=== PATIENT | male | born 1955 | race Caucasian/White ===

== ENCOUNTER 2022-05-20 14:29 | Outpatient (RCR) | payer OTHER, SELFPAY ==
[2022-05-20] MEDS: ACETAMINOPHEN 325 MG TABLET 650 MG PO (15:17)
[2022-05-20] MEDS: FAMOTIDINE 20 MG TABLET PO (15:18)
[2022-05-20] MEDS: diphenhydrAMINE HCl CAP 25 MG CAPSULE PO (15:18)
[2022-05-20 15:22] VITALS: BP 136/62; PULSE 106; TEMP 37.2; O2SAT 97
[2022-05-20] MEDS: BEBTELOVIMAB 175 MG/2 ML VIAL IV PUSH (15:37)
[2022-05-20 16:25] VITALS: BP 126/60; PULSE 97; O2SAT 97
== END 2022-05-20 16:00 ==
LOC: AMCINF 14:29
PROVIDERS: PCP Family Medicine; Referring Provider Family Medicine; Visit Provider Internal Medicine Hematology & Oncology
DX: U07.1 COVID-19 (principal); I10 Essential (primary) hypertension; F89 Unspecified disorder of psychological development
CPT/HCPCS: A9270; M0222; Q0222

== ENCOUNTER 2022-07-14 15:15 | Outpatient (CLI) | payer OTHER, MEDICARE, SELFPAY ==
[2022-07-14 16:09] LABS: Alanine Aminotransferase 11 U/L (6-50); Albumin Level 4.4 g/dL (3.5-5.1); Alkaline Phosphatase 66 U/L (38-126); Anion Gap 12 mmol/L (8-16); Aspartate Amino Transferase 24 U/L (17-59); Bilirubin,Total 0.4 mg/dL (0.2-1.3); Blood Urea Nitrogen 21 mg/dL (9-20); Calcium 9.1 mg/dL (8.4-10.2); Carbon Dioxide 27 mmol/L (22-30); Chloride 100 mmol/L (98-107); Estimated Glomerular Filt Rate > 60; Glucose 141 mg/dL (65-110); Magnesium 2.2 mg/dL (1.6-2.3); Potassium 4.1 mmol/L (3.4-5.0); Sodium 139 mmol/L (137-145)
[2022-07-14 16:22] LABS: D Dimer < 0.27 ug/mL (<0.48)
[2022-07-14 16:51] LABS: Iron 51 ug/dL (49-181)
[2022-07-14 17:10] LABS: Percent Iron Saturation 19 % (20-50)
[2022-07-14 17:43] LABS: Troponin I < 0.012 ng/mL (0.000-0.034)
[2022-07-14 22:28] LABS: Folic Acid > 20.0 ng/mL (2.76->20)
[2022-07-14 23:23] LABS: Creatine Kinase MB 3.6 ng/mL (0.0-2.37)
== END 2022-07-14 15:16 | disposition home or self-care (01) ==
LOC: ANHLAB 15:19
PROVIDERS: PCP Family Medicine; Visit Provider Family Medicine
DX: M62.838 Other muscle spasm (principal); R60.9 Edema, unspecified; R53.1 Weakness
CPT/HCPCS: 36415; 80048; 80076; 82553; 82607; 82728; 82746; 83540; 83550; 83735; 84443; 84484; 85380

== ENCOUNTER 2024-03-19 15:50 | Emergency (ER) | payer OTHER, MEDICARE, SELFPAY ==
--- NOTE | ~2024-03-19 | CT_ITS ---
EXAMINATION: CT cervical spine wo con DATE: 03/19/2024 16:27 INDICATION: Neck injury. Fall. TECHNIQUE: Computed tomography (CT) of the cervical spine was performed without intravenous contrast. Automated exposure control and iterative reconstruction technique were employed. The dose-length pro duct was 495.97 mGy-cm. COMPARISON: None FINDINGS: There is a 1.7 cm subcutaneous mass in the posterior neck, likely a sebaceous cyst. C1 ring is ununited posteriorly, a normal variant. Alignment is normal. There is mildly decreased disc heigh t at C4-C5, severely decreased disc height at C5-C6, and mildly decreased disc height at C6-C7. The f ollowing disc levels are specifically discussed: C2-C3: There is mild bilateral uncovertebral joint osteoarthritis. There is mild bilateral facet join t osteoarthritis. There is no neural foraminal stenosis. There is no central canal stenosis. C3-C4: There is mild bilateral uncovertebral joint osteoarthritis. There is severe bilateral facet donna int osteoarthritis. There is no neural foraminal stenosis. There is no central canal stenosis. C4-C5: There is mild bilateral uncovertebral joint osteoarthritis. There is moderate right and mild l eft facet joint osteoarthritis. There is no neural foraminal stenosis. There is no central canal sten osis. C5-C6: There is severe bilateral uncovertebral joint osteoarthritis. There is mild bilateral facet donna int osteoarthritis. There is mild bilateral neural foraminal stenosis. There is mild central canal st enosis. C6-C7: There is moderate bilateral uncovertebral joint osteoarthritis. There is moderate right and se analia left facet joint osteoarthritis. There is mild left neural foraminal stenosis. There is no centr al canal stenosis. C7-T1: There is no uncovertebral joint osteoarthritis. There is severe bilateral facet joint osteoart hritis. There is no neural foraminal stenosis. There is no central canal stenosis. IMPRESSION: 1. No fracture. 2. Severe cervical spondylosis. Reviewed, dictated and finalized at location A.
--- NOTE | ~2024-03-19 | CT_ITS ---
EXAMINATION: CT brain wo con DATE: 03/19/2024 16:27 INDICATION: Parkinson's disease post fall with unknown head injury. TECHNIQUE: Computed tomography (CT) of the head was performed without intravenous contrast. Sagittal and coronal reconstructions were performed. Automated exposure control and iterative reconstruction t echnique were employed. The dose-length product was 681.00 mGy-cm. COMPARISON: None FINDINGS: No fracture. No acute intracranial hemorrhage, acute infarction or abnormal extra axial fluid collect ion. Ventricles are normal and symmetric. No mass/mass effect. The orbits, paranasal sinuses and mast oid air cells are normal. 1.7 x 1.3 cm subcutaneous nodule posterior to the spinous processes of C2. Incidentally noted likely developmental unfused posterior ring of C1. IMPRESSION: 1. No fracture or acute intracranial process. 2. Indeterminate 1.7 x 1.3 cm subcutaneous nodule posterior to the upper cervical spine. Reviewed, dictated and finalized at location B. IMPRESSION: 1. No fracture or acute intracranial process. 2. Indeterminate 1.7 x 1.3 cm subcutaneous nodule posterior to the upper cervic al spine.
--- NOTE | ~2024-03-19 | XR_ITS ---
EXAMINATION: XR elbow RT min 3V DATE: 03/19/2024 16:38 INDICATION: Right elbow pain. Fall. TECHNIQUE: 4 views of right elbow were obtained. COMPARISON: None. FINDINGS: Bone alignment is normal. No fracture. Joint spaces are normal. There are enthesophytes at medial and lateral humeral epicondyles. No elbow joint effusion. There is soft tissue swelling overly ing the olecranon, consistent with bursitis. IMPRESSION: 1. Olecranon bursitis. Reviewed, dictated and finalized at location A. IMPRESSION: 1. Olecranon bursitis.
--- NOTE | ~2024-03-19 | XR_ITS ---
EXAMINATION: XR elbow LT min 3V DATE: 03/19/2024 16:38 INDICATION: Left elbow pain. Fall. TECHNIQUE: 4 views of left elbow were obtained. COMPARISON: None. FINDINGS: Bone alignment is normal. No fracture. Joint spaces are normal. There are enthesophytes at medial and lateral humeral epicondyles. No elbow joint effusion. IMPRESSION: 1. No fracture. Reviewed, dictated and finalized at location A. IMPRESSION: 1. No fracture.
--- NOTE | ~2024-03-19 | CT_ITS ---
EXAMINATION: CT thoracic spine wo con DATE: 03/19/2024 16:30 INDICATION: Back pain. Fall. TECHNIQUE: Computed tomography (CT) of the thoracic spine was performed without intravenous contrast. Automated exposure control and iterative reconstruction technique were employed. The dose-length pro duct was 976.92 mGy-cm. COMPARISON: None FINDINGS: There is a small sliding hiatal hernia. Calcified right hilar and mediastinal lymph nodes a re consistent with old granulomatous disease. There is 3 degrees dextrocurvature of the thoracic spin e. Vertebral body heights are normal. There are bridging endplate osteophytes from T3-T4 through T9-T 10, consistent with diffuse idiopathic skeletal hyperostosis (DISH). There is multilevel mild facet j oint osteoarthritis. No neural foraminal stenosis or central canal stenosis. IMPRESSION: 1. No fracture. 2. DISH. Reviewed, dictated and finalized at location A. IMPRESSION: 1. No fracture. 2. DISH.
[2024-03-19 16:02] VITALS: BP 142/82; PULSE 90; RESP 18; TEMP 36.2; O2SAT 100
--- NOTE | 2024-03-19 16:07 | ED.FALL ---
HPI - Fall General Chief Complaint: Fall Stated Complaint: fall/ elbow injury Time Seen by Provider: 03/19/24 16:03 Source: patient Mode of arrival: ambulatory Limitations: no limitations History of Present Illness HPI Narrative: Patient is a 68 y/o male, with PMH of Parkinson's Disease, who presents the ED with his with report of a fall. Patient reports he is using his walker when he froze and lost his balance, falling backward. Unsure if he hit his head. denied LOC. Denies any prodromal symptoms prior to the fall. Caught himself with both of his elbows. Complains of pain to bilateral elbows, swelling in the right elbow. Denies dizziness, lightheadedness, headache, vision changes currently. Tetanus unknown. Related Data Allergies Allergy/AdvReac Type Severity Reaction Status Date / Time Sulfa (Sulfonamide Allergy Unknown facial Verified 06/14/22 16:11 Antibiotics) contortions with turning of chin to shoulder Review of Systems Review of Systems: CONSTITUTIONAL: Denies fever, chills, or sweats. MUSCULOSKELETAL: See HPI NEUROLOGIC: See HPI All systems reviewed & are unremarkable except as noted in HPI and below PMFSH Past Medical History Medical History At high risk for falls At moderate risk for fall BMI 28.0-28.9,adult BMI 30.0-30.9,adult Colon cancer screening COVID-19 (~05/16/22) positive home COVID test 05/19/2022. Edema, peripheral Lower extremity with diuresis at night Encounter for prostate cancer screening PSA 0.38 on 01/03/2023. Encounter for wellness examination in adult Fatigue Fungal infection of toenail Insect bite (~06/12/22) left upper inner thigh Muscle spasm Overweight (BMI 25.0-29.9) UTI (urinary tract infection) Weakness generalized Family History Family History Father Diabetes mellitus Family history of cardiovascular disease Sibling Hypertension Grandparent Family history of anemia Family history of renal failure Mother Family history of Alzheimer's disease, Onset Age: 79 Social History Social History Smoking status: Never smoker Alcohol intake: never Substance use: never Substance use type: does not use Lack of Transportation: No Lack of Food: Never True Current Housing: I Have Housing Concerned About Future Housing: No Difficulty Paying Gas/Electric Bills: No Difficulty Paying for Meds: No Currently Unemployed: No Difficulty w/ Childcare or Family Care: No Exam Narrative: GENERAL: Elderly, non-toxic, in no acute distress. HEAD: Normocephalic, atraumatic. RESPIRATORY: Airway patent, respirations nonlabored. CARDIOVASCULAR: Regular rate and rhythm without murmurs, rubs, or gallops. Radial pulses equal bilaterally, easily palpable. MUSCULOSKELETAL: Moves all extremities. No gross deformities. No significant limited range of motion of either elbow joint, small abrasion noted to left olecranon, mildly tender. Right elbow with moderate swelling noted, consistent with bursitis. Ecchymosis present over R olecranon, no wounds. Mild tenderness surrounding swelling. Sensation intact. No significant cervical midline spinal tenderness. Tenderness throughout the midthoracic region, no palpable deformities or bony step-offs. Sensation intact. SKIN: Warm, dry, normal color. NEURO: A&O X3. Speech clear. Cranial nerves II-XII grossly intact. Parkinsonian gait - short shuffling steps. No ataxic movements. PSYCHIATRIC: Appropriate mood and affect. Normal interaction. Course Vital Signs Vital signs: Vital Signs Temperature 97.2 F L 03/19/24 16:02 Pulse Rate 90 03/19/24 16:02 Respiratory Rate 18 03/19/24 16:02 Blood Pressure 142/82 H 03/19/24 16:02 Pulse Oximetry 100 03/19/24 16:02
[2024-03-19] MEDS: TETANUS,DIPHTHERIA,AC PERTUSSIS ADULT (0.5 ML) BOOSTRIX IM (16:52)
[2024-03-19 17:38] VITALS: BP 136/88; PULSE 90; RESP 20; O2SAT 96
== END 2024-03-19 17:41 | disposition home or self-care (01) ==
PROVIDERS: Emergency Provider Physician Assistant; PCP Family Medicine
DX: M70.21 Olecranon bursitis, right elbow (principal); W18.30XA Fall on same level, unspecified, initial encounter; G20.A1 Parkinson's disease without dyskinesia, without mention of fluctuations; Z23 Encounter for immunization
CPT/HCPCS: 70450; 72125; 72128; 73080; 90471; 90715; 99284

== ENCOUNTER 2024-03-30 19:39 | Emergency (ER) | payer OTHER, MEDICARE, SELFPAY ==
[2024-03-30] VITALS (10 sets, daily range): BP systolic 154–178; BP diastolic 89–99; PULSE 82–101; RESP 9–30; TEMP 36.6; O2SAT 95–98
--- NOTE | ~2024-03-30 | XR_ITS ---
EXAMINATION: XR chest 2V DATE: 03/30/2024 20:07 INDICATION: Intermittent shortness of breath with congestion TECHNIQUE: frontal and lateral views of the chest were obtained. COMPARISON: None FINDINGS: Mild left infrahilar opacities with some bronchial wall thickening consistent with bronchitis and pos sibly early pneumonia. No pleural effusion or pneumothorax. Heart size is normal. Calcified mediastin al and right hilar lymph nodes consistent with old granulomatous disease. IMPRESSION: 1. Mild left infrahilar opacities with bronchial wall thickening consistent with bronchitis and possi román early pneumonia. Reviewed, dictated and finalized at location A. IMPRESSION: 1. Mild left infrahilar opacities with bronchial wall thickening consistent wit h bronchitis and possibly early pneumonia.
--- NOTE | 2024-03-30 19:39 | ECG_ITS ---
SEE SCANNED COPY FOR CONFIRMED REPORT MTDD
[2024-03-30 19:57] LABS: Basophils Percent Auto 0.4 % (0.2-1.2); Eosinophils Absolute Auto 0.1 K/mm3 (0-0.3); Eosinophils Percent Auto 1.7 % (0-4.4); Hematocrit 45.7 % (42.0-52.0); Hemoglobin 14.8 g/dL (14.0-18.0); Immature Granulocyte Absolute 0.03 K/mm3 (0.00-0.031); Immature Granulocyte Percent A 0.4 % (0-0.5); Lymphocytes Absolute Auto 1.58 K/mm3 (0.9-3.2); Lymphocytes Percent Auto 21.2 % (18.3-44.2); Mean Corpuscular HGB Conc 32.4 g/dl (32-36); Mean Corpuscular Hemoglobin 29.6 pg (26-34); Mean Corpuscular Volume 91.4 fl (80-100); Mean Platelet Volume 12.4 fl (7.4-10.4); Monocytes Absolute Auto 0.5 K/mm3 (0.1-0.6); Monocytes Percent Auto 6.4 % (2.6-8.5); Neutrophils Absolute Auto 5.2 K/mm3 (1.3-6.7); Neutrophils Percent Auto 69.9 % (45.5-73.1); Platelet Count Result 204 k/mm3 (150-375); Red Cell Distribution Width 12.5 % (11.5-14.5); White Blood Count 7.5 K/mm3 (4.5-10.0)
[2024-03-30 20:07] LABS: Alanine Aminotransferase 9 U/L (6-50); Albumin Level 4.5 g/dL (3.5-5.1); Alkaline Phosphatase 66 U/L (38-126); Anion Gap 9 mmol/L (4-12); Aspartate Amino Transferase 26 U/L (17-59); Bilirubin,Total 0.6 mg/dL (0.2-1.3); Blood Urea Nitrogen 28 mg/dL (9-20); Calcium 9.3 mg/dL (8.4-10.2); Carbon Dioxide 25 mmol/L (22-30); Chloride 105 mmol/L (98-107); Estimated CRCL calculation 65 ml/min; Estimated Glomerular Filt Rate > 60; Glucose 120 mg/dL (65-110); Potassium 4.3 mmol/L (3.4-5.0); Sodium 139 mmol/L (137-145)
--- NOTE | 2024-03-30 21:37 | ED.SOB ---
HPI - SOB/Dyspnea General Chief Complaint: Shortness of Breath/Dyspnea Stated Complaint: difficulty breathing Time Seen by Provider: 03/30/24 20:53 Source: patient Mode of arrival: ambulatory Limitations: no limitations History of Present Illness HPI Narrative: This is a 68-year-old male that presents to the emergency department for shortness of breath. Reports ongoing intermittently for about a month. Reports worsening last couple of days. Does report some congestion and cough. Denies fevers or chest pain. Related Data Allergies Allergy/AdvReac Type Severity Reaction Status Date / Time Sulfa (Sulfonamide Allergy Unknown facial Verified 03/30/24 20:54 Antibiotics) contortions with turning of chin to shoulder Review of Systems Review of Systems: CONSTITUTIONAL: Denies fever CARDIOVASCULAR: Denies chest pain RESPIRATORY: Reports cough and dyspnea. All systems reviewed & are unremarkable except as noted in HPI and below PMFSH Past Medical History Medical History At high risk for falls At moderate risk for fall BMI 28.0-28.9,adult BMI 30.0-30.9,adult Colon cancer screening COVID-19 (~05/16/22) positive home COVID test 05/19/2022. Edema, peripheral Lower extremity with diuresis at night Encounter for prostate cancer screening PSA 0.38 on 01/03/2023. Encounter for wellness examination in adult Fatigue Fungal infection of toenail Insect bite (~06/12/22) left upper inner thigh Muscle spasm Overweight (BMI 25.0-29.9) UTI (urinary tract infection) Weakness generalized Family History Family History Father Diabetes mellitus Family history of cardiovascular disease Sibling Hypertension Grandparent Family history of anemia Family history of renal failure Mother Family history of Alzheimer's disease, Onset Age: 79 Social History Social History Smoking status: Never smoker Alcohol intake: never Substance use: never Substance use type: does not use Lack of Transportation: No Lack of Food: Never True Current Housing: I Have Housing Concerned About Future Housing: No Difficulty Paying Gas/Electric Bills: No Difficulty Paying for Meds: No Currently Unemployed: No Difficulty w/ Childcare or Family Care: No Exam Narrative: GENERAL: Well-appearing, well-nourished, and in no acute distress. HEAD: Normocephalic, atraumatic. EYES: EOMI. ENT: Nares clear, no rhinorrhea or epistaxis. Mucous membranes moist. Oropharynx without tonsillar hypertrophy exudate or other lesions. NECK: Supple. No adenopathy or masses. No JVD CHEST: Clear to auscultation. No respiratory distress. No wheezes rales or rhonchi HEART: Regular rate and rhythm. No murmur heard. Normal peripheral pulses. EXTREMITIES: Normal range of motion. No edema. SKIN: Warm, dry, no rash. NEURO: No focal deficits. Alert and oriented x3. PSYCH: Normal mood and affect Course Course Emergency Course: Patient updated on workup and agrees with plan of care Vital Signs Vital signs: Vital Signs Temperature 97.8 F 03/30/24 19:42 Pulse Rate 101 H 03/30/24 19:42 Respiratory Rate 20 03/30/24 19:42 Blood Pressure 164/89 H 03/30/24 19:42 Pulse Oximetry 97 03/30/24 19:42 Oxygen Delivery Room Air 03/30/24 19:42 Temperature 97.8 F 03/30/24 19:42 Pulse Rate 84 03/30/24 22:46 Respiratory Rate 19 03/30/24 22:46 Blood Pressure 160/97 H 03/30/24 22:46 Pulse Oximetry 97 03/30/24 22:46 Oxygen Delivery Room Air 03/30/24 20:55 MDM - SOB/Dyspnea Lab Data Attestation: I reviewed the patient's lab results. 03/30/24 19:52 03/30/24 19:52 Labs: Lab Results 03/30/24 03/30/24 Range/Units 19:51 19:52 WBC 7.5 (4.5-10.0) K/mm3
[2024-03-30 22:01] LABS: NT Pro B Type Natriuretic Pept 130 pg/mL (19.9-100)
[2024-03-30 23:21] LABS: D Dimer < 0.27 ug/mL (<0.48)
== END 2024-03-31 00:08 | disposition home or self-care (01) ==
PROVIDERS: Emergency Medicine; Emergency Provider Physician Assistant; PCP Family Medicine
DX: J18.9 Pneumonia, unspecified organism (principal)
CPT/HCPCS: 36415; 71046; 80053; 83880; 85025; 85380; 93005; 99284

== ENCOUNTER 2025-02-10 17:32 | Emergency (ER) | payer OTHER, MEDICARE, SELFPAY ==
--- NOTE | ~2025-02-10 | CT_ITS ---
History: Altered mental status PROCEDURE: CT head without contrast. COMPARISON: 03/19/2024 TECHNIQUE: Axial imaging of the head performed from the skull base to the vertex without IV contrast. Sagittal a nd coronal reformations obtained. DLP: 681 mGy-cm FINDINGS: The ventricles are normal in size, shape and position. There is no mass, mass effect or midline shift. There is no abnormal extra-axial fluid collection or intracranial hemorrhage. Visualized paranasal sinuses are clear. The mastoid air cells are well aerated. No acute displaced fractures within the overlying cranium. Impression: No acute intracranial hemorrhage or suspicious mass effect. Reviewed, dictated and finalized at location A. Impression: No acute intracranial hemorrhage or suspicious mass effect.
[2025-02-10 17:41] VITALS: BP 162/100; PULSE 97; RESP 22; TEMP 36.5; O2SAT 100
[2025-02-10 17:44] VITALS: BP 162/100; PULSE 97; RESP 13; O2SAT 99
--- NOTE | 2025-02-10 17:44 | ECG_ITS ---
Test Date: 2025-02-10 17:49:17 Measurements Intervals [place] Rate: 93 P: 43 MO: 183 QRS: -16 QRSD: 89 T: 46 QT: 325 QTc: 406 Interpretive Statements SINUS RHYTHM MINIMAL Q WAVES- HIGH LATERAL LEADS BASELINE ARTIFACT- II, III, AVR, AVF, V4 BORDERLINE ECG No previous ECG available for comparison Electronically Signed On 02-10-2025 20:32:34 CDT by Kayode Jovel D.O.
[2025-02-10 17:46] VITALS: BP 156/92; PULSE 97; RESP 22; O2SAT 98
[2025-02-10 18:03] VITALS: PULSE 96; O2SAT 98
[2025-02-10 18:13] LABS: Basophils Percent Auto 0.3 % (0.2-1.2); Eosinophils Absolute Auto 0.1 K/mm3 (0-0.3); Eosinophils Percent Auto 0.9 % (0-4.4); Hematocrit 48.3 % (42.0-52.0); Hemoglobin 15.4 g/dL (14.0-18.0); Immature Granulocyte Absolute 0.04 K/mm3 (0.00-0.031); Immature Granulocyte Percent A 0.5 % (0-0.5); Lymphocytes Percent Auto 13.8 % (18.3-44.2); Mean Corpuscular HGB Conc 31.9 g/dl (32-36); Mean Corpuscular Hemoglobin 29.2 pg (26-34); Mean Corpuscular Volume 91.5 fl (80-100); Mean Platelet Volume 12.5 fl (7.4-10.4); Monocytes Absolute Auto 0.5 K/mm3 (0.1-0.6); Monocytes Percent Auto 6.8 % (2.6-8.5); Neutrophils Absolute Auto 6.2 K/mm3 (1.3-6.7); Neutrophils Percent Auto 77.7 % (45.5-73.1); Platelet Count Result 210 k/mm3 (150-375); Red Blood Count 5.28 M/mm3 (4.6-6.20); Red Cell Distribution Width 12.7 % (11.5-14.5)
[2025-02-10 18:21] LABS: Add Urine Microscopic? YES; Appearance Urine Clear (Clear); Bacteria Urine None Seen /hpf; Bilirubin Urine Negative (Negative); Blood Urine Negative (Negative); Calcium Oxalate Crystals Urine Present /hpf; Color Urine Yellow (Yellow); Glucose Urine UA Negative (Negative); Ketones Urine 1+ mg/dL (Negative); Leukocyte Esterase Ur Negative LEU/UL (Negative); Mucus Urine Present /lpf; Need Manual Microscopic Reviewed; Nitrate Urine Negative (Negative); Protein Urine 1+ mg/dL (Negative); RBC Urine 0-2 /hpf (0-2); Specific Grav Ur 1.034 (1.001-1.035); Squamous Epithelial Cell Urine Occasional /hpf (Few); WBC Urine 0-5 /hpf (0-3)
[2025-02-10 18:24] LABS: Prothrombin Time 13.3 Seconds (11.1-14.7)
[2025-02-10 18:26] LABS: Lactic Acid Reflex 1.3 mmol/L (0.7-2.0)
[2025-02-10 18:27] LABS: Alanine Aminotransferase 11 U/L (6-50); Albumin Level 4.7 g/dL (3.5-5.1); Alkaline Phosphatase 76 U/L (38-126); Anion Gap 10 mmol/L (4-12); Aspartate Amino Transferase 24 U/L (17-59); Bilirubin,Total 0.6 mg/dL (0.2-1.3); Blood Urea Nitrogen 26 mg/dL (9-20); Calcium 9.6 mg/dL (8.4-10.2); Carbon Dioxide 27 mmol/L (22-30); Chloride 103 mmol/L (98-107); Estimated CRCL calculation 52 ml/min; Estimated Glomerular Filt Rate > 60; Glucose 99 mg/dL (65-110); Sodium 140 mmol/L (137-145)
[2025-02-10 18:46] VITALS: BP 137/91; PULSE 90; RESP 16; O2SAT 96
[2025-02-10 19:16] VITALS: BP 131/87; PULSE 88; RESP 19; O2SAT 95
--- NOTE | 2025-02-10 19:22 | ED.AMS ---
HPI - Altered Mental Status General Chief Complaint: Altered Mental Status Stated Complaint: increased agitation, hx parkinson's Time Seen by Provider: 02/10/25 17:35 Source: patient and family Mode of arrival: wheelchair History of Present Illness HPI narrative: 69-year-old with a history of Parkinson's was brought in by his with a complains of having visual hallucinations for past 1 week. Patient states that he has been seeing things at home. She is concerned whether he may be having urinary tract infection. His she denies any fever or chills no history of headache or chest pain no shortness of breath. No recent change in medication. She states that she follows with a neurologist at [facility] for his Parkinson's. Onset (ago): week(s) (1) Timing confirmed by: spouse Severity: moderate Context: other ([place]) Associated symptoms: denies other symptoms Related Data Allergies Allergy/AdvReac Type Severity Reaction Status Date / Time Sulfa (Sulfonamide Allergy Unknown facial Verified 02/10/25 17:45 Antibiotics) contortions with turning of chin to shoulder Review of Systems Review of Systems: All systems reviewed & are unremarkable except as noted in HPI and below Constitutional: Constitutional: Reports no additional constitutional complaints Eyes: Eyes: Reports no additional eye complaints ENT: Reports system reviewed and no additional complaints, except as documented Cardiovascular: Cardiovascular: Reports no additional cardiovascular complaints Respiratory: Respiratory: Reports no additional respiratory complaints Gastrointestinal: Gastrointestinal: Reports no additional gastrointestinal complaints Genitourinary: Genitourinary: Reports no additional male genitourinary complaints Musculoskeletal: Musculoskeletal: Reports no additional musculoskeletal complaints Neurologic: Reports as per HPI Psychiatric: Psychiatric: Reports no additional psychiatric complaints [facility] Past Medical History Medical History (Updated 02/10/25 @ 19:31 by Malik Zuñiga MD) BMI 27.0-27.9,adult Encounter for wellness examination in adult At high risk for falls Encounter for prostate cancer screening PSA 0.38 on 01/03/2023. PSA 0.49 on 07/20/2024. Muscle spasm Weakness generalized BMI 28.0-28.9,adult Overweight (BMI 25.0-29.9) Insect bite (~06/12/22) left upper inner thigh COVID-19 (~05/16/22) positive home COVID test 05/19/2022. Colon cancer screening At moderate risk for fall BMI 30.0-30.9,adult UTI (urinary tract infection) Fungal infection of toenail Edema, peripheral Lower extremity with diuresis at night Fatigue Family History Family History Father Diabetes mellitus Family history of cardiovascular disease Sibling Hypertension Grandparent Family history of anemia Family history of renal failure Mother Family history of Alzheimer's disease, Onset Age: 79 Social History Social History Smoking status: Never smoker Alcohol intake: never Substance use: never Substance use type: does not use Lack of Transportation: No Lack of Food: Never True Current Housing: I Have Housing Concerned About Future Housing: No Difficulty Paying Gas/Electric Bills: No Difficulty Paying for Meds: No Currently Unemployed: No Difficulty w/ Childcare or Family Care: No Exam Narrative: GENERAL: Well-appearing, well-nourished, and in no acute distress. HEAD: Normocephalic, atraumatic. EYES: PERRLA and EOMI. ENT: Nares clear, no rhinorrhea or epistaxis. Mucous membranes moist. NECK: Supple. CHEST: Clear to auscultation. No respiratory distress. HEART: Regular rate and rhythm. No murmur heard. Normal peripheral pulses. ABDOMEN: Soft, nontender, nondistended, normal active bowel sounds. EXTREMITIES: Normal range of motion. No edema. SKIN: Warm, dry, no rash. NEURO: No focal deficits. Alert and oriented x3. PSYCH: Normal mood and flat affect. Course Course Emergency Course: Patient comfortably resting on the stretcher with no discomfort. Informed him and his about the lab work, CT findings cause of his visual hallucination is definitely not metabolic at this point or infectious recommended them to follow up with the Neurology at [facility]. Meanwhile continue home medications. Vital Signs Vital signs: Vital Signs Temperature 36.5 C 02/10/25 17:41 Pulse Rate 97 02/10/25 17:41 Respiratory Rate 22 H 02/10/25 17:41 Blood Pressure 162/100 H 02/10/25 17:41 Pulse Oximetry 100 02/10/25 17:41 Oxygen Delivery Room Air 02/10/25 17:41 Temperature 36.5 C 02/10/25 17:41 Pulse Rate 96 02/10/25 18:03 Respiratory Rate 22 H 02/10/25 17:41 Blood Pressure 162/100 H 02/10/25 17:41 Pulse Oximetry 98 02/10/25 18:03 Oxygen Delivery Room Air 02/10/25 18:03 MDM - Altered Mental Status Differential Diagnosis Differential diagnosis: Likely altered mental status, dementia, hyponatremia and sepsis Medical Records Attestation: I reviewed the patient's medical records. Lab Data Attestation: I reviewed the patient's lab results. 02/10/25 18:04 02/10/25 18:04 Labs: Lab Results 02/10/25 Range/Units 18:04 WBC 8.0 (4.5-10.0) K/mm3 RBC 5.28 (4.6-6.20) M/mm3 Hgb 15.4 (14.0-18.0) g/dL Hct 48.3 (42.0-52.0) % MCV 91.5 (80-100) fl MCH 29.2 (26-34) pg MCHC 31.9 L (32-36) g/dl RDW 12.7 (11.5-14.5) % Plt Count 210 (150-375) k/mm3 MPV 12.5 H (7.4-10.4) fl Immature Gran % (Auto) 0.5 (0-0.5) % Neut % (Auto) 77.7 H (45.5-73.1) % Lymph % (Auto) 13.8 L (18.3-44.2) % [place] % (Auto) 6.8 (2.6-8.5) % Eos % (Auto) 0.9 (0-4.4) % Baso % (Auto) 0.3 (0.2-1.2) % Lymph # (Auto) 1.10 (0.9-3.2) K/mm3 [place] # (Auto) 0.5 (0.1-0.6) K/mm3 Eos # (Auto) 0.1 (0-0.3) K/mm3 Baso # (Auto) 0.0 (0.0-0.1) K/mm3 Abs Immat Gran (auto) 0.04 H (0.00-0.031) K/mm3 Absolute Neuts (auto) 6.2 (1.3-6.7) K/mm3 Absolute Nucleated RBC 0.000 (0.0-0.012) K/mm3 Nucleated RBC % 0.0 (0.0-0.2) % PT 13.3 (11.1-14.7) Seconds INR 1.0 Sodium 140 (137-145) mmol/L Potassium 4.0 (3.4-5.0) mmol/L Chloride 103 (98-107) mmol/L Carbon Dioxide 27 (22-30) mmol/L Anion Gap 10 (4-12) mmol/L BUN 26 H (9-20) mg/dL Creatinine 1.12 (0.7-1.3) mg/dL Estim Creat Clear Calc 52 ml/min Estimated GFR > 60 (59 - ) Glucose 99 (65-110) mg/dL Lactic Acid 1.3 (0.7-2.0) mmol/L Calcium 9.6 (8.4-10.2) mg/dL Total Bilirubin 0.6 (0.2-1.3) mg/dL AST 24 (17-59) U/L ALT 11 (6-50) U/L Alkaline Phosphatase 76 (38-126) U/L Total Protein 8.0 (6.3-8.2) g/dL Albumin 4.7 (3.5-5.1) g/dL Urine Color Yellow (Yellow) Urine Appearance Clear (Clear) Urine pH 5.0 (5.0-9.0) Ur Specific [place] 1.034 (1.001-1.035) Urine Protein 1+ H (Negative) mg/dL Urine Glucose (UA) Negative (Negative) mg/dL Urine Ketones 1+ H (Negative) mg/dL Ur Blood (Man) Negative (Negative) Urine Nitrate Negative (Negative) Urine Bilirubin Negative (Negative) Urine Urobilinogen 1.0 (<2.0) mg/dL Add Ur Microanalysis Reviewed Leukocyte Esterase Rfl Negative (Negative) MARIA D/UL Urine RBC 0-2 (0-2) /hpf Urine WBC 0-5 (0-3) /hpf Ur Squamous Epith Cells Occasional (Few) /hpf Calcium Oxalate Crystal Present (None) /hpf Urine Bacteria None seen /hpf Urine Casts 6-10 Urine Mucus Present /lpf Imaging Data Radiologist's impression: ITS Impressions Head CT 02/10/25 18:51 Impression: No acute intracranial hemorrhage or suspicious mass effect. ECG Data EKG #1: ECG completion date: 02/10/25 ECG completion time: 17:49 EKG Interpretation: normal rate (93), sinus rhythm, no ectopy, no ST changes, normal QRS, normal QT and no acute changes Discharge Plan Discharge Clinical Impression: Hallucination, visual Patient Disposition: Home, Self-Care Condition: Stable Instructions: Antibiotic Form, Hallucinations (ED) Additional Instructions: Continue home medications, recommend you to follow-up with his neurologist tomorrow for further evaluation and management . Meanwhile continue his home medications feel Patient Language: Armenian Prescriptions: No Action carbidopa-levodopa 10-100 mg tablet 1 tablet PO .COMPLEX Qty: 360 11RF Rx Instructions: 1-2 tablets orally up to 5 times daily; maximum 12 tab daily Follow-up/Referrals: Kamran Rowland MD [Primary Care Provider] - Time of Disposition: 19:31
== END 2025-02-10 20:41 | disposition home or self-care (01) ==
PROVIDERS: Emergency Provider Family Medicine; PCP Family Medicine
DX: R44.1 Visual hallucinations (principal); G20.A1 Parkinson's disease without dyskinesia, without mention of fluctuations; E66.3 Overweight; Z68.27 Body mass index [BMI] 27.0-27.9, adult; Z86.16 Personal history of COVID-19; Z87.440 Personal history of urinary (tract) infections; R94.31 Abnormal electrocardiogram [ECG] [EKG]
CPT/HCPCS: 36415; 70450; 80053; 81001; 83605; 85025; 85610; 87040; 93005; 99284

== ENCOUNTER → 2025-04-24 12:09 | Outpatient (CLI) | payer OTHER, SELFPAY ==
--- NOTE | ~2025-04-24 | XR_ITS ---
XR knee RT min 4V Ordering provider: Mary Ellen Karimi NP History: . M25.561 - Pain in right knee . Comparison: None. FINDINGS: BONES: No acute fracture or dislocation. JOINT SPACES: Moderate narrowing of the medial compartment with marginal slice. Marginal osteophytes in the patella. SOFT TISSUES: Normal. IMPRESSION: No acute osseous abnormality right knee. Severe osteoarthritic changes. Reviewed, dictated and finalized at location A.
--- OUTSIDE RECORDS SUMMARY | 2025-04-24 13:44 | XMS_ITS | Clinical Summary ---
Author Organization [facility] Address [address] [place] [address] Care Team Providers Care Research Greenhouse Supervisor Name Role Phone Kamran Rowland MD Primary Care Provider [phone] Allergies Active Allergy Reactions Criticality Noted Date Comments Sulfa (Sulfonamide Antibiotics) Other (See comments) Low 09/15/2018 Facial contorsion Medications walker miscIndications :Parkinson disease (HCC) Rollator walker 1 each 9 Active carbidopa-levod opa (SINEMET) 10-100 mg per tabletIndicatio ns:Parkinsonism Take 1.5 tablets by mouth 6 (six) times a day 5 03/29/[address] (PROTONIX) 40 mg EC tabletIndicatio ns:GI Bleed Take 1 tablet (40 mg total) by mouth 2 (two) times a day 5 03/29/20 26 Active ramelteon (ROZEREM) 8 mg tabletIndicatio ns:Sleep-Onset Insomnia Take 1 tablet (8 mg total) by mouth nightly as needed for sleep 5 03/29/20 26 Active carbidopa-levod opa (SINEMET) 10-100 mg per tablet 1 tab @ 6am, 1.5 @ 8am, 1 / every 2 hours until 8pm, 1 tab @ 8pm. 5 03/29/20 25 Discontinu ed(Stop Taking at Discharge) ARIPiprazole (ABILIFY) 2 mg tablet Take 1 tablet (2 mg total) by mouth every morning 5 03/29/20 25 Discontinu ed(Stop Taking at Discharge) ALPRAZolam (XANAX) 0.25 mg tablet TAKE 1/2 TABLET BY MOUTH TWICE DAILY NEEDED FOR ANXIETY 5 03/29/20 25 Discontinu ed(Stop Taking at Discharge) Active Problems Problem Noted Date Diagnosed Date Fever 03/22/2025 Assessment & Plan (03/24/2025 12:36 PM CDT): The patient is a 69 y.o. male with PMH of Parkinson's, bipolar disorder, who presented with AMS. Patient was admitted on 03/01 from movement clinic due to worsening encephalopathy, hallucinations in the setting of an increase in sinemet. About 1 week after admission he developed catatonic features evaluated by psych and was eventually transferred to ICU on 03/14 due to hypoxic respiratory failure due to aspiration from emesis in the setting of ileus vs partial SBO. He was intubated until 03/17 and required pressors. He completed antibiotic course with ceftriaxone from 03/14-03/20 due to episode of fever and leukocytosis for aspiration pneumonia. Infectious work up was otherwise negative. He had SBFT placed by IR on 03/18. He had CVC removed on 03/19. Since 03/21 he started having episodes of fever up to 39.2 today. Noted to have frequent watery BM. Labs with mild leukocytosis 11 neutrophilia, CMP without acute abnormalities. Blood culture 03/22 NGTD, UA without pyuria, Cdiff negative. CXR 03/21 showed no change in upper lobe predominant interstitial opacities with slight improved airspace opacification in LL apex. Remains on room air. He was started on empiric vanc and cefepime. RVP negative. Etiology of fevers remains unclear, infectious work up so far negative. Difficult to obtain history from patient but no apparent localizing symptoms except SOB in the setting of recent aspiration. Recent CVC was removed no local signs of infection. It is possible continuous aspiration or atelectasis could also be a cause. Considering drug induced fever but no obvious culprits, no rash or eosinophilia. CT CAP showed persistent aspiration changes in both lungs with confluent consolidation in COLLIN, improvement in RUL and increased in RLL, improvement of bowel obstruction, new peripancreatic fat stranding. Sputum culture contaminated. Recommendations: - would stop vanc and cefepime - transition to unasyn IV 3g q6h - aspiration management and precautions per primary team - will continue to follow Severe malnutrition 03/11/2025 Catatonia 03/01/2025 Assessment & Plan (03/13/2025 9:15 AM CDT): Do not believe that patient is experiencing psychosis at this time, thought process is linear and goal directed. Additionally, eating better, continues to improve. Patient seems to understand potential ECT treatment, risks and benefits, believe that he is consentable. Will opt for voluntary ECT treatment at this time. Consulted IPAP. Continue medications as is - will discontinue ativan prior to ECT. Will continue quetiapine, as patient's adverse effects (nightmares, worsening psychosis) are not associated with quetiapine, more likely to be related to sinemet psychosis vs progressive dementia leading to psychosis. More likely that patient is experiencing psychosis related to sinemet administration as he is not actively psychotic at this time. - Ativan 2 mg TID, with plan to discontinue if initiating ECT. - Quetiapine 25 mg - I/Os - IPAP consult. Melena 03/01/2025 Psychosis 02/19/2025 Parkinson disease 09/23/2018 Assessment & Plan (03/13/2025 9:14 AM CDT): Neurology evaluated, recommended increasing sinemet dose. Will observe patient response - if substantial improvement, will opt not to initiate ECT. - Continue sinemet 25/100 1.5 tabs Q3h while awake Assessment & Plan (03/01/2025 4:38 PM CDT): He has stage 2.5 parkinsonism, probable idiopathic PD. He has a combination of asymmetric bradykinesia and rigidity, plus impaired postural reflexes, consistent with idiopathic PD. There have not been additional features to indicate other causes of parkinsonism. His symptoms partially improved with sinemet, but he had difficult with side effects when he started taking sinemet 10/100 1 tab TID. He also was not able to tolerate a slow titration with sinemet 25/100 because of atypical side effects. His symptoms improved significantly after he titrated dose to 6 tabs per day and completed PT in the past. He previously had significant worsening of PD symptoms in the setting of a UTI but returned to his baseline after the UTI was treated. Most recently he has been experiencing reportedly acute-onset insomnia and psychosis beginning now 6 weeks ago manifest as suspicious thinking, delusions, hallucinations and episodes of reduced awareness/inattentiveness and confusion along with insomnia. Previously his related that the psychosis was predominately nocturnally whereas fluctuations in mental status are noticed any time of day. There was no reported prodrome of infectious symptoms or health changes generally, nor changes to his medications leading up to the symptoms beginning 6 weeks ago. Thus far reversible encephalopathy work-up was unrevealing (UA, UDS, ethanol, RPR, HIV, B1 in process, B12, MMA in process, CK, CMP, CBC, TSH, folate was hemolyzed). Recent CT at OSH with what appears to be some frontal predominance of atrophy but otherwise unremarkable. His motor exam at last clinic visit was non-focal though has bradykinesia worse compared to October 2024, some symmetric hyperreflexia without clonus, and saccadic intrusions.I do currently suspect he has had more gradual cognitive impairment leading up to this that was not appreciated since he's retired, has limited social interactions, and his has been handling finances for over a decade due to long-standing history of mismanagement and she has always handled appointments. He stopped driving 2 years ago. We should perform neuropsychological testing but only once psychosis has improved and sleep is better. Complicating this presentation, he does have reported history of bipolar diagnosed his teens during which he presented with insomnia, hypervigilance, delusions, and hallucinations necessitating hospitalization. Per his family's report there has not been recurrence of these symptoms for at least 12 years. His current presentation of encephalopathy and psychosis may have been preceded by sleep disturbance though no clear distinct timeline. In many ways, what he is experiencing currently reminds his of his experiences in his 20s and 30s. At last visit, we had referred him to Dr. Min Terrazas, our psychiatry colleague, to help discern whether there is some overlap with his bipolar diagnosis and current presentation. Given his resistance to trialing medications generally, we first tried to omit his bedtime dose of overnight psychosis and this may have been helpful however his then abruptly stopped his levodopa which has resulted in marked decline in mobility though did help with psychosis per his . We discussed that changes to levodopa need to be slow and gradual rather than abrupt cessation and would at least ensure he's taking at least C/L 25/100 mg IR 1/2 tab TID then can titrate as tolerated. Currently I suspect this encephalopathy and psychosis is multifactorial in setting of advanced stage PD with suspected cognitive impairment and sleep disturbance now with component of delirium. His toxic-metabolic work-up was unrevealing thus far. I do think there may now be some delirium due to insufficient sleep contributing to his fluctuating mental status. There have been multiple medical changes made in the last week and ultimately we believe that clozapine would be the best antipsychotic at this juncture to utilize. Though they have been reluctant to trial this, his is open to the idea at this time. His PCP prescribed aripiprazole and alprazolam this week (with three doses of aripiprazole given and one dose of alprazolam) which we would not recommend in his case with the goal to avoid dopamine-blocking agent and benzodiazepines. During the telemedicine visit today he was non-verbal and minimally interactive with eyes open then closed at times. It would be reasonable to obtain EEG to rule out subclinical seizures though this is not high on the differential. Given his 's report of poor PO intake and changes in urine output/discoloration along with his mental status on the call, I am concerned he may be dehydrated. Further, his is very tearful and overwhelmed. She is struggling to mobilize him within and outside of the home. Ultimately I advised having him evaluated in the ED to rule out electrolyte derangements and admission to neurology to initiate clozapine. Given history of medication sensitivity, could start with low dose 6.25 mg nightly. If after evaluation in ED and neurology evaluation his wishes to take him home instead of admission and is comfortable doing so, we could continue and titrate clozapine as outpatient. I do not suspect his mental status as of today would be conducive to psychiatric evaluation though if he were admitted and encephalopathy improved, could consider this if possible in the inpatient setting. Recommendations: Continue carbidopa-levodopa 25/100 mg at least 1/2 tab TID for now (he had abruptly stopped this and was previously taking as: 1 tab @ 6am, 1.5 @ 8am, 1 1/4 tabs every 2 hours until 8 pm, then 1 tab @ 8pm. Taking doses at [id number] (8 doses/day) Would recommend stopping aripiprazole and instead utilizing clozapine to treat psychosis - would normally start clozapine at 12.5 mg nightly but given his history of medication sensitivity could start with 6.25 mg nightly Will benefit from home OT, ST, PT, and social work in outpatient setting upon discharge. Will need home health initially for lab draws for clozapine. Given Mr. Arita's mental status and poor PO intake with urinary changes on telemedicine visit today, I recommended ED evaluation for encephalopathy, evaluation of potential dehydration and consideration of direct admission to general neurology for initiation and titration of clozapine for psychosis. I advised his to call EMS and have Mr. Arita transported to [facility] ED as she cannot safely transport him herself. I discussed the plan for ED presentation and anticipatory admission with Dr. Lugo who agrees. I contacted ED triage, neuro consult resident, and General Neurology Chief resident to make them aware of patients impending arrival and history of present illness. Assessment & Plan (02/19/2025 9:54 PM CDT): He has stage 2.5 parkinsonism, probable idiopathic PD. He has a combination of asymmetric bradykinesia and rigidity, plus impaired postural reflexes, consistent with idiopathic PD. There have not been additional features to indicate other causes of parkinsonism. His symptoms partially improved with sinemet, but he had difficult with side effects when he started taking sinemet 10/100 1 tab TID. He also was not able to tolerate a slow titration with sinemet 25/100 because of atypical side effects. His symptoms improved significantly after he titrated dose to 6 tabs per day and completed PT in the past. He previously had significant worsening of PD symptoms in the setting of a UTI but returned to his baseline after the UTI was treated. Most recently he has been experiencing reportedly acute-onset insomnia and psychosis beginning now 4-5 weeks ago (was 3-4 weeks ago reportedly at last week's visit) manifest as suspicious thinking, delusions, hallucinations and episodes of reduced awareness/inattentiveness and confusion along with insomnia. His now relates that most of the psychosis itself seems to occur in the evenings and overnight whereas the fluctuations in mental status are noticed any time of day. There was no reported prodrome of infectious symptoms or health changes generally, nor changes to his medications. Thus far reversible encephalopathy work-up was unrevealing (UA, UDS, ethanol, RPR, HIV, B1 in process, B12, MMA in process, CK, CMP, CBC, TSH, folate was hemolyzed). Recent CT at OSH with what appears to be some frontal predominance of atrophy but otherwise unremarkable. His motor exam was non-focal though has bradykinesia worse compared to October 2024, some symmetric hyperreflexia without clonus, and saccadic intrusions.I do currently suspect he has had more gradual cognitive impairment leading up to this that was not appreciated since he's retired, has limited social interactions, and his has been handling finances for over a decade due to long-standing history of mismanagement and she has always handled appointments. He stopped driving 2 years ago. We should perform neuropsychological testing but only once psychosis has improved and sleep is better. Complicating this presentation, he does have reported history of bipolar diagnosed his teens during which he presented with insomnia, hypervigilance, delusions, and hallucinations necessitating hospitalization. Per his family's report there has not been recurrence of these symptoms for at least 12 years. His current presentation of encephalopathy and psychosis may have been preceded by sleep disturbance though no clear distinct timeline. In many ways, what he is experiencing currently reminds his of his experiences in his 20s and 30s. Ultimately I suspect this encephalopathy and psychosis is multifactorial in setting of advanced stage PD with suspected cognitive impairment and sleep disturbance now with component of delirium. His toxic-metabolic work-up was unrevealing thus far. I do think there may now be some delirium due to insufficient sleep contributing to his fluctuating mental status. Should these episodes persist despite improving his sleep, then will pursue ambulatory 24-hr EEG to rule out subclinical seizures. We discussed that I do think it may be helpful for him to also see Dr. Min Terrazas, our psychiatry colleague, to help discern whether there is some overlap with his bipolar diagnosis and current presentation. Given his resistance to trialing medications generally, we will try to omit his bedtime dose of levodopa to see if this is helpful for the overnight psychosis and then can attempt to space his levodopa daytime doses further apart as there is no clear wearing off phenomenon. We can monitor for sacrifice of motor benefit. He is willing to take melatonin as they consider it a natural medication and I recommended taking it consistently, scheduling it and trialing 3 mg. If the above strategies are unsuccessful or psychosis should worsen, I would revisit the quetiapine trial as only two doses were given and he slept well for several hours. It is not clear that the perceived worsening psychosis the nights after the doses was causation versus correlation as the reason the medication was started was because of already escalating psychosis. We could alternatively consider pimavanserin though this would not work quickly and I do not anticipate they will be agreeable to clozapine (being another antipsychotic and requiring labs). Could also consider rivastigmine. Should there be more clear overlap of bipolar disorder, could trial valproate. I would not pursue the subcutaneous levodopa pump at this time as he does not currently endorse motor fluctuations and not in the setting of new, active psychosis. His also continues to work full-time and I believe his cognition precludes him at this time from manipulating the device reliably. We have already discussed that he should not left unsupervised home alone and encouraged his to look into [facility], in-home care for supervision or adult day care if possible. There are no weapons reportedly in the home. Recommendations: Stop 8 pm dose of carbidopa-levodopa For now, no further change to the other C/L doses though may consider reducing dose frequency or amount per dose to help with behaviors Continue melatonin but trial 3 mg nightly Referral to Dr. Terrazas for consideration of overlapping bipolar disorder Follow-up in clinic in 1 month, sooner prn (will ask scheduling to look for earlier appointment with Dr. Lugo than July and will schedule with me if nothing available) His will update us in 1 week, sooner prn Will recommend occupational therapy, speech therapy, and physical therapy at next visit and can decide on location accordingly Assessment & Plan (02/15/2025 6:17 AM CDT): He has stage 2.5 parkinsonism, probable idiopathic PD. He has a combination of asymmetric bradykinesia and rigidity, plus impaired postural reflexes, consistent with idiopathic PD. There have not been additional features to indicate other causes of parkinsonism. His symptoms partially improved with sinemet, but he had difficult with side effects when he started taking sinemet 10/100 1 tab TID. He also was not able to tolerate a slow titration with sinemet 25/100 because of atypical side effects. His symptoms improved significantly after he titrated dose to 6 tabs per day and completed PT in the past. He previously had significant worsening of PD symptoms in the setting of a UTI but returned to his baseline after the UTI was treated. Today he presented with chief complaint of new psychosis manifest as approximately 3-4 weeks of new suspicious thinking, delusions, hallucinations and episodes of reduced awareness/inattentiveness and confusion. I cannot see the [facility] records (labs, CT reportedly unrevealing). We should rule out toxic-metabolic/reversible causes of encephalopathy/acute psychosis and I advised laboratory investigation today (CMP, CBC with diff, UA, B1, B12, MMA, folate, TSH reflex, HIV, RPR) though he declined as he had labs done on Tuesday. We will request records to see what has been performed though I advised should he worsen, it would be best for him to be seen at [facility] ED so that neurology can be consulted accordingly. His motor exam is non-focal though has bradykinesia that is worse, some symmetric hyperreflexia without clonus, and saccadic intrusions. No new meds/illnesses. He does have history of bipolar in his teens presenting with delusions though has been stable off meds reportedly for 14 years. I do currently suspect he has had more gradual cognitive impairment leading up to this that was not appreciated since he's retired, has limited social interactions, and his has been handling finances for over a decade due to long-standing history of mismanagement and she has always handled appointments. He stopped driving 2 years ago. He agreed to trial of low-dose quetiapine (12.5 mg nightly) and I asked he come back next week for close follow-up and hopefully by then we can get the [facility] records. If needed, quetiapine can be titrated further though he and his family are reluctant to trial medication and note historically has been sensitive to various medications. Can re-evaluate based on ongoing history/response whether to pursue further rapidly progressive dementia work-up though at this juncture we suspect there has been some gradual cognitive impairment that was not previously appreciated. He has had UTIs in the past with worsening of motor symptoms though family indicates this was negative on recent check. At last visit (not discussed today) Dr. Lugo previously discussed option of myrbetriq for overactive bladder and his PCP has offered a referral to urology, but Mr. Arita felt it was previously manageable; subcutaneous levodopa pump reviewed as an option that would improve his difficulty with fluctuations and he would be interested when it is available for coverage by Medicare (though would not offer this currently in setting of psychosis), and medication option for anxiety, such as mirtazapine which would also help for sleep, but Mr. Airta preferred to hold off. Recommendations: Start quetiapine 12.5 mg nightly and can increase as needed/tolerated to 25 mg nightly for psychosis Continue current carbidopa-levodopa dosing though may need to decrease this if psychosis escalates or does not respond to quetiapine Will request OSH records for review Discussed that he should not e left unsupervised home alone and encouraged his to look into [facility], in-home care for supervision or adult day care if possible Will recommend occupational therapy, speech therapy, and physical therapy at next visit and can decide on location accordingly Follow-up in 1 week Assessment & Plan (10/16/2024 4:09 PM INDUSTRIAL/ORGANIZATIONAL PSYCHOLOGIST): He has stage 2.5 parkinsonism, probable idiopathic PD. He has a combination of asymmetric bradykinesia and rigidity, plus impaired postural reflexes, consistent with idiopathic PD. There are no additional features to indicate other causes of parkinsonism. His symptoms partially imrproved with sinemet, but he had difficult with side effects when he started taking sinemet 10/100 1 tab tid. He also was not able to tolerate a slow titration with sinemet 25/100 because of atypical side effects. His symptoms improved significantly after he titrated dose to 6 tabs per day and completed PT. He previously had significant worsening of PD symptoms in the setting of a UTI but returned to his baseline after the UTI was treated. He continues to have good response to sinemet but has motor fluctuations despite dosing every 2 hours. Start 1:00 pm End 1:49 pm. Total time 52 min. Recommendations 1. Continue sinemet. I discussed that he can try gradually increasing his dose beyond 11 tabs/day if needed. 2. I encouraged regular exercise and walking. 3. I Previously discussed the option of a medication such as myrbetriq for overactive bladder and his PCP has offered a referral to urology, but he feels it is manageable at this time. 4. I discussed the subcutaneous levodopa pump as anoption that would improve his difficulty with fluctuations and he would be interested when it is available for coverage by Medicare. 5. I discussed medication option for anxiety, such as mirtazapine which would also help for sleep, but he prefers to hold off on adding medication for now. I have established and will maintain a relationship with him to longitudinally manage his chronic neurologic movement disorder. Assessment & Plan (03/17/2024 5:16 PM CDT): He has stage 2.5 parkinsonism, probable idiopathic PD. He has a combination of asymmetric bradykinesia and rigidity, plus impaired postural reflexes, consistent with idiopathic PD. There are no additional features to indicate other causes of parkinsonism. His symptoms partially imrproved with sinemet, but he had difficult with side effects when he started taking sinemet 10/100 1 tab tid. He also was not able to tolerate a slow titration with sinemet 25/100 because of atypical side effects. His symptoms improved significantly after he titrated dose to 6 tabs per day and completed PT. He previously had significant worsening of PD symptoms in the setting of a UTI but returned to his baseline after the UTI was treated. Start 11:16 am End 12:15 pm. Total time 62 min. Recommendations 1. Continue sinemet. I discussed that he can try gradually increasing his dose beyond 10.5 tabs/day, with the goal of better movement and walking throughout the day. He is comfortable trying small increases of 0.25 tabs at some doses to minimize side effects. 2. I encouraged regular exercise and walking. 3. I again discussed the option of a medication such as myrbetriq for overactive bladder. LE edema is also contributing to urinary frequency at night which he has previously discussed with his PCP. He has an appt in 1-2 weeks with his PCP and will discuss options. It may also be helpful to see a urologist. 4. I discussed the subcutaneous levodopa pump as a potential future option that would improve his difficulty with fluctuations. I have established and will maintain a relationship with him to longitudinally manage his chronic neurologic movement disorder. 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 He has a combination of asymmetric bradykinesia and rigidity, plus impaired postural reflexes, consistent with idiopathic PD. There are no additional features to indicate other causes of parkinsonism. His symptoms partially imrproved with sinemet, but he had difficult with side effects when he started taking sinemet 10/100 1 tab tid. He also was not able to tolerate a slow titration with sinemet 25/100 because of atypical side effects. His symptoms improved significantly after he titrated dose to 6 tabs per day and completed PT. He previously had significant worsening of PD symptoms in the setting of a UTI but returned to his baseline after the UTI was treated. Start 9:15 am End 10:04 am. Total time 52 min. Recommendations 1. Continue sinemet. I discussed that he should try gradually increasing his dose beyond 8 tabs/day, with the goal of better movement and walking throughout the day. He is comfortable trying increases of 0.25 -0.5 tabs with alternating doses to minimize side effects. 2. I encouraged regular exercise and walking. 3. I discussed the option of a medication such as myrbetriq for overactive bladder. LE edema is also contributing to urinary frequency at night which he has previously discussed with his PCP. He has an appt in 1-2 weeks with his PCP and will discuss options. 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 He has a combination of asymmetric bradykinesia and rigidity, plus impaired postural reflexes, consistent with idiopathic PD. There are no additional features to indicate other causes of parkinsonism. His symptoms partially imrproved with sinemet, but he had difficult with side effects when he started taking sinemet 10/100 1 tab tid. He also was not able to tolerate a slow titration with sinemet 25/100 because of atypical side effects. His symptoms improved significantly after he titrated dose to 6 tabs per day and completed PT. He previously had significant worsening of PD symptoms in the setting of a UTI but returned to his baseline after the UTI was treated. Start 4:25 pm End 5:15 pm. Total time 57 min. Recommendations 1. Continue sinemet. I discussed that he can increase dose beyond 8 tabs/day if needed in the future. He is happy with the way he is walking and moving currently. 2. I encouraged regular exercise and walking. 3. I discussed the option of a medication such as myrbetriq for overactive bladder but he does not feel it is needed at this point. 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 He has a combination of asymmetric bradykinesia and rigidity, plus impaired postural reflexes, consistent with idiopathic PD. There are no additional features to indicate other causes of parkinsonism. His symptoms partially imrproved with sinemet, but he had difficult with side effects when he started taking sinemet 10/100 1 tab tid. He also was not able to tolerate a slow titration with sinemet 25/100 because of atypical side effects. His symptoms improved significantly after he titrated dose to 6 tabs per day and completed PT. He had worsening of PD symptoms 1year ago in the setting of a UTI but returned to his baseline after the UTI was treated. Start 3:45pm End 4:25pm. Total time 46 min. Recommendations 1. Continue sinemet. I discussed that he can increase dose beyond 8 tabs/day if needed in the future. He is happy with the way he is walking and moving currently. 2. I encouraged regular exercise and walking, including exercises provided by PT that include standing up from a chair without using his arms. 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 He has a combination of asymmetric bradykinesia and rigidity, plus impaired postural reflexes, consistent with idiopathic PD. There are no additional features to indicate other causes of parkinsonism. His symptoms partially imrproved with sinemet, but he had difficult with side effects when he started taking sinemet 10/100 1 tab tid. He also was not able to tolerate a slow titration with sinemet 25/100 because of atypical side effects. His symptoms improved significantly after he titrated dose to 6 tabs per day and completed PT. He had worsening of PD symptoms 6 months ago in the setting of a UTI but is now back to his previous baseline after the UTI was treated. Start 3:40pm. End 4:18pm. Total time 32 min. Recommendations 1. Continue sinemet. I discussed that he can increase dose beyond 6 tabs/day if needed in the future but he is happy with the way he is walking and moving currently. 2. I encouraged regular exercise and walking. 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 He has a combination of asymmetric bradykinesia and rigidity, plus impaired postural reflexes, consistent with idiopathic PD. There are no additional features to indicate other causes of parkinsonism. His symptoms partially imrproved with sinemet, but he had difficult with side effects when he started taking sinemet 10/100 1 tab tid. He also was not able to tolerate a slow titration with sinemet 25/100 because of atypical side effects. His symptoms improved significantly after he titrated dose to 6 tabs per day and completed PT, but he had a somewhat acute decline starting 3 weeks ago for unclear reasons. I discussed that infection or metabolic issue could be a factor in this recent decline and he has an appointment with his PCP. He also has not been sleeping well at night due to frequent urination every hour and has noticed increased edema in his legs. He will see his PCP in 5 days to discuss these issues. Recommendations 1. Continue sinemet. He can increase dose beyond 6 tabs/day as tolerated up to 7.5 tabs/day 2. Refer to APDA 3. Home OT eval 4. Send a referral for PT to [facility], same location as 06/12/20 referral. 5. Regular exercise and walking. 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 He has a combination of asymmetric bradykinesia and rigidity, plus impaired postural reflexes, consistent with idiopathic PD. There are no additional features to indicate other causes of parkinsonism. His symptoms partially imrproved with sinemet, but he had difficult with side effects when he started taking sinemet 10/100 1 tab tid. He also was not able to tolerate a slow titration with sinemet 25/100 because of atypical side effects. He is currently only taking sinemet approximately 0.66 tab tid (sinemet 10/100) and remains substantially limited by motor symptoms and would benefit from further titration of his dose. Recommendations 1. Titrate sinemet as tolerated up to 2 tabs tid. I recommended changing to a 6am, 12pm, 6pm schedule (with meals). I stressed the potential benefit from increasing his sinemet dose. 2. I recommended a rollator walker to prevent falls and provided a script. 3. Send new referral to PT 4. Regular exercise and walking. 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 He has a combination of asymmetric bradykinesia and rigidity, plus impaired postural reflexes, consistent with idiopathic PD. There are no additional features to indicate other causes of parkinsonism. His symptoms partially imrproved with sinemet, but he had difficult with side effects when he started taking sinemet 10/100 1 tab tid. He also was not able to tolerate a slow titration with sinemet 25/100 because of atypical side effects. He is currently only taking sinemet approximately 0.66 tab tid (sinemet 10/100) and remains substantially limited by motor symptoms and would benefit from further titration of his dose. Recommendations 1. Titrate sinemet as tolerated up to 2 tabs tid. I recommended changing to a 6am, 12pm, 6pm schedule (with meals). I stressed the potential benefit from increasing his sinemet dose. 2. I recommended a rollator walker to prevent falls and provided a script. 3. PT 4. Regular exercise and walking. Resolved Problems Problem Noted Date Diagnosed Date Resolved Date Severe malnutrition 03/03/2025 03/11/20 25 Encounters Date Type Department Care Team Description 5 12:58 PM CDT - 5 11:59 PM CDT Hospital Encounter [facility] Radiology [address] [place] [address] Discharge Disposition: Discharge to home or self care 5 10:16 AM CDT Anesthesia Event [facility] Digestive Disease Center [address] [place] [phone] Keagan Tripp MD 5 9:50 AM CDT - 5 10:40 AM CDT Surgery [facility] [address] [place] [address] Odalis Zheng MD ESOPHAGOGASTRODUODENOSCOPY CONTROL BLEED 5 10:08 AM CDT Anesthesia Event [facility] [address] [place] [address] Stefanieyehudaantoinette Catrina Liir, MANUELA 5 1:45 PM CDT - 5 11:59 PM CDT Hospital Encounter [facility] Radiology [address] [place] [address] Discharge Disposition: Discharge to home or self care 5 3:31 PM CDT Anesthesia Event [address] [phone] Andria Lopez NP 5 Documentation [facility] Movement Disorders [address] [facility] Advanced Medicine 6th [place] [address] [place] [id number] Chante Park CMA 5 Orders Only [facility] Movement Disorders [address] [facility] 6th [place] [address] [place] [address] Hannah Cope, MANUELA Parkinson's disease with dyskinesia and fluctuating manifestations (HCC) (Primary Dx) 5 Results Follow-Up [facility] Emergency Department [address] [place] [address] Ricardo Negrete RN CBC with auto differential, Comprehensive metabolic panel, Urinalysis reflex to microscopic and culture Urine, Additional followed-up results: 3 5 4:46 PM CDT - 5 4:49 PM CDT Hospital Encounter [facility] [address] [place] [phone] Jessee Cagle MD Perez, Chauncey Simeon MD PhD John Kellogg MD Varadhachary, Mark Wright MD PhD Todd, MD Trae Ferreira, MD Lety Suarez, Joslyn PatriziaMD Horacio Joshua David, MD Catatonia (Primary Dx); Parkinson's disease with dyskinesia and fluctuating manifestations (HCC); Psychosis, 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 Home Care Services [address] [place] [address] [address] [place] [address] Renée Rhoades 5 1:30 PM CDT Office Visit [facility] Movement Disorders [address] [place] [address] Advanced Medicine [address] [place] [phone] Hannah Cope NP Psychosis, unspecified psychosis type (HCC) (Primary Dx); Parkinson's disease, unspecified whether dyskinesia present, unspecified whether manifestations fluctuate (HCC) 5 8:40 AM CDT - 5 12:12 PM CDT Emergency [facility] Emergency Department [address] [place] [address] Dora Alcaraz MD Transient alteration of awareness (Primary Dx); Parkinson's disease without fluctuating manifestations, unspecified whether dyskinesia present (HCC) Discharge Disposition: Discharge to home or self care 5 8:18 AM CDT - 5 11:59 PM CDT Hospital Encounter [facility] [address] [place] [phone] Discharge Disposition: Discharge to home or self care 5 Telephone [facility] Movement Disorders [address] [place] [address] Advanced Medicine [address] [place] [phone] Zander Lugo MD PhD 5 Documentation [facility] Movement Disorders [address] [place] [phone] Teja Guerra ESTEBANAntoinette 5 9:30 AM CDT Office Visit [facility] Movement Disorders [address] [place] [phone] Hannah Cope NP Psychosis, unspecified psychosis type (HCC) (Primary Dx); Parkinson's disease with dyskinesia and fluctuating manifestations (HCC) 5 Telephone [facility] Movement Disorders [address] [place] [phone] Zander Lugo MD PhD 5 Telephone [facility] Movement Disorders [address] [place] [phone] Eunice Lima RN from Last 3 Months Surgical History Surgery Date Site/Laterality Comments GANGLION CYST EXCISION 11/07/1971 - 11/06/1972 Right Medical History Medical History Date Comments Bipolar disease, chronic (HCC) 1971 Severe malnutrition (CMS/HCC) 03/03/2025 Family History Medical History Relation Name Comments Diabetes Father John Heart disease Father John Alzheimer's disease Mother Vera Relation Name Status Comments Brother 1 Jessee Alive Brother 2 Tee Alive Father John Mother Vera Social History Tobacco Use Types Packs/Day Years Used Date Smoking Tobacco: Former Smokeless Tobacco: Never Tobacco Cessation:Counseling Given: Not Answered [facility] Utilities Answer Date Recorded In the past 12 months has [facility] [employer] gas, oil, or water Torrential threatened to shut off services in your home? No 03/28/2025 Humiliation, Afraid, Rape, a nd Kick questionnaire Answer Date Recorded Within the last year, have y ou been afraid of your partner or ex-partner? Patient unable to answer 03/10/2025 Within the last year, have y ou been humiliated or emotionally abused in other ways by your partner or ex-partner? Patient unable to answer 03/10/2025 Within the last year, have y ou been kicked, hit, slapped, or otherwise physically hurt by your partner or ex-partner? Patient unable to answer 03/10/2025 Within the last year, have y ou been raped or forced to have any kind of sexual activity by your partner or ex-partner? Patient unable to answer 03/10/2025 Social Connection and Isolation Panel [NHANES] A nswer Date Recorded In a typical week, how many times do you talk on the phone with family, friends, or neighbors? Twice a week 03/28/2025 How often do you get together with friends or re latives? Twice a week 03/28/2025 How often do you attend episcopalian or congregation serv ices? Never 03/28/2025 Do you belong to any clubs o r organizations such as episcopalian groups, unions, fraternal or athletic groups, or school groups? No 03/28/2025 How often do you attend meet ings of the clubs or organizations you belong to? Never 03/28/2025 Are you , , di vorced, , never , or living with a partner? 03/28/2025 AUDIT-C Answer Date Recorded Q1: How often do you have a drink containing alcohol? Never 03/25/2025 Q2: How many drinks containi ng alcohol do you have on a typical day when you are drinking? Patient does not drink Q3: How often do you have si x or more drinks on one occasion? Never 03/25/2025 Overall Financial Resource Strain (CARDIA) Answe r Date Recorded How hard is it for you to pa y for the very basics like food, housing, medical care, and heating? Not very hard 03/28/2025 PHQ-2 Answer Date Recorded PHQ-2 Total Score 0 03/28/2025 [facility] [place] [facility] Occupat ional Health - Occupational Stress Questionnaire Answer Date Recorded Do you feel stress - tense, restless, nervous, or anxious, or unable to sleep at night because your mind is troubled all the time - these days? Patient unable to answer 03/10/2025 Exercise Vital Sign Answer Date Recorde d On average, how many days pe r week do you engage in moderate to strenuous exercise (like a brisk walk)? 0 days 03/10/2025 On average, how many minutes do you engage in exercise at this level? 0 min 03/10/2025 Hunger Vital Sign Answer Date Recorded Within the past 12 months, y ou worried that your food would run out before you got the money to buy more. Never true 03/28/20 25 Within the past 12 months, t he food you bought just didn't last and you didn't have money to get more. Never true 03/28/2025 PRAPARE - Transportation Answer Date Re corded In the past 12 months, has l ack of transportation kept you from medical appointments or from getting medications? No 03/08 In the past 12 months, has l ack of transportation kept you from meetings, work, or from getting things needed for daily living? No 03/28/2025 Housing Stability Vital Sign Answer Dhruv e Recorded In the last 12 months, was t here a time when you were not able to pay the mortgage or rent on time? No 03/28/2025 In the past 12 months, how m any times have you moved where you were living? 0 03/28/2025 At any time in the past [address] [facility], were you homeless or living in a [facility] (including now)? No 03/28/2025 Personal Safety Answer Date Recorded Have you ever been in or are you currently in a harmful physical or emotional relationship or is someone making you feel afraid or unsafe? Denies 03/25/2025 Education Answer Date Recorded What is the highest level of school you have completed or the highest degree you have received? Bachelor's degree (e.g., BA, AB, BS) 03/10/2025 Sex and Gender Information Value Date Recorded Sex Assigned at Not on file Legal Sex Male 8:00 PM INDUSTRIAL/ORGANIZATIONAL PSYCHOLOGIST Gender Identity Male 09/21/2022 5:48 PM INDUSTRIAL/ORGANIZATIONAL PSYCHOLOGIST Sexual Orientation Straight 09/21/2022 5: 48 PM INDUSTRIAL/ORGANIZATIONAL PSYCHOLOGIST Obstetrics History Last Filed Vital Signs Vital Sign Reading Time Taken Comments Blood Pressure 111/60 03/29/2025 11:13 AM CDT Pulse 81 03/29/2025 11:13 AM CDT Temperature 36.5 C (97.7 F) 03/29/2025 11:13 AM CDT Respiratory Rate 18 03/29/2025 11:1 3 AM CDT Oxygen Saturation 98% 03/29/2025 11: 13 AM CDT Inhaled Oxygen Concentration - - Weight 72.9 kg (160 lb 11.5 oz) 025 12:00 AM CDT Height 167.6 cm (5' 6) 03/26/2025 10:4 5 AM CDT Body Mass Index 25.94 03/18/2025 12:00 AM CDT Plan of Treatment Health Maintenance Due Date Last Done Comments Colon Cancer Screening-Colonoscopy 1956 Prostate Cancer Screening-PSA 1956 Hepatitis B Screening 1974 Pneumococcal vaccine 65+ (1 of 2 - PCV) 1975 Zoster Vaccine (1 of 2) 1975 Well Visit 65+ 2021 Influenza Vaccine (Season Ended) 2025 Depression Screening 03/01/2026 03/01/2025 Fall Risk Assessment 03/29/2026 03/29/2025 DTaP/Tdap/Td Vaccine (2 - Td or Tdap) 03/19/2034 Hepatitis C Screening Completed 03/20/2025 Abdominal Aortic Aneurysm (AAA) Screen Completed , 03/14/2025 Procedures Procedure Name Priority Date/Time Associated Diagnosis Comments EGFR Routine Gen Lab 04/09/2025 5:22 AM CDT CS GLUCOSE Routine Gen Lab 04/09/2025 5:22 AM CDT CS BASIC METABOLIC PANEL Routine Gen Lab 04/09/2025 5:22 AM CDT CBC WITHOUT DIFFERENTIAL Routine Gen Lab 04/09/2025 5:22 AM CDT URINALYSIS, MICROSCOPIC ONLY Routine Gen Lab 04/06/2025 5:46 PM CDT URINALYSIS AND REFLEX TO MICROSCOPIC Routine Gen Lab 04/06/2025 5:46 PM CDT CS GLUCOSE Routine Gen Lab 04/05/2025 7:54 AM CDT EGFR Routine Gen Lab 04/05/2025 7:54 AM CDT CS BASIC METABOLIC PANEL Routine Gen Lab 04/05/2025 7:54 AM CDT CBC WITHOUT DIFFERENTIAL Routine Gen Lab 04/05/2025 7:54 AM CDT EGFR Routine Gen Lab 04/03/2025 7:00 AM CDT CS BASIC METABOLIC PANEL Routine Gen Lab 04/03/2025 7:00 AM CDT VITAMIN D 25 HYDROXY Routine Gen Lab 04/03/2025 7:00 AM CDT CS GLUCOSE Routine Gen Lab 04/03/2025 7:00 AM CDT CBC WITHOUT DIFFERENTIAL Routine Gen Lab 04/03/2025 7:00 AM CDT POCT GLUCOSE DEVICE Routine 03/29/2025 11:15 AM CDT POCT GLUCOSE DEVICE Routine 03/29/2025 8:11 AM CDT POCT GLUCOSE DEVICE Routine 03/29/2025 4:53 AM CDT POCT GLUCOSE DEVICE Routine 03/29/2025 12:18 AM CDT EGFR Routine 03/28/2025 9:21 PM CDT DIFFERENTIAL AUTO Routine 03/28/2025 9:21 PM CDT CBC WITH AUTO DIFFERENTIAL Routine 03/28 9:21 PM CDT PHOSPHORUS Routine 03/28/2025 9:21 PM CDT COMPREHENSIVE METABOLIC PANEL Routine 9:21 PM CDT POCT GLUCOSE DEVICE Routine 03/28/2025 8:06 PM CDT POCT GLUCOSE DEVICE Routine 03/28/2025 3:57 PM CDT POCT GLUCOSE DEVICE Routine 03/28/2025 12:10 PM CDT POCT GLUCOSE DEVICE Routine 03/28/2025 8:34 AM CDT POCT GLUCOSE DEVICE Routine 03/28/2025 4:04 AM CDT POCT GLUCOSE DEVICE Routine 03/28/2025 12:10 AM CDT EGFR Routine 03/27/2025 8:40 PM CDT DIFFERENTIAL AUTO Routine 03/27/2025 8:40 PM CDT CBC WITH AUTO DIFFERENTIAL Routine 03/27 8:40 PM CDT PHOSPHORUS Routine 03/27/2025 8:40 PM CDT COMPREHENSIVE METABOLIC PANEL Routine 8:40 PM CDT POCT GLUCOSE DEVICE Routine 03/27/2025 8:31 PM CDT POCT GLUCOSE DEVICE Routine 03/27/2025 5:07 PM CDT POCT GLUCOSE DEVICE Routine 03/27/2025 11:55 AM CDT DIFFERENTIAL AUTO Routine 03/27/2025 8:00 AM CDT CBC WITH AUTO DIFFERENTIAL Routine 03/27 8:00 AM CDT POCT GLUCOSE DEVICE Routine 03/27/2025 7:33 AM CDT POCT GLUCOSE DEVICE Routine 03/27/2025 4:32 AM CDT POCT GLUCOSE DEVICE Routine 03/27/2025 12:04 AM CDT EGFR Routine 03/26/2025 8:31 PM CDT DIFFERENTIAL AUTO Timed 03/26/2025 8:31 PM CDT PHOSPHORUS Routine 03/26/2025 8:31 PM CDT COMPREHENSIVE METABOLIC PANEL Routine 8:31 PM CDT CBC WITH AUTO DIFFERENTIAL Timed 03/26 8:31 PM CDT POCT GLUCOSE DEVICE Routine 03/26/2025 8:22 PM CDT POCT GLUCOSE DEVICE Routine 03/26/2025 4:43 PM CDT POCT GLUCOSE DEVICE Routine 03/26/2025 2:45 PM CDT FL MODIFIED BARIUM SWALLOW W VIDEO IP Routine 03/26/2025 1:15 PM CDT COLLAR CUTTER EVALUATE AND TREAT VIDEOFLUOROSCOPIC SWALLOW STUDY Routine 03/26/2025 1:00 PM CDT DIFFERENTIAL AUTO Timed 03/26/2025 8:59 AM CDT CBC WITH AUTO DIFFERENTIAL Timed 03/26 8:59 AM CDT POCT GLUCOSE DEVICE Routine 03/26/2025 7:55 AM CDT POCT GLUCOSE DEVICE Routine 03/26/2025 3:49 AM CDT EGFR STAT 03/26/2025 3:00 AM CDT DIFFERENTIAL AUTO STAT 03/26/2025 3:00 AM CDT BASIC METABOLIC PANEL STAT 03/26/2025 3:00 AM CDT CBC WITH AUTO DIFFERENTIAL STAT 03/26 3:00 AM CDT POCT GLUCOSE DEVICE Routine 03/25/2025 11:18 PM CDT POCT GLUCOSE DEVICE Routine 03/25/2025 8:08 PM CDT POCT GLUCOSE DEVICE Routine 03/25/2025 4:56 PM CDT POCT GLUCOSE DEVICE Routine 03/25/2025 12:59 PM CDT NH AN PROCEDURE PLACEHOLDER Routine 03/07 10:30 AM CDT NH AN ELECTIVE ENDOTRACHEAL AIRWAY Routine 03/25/2025 10:30 AM CDT EGD 03/25/2025 10:18 AM CDT ESOPHAGOGASTRODUODENOSCOPY CONTROL BLEED 03/25/2025 10:17 AM CDT Melena DIFFERENTIAL AUTO Timed 03/25/2025 8:30 AM CDT CBC WITH AUTO DIFFERENTIAL Timed 03/25 8:30 AM CDT H. PYLORI ANTIGEN, STOOL Routine 025 8:30 AM CDT POCT GLUCOSE DEVICE Routine 03/25/2025 7:44 AM CDT CBC WITHOUT DIFFERENTIAL STAT 025 3:35 AM CDT POCT GLUCOSE DEVICE Routine 03/25/2025 3:26 AM CDT POCT GLUCOSE DEVICE Routine 03/24/2025 11:35 PM CDT TRANSFUSE RED BLOOD CELLS Timed 2024 10:30 PM CDT PREPARE RBC Timed 03/24/2025 9:09 PM CDT EGFR Routine 03/24/2025 8:26 PM CDT DIFFERENTIAL AUTO Timed 03/24/2025 8:26 PM CDT FOLATE Routine 03/24/2025 8:26 PM CDT VITAMIN B12 Routine 03/24/2025 8:26 PM CDT IRON PROFILE W/ IBC Routine 03/24/2025 8:26 PM CDT CBC WITH AUTO DIFFERENTIAL Timed 03/24 8:26 PM CDT PHOSPHORUS Routine 03/24/2025 8:26 PM CDT COMPREHENSIVE METABOLIC PANEL Routine 8:26 PM CDT POCT GLUCOSE DEVICE Routine 03/24/2025 8:16 PM CDT POCT GLUCOSE DEVICE Routine 03/24/2025 3:57 PM CDT POCT GLUCOSE DEVICE Routine 03/24/2025 11:53 AM CDT XR ABDOMEN AP 1 VIEW IP Routine 03/24/2025 11:15 AM CDT PROTIME-INR Routine 03/24/2025 10:33 AM CDT APTT Routine 03/24/2025 10:33 AM CDT TYPE AND SCREEN Timed 03/24/2025 9:31 AM CDT DIFFERENTIAL AUTO STAT 03/24/2025 9:16 AM CDT CBC WITH AUTO DIFFERENTIAL STAT 03/24 9:16 AM CDT LIPASE Routine 03/24/2025 9:16 AM CDT POCT GLUCOSE DEVICE Routine 03/24/2025 8:05 AM CDT POCT GLUCOSE DEVICE Routine 03/24/2025 4:12 AM CDT POCT GLUCOSE DEVICE Routine 03/24/2025 12:20 AM CDT VANCOMYCIN LEVEL TROUGH Timed 03/23/20 10:[address] CHEST ABDOMEN PELVIS W CONTRAST IP Routine 03/23/2025 9:58 PM CDT EGFR Routine 03/23/2025 8:55 PM CDT DIFFERENTIAL AUTO Routine 03/23/2025 8:55 PM CDT PHOSPHORUS Routine 03/23/2025 8:55 PM CDT COMPREHENSIVE METABOLIC PANEL Routine 8:55 PM CDT CBC WITH AUTO DIFFERENTIAL Routine 03/23 8:55 PM CDT POCT GLUCOSE DEVICE Routine 03/23/2025 8:16 PM CDT POCT GLUCOSE DEVICE Routine 03/23/2025 3:58 PM CDT AEROBIC CULTURE AND GRAM STAIN STAT 0 03/23/2025 1:23 PM CDT POCT GLUCOSE DEVICE Routine 03/23/2025 12:01 PM CDT POCT GLUCOSE DEVICE Routine 03/23/2025 8:01 AM CDT XR ABDOMEN AP 1 VIEW ED Urgent/IP Urgent 03/23/2025 7:44 AM CDT POCT GLUCOSE DEVICE Routine 03/23/2025 3:55 AM CDT POCT GLUCOSE DEVICE Routine 03/22/2025 11:41 PM CDT EGFR Routine 03/22/2025 9:01 PM CDT DIFFERENTIAL AUTO Routine 03/22/2025 9:01 PM CDT PHOSPHORUS Routine 03/22/2025 9:01 PM CDT COMPREHENSIVE METABOLIC PANEL Routine 9:01 PM CDT CBC WITH AUTO DIFFERENTIAL Routine 03/22 9:01 PM CDT POCT GLUCOSE DEVICE Routine 03/22/2025 7:29 PM CDT RESPIRATORY PATHOGEN PANEL Routine 03/22 5:30 PM CDT POCT GLUCOSE DEVICE Routine 03/22/2025 4:22 PM CDT POCT GLUCOSE DEVICE Routine 03/22/2025 12:17 PM CDT BLOOD CULTURE STAT 03/22/2025 9:53 AM CDT BLOOD CULTURE STAT 03/22/2025 9:53 AM CDT POCT GLUCOSE DEVICE Routine 03/22/2025 7:36 AM CDT POCT GLUCOSE DEVICE Routine 03/22/2025 4:28 AM CDT POCT GLUCOSE DEVICE Routine 03/21/2025 11:25 PM CDT EGFR Routine 03/21/2025 9:44 PM CDT DIFFERENTIAL AUTO Routine 03/21/2025 9:44 PM CDT PHOSPHORUS Routine 03/21/2025 9:44 PM CDT COMPREHENSIVE METABOLIC PANEL Routine 9:44 PM CDT CBC WITH AUTO DIFFERENTIAL Routine 03/21 9:44 PM CDT POCT GLUCOSE DEVICE Routine 03/21/2025 8:23 PM CDT C. DIFFICILE TESTING Routine 03/21/2025 7:49 PM CDT INFECTION PREVENTION VRE CULTURE Routine 03/21/2025 7:47 PM CDT XR CHEST 1 VIEW IP Routine 03/21/2025 5:10 PM CDT POCT GLUCOSE DEVICE Routine 03/21/2025 4:03 PM CDT URINALYSIS, MICROSCOPIC ONLY Routine 2:06 PM CDT URINALYSIS AND REFLEX TO MICROSCOPIC AND CULTURE Routine 03/21/2025 2:06 PM CDT COLLAR CUTTER EVALUATE AND TREAT FIBEROPTIC ENDOSCOPIC SWALLOW Routine 03/21/2025 12:30 PM CDT POCT GLUCOSE DEVICE Routine 03/21/2025 12:06 PM CDT POCT GLUCOSE DEVICE Routine 03/21/2025 7:36 AM CDT POCT GLUCOSE DEVICE Routine 03/21/2025 3:53 AM CDT POCT GLUCOSE DEVICE Routine 03/21/2025 12:06 AM CDT EGFR Routine 03/20/2025 9:21 PM CDT DIFFERENTIAL AUTO Routine 03/20/2025 9:21 PM CDT PHOSPHORUS Routine 03/20/2025 9:21 PM CDT COMPREHENSIVE METABOLIC PANEL Routine 9:21 PM CDT CBC WITH AUTO DIFFERENTIAL Routine 03/20 9:21 PM CDT HEPATITIS PANEL, ACUTE Routine 9:21 PM CDT POCT GLUCOSE DEVICE Routine 03/20/2025 8:10 PM CDT POCT GLUCOSE DEVICE Routine 03/20/2025 4:03 PM CDT POCT GLUCOSE DEVICE Routine 03/20/2025 11:05 AM CDT POCT GLUCOSE DEVICE Routine 03/20/2025 7:16 AM CDT EGFR Routine 03/20/2025 4:31 AM CDT DIFFERENTIAL AUTO Routine 03/20/2025 4:31 AM CDT PHOSPHORUS Routine 03/20/2025 4:31 AM CDT COMPREHENSIVE METABOLIC PANEL Routine 4:31 AM CDT CBC WITH AUTO DIFFERENTIAL Routine 03/20 4:31 AM CDT POCT GLUCOSE DEVICE Routine 03/20/2025 4:06 AM CDT POCT GLUCOSE DEVICE Routine 03/19/2025 11:54 PM CDT POCT GLUCOSE DEVICE Routine 03/19/2025 7:45 PM CDT POCT GLUCOSE DEVICE Routine 03/19/2025 3:41 PM CDT POCT GLUCOSE DEVICE Routine 03/19/2025 11:35 AM CDT XR CHEST 1 VIEW ED Urgent/IP Urgent 03/19/2025 9:56 AM CDT PHOSPHORUS Timed 03/19/2025 8:39 AM CDT POCT GLUCOSE DEVICE Routine 03/19/2025 8:25 AM CDT POCT GLUCOSE DEVICE Routine 03/19/2025 7:34 AM CDT EGFR Routine 03/19/2025 4:27 AM CDT DIFFERENTIAL AUTO Routine 03/19/2025 4:27 AM CDT TRIGLYCERIDES Routine 03/19/2025 4:27 AM CDT COMPREHENSIVE METABOLIC PANEL Routine 4:27 AM CDT CBC WITH AUTO DIFFERENTIAL Routine 03/19 4:27 AM CDT MAGNESIUM Routine 03/19/2025 4:27 AM CDT POCT GLUCOSE DEVICE Routine 03/19/2025 3:42 AM CDT POCT GLUCOSE DEVICE Routine 03/19/2025 12:06 AM CDT PHOSPHORUS Timed 03/18/2025 8:51 PM CDT POCT GLUCOSE DEVICE Routine 03/18/2025 7:50 PM CDT INFECTION PREVENTION EMILI AURIS PCR, SURVEILLANCE Routine 03/18/2025 4:25 PM CDT POCT GLUCOSE DEVICE Routine 03/18/2025 4:02 PM CDT GI-TUBE PLACEMENT (LONG TUBE) IP Routine 2:51 PM CDT POCT GLUCOSE DEVICE Routine 03/18/2025 11:35 AM CDT POCT GLUCOSE DEVICE Routine 03/18/2025 7:39 AM CDT XR ABDOMEN AP 1 VIEW IP Routine 03/18/2025 6:58 AM CDT XR ABDOMEN AP 1 VIEW Timed 03/18/2025 5:02 AM CDT XR CHEST 1 VIEW IP Routine 03/18/2025 5:02 AM CDT POCT GLUCOSE DEVICE Routine 03/18/2025 4:11 AM CDT EGFR Routine 03/18/2025 12:37 AM CDT DIFFERENTIAL AUTO Routine 03/18/2025 12:37 AM CDT COMPREHENSIVE METABOLIC PANEL Routine 12:37 AM CDT CBC WITH AUTO DIFFERENTIAL Routine 03/18 12:37 AM CDT PHOSPHORUS Routine 03/18/2025 12:37 AM CDT MAGNESIUM Routine 03/18/2025 12:37 AM CDT POCT GLUCOSE DEVICE Routine 03/17/2025 11:26 PM CDT POCT GLUCOSE DEVICE Routine 03/17/2025 8:59 PM CDT POCT GLUCOSE DEVICE Routine 03/17/2025 4:01 PM CDT POCT GLUCOSE DEVICE Routine 03/17/2025 11:46 AM CDT POCT GLUCOSE DEVICE Routine 03/17/2025 7:37 AM CDT EGFR Routine 03/17/2025 5:35 AM CDT DIFFERENTIAL AUTO Routine 03/17/2025 5:35 AM CDT BLOOD GAS, ARTERIAL Routine 03/17/2025 5:35 AM CDT COMPREHENSIVE METABOLIC PANEL Routine 5:35 AM CDT CBC WITH AUTO DIFFERENTIAL Routine 03/17 5:35 AM CDT PHOSPHORUS Routine 03/17/2025 5:35 AM CDT MAGNESIUM Routine 03/17/2025 5:35 AM CDT XR CHEST 1 VIEW IP Routine 03/17/2025 4:41 AM CDT XR ABDOMEN AP 1 VIEW Timed 03/17/2025 4:40 AM CDT POCT GLUCOSE DEVICE Routine 03/17/2025 3:17 AM CDT POCT GLUCOSE DEVICE Routine 03/16/2025 11:16 PM CDT POCT GLUCOSE DEVICE Routine 03/16/2025 7:24 PM CDT XR ABDOMEN AP 1 VIEW ED Urgent/IP Urgent 03/16/2025 4:00 PM CDT POCT GLUCOSE DEVICE Routine 03/16/2025 3:49 PM CDT POCT GLUCOSE DEVICE Routine 03/16/2025 11:33 AM CDT XR ABDOMEN AP 1 VIEW IP Routine 03/16/2025 11:20 AM CDT LACTATE Timed 03/16/2025 7:57 AM CDT BLOOD GAS, ARTERIAL Timed 03/16/2025 7:57 AM CDT POCT GLUCOSE DEVICE Routine 03/16/2025 7:50 AM CDT EGFR Routine 03/16/2025 5:14 AM CDT DIFFERENTIAL AUTO Routine 03/16/2025 5:14 AM CDT TRIGLYCERIDES Routine 03/16/2025 5:14 AM CDT COMPREHENSIVE METABOLIC PANEL Routine 5:14 AM CDT CBC WITH AUTO DIFFERENTIAL Routine 03/16 5:14 AM CDT PHOSPHORUS Routine 03/16/2025 5:14 AM CDT MAGNESIUM Routine 03/16/2025 5:14 AM CDT LACTATE Timed 03/16/2025 5:14 AM CDT XR CHEST 1 VIEW IP Routine 03/16/2025 4:39 AM CDT POCT GLUCOSE DEVICE Routine 03/16/2025 3:29 AM CDT LACTATE Timed 03/16/2025 12:30 AM CDT BLOOD GAS, ARTERIAL Timed 03/16/2025 12:30 AM CDT POCT GLUCOSE DEVICE Routine 03/15/2025 11:56 PM CDT LACTATE Timed 03/15/2025 8:52 PM CDT POCT GLUCOSE DEVICE Routine 03/15/2025 7:36 PM CDT INFECTION PREVENTION EMILI AURIS PCR, SURVEILLANCE Routine 03/15/2025 4:52 PM CDT LACTATE Timed 03/15/2025 4:07 PM CDT BLOOD GAS, ARTERIAL Timed 03/15/2025 4:07 PM CDT POCT GLUCOSE DEVICE Routine 03/15/2025 3:50 PM CDT TROPONIN I HIGH-SENSITIVITY 6-HOUR Timed 03/15/2025 2:03 PM CDT TROPONIN I HIGH-SENSITIVITY 4-HOUR Timed 03/15/2025 12:01 PM CDT LACTATE Timed 03/15/2025 12:01 PM CDT POCT GLUCOSE DEVICE Routine 03/15/2025 11:33 AM CDT CRITICAL RESULT CALLBACK CAR ENRICO CHEM Timed 03/15/2025 10:05 AM CDT TROPONIN I HIGH-SENSITIVITY 2-HOUR Timed 03/15/2025 10:05 AM CDT CREATININE, URINE, RANDOM Routine 2024 8:01 AM CDT UREA NITROGEN, URINE, RANDOM Routine 07/2025 8:01 AM CDT SODIUM, URINE, RANDOM Routine 03/15/2025 8:01 AM CDT LACTATE Timed 03/15/2025 8:01 AM CDT BLOOD GAS, ARTERIAL Timed 03/15/2025 8:01 AM CDT TROPONIN I HIGH-SENSITIVITY SERIES (BASELINE, 2HR, 4HR, 6HR) Routine 03/15/2025 8:01 AM CDT POCT GLUCOSE DEVICE Routine 03/15/2025 7:41 AM CDT POCT GLUCOSE DEVICE Routine 03/15/2025 5:39 AM CDT CREATINE KINASE (CK), TOTAL Routine 07/2025 5:30 AM CDT EGFR Routine 03/15/2025 5:30 AM CDT DIFFERENTIAL AUTO Routine 03/15/2025 5:30 AM CDT COMPREHENSIVE METABOLIC PANEL Routine 5:30 AM CDT CBC WITH AUTO DIFFERENTIAL Routine 03/15 5:30 AM CDT PHOSPHORUS Routine 03/15/2025 5:30 AM CDT MAGNESIUM Routine 03/15/2025 5:30 AM CDT LACTATE Timed 03/15/2025 5:30 AM CDT XR CHEST 1 VIEW IP Routine 03/15/2025 4:24 AM CDT LACTATE Timed 03/15/2025 1:58 AM CDT BLOOD GAS, ARTERIAL Timed 03/15/2025 1:58 AM CDT XR CHEST 1 VIEW ED Urgent/IP Urgent 03/15/2025 1:36 AM CDT VANCOMYCIN LEVEL RANDOM Timed 03/14/20 25 10:51 PM CDT POCT GLUCOSE DEVICE Routine 03/14/2025 9:15 PM CDT URINALYSIS, MICROSCOPIC ONLY Routine 06/2025 9:10 PM CDT LACTATE Timed 03/14/2025 9:10 PM CDT URINALYSIS AND REFLEX TO MICROSCOPIC AND CULTURE Routine 03/14/2025 9:10 PM CDT XR ABDOMEN AP 1 VIEW IP Routine 03/14/2025 6:05 PM CDT NH ARTL CATHJ/CANNULJ MNTR/TRANSFUSION SPX PRQ Routine 03/14/2025 4:29 PM CDT Aspiration into airway, initial encounter Acute hypoxic respiratory failure (HCC) Shock (HCC) POCT GLUCOSE DEVICE Routine 03/14/2025 4:02 PM CDT BLOOD GAS, ARTERIAL Timed 03/14/2025 3:02 PM CDT POC BLOOD GAS AND CHEMISTRIE S, ARTERIAL Routine 03/14/2025 2:[address] CHEST ABDOMEN PELVIS W CONTRAST ED 03/14/2025 1:59 PM CDT XR CHEST 1 VIEW ED Urgent/IP Urgent 03/14/2025 1:06 PM CDT TRANSTHORACIC ECHO (TTE) COMPLETE W DOPPLER/CF W CONTRAST ED Urgent/IP Urgent 03/14/2025 12:23 PM CDT POC BLOOD GAS AND CHEMISTRIE S, ARTERIAL Routine 03/14/2025 12:20 PM CDT POCT GLUCOSE DEVICE Routine 03/14/2025 11:51 AM CDT NH INSJ NON-TUNNELED CENTRAL VENOUS CATH AGE 6 YR/> Routine 03/14/2025 10:15 AM CDT Acute hypoxic respiratory failure (HCC) CRITICAL RESULT CALLBACK CHEMISTRY STAT 03/14/2025 9:48 AM CDT BLOOD GAS, VENOUS STAT 03/14/2025 9:48 AM CDT INTUBATION Routine 03/14/2025 9:34 AM CDT Aspiration into airway, initial encounter Acute hypoxic respiratory failure (HCC) POCT GLUCOSE DEVICE Routine 03/14/2025 9:31 AM CDT XR ABDOMEN AP 1 VIEW ED Urgent/IP Urgent 03/14/2025 9:15 AM CDT XR CHEST 1 VIEW IP Routine 03/14/2025 9:14 AM CDT ECG 12-LEAD STAT 03/14/2025 8:41 AM CDT HEMOGLOBIN A1C STAT 03/14/2025 8:37 AM CDT CRITICAL RESULT CALLBACK CHEMISTRY STAT 03/14/2025 8:37 AM CDT OSMOLALITY, BLOOD STAT 03/14/2025 8:37 AM CDT LACTATE STAT 03/14/2025 8:37 AM CDT BETA-HYDROXYBUTYRATE STAT 03/14/2025 8:37 AM CDT VOLATILES SCREEN Routine 03/14/2025 8:37 AM CDT B CHECK SAMPLE STAT 03/14/2025 8:37 AM CDT CBC WITHOUT DIFFERENTIAL STAT 025 8:37 AM CDT PNEUMONIA PCR STAT 03/14/2025 8:37 AM CDT PNEUMONIA PCR WITH AEROBIC CULTURE AND GRAM STAIN STAT 03/14/2025 8:37 AM CDT RT COMMUNICATION Routine 03/14/2025 7:06 AM CDT XR CHEST 1 VIEW ED Urgent/IP Urgent 03/14/2025 7:00 AM CDT ECG 12-LEAD STAT 03/14/2025 6:48 AM CDT PHOSPHORUS Routine 03/14/2025 5:30 AM CDT MAGNESIUM Routine 03/14/2025 5:30 AM CDT TYPE AND SCREEN STAT 03/14/2025 5:30 AM CDT BLOOD GAS, VENOUS STAT 03/14/2025 5:30 AM CDT TROPONIN I HIGH-SENSITIVITY STAT 0 06/2025 5:30 AM CDT BLOOD CULTURE Routine 03/14/2025 5:30 AM CDT BLOOD CULTURE Routine 03/14/2025 5:30 AM CDT INFECTION PREVENTION MRSA ON LY (STAPHYLOCOCCUS AUREUS) CULTURE Routine 03/14/2025 5:30 AM CDT XR ABDOMEN AP 1 VIEW ED Urgent/IP Urgent 03/14/2025 5:14 AM CDT ECG 12-LEAD STAT 03/14/2025 4:47 AM CDT XR CHEST 1 VIEW ED Urgent/IP Urgent 03/14/2025 4:25 AM CDT ECG 12-LEAD Routine 03/14/2025 4:14 AM CDT ARTERIAL BLOOD GAS W/LACTATE Routine 06/2025 4:07 AM CDT EGFR STAT 03/14/2025 4:03 AM CDT BASIC METABOLIC PANEL STAT 03/14/2025 4:03 AM CDT PHOSPHORUS Routine 03/10/2025 8:45 PM CDT EGFR Routine 03/09/2025 10:08 PM CDT DIFFERENTIAL AUTO Routine 03/09/2025 10:08 PM CDT CBC WITH AUTO DIFFERENTIAL Routine 03/09 10:08 PM CDT PHOSPHORUS Routine 03/09/2025 10:08 PM CDT BASIC METABOLIC PANEL Routine 03/09/2025 10:08 PM CDT EGFR Routine 03/08/2025 10:27 PM CDT DIFFERENTIAL AUTO Routine 03/08/2025 10:27 PM CDT CBC WITH AUTO DIFFERENTIAL Routine 03/08 10:27 PM CDT PHOSPHORUS Routine 03/08/2025 10:27 PM CDT BASIC METABOLIC PANEL Routine 03/08/2025 10:27 PM CDT EGFR Routine 03/07/2025 9:01 PM CDT DIFFERENTIAL AUTO Routine 03/07/2025 9:01 PM CDT CBC WITH AUTO DIFFERENTIAL Routine 03/07 9:01 PM CDT PHOSPHORUS Routine 03/07/2025 9:01 PM CDT BASIC METABOLIC PANEL Routine 03/07/2025 9:01 PM CDT EGFR Routine 03/06/2025 10:12 PM CDT DIFFERENTIAL AUTO Routine 03/06/2025 10:12 PM CDT CBC WITH AUTO DIFFERENTIAL Routine 03/06 10:12 PM CDT PHOSPHORUS Routine 03/06/2025 10:12 PM CDT BASIC METABOLIC PANEL Routine 03/06/2025 10:12 PM CDT CONTINUOUS VIDEO EEG Routine 03/06/2025 1:45 PM CDT EGFR Routine 03/05/2025 9:12 PM CDT DIFFERENTIAL AUTO Routine 03/05/2025 9:12 PM CDT CBC WITH AUTO DIFFERENTIAL Routine 03/05 9:12 PM CDT PHOSPHORUS Routine 03/05/2025 9:12 PM CDT MAGNESIUM Routine 03/05/2025 9:12 PM CDT BASIC METABOLIC PANEL Routine 03/05/2025 9:12 PM CDT MRI BRAIN W WO CONTRAST IP Routine 03/05/20 7:02 PM CDT EGFR Routine 03/04/2025 9:24 PM CDT DIFFERENTIAL AUTO Routine 03/04/2025 9:24 PM CDT CBC WITH AUTO DIFFERENTIAL Routine 03/04 9:24 PM CDT PHOSPHORUS Routine 03/04/2025 9:24 PM CDT MAGNESIUM Routine 03/04/2025 9:24 PM CDT BASIC METABOLIC PANEL Routine 03/04/2025 9:24 PM CDT EGFR Routine 03/03/2025 9:06 PM CDT DIFFERENTIAL AUTO Routine 03/03/2025 9:06 PM CDT CBC WITH AUTO DIFFERENTIAL Routine 03/03 9:06 PM CDT PHOSPHORUS Routine 03/03/2025 9:06 PM CDT MAGNESIUM Routine 03/03/2025 9:06 PM CDT BASIC METABOLIC PANEL Routine 03/03/2025 9:06 PM CDT CREATINE KINASE (CK), TOTAL Timed 02/06 12:20 PM CDT EGFR Routine 03/02/2025 9:04 PM CDT PHOSPHORUS Routine 03/02/2025 9:04 PM CDT MAGNESIUM Routine 03/02/2025 9:04 PM CDT BASIC METABOLIC PANEL Routine 03/02/2025 9:04 PM CDT EEG Routine 03/02/2025 10:10 AM CDT XR CHEST 1 VIEW ED 03/02/2025 12:[address] HEAD WO CONTRAST ED 03/01/2025 8:30 PM CDT ECG 12-LEAD STAT 03/01/2025 7:06 PM CDT URINALYSIS, MICROSCOPIC ONLY STAT 6:57 PM CDT DRUGS OF ABUSE SCREEN, URINE WITHOUT CONFIRMATION STAT 03/01/2025 6:57 PM CDT URINALYSIS AND REFLEX TO MICROSCOPIC AND CULTURE STAT 03/01/2025 6:57 PM CDT EGFR STAT 03/01/2025 5:58 PM CDT DIFFERENTIAL AUTO STAT 03/01/2025 5:58 PM CDT TROPONIN I HIGH-SENSITIVITY Routine 02/06 5:58 PM CDT COMPREHENSIVE METABOLIC PANEL STAT 5:58 PM CDT CBC WITH AUTO DIFFERENTIAL STAT 03/01 5:58 PM CDT TROPONIN I HIGH-SENSITIVITY 2-HOUR Timed 02/17/2025 11:13 AM CDT DRUGS OF ABUSE SCREEN, URINE WITH REFLEX CONFIRMATION STAT 02/17/2025 10:48 AM CDT URINALYSIS AND REFLEX TO MICROSCOPIC AND CULTURE STAT 02/17/2025 10:48 AM CDT CREATINE KINASE (CK), TOTAL Routine 02/05 9:39 AM CDT FOLATE Routine 02/17/2025 9:39 AM CDT METHYLMALONIC ACID, SERUM STAT 2024 9:39 AM CDT VITAMIN B12 Routine 02/17/2025 9:39 AM CDT VITAMIN B1 Routine 02/17/2025 9:39 AM CDT RPR STAT 02/17/2025 9:39 AM CDT HIV 1/2 ANTIBODY PLUS P24 ANTIGEN Routine 02/17/2025 9:39 AM CDT RESPIRATORY PATHOGEN PANEL STAT 02/17 9:39 AM CDT XR CHEST 1 VIEW ED 02/17/2025 9:24 AM CDT ECG 12-LEAD Routine 02/17/2025 9:22 AM CDT TROPONIN I HIGH-SENSITIVITY SERIES (BASELINE, 2HR, 4HR, 6HR) STAT 02/17/2025 9:12 AM CDT POCT GLUCOSE DEVICE Routine 02/17/2025 8:57 AM CDT EGFR STAT 02/17/2025 8:54 AM CDT ETHANOL STAT 02/17/2025 8:54 AM CDT DIFFERENTIAL AUTO STAT 02/17/2025 8:54 AM CDT THYROID FUNCTION CASCADE Routine 025 8:54 AM CDT COMPREHENSIVE METABOLIC PANEL STAT 8:54 AM CDT CBC WITH AUTO DIFFERENTIAL STAT 02/17 8:[address] OUTSIDE REFERENCE Routine 02/14 8:18 AM CDT from Last 3 Months Results * CS GLUCOSE (04/09/2025 5:22 AM CDT) Glucose 106 70 - 199 mg/dL [facility] Comment: Interpretive Data Fasting glucose >/= 126 mg/dl is diagnostic for diabetes. Fasting is defined as no caloric intake for at least 8 hours. Fasting glucose between 100 mg/dl to 125 mg/dl is diagnostic of prediabetes. In a patient with classic symptoms of hyperglycemia or hyperglycemic crisis, a random glucose >/= 200 mg/dl is diagnostic for diabetes. In the absence of unequivocal hyperglycemia, results should be confirmed by repeat testing. The classification and Diagnosis of Diabetes Diabetes Care 2021; 46: S19-S40. Current interpretive data was last revised 2022. Testing performed by: [facility], [address] [place] [address]., [id number] Blood 04/09/2025 5:22 AM CDT 04/09/2025 7:25 AM CDT us Notinfile Unknown LAB BLOOD ORDERABLES Final Res ult [facility] Department [place] [address] * CS BASIC METABOLIC PANEL (04/09/2025 5:22 AM CDT) Sodium 137 135 - 145 mmol/L [facility] Comment:Testing performed by : [facility], [address] [place] [address]., [id number] Potassium, pl 3.5 3.3 - 4.9 mmol/L [facility] Comment:Testing performed by : [facility], [address] [facility], [id number] Chloride 99 97 - 110 mmol/L [facility] Comment:Testing performed by : [facility], [address] [facility], [address] CO2 26 22 - 32 mmol/L [facility] Comment:Testing performed by : [facility], [address] [facility], [id number] Anion gap 12 2 - 15 mmol/L [facility] Comment:Testing performed by : [facility], [address] [facility], [address] BUN 12 6 - 25 mg/dL [facility] Comment:Testing performed by : [facility], [address] [facility], [id number] Creatinine 0.81 0.80 - 1.30 mg/dL [facility] Comment:Testing performed by : [facility], [address] [facility], [address] Calcium 8.7 8.5 - 10.3 mg/dL [facility] Comment:Testing performed by : [facility], [address] [facility], [id number] Blood 04/09/2025 5:22 AM CDT 04/09/2025 7:25 AM CDT us Notinfile Unknown LAB BLOOD ORDERABLES Final Res ult [facility] Department [place] [address] * eGFR (04/09/2025 5:22 AM CDT) eGFR >90 >=60 mL/min/1. 73 m2 [facility] Comment: Interpretive Data Reference Interval Normal >/= 90 mL/min/1.73m2 Mildly decreased* 60 - 89 mL/min/1.73m2 Mildly to moderately decreased 45 - 59 mL/min/1.73m2 Moderately to severely decreased 30 - 44 mL/min/1.73m2 Severely decreased 15 - 29 mL/min/1.73m2 Kidney Failure < 15 mL/min/1.73m2 *Relative to young adult level Estimated glomerular filtration rate is determined by the 2020 CKD-EPI equation recommended by the National [employer] (A Unifying Approach to GFR Estimation: Recommendations of the NKF-ASK Task Force on Reassessing the Inclusion of Race in Diagnosing Kidney Disease, JASN 2020). The CKD-EPI equation should not be used for patients with unstable renal function and has not been validated in children and those over 70. Current interpretive data was last reviewed 2021. Testing performed by: [facility], [address] [place] [address]., [id number] Blood 04/09/2025 5:22 AM CDT 04/09/2025 7:49 AM CDT us Notinfile Unknown LAB BLOOD ORDERABLES Final Res [facility] Department [place] [address] * (ABNORMAL) CBC without differential (04/09/2025 5:22 AM CDT) WBC 7.05 3.80 - 9.90 K/cumm [facility] Comment:Testing performed by : [facility], [address] [place] [address]., [id number] Hgb 8.8(L) 13.0 - 17.5 g/dL [facility] Comment:Testing performed by : [facility], [address] [place]., [address] Hct 27.6(L) 38.9 - 50.3 % [facility] Comment:Testing performed by : [facility], [address] [place]., [address] Plt 323 150 - 400 K/cumm [facility] Comment:Testing performed by : [facility], [address] [facility], [address] MPV 12.1 9.1 - 12.3 fL [facility] Comment:Testing performed by : [facility], [address] [facility], [address] RBC 3.00(L) 4.30 - 5.80 M/cumm [facility] Comment:Testing performed by : [facility], [address] [facility], [address] MCV 92.0 81.3 - 96.4 fL [facility] Comment:Testing performed by : [facility], [address] [facility], [address] MCH 29.3 27.1 - 33.3 pg [facility] Comment:Testing performed by : [facility], [address] [facility], [address] MCHC 31.9(L) 32.3 - 35.7 g/dL [facility] Comment:Testing performed by : [facility], [address] [facility], [address] RDW CV 14.6 11.1 - 14.9 % [facility] Comment:Testing performed by : [facility], [address] [facility], [address] RDW SD 48.6(H) 35.7 - 48.1 fL [facility] Comment:Testing performed by : [facility], [address] [facility], [address] NRBC abs 0.00 0.00 - 0.01 K/cumm [facility] Comment:Testing performed by : [facility], [address] [facility], [address] Blood 04/09/2025 5:22 AM CDT 04/09/2025 7:25 AM CDT us Notinfile Unknown LAB BLOOD ORDERABLES Final Res ult [facility] Department [place] [address] * (ABNORMAL) Urinalysis reflex to microscopic (04/06/2025 5:46 PM CDT) Color, ur Yellow Yellow CERNER [facility]J Comment:Testing performed by : [facility], [address] [place] [address]., [id number] Clarity, ur Clear Clear CERNER BJ Comment:Testing performed by : [facility], [address] [place] [address]., [id number] Specific gravity, ur 1.031(H) 1.003 - 1.030 [facility] Comment:Testing performed by : [facility], [address] [place] [address], [address] pH, urine 6.0 CERNER [facility]J Comment: Interpretive Data Urine pH is affected by diet, medications, systemic acid-base disturbances, and renal tubular function. pH may affect urinary stone formation. For example, urine pH below 6.0 may help reduce the tendency for calcium phosphate stones and pH greater than 6.0 may reduce the tendency for uric acid stone formation. Source: [facility] [employer] Current Interpretive Data was last revised on 2017 Testing performed by: [facility], [address] [place] [address]., [id number] Protein, ur ql 1+(A) Negative CERNER [facility]J Comment:Testing performed by : [facility], [address] [place] [address]., [id number] Glucose, ur ql Negative Negative [facility] Comment:Testing performed by : [address] [address] Ketones, ur Trace Negative [facility] Comment:Testing performed by : [facility], [address] [place] [address], [address] Bilirubin, ur Negative Negative [facility] Comment:Testing performed by : [facility], [address] [place]., [address] Blood, ur Negative Negative [facility] Comment:Testing performed by : [facility], [address] [place]., [address] Urobilinogen, ur 2.0(A) <2.0 mg/dL [facility] Comment:Testing performed by : [facility], [address] [facility], [address] Nitrite, ur Negative Negative [facility] Comment:Testing performed by : [facility], [address] [facility], [address] Leukocyte esterase, ur Trace(A) Negative [facility] [facility] Comment:Testing performed by : [facility], [address] [facility], [address] UA reflex comment Reflex to microscopic UA will be performed. [facility] Comment:Testing performed by : [facility], [address] [facility], [address] Urine 04/06/2025 5:46 PM CDT 04/06/2025 7:40 PM CDT Medicine LAB URINE ORDERABLES Final Resul t [facility] Department [place] [address] * (ABNORMAL) Urinalysis, microscopic only (04/06/2025 5:46 PM CDT) WBC, ur 6-10(A) 0 - 5 /HPF [facility] Comment:Testing performed by : [facility], [address] [place]., [address] RBC, ur 0-2 0 - 2 /HPF [facility] Comment:Testing performed by : [facility], [address] [place] [address], [address] Epithelial cells, squamous, ur 1-5 0 - 5 /HPF [facility] Comment:Testing performed by : [facility], [address] [place]., [address] Bacteria, ur 1+(A) [facility] Comment:Testing performed by : [facility], [address] [place]., [address] Mucous, ur Present(A) [facility] Comment:Testing performed by : [facility], [address] [place]., [address] Hyaline casts, ur 6-10 0 - 10 /LPF [facility] Comment:Testing performed by : [facility], [address] [place]., [address] Granular casts, ur 1-5(A) 0 - 0 /LPF [facility] Comment:Testing performed by : [facility], [address] [place] [address]., [address] Urine 04/06/2025 5:46 PM CDT 04/06/2025 7:40 PM CDT Medicine LAB URINE ORDERABLES Final Resul t [facility] Department [place] [address] * CS GLUCOSE (04/05/2025 7:54 AM CDT) [facility] Signature Glucose 114 70 - 199 mg/dL [facility] Comment: Interpretive Data Fasting glucose >/= 126 mg/dl is diagnostic for diabetes. Fasting is defined as no caloric intake for at least 8 hours. Fasting glucose between 100 mg/dl to 125 mg/dl is diagnostic of prediabetes. In a patient with classic symptoms of hyperglycemia or hyperglycemic crisis, a random glucose >/= 200 mg/dl is diagnostic for diabetes. In the absence of unequivocal hyperglycemia, results should be confirmed by repeat testing. The classification and Diagnosis of Diabetes Diabetes Care 2021; 46: S19-S40. Current interpretive data was last revised 2022. Testing performed by: [facility], [address] [place] [address] Blood 04/05/2025 7:54 AM CDT 04/05/2025 10:06 AM CDT us Notinfile Unknown LAB BLOOD ORDERABLES Final Res ult [facility] Department [place] [address] * (ABNORMAL) CS BASIC METABOLIC PANEL (04/05/2025 7:54 AM CDT) Sodium 140 135 - 145 mmol/L [facility] Comment:Testing performed by : [facility], [address] [place] [address], [address] Potassium, pl 3.7 3.3 - 4.9 mmol/L [facility] Comment:Testing performed by : [facility], [address] [place] [address], [address] Chloride 101 97 - 110 mmol/L [facility] Comment:Testing performed by : [facility], [address] [place] [address], [address] CO2 28 22 - 32 mmol/L [facility] Comment:Testing performed by : [facility], [address] [place] [address], [address] Anion gap 11 2 - 15 mmol/L [facility] Comment:Testing performed by : [facility], [address] [place] [address], [address] BUN 13 6 - 25 mg/dL [facility] Comment:Testing performed by : [facility], [address] [place] [address], [address] Creatinine 0.72(L) 0.80 - 1.30 mg/dL [facility] Comment:Testing performed by : [facility], [address] [place] [address], [address] Calcium 8.9 8.5 - 10.3 mg/dL [facility] Comment:Testing performed by : [facility], [address] [place]., [address] Blood 04/05/2025 7:54 AM CDT 04/05/2025 10:06 AM CDT us Notinfile Unknown LAB BLOOD ORDERABLES Final Res ult Performing Organization Address [facility] Co de Phone Number [facility] Department [place] [address] * eGFR (04/05/2025 7:54 AM CDT) eGFR >90 >=60 mL/min/1. 73 m2 [facility] Comment: Interpretive Data Reference Interval Normal >/= 90 mL/min/1.73m2 Mildly decreased* 60 - 89 mL/min/1.73m2 Mildly to moderately decreased 45 - 59 mL/min/1.73m2 Moderately to severely decreased 30 - 44 mL/min/1.73m2 Severely decreased 15 - 29 mL/min/1.73m2 Kidney Failure < 15 mL/min/1.73m2 *Relative to young adult level Estimated glomerular filtration rate is determined by the 2020 CKD-EPI equation recommended by the National Kidney Foundation (A Unifying Approach to GFR Estimation: Recommendations of the NKF-ASK Task Force on Reassessing the Inclusion of Race in Diagnosing Kidney Disease, JASN 2020). The CKD-EPI equation should not be used for patients with unstable renal function and has not been validated in children and those over 70. Current interpretive data was last reviewed 2021. Testing performed by: [facility], [address] [facility], [place]., [address] Blood 04/05/2025 7:54 AM CDT 04/05/2025 10:31 AM CDT us Notinfile Unknown LAB BLOOD ORDERABLES Final Res ult Performing Organization Address City/[facility]/ZIP Co de Phone Number [facility] Department [place] [address] * (ABNORMAL) CBC without differential (04/05/2025 7:54 AM CDT) WBC 8.33 3.80 - 9.90 K/cumm [facility] Comment:Testing performed by : [facility], [address] [facility], [address] Hgb 9.3(L) 13.0 - 17.5 g/dL [facility] Comment:Testing performed by : [facility], [address] [facility], [address] Hct 29.1(L) 38.9 - 50.3 % [facility] Comment:Testing performed by : [facility], [address] [facility], [address] Plt 404(H) 150 - 400 K/cumm [facility] Comment:Testing performed by : [facility], [address] [facility], [address] MPV 12.3 9.1 - 12.3 fL [facility] Comment:Testing performed by : [facility], [address] [facility], [address] RBC 3.18(L) 4.30 - 5.80 M/cumm [facility] Comment:Testing performed by : [facility], [address] [place] [address], [address] MCV 91.5 81.3 - 96.4 fL [facility] Comment:Testing performed by : [facility], [address] [place] [address], [address] MCH 29.2 27.1 - 33.3 pg [facility] Comment:Testing performed by : [facility], [address] [facility], [address] MCHC 32.0(L) 32.3 - 35.7 g/dL [facility] Comment:Testing performed by : [facility], [address] [place] [address], [address] RDW CV 14.6 11.1 - 14.9 % [facility] Comment:Testing performed by : [facility], [address] [place]., [address] RDW SD 48.4(H) 35.7 - 48.1 fL [facility] Comment:Testing performed by : [facility], [address] [place]., [address] NRBC abs 0.00 0.00 - 0.01 K/cumm [facility] Comment:Testing performed by : [facility], [address] [place]., [address] Blood 04/05/2025 7:54 AM CDT 04/05/2025 10:06 AM CDT us Notinfile Unknown LAB BLOOD ORDERABLES Final Res ult [facility] Department [place] [address] * CS GLUCOSE (04/03/2025 7:00 AM CDT) [facility] Signature Glucose 103 70 - 199 mg/dL [facility] Comment: Interpretive Data Fasting glucose >/= 126 mg/dl is diagnostic for diabetes. Fasting is defined as no caloric intake for at least 8 hours. Fasting glucose between 100 mg/dl to 125 mg/dl is diagnostic of prediabetes. In a patient with classic symptoms of hyperglycemia or hyperglycemic crisis, a random glucose >/= 200 mg/dl is diagnostic for diabetes. In the absence of unequivocal hyperglycemia, results should be confirmed by repeat testing. The classification and Diagnosis of Diabetes Diabetes Care 2021; 46: S19-S40. Current interpretive data was last revised 2022. Testing performed by: [facility], [address] [place]., [address] Blood 04/03/2025 7:00 AM CDT 04/03/2025 11:28 AM CDT us Notinfile Unknown LAB BLOOD ORDERABLES Final Res ult [facility] Department [place] [address] * (ABNORMAL) CS BASIC METABOLIC PANEL (04/03/2025 7:00 AM CDT) Sodium 138 135 - 145 mmol/L [facility] Comment:Testing performed by : [facility], [address] [facility], [address] Potassium, pl 3.1(L) 3.3 - 4.9 mmol/L [facility] Comment:Testing performed by : [facility], [address] [facility], [address] Chloride 102 97 - 110 mmol/L [facility] Comment:Testing performed by : [facility], [address] [place] [address], [address] CO2 26 22 - 32 mmol/L [facility] Comment:Testing performed by : [facility], [address] [facility], [address] Anion gap 10 2 - 15 mmol/L [facility] Comment:Testing performed by : [facility], [address] [facility], [address] BUN 10 6 - 25 mg/dL [facility] Comment:Testing performed by : [facility], [address] [place] [address], [address] Creatinine 0.70(L) 0.80 - 1.30 mg/dL [facility] Comment:Testing performed by : [facility], [address] [place] [address], [address] Calcium 8.5 8.5 - 10.3 mg/dL [facility] Comment:Testing performed by : [facility], [address] [place] [address], [address] Blood 04/03/2025 7:00 AM CDT 04/03/2025 11:28 AM CDT us Notinfile Unknown LAB BLOOD ORDERABLES Final Res ult [facility] Department [place] [address] * eGFR (04/03/2025 7:00 AM CDT) eGFR >90 >=60 mL/min/1. 73 m2 [facility] Comment: Interpretive Data Reference Interval Normal >/= 90 mL/min/1.73m2 Mildly decreased* 60 - 89 mL/min/1.73m2 Mildly to moderately decreased 45 - 59 mL/min/1.73m2 Moderately to severely decreased 30 - 44 mL/min/1.73m2 Severely decreased 15 - 29 mL/min/1.73m2 Kidney Failure < 15 mL/min/1.73m2 *Relative to young adult level Estimated glomerular filtration rate is determined by the 2020 CKD-EPI equation recommended by the National Kidney Foundation (A Unifying Approach to GFR Estimation: Recommendations of the NKF-ASK Task Force on Reassessing the Inclusion of Race in Diagnosing Kidney Disease, JASN 2020). The CKD-EPI equation should not be used for patients with unstable renal function and has not been validated in children and those over 70. Current interpretive data was last reviewed 2021. Testing performed by: [facility], [address] [facility], [place]., [address] Blood 04/03/2025 7:00 AM CDT 04/03/2025 11:36 AM CDT us Notinfile Unknown LAB BLOOD ORDERABLES Final Res ult [facility] Department [place] [address] * (ABNORMAL) Vitamin D 25 hydroxy (04/03/2025 7:00 AM CDT) Vitamin D 25-OH 18(L) 30 - 80 ng/mL [facility] Comment:Testing performed by : [facility], [address] [facility], [address] Blood 04/03/2025 7:00 AM CDT 04/03/2025 11:28 AM CDT us Notinfile Unknown LAB BLOOD ORDERABLES Final Res ult [facility] Department [place] [address] * (ABNORMAL) CBC without differential (04/03/2025 7:00 AM CDT) WBC 8.76 3.80 - 9.90 K/cumm [facility] Comment:Testing performed by : [facility], [address] [place] [address], [address] Hgb 8.3(L) 13.0 - 17.5 g/dL [facility] Comment:Testing performed by : [facility], [address] [place] [address], [address] Hct 26.0(L) 38.9 - 50.3 % [facility] Comment:Testing performed by : [facility], [address] [facility], [address] Plt 428(H) 150 - 400 K/cumm [facility] Comment:Testing performed by : [facility], [address] [place] [address], [address] MPV 12.5(H) 9.1 - 12.3 fL [facility] Comment:Testing performed by : [address], [address] RBC 2.82(L) 4.30 - 5.80 M/cumm [facility] Comment:Testing performed by : [facility], [address] [place] [address], [address] MCV 92.2 81.3 - 96.4 fL [facility] Comment:Testing performed by : [facility], [address] [facility], [address] MCH 29.4 27.1 - 33.3 pg [facility] Comment:Testing performed by : [facility], [address] [facility], [address] MCHC 31.9(L) 32.3 - 35.7 g/dL [facility] Comment:Testing performed by : [facility], [address] [facility], [address] RDW CV 14.6 11.1 - 14.9 % [facility] Comment:Testing performed by : [facility], [address] [facility], [address] RDW SD 49.1(H) 35.7 - 48.1 fL [facility] Comment:Testing performed by : [facility], [address] [facility], [address] NRBC abs 0.00 0.00 - 0.01 K/cumm [facility] Comment:Testing performed by : [facility], [address] [facility], [address] Blood 04/03/2025 7:00 AM CDT 04/03/2025 11:28 AM CDT us Notinfile Unknown LAB BLOOD ORDERABLES Final Res ult Performing Organization Address City/[facility] Co de Phone Number [facility] Department [place] [address] * POCT glucose (03/29/2025 11:15 AM CDT) [facility] Signature Glucose, POC 106 70 - 199 mg/dL Blood 03/29/2025 11:1 5 AM CDT 03/29/2025 11:15 AM CDT us Anival Leonard MD LAB POCT ORDERABLES - DEV ICE Final Result Performing Organization Address [facility] Co de Phone Number [facility] [place] [address] * POCT glucose (03/29/2025 8:11 AM CDT) Glucose, POC 107 70 - 199 mg/dL Blood 03/29/2025 8:11 AM CDT 03/29/2025 8:11 AM CDT us Anival Leonard MD LAB POCT ORDERABLES - DEV ICE Final Result Performing Organization Address City/[facility]/[place] [address] * POCT glucose (03/29/2025 4:53 AM CDT) Glucose, POC 100 70 - 199 mg/dL Blood 03/29/2025 4:53 AM CDT 03/29/2025 4:53 AM CDT us Anival Leonard MD LAB POCT ORDERABLES - DEV ICE Final Result Performing Organization Address City/[facility]/[place] [address] * POCT glucose (03/29/2025 12:18 AM CDT) Glucose, POC 103 70 - 199 mg/dL Blood 03/29/2025 12:1 8 AM CDT 03/29/2025 12:18 AM CDT Anival Leonard MD LAB POCT ORDERABLES - DEV ICE Final Result Performing Organization Address City/[facility]/ZIP Co de Phone Number [facility] [place] [address] * eGFR (03/28/2025 9:21 PM CDT) [facility] eGFR >90 >=60 mL/min/1. 73 m2 Comment: Interpretive Data Reference Interval Normal >/= 90 mL/min/1.73m2 Mildly decreased* 60 - 89 mL/min/1.73m2 Mildly to moderately decreased 45 - 59 mL/min/1.73m2 Moderately to severely decreased 30 - 44 mL/min/1.73m2 Severely decreased 15 - 29 mL/min/1.73m2 Kidney Failure < 15 mL/min/1.73m2 *Relative to young adult level Estimated glomerular filtration rate is determined by the 2020 CKD-EPI equation recommended by the National Kidney Foundation (A Unifying Approach to GFR Estimation: Recommendations of the NKF-ASK Task Force on Reassessing the Inclusion of Race in Diagnosing Kidney Disease, JASN 2020). The CKD-EPI equation should not be used for patients with unstable renal function and has not been validated in children and those over 70. Current interpretive data was last reviewed 2021. Blood 03/28/2025 9:21 PM CDT 03/28/2025 10:45 PM CDT Joslyn Davidson MD LAB BLOOD ORDERABLES Razia westfall Result [facility] Department [place] [address] * (ABNORMAL) Differential, auto (03/28/2025 9:21 PM CDT) [facility] Neutrophil abs 6.97(H) 1.50 - 6.50 K/cumm Imm gran abs 0.27(H) 0.00 - 0.10 K/cumm [facility] Lymphocyte abs 1.89 0.80 - 3.30 K/cumm [facility] Monocyte abs 0.64 0.20 - 0.80 K/cumm [facility] Eosinophil abs 0.16 0.00 - 0.50 K/cumm [facility] Basophil abs 0.05 0.00 - 0.10 K/cumm [facility] Neutrophil pct 69.9 % [facility] Comment: Interpretive Data Percent cell count reference ranges are not reported, since discordance with absolute values may lead to misinterpretation of CBC data. Current Interpretive Data was last revised on 2018. Imm gran pct 2.7 % [facility] Comment: Interpretive Data Percent cell count reference ranges are not reported, since discordance with absolute values may lead to misinterpretation of CBC data. Current Interpretive Data was last revised on 2018. Lymphocyte pct 18.9 % [facility] Comment: Interpretive Data Percent cell count reference ranges are not reported, since discordance with absolute values may lead to misinterpretation of CBC data. Current Interpretive Data was last revised on 2018. Monocyte pct 6.4 % [facility] Comment: Interpretive Data Percent cell count reference ranges are not reported, since discordance with absolute values may lead to misinterpretation of CBC data. Current Interpretive Data was last revised on 2018. Eosinophil pct 1.6 % [facility] Comment: Interpretive Data Percent cell count reference ranges are not reported, since discordance with absolute values may lead to misinterpretation of CBC data. Current Interpretive Data was last revised on 2018. Basophil pct 0.5 % [facility] Comment: Interpretive Data Percent cell count reference ranges are not reported, since discordance with absolute values may lead to misinterpretation of CBC data. Current Interpretive Data was last revised on 2018. Blood 03/28/2025 9:21 PM CDT 03/28/2025 10:45 PM CDT Joslyn Davidson MD LAB BLOOD ORDERABLES Razia westfall Result [facility] Department [place] [address] * (ABNORMAL) CBC with auto differential (03/28/2025 9:21 PM CDT) WBC 9.98(H) 3.80 - 9.90 K/cumm Hgb 7.9(L) 13.0 - 17.5 g/dL [facility] Hct 24.6(L) 38.9 - 50.3 % [facility] Plt 279 150 - 400 K/cumm [facility] MPV 12.8(H) 9.1 - 12.3 fL [facility] RBC 2.70(L) 4.30 - 5.80 M/cumm [facility] MCV 91.1 81.3 - 96.4 fL [facility] MCH 29.3 27.1 - 33.3 pg [facility] MCHC 32.1(L) 32.3 - 35.7 g/dL [facility] RDW CV 14.9 11.1 - 14.9 % [facility] RDW SD 48.0 35.7 - 48.1 fL [facility] NRBC abs 0.00 0.00 - 0.01 K/cumm [facility] Blood 03/28/2025 9:21 PM CDT 03/28/2025 10:45 PM CDT Joslyn Davidson MD LAB BLOOD ORDERABLES Razia l Result Performing Organization Address City/[facility]/ZIP Co de Phone Number [facility] Department [place] [address] * Phosphorus (03/28/2025 9:21 PM CDT) [facility] Phosphorus, pl 2.4 2.3 - 4.5 mg/dL Blood 03/28/2025 9:21 PM CDT 03/28/2025 10:45 PM CDT Joslyn Davidson MD LAB BLOOD ORDERABLES Razia l Result [facility] Department [place] [address] * (ABNORMAL) Comprehensive metabolic panel (03/28/2025 9:21 PM CDT) [facility] Sodium 135 135 - 145 mmol/L Potassium, pl 3.7 3.3 - 4.9 mmol/L [facility] Chloride 103 97 - 110 mmol/L [facility] CO2 24 22 - 32 mmol/L [facility] Anion gap 8 2 - 15 mmol/L [facility] BUN 12 6 - 25 mg/dL [facility] Creatinine 0.68(L) 0.80 - 1.30 mg/dL [facility] Glucose 97 70 - 199 mg/dL [facility] Comment: Interpretive Data Fasting glucose >/= 126 mg/dl is diagnostic for diabetes. Fasting is defined as no caloric intake for at least 8 hours. Fasting glucose between 100 mg/dl to 125 mg/dl is diagnostic of prediabetes. In a patient with classic symptoms of hyperglycemia or hyperglycemic crisis, a random glucose >/= 200 mg/dl is diagnostic for diabetes. In the absence of unequivocal hyperglycemia, results should be confirmed by repeat testing. The classification and Diagnosis of Diabetes Diabetes Care 2021; 46: S19-S40. Current interpretive data was last revised 2022. Calcium 7.9(L) 8.5 - 10.3 mg/dL [facility] Bilirubin, total 0.3 0.1 - 1.2 mg/dL [facility] Protein, pl 5.7(L) 6.5 - 8.5 g/dL [facility] Albumin 2.4(L) 3.5 - 5.0 g/dL [facility] Alk phos 65 40 - 130 Units/L [facility] ALT 8 7 - 55 Units/L [facility] AST 16 10 - 50 Units/L [facility] Blood 03/28/2025 9:21 PM CDT 03/28/2025 10:45 PM CDT Joslyn Davidson MD LAB BLOOD ORDERABLES Razia l Result [facility] Department [place] [address] * POCT glucose (03/28/2025 8:06 PM CDT) [facility] Glucose, POC 119 70 - 199 mg/dL Blood 03/28/2025 8:06 PM CDT 03/28/2025 8:06 PM CDT Anival Leonard MD LAB POCT ORDERABLES - DEV ICE Final Result Performing Organization Address City/[facility]/ZIP Co de Phone Number [facility] [place] [address] * POCT glucose (03/28/2025 3:57 PM CDT) Glucose, POC 113 70 - 199 mg/dL Blood 03/28/2025 3:57 PM CDT 03/28/2025 3:57 PM CDT Anival Leonard MD LAB POCT ORDERABLES - DEV ICE Final Result Performing Organization Address [facility] Co de Phone Number [facility] [place] [address] * POCT glucose (03/28/2025 12:10 PM CDT) Glucose, POC 106 70 - 199 mg/dL Blood 03/28/2025 12:1 0 PM CDT 03/28/2025 12:10 PM CDT Anival Leonard MD LAB POCT ORDERABLES - DEV ICE Final Result Performing Organization Address [facility] Co de Phone Number [facility] [place] [address] * POCT glucose (03/28/2025 8:34 AM CDT) Glucose, POC 117 70 - 199 mg/dL Blood 03/28/2025 8:34 AM CDT 03/28/2025 8:34 AM CDT Anival Leonard MD LAB POCT ORDERABLES - DEV ICE Final Result Performing Organization Address City/[facility]/ZIP Co de Phone Number [facility] [place] [address] * POCT glucose (03/28/2025 4:04 AM CDT) Glucose, POC 101 70 - 199 mg/dL Blood 03/28/2025 4:04 AM CDT 03/28/2025 4:04 AM CDT Anival Leonard MD LAB POCT ORDERABLES - DEV ICE Final Result Performing Organization Address City/[facility] Co de Phone Number [facility] Department [place] [address] * POCT glucose (03/28/2025 12:10 AM CDT) Glucose, POC 97 70 - 199 mg/dL Blood 03/28/2025 12:1 0 AM CDT 03/28/2025 12:10 AM CDT Anival Leonard MD LAB POCT ORDERABLES - DEV ICE Final Result Performing Organization Address [facility] de Phone Number [facility] [place] [address] * eGFR (03/27/2025 8:40 PM CDT) eGFR >90 >=60 mL/min/1. 73 m2 Comment: Interpretive Data Reference Interval Normal >/= 90 mL/min/1.73m2 Mildly decreased* 60 - 89 mL/min/1.73m2 Mildly to moderately decreased 45 - 59 mL/min/1.73m2 Moderately to severely decreased 30 - 44 mL/min/1.73m2 Severely decreased 15 - 29 mL/min/1.73m2 Kidney Failure < 15 mL/min/1.73m2 *Relative to young adult level Estimated glomerular filtration rate is determined by the 2020 CKD-EPI equation recommended by the National Kidney Foundation (A Unifying Approach to GFR Estimation: Recommendations of the NKF-ASK Task Force on Reassessing the Inclusion of Race in Diagnosing Kidney Disease, JASN 2020). The CKD-EPI equation should not be used for patients with unstable renal function and has not been validated in children and those over 70. Current interpretive data was last reviewed 2021. Blood 03/27/2025 8:40 PM CDT 03/27/2025 9:25 PM CDT Joslyn Davidson MD LAB BLOOD ORDERABLES Razia malou Result [facility] [place] [address] * (ABNORMAL) Differential, auto (03/27/2025 8:40 PM CDT) Neutrophil abs 9.30(H) 1.50 - 6.50 K/cumm Imm gran abs 0.37(H) 0.00 - 0.10 K/cumm [facility] Lymphocyte abs 1.66 0.80 - 3.30 K/cumm [facility] Monocyte abs 0.75 0.20 - 0.80 K/cumm [facility] Eosinophil abs 0.16 0.00 - 0.50 K/cumm [facility] Basophil abs 0.05 0.00 - 0.10 K/cumm [facility] Neutrophil pct 75.7 % [facility] Comment: Interpretive Data Percent cell count reference ranges are not reported, since discordance with absolute values may lead to misinterpretation of CBC data. Current Interpretive Data was last revised on 2018. Imm gran pct 3.0 % [facility] Comment: Interpretive Data Percent cell count reference ranges are not reported, since discordance with absolute values may lead to misinterpretation of CBC data. Current Interpretive Data was last revised on 2018. Lymphocyte pct 13.5 % [facility] Comment: Interpretive Data Percent cell count reference ranges are not reported, since discordance with absolute values may lead to misinterpretation of CBC data. Current Interpretive Data was last revised on 2018. Monocyte pct 6.1 % [facility] Comment: Interpretive Data Percent cell count reference ranges are not reported, since discordance with absolute values may lead to misinterpretation of CBC data. Current Interpretive Data was last revised on 2018. Eosinophil pct 1.3 % [facility] Comment: Interpretive Data Percent cell count reference ranges are not reported, since discordance with absolute values may lead to misinterpretation of CBC data. Current Interpretive Data was last revised on 2018. Basophil pct 0.4 % [facility] Comment: Interpretive Data Percent cell count reference ranges are not reported, since discordance with absolute values may lead to misinterpretation of CBC data. Current Interpretive Data was last revised on 2018. Blood 03/27/2025 8:40 PM CDT 03/27/2025 9:26 PM CDT Joslyn Davidson MD LAB BLOOD ORDERABLES Razia westfall Result [facility] Department [place] [address] * (ABNORMAL) CBC with auto differential (03/27/2025 8:40 PM CDT) WBC 12.29(H) 3.80 - 9.90 K/cumm Hgb 8.5(L) 13.0 - 17.5 g/dL [facility] Hct 25.7(L) 38.9 - 50.3 % [facility] Plt 250 150 - 400 K/cumm [facility] MPV 13.0(H) 9.1 - 12.3 fL [facility] RBC 2.81(L) 4.30 - 5.80 M/cumm [facility] MCV 91.5 81.3 - 96.4 fL [facility] MCH 30.2 27.1 - 33.3 pg [facility] MCHC 33.1 32.3 - 35.7 g/dL [facility] RDW CV 15.0(H) 11.1 - 14.9 % [facility] RDW SD 47.8 35.7 - 48.1 fL [facility] NRBC abs 0.00 0.00 - 0.01 K/cumm [facility] Blood 03/27/2025 8:40 PM CDT 03/27/2025 9:26 PM CDT Joslyn Davidson MD LAB BLOOD ORDERABLES Razia l Result Performing Organization Address City/[facility]/ZIP Co de Phone Number [facility] [place] [address] * Phosphorus (03/27/2025 8:40 PM CDT) Pathologist [facility] Phosphorus, pl 2.8 2.3 - 4.5 mg/dL Blood 03/27/2025 8:40 PM CDT 03/27/2025 9:25 PM CDT Joslyn Davidson MD LAB BLOOD ORDERABLES Razia l Result Performing Organization Address [facility] de Phone Number [facility] Department [place] [address] * (ABNORMAL) Comprehensive metabolic panel (03/27/2025 8:40 PM CDT) [facility] Sodium 138 135 - 145 mmol/L Potassium, pl 3.4 3.3 - 4.9 mmol/L [facility] Chloride 107 97 - 110 mmol/L [facility] CO2 23 22 - 32 mmol/L [facility] Anion gap 8 2 - 15 mmol/L [facility] BUN 13 6 - 25 mg/dL [facility] Creatinine 0.74(L) 0.80 - 1.30 mg/dL [facility] Glucose 95 70 - 199 mg/dL [facility] Comment: Interpretive Data Fasting glucose >/= 126 mg/dl is diagnostic for diabetes. Fasting is defined as no caloric intake for at least 8 hours. Fasting glucose between 100 mg/dl to 125 mg/dl is diagnostic of prediabetes. In a patient with classic symptoms of hyperglycemia or hyperglycemic crisis, a random glucose >/= 200 mg/dl is diagnostic for diabetes. In the absence of unequivocal hyperglycemia, results should be confirmed by repeat testing. The classification and Diagnosis of Diabetes Diabetes Care 202; 46: S19-S40. Current interpretive data was last revised 2022. Calcium 8.3(L) 8.5 - 10.3 mg/dL [facility] Bilirubin, total 0.3 0.1 - 1.2 mg/dL [facility] Protein, pl 5.8(L) 6.5 - 8.5 g/dL [facility] Albumin 2.6(L) 3.5 - 5.0 g/dL [facility] Alk phos 71 40 - 130 Units/L [facility] ALT 14 7 - 55 Units/L [facility] AST 21 10 - 50 Units/L [facility] Blood 03/27/2025 8:40 PM CDT 03/27/2025 9:25 PM CDT Joslyn Davidson MD LAB BLOOD ORDERABLES Razia l Result Performing Organization Address [facility] de Phone Number [facility] Department [place] [address] * POCT glucose (03/27/2025 8:31 PM CDT) Glucose, POC 104 70 - 199 mg/dL Blood 03/27/2025 8:31 PM CDT 03/27/2025 8:31 PM CDT Anival Leonard MD LAB POCT ORDERABLES - DEV ICE Final Result Performing Organization Address [facility] de Phone Number [facility] Department [place] [address] * POCT glucose (03/27/2025 5:07 PM CDT) Glucose, POC 88 70 - 199 mg/dL Blood 03/27/2025 5:07 PM CDT 03/27/2025 5:07 PM CDT Anival Leonard MD LAB POCT ORDERABLES - DEV ICE Final Result [facility] Department [place] [address] * POCT glucose (03/27/2025 11:55 AM CDT) Pathologist [facility] Glucose, POC 110 70 - 199 mg/dL Blood 03/27/2025 11:5 5 AM CDT 03/27/2025 11:55 AM CDT Anival Leonard MD LAB POCT ORDERABLES - DEV ICE Final Result [facility] Department [place] [address] * (ABNORMAL) Differential, auto (03/27/2025 8:00 AM CDT) [facility] Neutrophil abs 7.01(H) 1.50 - 6.50 K/cumm Imm gran abs 0.37(H) 0.00 - 0.10 K/cumm [facility] Lymphocyte abs 1.34 0.80 - 3.30 K/cumm [facility] Monocyte abs 0.61 0.20 - 0.80 K/cumm [facility] Eosinophil abs 0.19 0.00 - 0.50 K/cumm [facility] Basophil abs 0.04 0.00 - 0.10 K/cumm [facility] Neutrophil pct 73.3 % [facility] Comment: Interpretive Data Percent cell count reference ranges are not reported, since discordance with absolute values may lead to misinterpretation of CBC data. Current Interpretive Data was last revised on 2018. Imm gran pct 3.9 % [facility] Comment: Interpretive Data Percent cell count reference ranges are not reported, since discordance with absolute values may lead to misinterpretation of CBC data. Current Interpretive Data was last revised on 2018. Lymphocyte pct 14.0 % [facility] Comment: Interpretive Data Percent cell count reference ranges are not reported, since discordance with absolute values may lead to misinterpretation of CBC data. Current Interpretive Data was last revised on 2018. Monocyte pct 6.4 % [facility] Comment: Interpretive Data Percent cell count reference ranges are not reported, since discordance with absolute values may lead to misinterpretation of CBC data. Current Interpretive Data was last revised on 2018. Eosinophil pct 2.0 % [facility] Comment: Interpretive Data Percent cell count reference ranges are not reported, since discordance with absolute values may lead to misinterpretation of CBC data. Current Interpretive Data was last revised on 2018. Basophil pct 0.4 % [facility] Comment: Interpretive Data Percent cell count reference ranges are not reported, since discordance with absolute values may lead to misinterpretation of CBC data. Current Interpretive Data was last revised on 2018. Blood 03/27/2025 8:00 AM CDT 03/27/2025 8:39 AM CDT Anival Leonard MD LAB BLOOD ORDERABLES Razia westfall Result [facility] Department [place] [address] * (ABNORMAL) CBC with auto differential (03/27/2025 8:00 AM CDT) WBC 9.56 3.80 - 9.90 K/cumm Hgb 7.6(L) 13.0 - 17.5 g/dL [facility] Hct 23.5(L) 38.9 - 50.3 % [facility] Plt 243 150 - 400 K/cumm [facility] MPV 13.3(H) 9.1 - 12.3 fL [facility] RBC 2.56(L) 4.30 - 5.80 M/cumm [facility] MCV 91.8 81.3 - 96.4 fL [facility] MCH 29.7 27.1 - 33.3 pg [facility] MCHC 32.3 32.3 - 35.7 g/dL [facility] RDW CV 14.7 11.1 - 14.9 % [facility] RDW SD 46.6 35.7 - 48.1 fL [facility] NRBC abs 0.00 0.00 - 0.01 K/cumm [facility] Blood 03/27/2025 8:00 AM CDT 03/27/2025 8:39 AM CDT us Anival Leonard MD LAB BLOOD ORDERABLES Razia l Result Performing Organization Address [facility] Co de Phone Number [facility] [place] [address] * POCT glucose (03/27/2025 7:33 AM CDT) Glucose, POC 106 70 - 199 mg/dL Blood 03/27/2025 7:33 AM CDT 03/27/2025 7:33 AM CDT us Anival Leonard MD LAB POCT ORDERABLES - DEV ICE Final Result Performing Organization Address [facility] de Phone Number [facility] [place] [address] * POCT glucose (03/27/2025 4:32 AM CDT) Glucose, POC 105 70 - 199 mg/dL Blood 03/27/2025 4:32 AM CDT 03/27/2025 4:32 AM CDT us Anival Leonard MD LAB POCT ORDERABLES - DEV ICE Final Result Performing Organization Address [facility] Co de Phone Number [facility] [place] [address] * POCT glucose (03/27/2025 12:04 AM CDT) Glucose, POC 119 70 - 199 mg/dL Blood 03/27/2025 12:0 4 AM CDT 03/27/2025 12:04 AM CDT us Anival Leonard MD LAB POCT ORDERABLES - DEV ICE Final Result Performing Organization Address [facility] Co de Phone Number [facility] Department [place] [address] * eGFR (03/26/2025 8:31 PM CDT) Pathologist [facility] eGFR >90 >=60 mL/min/1. 73 m2 Comment: Interpretive Data Reference Interval Normal >/= 90 mL/min/1.73m2 Mildly decreased* 60 - 89 mL/min/1.73m2 Mildly to moderately decreased 45 - 59 mL/min/1.73m2 Moderately to severely decreased 30 - 44 mL/min/1.73m2 Severely decreased 15 - 29 mL/min/1.73m2 Kidney Failure < 15 mL/min/1.73m2 *Relative to young adult level Estimated glomerular filtration rate is determined by the 2020 CKD-EPI equation recommended by the National Kidney Foundation (A Unifying Approach to GFR Estimation: Recommendations of the NKF-ASK Task Force on Reassessing the Inclusion of Race in Diagnosing Kidney Disease, JASN 2020). The CKD-EPI equation should not be used for patients with unstable renal function and has not been validated in children and those over 70. Current interpretive data was last reviewed 2021. Blood 03/26/2025 8:31 PM CDT 03/26/2025 10:08 PM CDT Joslyn Davidson MD LAB BLOOD ORDERABLES Razia l Result Performing Organization Address [facility]/ZIP Co de Phone Number [facility] Department [place] [address] * (ABNORMAL) Differential, auto (03/26/2025 8:31 PM CDT) Pathologist [facility] Neutrophil abs 8.95(H) 1.50 - 6.50 K/cumm Imm gran abs 0.53(H) 0.00 - 0.10 K/cumm [facility] Lymphocyte abs 1.74 0.80 - 3.30 K/cumm [facility] Monocyte abs 0.79 0.20 - 0.80 K/cumm [facility] Eosinophil abs 0.24 0.00 - 0.50 K/cumm [facility] Basophil abs 0.07 0.00 - 0.10 K/cumm [facility] Neutrophil pct 72.7 % [facility] Comment: Interpretive Data Percent cell count reference ranges are not reported, since discordance with absolute values may lead to misinterpretation of CBC data. Current Interpretive Data was last revised on 2018. Imm gran pct 4.3 % [facility] Comment: Interpretive Data Percent cell count reference ranges are not reported, since discordance with absolute values may lead to misinterpretation of CBC data. Current Interpretive Data was last revised on 2018. Lymphocyte pct 14.1 % [facility] Comment: Interpretive Data Percent cell count reference ranges are not reported, since discordance with absolute values may lead to misinterpretation of CBC data. Current Interpretive Data was last revised on 2018. Monocyte pct 6.4 % [facility] Comment: Interpretive Data Percent cell count reference ranges are not reported, since discordance with absolute values may lead to misinterpretation of CBC data. Current Interpretive Data was last revised on 2018. Eosinophil pct 1.9 % [facility] Comment: Interpretive Data Percent cell count reference ranges are not reported, since discordance with absolute values may lead to misinterpretation of CBC data. Current Interpretive Data was last revised on 2018. Basophil pct 0.6 % [facility] Comment: Interpretive Data Percent cell count reference ranges are not reported, since discordance with absolute values may lead to misinterpretation of CBC data. Current Interpretive Data was last revised on 2018. Blood 03/26/2025 8:31 PM CDT 03/26/2025 10:07 PM CDT us Joslyn Davidson MD LAB BLOOD ORDERABLES Razia westfall Result [facility] Department [place] [address] * (ABNORMAL) CBC with auto differential (03/26/2025 8:31 PM CDT) Pathologist [facility] WBC 12.32(H) 3.80 - 9.90 K/cumm Hgb 8.5(L) 13.0 - 17.5 g/dL [facility] Hct 26.1(L) 38.9 - 50.3 % [facility] Plt 286 150 - 400 K/cumm [facility] MPV 13.5(H) 9.1 - 12.3 fL [facility] RBC 2.84(L) 4.30 - 5.80 M/cumm [facility] MCV 91.9 81.3 - 96.4 fL [facility] MCH 29.9 27.1 - 33.3 pg [facility] MCHC 32.6 32.3 - 35.7 g/dL [facility] RDW CV 14.6 11.1 - 14.9 % [facility] RDW SD 45.4 35.7 - 48.1 fL [facility] NRBC abs 0.00 0.00 - 0.01 K/cumm [facility] Blood 03/26/2025 8:31 PM CDT 03/26/2025 10:07 PM CDT Joslyn Davidson MD LAB BLOOD ORDERABLES Razia l Result Performing Organization Address [facility] Co de Phone Number [facility] [place] [address] * Phosphorus (03/26/2025 8:31 PM CDT) [facility] Phosphorus, pl 2.5 2.3 - 4.5 mg/dL Blood 03/26/2025 8:31 PM CDT 03/26/2025 10:08 PM CDT Joslyn Davidson MD LAB BLOOD ORDERABLES Razia l Result Performing Organization Address [facility]/ZIP Co de Phone Number [facility] [place] [address] * (ABNORMAL) Comprehensive metabolic panel (03/26/2025 8:31 PM CDT) Sodium 140 135 - 145 mmol/L Potassium, pl 3.4 3.3 - 4.9 mmol/L [facility] Chloride 108 97 - 110 mmol/L [facility] CO2 24 22 - 32 mmol/L [facility] Anion gap 8 2 - 15 mmol/L [facility] BUN 14 6 - 25 mg/dL [facility] Creatinine 0.72(L) 0.80 - 1.30 mg/dL [facility] Glucose 96 70 - 199 mg/dL [facility] Comment: Interpretive Data Fasting glucose >/= 126 mg/dl is diagnostic for diabetes. Fasting is defined as no caloric intake for at least 8 hours. Fasting glucose between 100 mg/dl to 125 mg/dl is diagnostic of prediabetes. In a patient with classic symptoms of hyperglycemia or hyperglycemic crisis, a random glucose >/= 200 mg/dl is diagnostic for diabetes. In the absence of unequivocal hyperglycemia, results should be confirmed by repeat testing. The classification and Diagnosis of Diabetes Diabetes Care 2021; 46: S19-S40. Current interpretive data was last revised 2022. Calcium 8.3(L) 8.5 - 10.3 mg/dL [facility] Bilirubin, total 0.5 0.1 - 1.2 mg/dL [facility] Protein, pl 6.1(L) 6.5 - 8.5 g/dL [facility] Albumin 2.9(L) 3.5 - 5.0 g/dL [facility] Alk phos 76 40 - 130 Units/L [facility] ALT 9 7 - 55 Units/L [facility] AST 21 10 - 50 Units/L [facility] Blood 03/26/2025 8:31 PM CDT 03/26/2025 10:08 PM CDT us Joslyn Davidson MD LAB BLOOD ORDERABLES Razia westfall Result [facility] Department [place] [address] * POCT glucose (03/26/2025 8:22 PM CDT) Glucose, POC 102 70 - 199 mg/dL Blood 03/26/2025 8:22 PM CDT 03/26/2025 8:22 PM CDT Anival Leonard MD LAB POCT ORDERABLES - DEV ICE Final Result Performing Organization Address [facility] Co de Phone Number [facility] [place] [address] * POCT glucose (03/26/2025 4:43 PM CDT) Glucose, POC 115 70 - 199 mg/dL Blood 03/26/2025 4:43 PM CDT 03/26/2025 4:43 PM CDT Anival Leonard MD LAB POCT ORDERABLES - DEV ICE Final Result Performing Organization Address [facility] de Phone Number [facility] [place] [address] * POCT glucose (03/26/2025 2:45 PM CDT) Glucose, POC 120 70 - 199 mg/dL Blood 03/26/2025 2:45 PM CDT 03/26/2025 2:45 PM CDT Anival Leonard MD LAB POCT ORDERABLES - DEV ICE Final Result Performing Organization Address [facility] Co de Phone Number [facility] [place] [address] * FL Modified Barium Swallow W Video (03/26/2025 1:15 PM CDT) Anatomical Region Laterality Modality Head and Neck N/A Computed Radiogr aphy 03/26/2025 2:47 PM CDT Impressions 03/26/2025 2:48 PM CDT The swallowing mechanism is within functional limits; see above comments. Please refer to the Speech Pathology procedure note for safe swallow recommendations as well as additional information regarding the oral-pharyngeal swallow function, plan of care, and recommended follow up. Dictated by: David Sullvian MD The radiology attending physician has personally reviewed this study, and had reviewed and/or edited this written report and agrees with it. Electronically signed by: Vicky Hernandez M.D. Narrative 03/26/2025 2:48 PM CDT EXAMINATION: MODIFIED BARIUM SWALLOW HISTORY: Dysphagia. TECHNIQUE: This procedure was completed in conjunction with a Speech Language Pathologist. The patient was given barium of multiple different consistencies to swallow. Video fluoroscopy was employed during the exam. FINDINGS: Oral-pharyngeal swallow function is mostly within functional limits. Penetration: No There is penetration of thin liquid. Penetration is sensed. The penetrated material is cleared. Aspiration: Yes There is aspiration of thin liquid. Aspiration is not sensed. The aspirated material is cleared. Residue:Yes There is oral-pharyngeal residue of puree and solid. Residue is sensed. The residual material is cleared. Other comments: None Procedure Note Vicky Hernandez MD - 03/26/2025 EXAMINATION: MODIFIED BARIUM SWALLOW HISTORY: Dysphagia. TECHNIQUE: This procedure was completed in conjunction with a Speech Language Pathologist. The patient was given barium of multiple different consistencies to swallow. Video fluoroscopy was employed during the exam. FINDINGS: Oral-pharyngeal swallow function is mostly within functional limits. Penetration: No There is penetration of thin liquid. Penetration is sensed. The penetrated material is cleared. Aspiration: Yes There is aspiration of thin liquid. Aspiration is not sensed. The aspirated material is cleared. Residue:Yes There is oral-pharyngeal residue of puree and solid. Residue is sensed. The residual material is cleared. Other comments: None IMPRESSION: The swallowing mechanism is within functional limits; see above comments. Please refer to the Speech Pathology procedure note for safe swallow recommendations as well as additional information regarding the oral-pharyngeal swallow function, plan of care, and recommended follow up. Dictated by: David Sullivan MD The radiology attending physician has personally reviewed this study, and had reviewed and/or edited this written report and agrees with it. Electronically signed by: Vicky Hernandez M.D. us Joslyn Davidson MD IMG FLUOROSCOPY PROCEDURE S Final Result * COLLAR CUTTER Evaluate and Treat (VFSS) (03/26/2025 1:00 PM CDT) Narrative Kiki Birmingham, FENG - 03/26/2025 1:00 PM CDT Kiki Birmingham SLP 03/26/2025 2:34 PM Speech-Language Pathology: Videofluoroscopic Study of Swallow (VFSS/MBS) HPI/PMH 69 yo male with a history of Parkinson's disease, bipolar disorder, who is transferred from the psychiatry service to the ICU after an aspiration episode complicated by acute hypoxemic respiratory failure. He was admitted to the psychiatry service due to worsening mental status and psychosis that had been going on for several weeks. While on the psychiatry service, his Sinemet dose was titrated, neurology was following, and he was started on Ativan as well as clozapine. There was an ongoing evaluation for possible ECT. He had poor p.o. intake over the past day, this morning he was found to have increased respiratory effort, was desaturating. He required use of a non-rebreather and was transferred to the MICU. Respiratory/Intubation Status: Intubated 03/14-03/17; now room air CXR 03/17 - No change in mild ill-defined and patchy airspace opacities in the mid and upper lungs which may be due to aspiration or residual pulmonary edema. No new consolidation, pleural effusion, or pneumothorax. Chest CT 03/23- Evolving sequelae of aspiration in both lungs including areas of improvement and areas of relative worsening with possible aspiration pneumonia. Precautions: Fall PLOF: Per Neurology H&P: At baseline, the patient ambulates with a walker when in the house and on his own two feet when outside the house. He does not drive. His drives him around. He does not manage his own medications; he does so with the assistance of his . Current Diet Order: NPO Baseline Diet: regular diet General Information John Arita 03/26/25 COLLAR CUTTER Received On: 03/26/25 General Observations: Pt alert and agreeable to evaluation. Followed commands. Conversational. Reason for Referral: assess oral-pharyngeal swallow function, guide PO diet recommendation Pain Score: 0 - No pain If pain >4, was RN notified? N/A Patient Stated Goal/Comments: none Clinical Impression & Professional Recommendations Diet Solids Recommendation: Dysphagia diet-Phase 2 Diet Liquids Recommendations: Thin/regular Recommended Form of Medications: As tolerated Compensatory Strategies/Modifications: Slow rate, Small bites, Alternate solids and liquids, Cued cough every few drinks Postural Recommendations: Upright 90 degrees Assistance with feeding/swallowing: Assist with aggressive oral hygiene prior to po, Full supervision with meals Overall Clinical Impression/Additional Information: Oral-pharyngeal swallow function largely intact with mild oral and pharyngeal deficits characterized by the following: Oral Phase Deficits: Disorganized prolonged mastication with solids; full oral clearance. Oral and base of tongue residue that requires a liquid wash. Posterior escape of thin liquid to the pyriform sinuses. Pharyngeal Phase Deficits: mildly reduced laryngeal elevation, reduced base of tongue retraction Deficits result in: Trace silent aspiration after the swallow with thin liquid x1 that cleared with cued cough. No further aspiration observed even with large volume drinks. Intermittent trace high penetration with thin liquid that clears with force of swallow. No penetration/aspiration of puree or solids. Mild vallecular residue puree/solids that clears with liquid wash. Assessment Details & Results Purpose and Procedure of Videofluoroscopic Study of Swallow: Videofluoroscopic Study of Swallow completed to assess oropharyngeal swallow function and safety/efficiency of the swallow so that diet recommendations can be made. This test is completed in conjunction with Radiology. Results of this test are indicative of performance at the time of the exam. Standard procedure is in lateral view at 90 degrees. Consistencies Administered: Thin liquids, Purees, Solids Respiratory Support: No Significant Impairment- Respiratory support is adequate for speech & swallowing Administered consistencies contain barium product. Thin Liquids: Laryngeal Penetration: Present Aspiration Present: Yes Timing: After Amount: Trace Successful Modifications : Cough Penetration Aspiration Scale-Thin: 6-Material enters the airway, passes below the vocal folds and is ejected into the larynx or out of the airway Purees: Laryngeal Penetration: None Aspiration Present: No Penetration Aspiration Scale-Puree: 1-Material does not enter airway Solids: Laryngeal Penetration: None Aspiration Present: No Successful Modifications : Alternated liquids and solids Penetration Aspiration Scale-Solids: 1-Material does not enter airway MBSImp: MBSImp Results: Lip closure : 0-No labial escape Tongue Control with Bolus Hold: 2-Posterior escape of less than half of bolus Bolus Preparation/Mastication : 2-Disorganized chewing/mashing with solid pieces of bolus unchewed Bolus Transport/Lingual Motion : 1-Delayed initiation of tongue motion Oral Residue: 1-Trace residue lining oral structures (normal variant) Initiation of Pharyngeal Swallow : 3-Bolus head in pyriforms Soft Palate : 0-No bolus between soft palate and pharyngeal wall Laryngeal Elevation : 1-Partial superior movement of thyroid cartilage with partial approximation of arytenoids to epiglottic petiole Anterior Hyoid Excursion: 0-Complete anterior movement Epiglottic Movement: 0-Complete inversion Laryngeal Vestibular Closure: 1-Incomplete, narrow column of air/contrast in laryngeal vestibule Pharyngeal Stripping Wave: 0-Present and complete Pharyngeal Contraction (AP view only): Not assessed, No AP view Pharyngoesophageal Segment Opening : 0-Complete distention and complete duration, no obstruction of flow Tongue Base Retraction : 2-Narrow column of contrast or air between tongue base and posterior pharyngeal wall Pharyngeal Residue : 2-Collection of residue within or on pharyngeal structures Esophageal Clearance (upright position): Not assessed, No AP view Dysphagia Outcome and Severity Scale: Dysphagia Outcomes and Severity Scale: 6 Modified independence Levels 1 & 2 on the JAYCOB indicate need for nonoral nutrition. Treatment Treatment was not provided this date. Please reference care plan for treatment goals and details, if indicated. Plan COLLAR CUTTER Frequency of Services during current admission: 1-2x/wk COLLAR CUTTER Recommendation (Add'l Services): Other (do not anticipate COLLAR CUTTER swallow needs at discharge) Next Visit Plan: treatment/therapy Additional Referrals: none Discharge Summary Statement If this is the last swallow therapy visit, this serves as the discharge summary. Joslyn Davidson MD COLLAR CUTTER ORDERABLES Final Res ult * (ABNORMAL) Differential, auto (03/26/2025 8:59 AM CDT) Neutrophil abs 8.28(H) 1.50 - 6.50 K/cumm Imm gran abs 0.31(H) 0.00 - 0.10 K/cumm [facility] Lymphocyte abs 1.22 0.80 - 3.30 K/cumm [facility] Monocyte abs 0.59 0.20 - 0.80 K/cumm [facility] Eosinophil abs 0.18 0.00 - 0.50 K/cumm [facility] Basophil abs 0.04 0.00 - 0.10 K/cumm [facility] Neutrophil pct 77.9 % [facility] Comment: Interpretive Data Percent cell count reference ranges are not reported, since discordance with absolute values may lead to misinterpretation of CBC data. Current Interpretive Data was last revised on 2018. Imm gran pct 2.9 % [facility] Comment: Interpretive Data Percent cell count reference ranges are not reported, since discordance with absolute values may lead to misinterpretation of CBC data. Current Interpretive Data was last revised on 2018. Lymphocyte pct 11.5 % [facility] Comment: Interpretive Data Percent cell count reference ranges are not reported, since discordance with absolute values may lead to misinterpretation of CBC data. Current Interpretive Data was last revised on 2018. Monocyte pct 5.6 % [facility] Comment: Interpretive Data Percent cell count reference ranges are not reported, since discordance with absolute values may lead to misinterpretation of CBC data. Current Interpretive Data was last revised on 2018. Eosinophil pct 1.7 % [facility] Comment: Interpretive Data Percent cell count reference ranges are not reported, since discordance with absolute values may lead to misinterpretation of CBC data. Current Interpretive Data was last revised on 2018. Basophil pct 0.4 % [facility] Comment: Interpretive Data Percent cell count reference ranges are not reported, since discordance with absolute values may lead to misinterpretation of CBC data. Current Interpretive Data was last revised on 2018. Blood 03/26/2025 8:59 AM CDT 03/26/2025 10:16 AM CDT us Joslyn Davidson MD LAB BLOOD ORDERABLES Razia westfall Result [facility] Department [place] [address] * (ABNORMAL) CBC with auto differential (03/26/2025 8:59 AM CDT) WBC 10.62(H) 3.80 - 9.90 K/cumm Hgb 8.1(L) 13.0 - 17.5 g/dL [facility] Hct 25.4(L) 38.9 - 50.3 % [facility] Plt 249 150 - 400 K/cumm [facility] MPV 13.3(H) 9.1 - 12.3 fL [facility] RBC 2.79(L) 4.30 - 5.80 M/cumm [facility] MCV 91.0 81.3 - 96.4 fL [facility] MCH 29.0 27.1 - 33.3 pg [facility] MCHC 31.9(L) 32.3 - 35.7 g/dL [facility] RDW CV 14.3 11.1 - 14.9 % [facility] RDW SD 45.2 35.7 - 48.1 fL [facility] NRBC abs 0.00 0.00 - 0.01 K/cumm [facility] Blood 03/26/2025 8:59 AM CDT 03/26/2025 10:16 AM CDT us Joslyn Davidson MD LAB BLOOD ORDERABLES Razia l Result [facility] Department [place] [address] * POCT glucose (03/26/2025 7:55 AM CDT) Glucose, POC 124 70 - 199 mg/dL Blood 03/26/2025 7:55 AM CDT 03/26/2025 7:55 AM CDT us Anival Leonard MD LAB POCT ORDERABLES - DEV ICE Final Result [facility] [place] [address] * POCT glucose (03/26/2025 3:49 AM CDT) Glucose, POC 109 70 - 199 mg/dL Blood 03/26/2025 3:49 AM CDT 03/26/2025 3:49 AM CDT us Anival Leonard MD LAB POCT ORDERABLES - DEV ICE Final Result Performing Organization Address [facility] Co de Phone Number VITO [facility] Department [place] [address] * eGFR (03/26/2025 3:00 AM CDT) eGFR >90 >=60 mL/min/1. 73 m2 Comment: Interpretive Data Reference Interval Normal >/= 90 mL/min/1.73m2 Mildly decreased* 60 - 89 mL/min/1.73m2 Mildly to moderately decreased 45 - 59 mL/min/1.73m2 Moderately to severely decreased 30 - 44 mL/min/1.73m2 Severely decreased 15 - 29 mL/min/1.73m2 Kidney Failure < 15 mL/min/1.73m2 *Relative to young adult level Estimated glomerular filtration rate is determined by the 2020 CKD-EPI equation recommended by the National Kidney Foundation (A Unifying Approach to GFR Estimation: Recommendations of the NKF-ASK Task Force on Reassessing the Inclusion of Race in Diagnosing Kidney Disease, JASN 2020). The CKD-EPI equation should not be used for patients with unstable renal function and has not been validated in children and those over 70. Current interpretive data was last reviewed 2021. Blood 03/26/2025 3:00 AM CDT 03/26/2025 3:25 AM CDT us Joslyn Davidson MD LAB BLOOD ORDERABLES Razia l Result Performing Organization Address City/[facility]/ZIP Co de Phone Number [facility] Department [place] [address] * (ABNORMAL) Differential, auto (03/26/2025 3:00 AM CDT) Neutrophil abs 8.45(H) 1.50 - 6.50 K/cumm Imm gran abs 0.46(H) 0.00 - 0.10 K/cumm [facility] Lymphocyte abs 1.57 0.80 - 3.30 K/cumm [facility] Monocyte abs 0.60 0.20 - 0.80 K/cumm [facility] Eosinophil abs 0.24 0.00 - 0.50 K/cumm [facility] Basophil abs 0.05 0.00 - 0.10 K/cumm [facility] Neutrophil pct 74.4 % [facility] Comment: Interpretive Data Percent cell count reference ranges are not reported, since discordance with absolute values may lead to misinterpretation of CBC data. Current Interpretive Data was last revised on 2018. Imm gran pct 4.0 % [facility] Comment: Interpretive Data Percent cell count reference ranges are not reported, since discordance with absolute values may lead to misinterpretation of CBC data. Current Interpretive Data was last revised on 2018. Lymphocyte pct 13.8 % [facility] Comment: Interpretive Data Percent cell count reference ranges are not reported, since discordance with absolute values may lead to misinterpretation of CBC data. Current Interpretive Data was last revised on 2018. Monocyte pct 5.3 % [facility] Comment: Interpretive Data Percent cell count reference ranges are not reported, since discordance with absolute values may lead to misinterpretation of CBC data. Current Interpretive Data was last revised on 2018. Eosinophil pct 2.1 % [facility] Comment: Interpretive Data Percent cell count reference ranges are not reported, since discordance with absolute values may lead to misinterpretation of CBC data. Current Interpretive Data was last revised on 2018. Basophil pct 0.4 % [facility] Comment: Interpretive Data Percent cell count reference ranges are not reported, since discordance with absolute values may lead to misinterpretation of CBC data. Current Interpretive Data was last revised on 2018. Blood 03/26/2025 3:00 AM CDT 03/26/2025 3:24 AM CDT us Joslyn Davidson MD LAB BLOOD ORDERABLES Razia westfall Result [facility] Department [place] [address] * (ABNORMAL) CBC with auto differential (03/26/2025 3:00 AM CDT) [facility] WBC 11.37(H) 3.80 - 9.90 K/cumm Hgb 8.8(L) 13.0 - 17.5 g/dL [facility] Hct 27.1(L) 38.9 - 50.3 % [facility] Plt 269 150 - 400 K/cumm [facility] MPV 13.3(H) 9.1 - 12.3 fL [facility] RBC 2.95(L) 4.30 - 5.80 M/cumm [facility] MCV 91.9 81.3 - 96.4 fL [facility] MCH 29.8 27.1 - 33.3 pg [facility] MCHC 32.5 32.3 - 35.7 g/dL [facility] RDW CV 14.3 11.1 - 14.9 % [facility] RDW SD 46.0 35.7 - 48.1 fL [facility] NRBC abs 0.00 0.00 - 0.01 K/cumm [facility] Blood 03/26/2025 3:00 AM CDT 03/26/2025 3:24 AM CDT Joslyn Davidson MD LAB BLOOD ORDERABLES Razia l Result [facility] Department [place] [address] * (ABNORMAL) Basic metabolic panel (03/26/2025 3:00 AM CDT) [facility] Sodium 146(H) 135 - 145 mmol/L Potassium, pl 3.6 3.3 - 4.9 mmol/L [facility] Chloride 114(H) 97 - 110 mmol/L [facility] CO2 24 22 - 32 mmol/L [facility] Anion gap 8 2 - 15 mmol/L [facility] BUN 16 6 - 25 mg/dL [facility] Creatinine 0.74(L) 0.80 - 1.30 mg/dL [facility] Glucose 100 70 - 199 mg/dL [facility] Comment: Interpretive Data Fasting glucose >/= 126 mg/dl is diagnostic for diabetes. Fasting is defined as no caloric intake for at least 8 hours. Fasting glucose between 100 mg/dl to 125 mg/dl is diagnostic of prediabetes. In a patient with classic symptoms of hyperglycemia or hyperglycemic crisis, a random glucose >/= 200 mg/dl is diagnostic for diabetes. In the absence of unequivocal hyperglycemia, results should be confirmed by repeat testing. The classification and Diagnosis of Diabetes Diabetes Care 2021; 46: S19-S40. Current interpretive data was last revised 2022. Calcium 8.4(L) 8.5 - 10.3 mg/dL [facility] Blood 03/26/2025 3:00 AM CDT 03/26/2025 3:25 AM CDT us Joslyn Davidson MD LAB BLOOD ORDERABLES Razia l Result [facility] Department [place] [address] * POCT glucose (03/25/2025 11:18 PM CDT) Glucose, POC 111 70 - 199 mg/dL Blood 03/25/2025 11:1 8 PM CDT 03/25/2025 11:18 PM CDT us Anival Leonard MD LAB POCT ORDERABLES - DEV ICE Final Result [facility] [place] [address] * POCT glucose (03/25/2025 8:08 PM CDT) Glucose, POC 110 70 - 199 mg/dL Blood 03/25/2025 8:08 PM CDT 03/25/2025 8:08 PM CDT Anival Leonard MD LAB POCT ORDERABLES - DEV ICE Final Result Performing Organization Address [facility] de Phone Number [facility] [place] [address] * POCT glucose (03/25/2025 4:56 PM CDT) Glucose, POC 105 70 - 199 mg/dL Blood 03/25/2025 4:56 PM CDT 03/25/2025 4:56 PM CDT Anival Leonard MD LAB POCT ORDERABLES - DEV ICE Final Result Performing Organization Address [facility] de Phone Number [facility] [place] [address] * POCT glucose (03/25/2025 12:59 PM CDT) Glucose, POC 96 70 - 199 mg/dL Blood 03/25/2025 12:5 9 PM CDT 03/25/2025 12:59 PM CDT Anival Leonard MD LAB POCT ORDERABLES - DEV ICE Final Result Performing Organization Address [facility] de Phone Number [facility] [place] [address] * NH AN ELECTIVE ENDOTRACHEAL AIRWAY, NH AN PROCEDURE PLACEHOLDER (03/25/2025 10:30 AM CDT) Narrative Sergio Karimi CRNA - 03/25/2025 10:30 AM CDT Sergio Karimi CRNA 03/25/2025 10:31 AM Airway Patient location: OR Urgency: elective Date/time: 03/25/2025 10:24 AM Indications for airway management: anesthesia Difficult airway: no Staff: Supervising provider: Keagan Tripp MD Placed by: MACHINE PULLER OVER: Sergio Karimi CRNA Emergent airway documentation: Risks and benefits discussed: yes Consent obtained: yes Consent given by: patient Airway prep: Preoxygenated: yes Patient position: sniffing Mask difficulty assessment: 0 - not attempted Spontaneous ventilation during airway: absent Sedation level during airway: GA Final airway details: Final airway type: endotracheal airway Tube type: ETT ETT size: 8.0 mm Technique used for successful ETT placement: video laryngoscopy Devices/Methods used in placement: stylet Insertion site: oral Blade type: Kobe Video blade type: Goss Blade size: 4 Cormack-Lehane (video): grade I - full view of glottis ETT to teeth: 23 cm Placement verified by: auscultation Airway secured with: silk tape Number of attempts: 1 us Keagan Tripp MD ANESTHESIA ORDERABLES Final Resu lt * EGD (03/25/2025 10:18 AM CDT) Anatomical Region Laterality Modality Other Narrative Procedure Note Odalis Zheng MD - 03/25/2025 10:18 AM CDT [facility] Patient Name: John Arita Procedure Date: 03/25/2025 10:18 AM Date of : 1955 Admit Type: Inpatient Age: 69 Gender: Male Attending MD: Odalis Zheng M.D. Room: [facility] ENDOSCOPY Note Status: Finalized Procedure: Upper GI endoscopy Indications: Melena Referring MD: Anival Leonard M.D. Providers: Odalis Zheng M.D., Brodie Zelaya M.D. Comorbidities Hx of iPD, hx of bipolar disorder (previously on [place], Esketamine, stopped 18 years ago) who [facility] with AVH, decreased PO intake, and AMS. Admitted for encephalopathy, psychosis, and catatonia which developed while inpatient, also his course has been complicated by PNA on ABx and ileus which resolvedand currently on tube feeds, who developed melena Medicines: General Anesthesia Complications: No immediate complications. Estimated Blood Loss: Estimated blood loss: none. Procedure: Pre-Anesthesia Assessment: - [place] Protocol: - Pre-procedure Verification: Prior to theprocedure, the patient's identity was verified by full nameand date of . The patient's identity was verifiedon all pertinent medical records, including pre-anesthesia assessment. Also prior to the procedure, a History and Physical was performed,and patient medications, allergies and sensitivitieswere reviewed. The patient's tolerance of previous anesthesia was reviewed. The risks and benefits ofthe procedure and the sedation options and risks were discussed with the patient's spouse. All questions were answered and informed consent was obtained. - Marking: The endoscopic procedure was visually marked on a patient wrist band delineating thepatient name, proposed procedure and endoscopist'sinitials. - Time-Out: Prior to the start of the procedure,the patient's identification, proposed procedure,accurate signed consent, correctly labeled images andrecords, and need for prophylactic antibiotics were verifiedby the nurse in the endoscopy suite. - Prior to the procedure, a History and Physicalwas performed, and patient medications, allergies and sensitivities were reviewed. The patient'stolerance of previous anesthesia was reviewed. - The risks and benefits of the procedure and the sedation options and risks were discussed with the patient. All questions were answered and informed consent was obtained. - Immediately prior to administration ofmedications, the patient was re-assessed for adequacy to receive sedatives. The benefits, risks, and alternatives to theprocedure and sedation were discussed and informed consentwas obtained. The scope was passed under direct vision. The GIF [id number] endoscope was introduced through the mouth, and advanced to the second partof duodenum. The upper GI endoscopy was accomplished without difficulty. The patient tolerated the procedure well. Findings: A Grade D (one or more mucosal breaks involving at least 75% of esophageal circumference) esophagitis with no bleeding was found 26to 35 cm from the incisors. A medium amount of food (residue) and clot were found in the gastric fundus, this was lavaged, clot was snared and suctioned, whichresulted in partial removal. One non-bleeding cratered gastric ulcer in the fundus (affecting 2/3of the fundus) with and adherent clot (Ángel Class IIb). The clot was partially removed as above. The scope was removed and a cap wasplaced on the end of the scope for better visualization. This revealed anarea with a nonbleeding visible vessel (Ángel Class IIa) in the ulcerbed. Coagulation for hemostasis using bipolar probe was successful. The examined duodenum was normal. Impression: - LA Grade D esophagitis with no bleeding. - Non-bleeding large gastric ulcer in the funduswith an adherent clot (Ángel Class IIb) andnonbleeding visible vessel (Ángel Class IIa). Treated with bipolar cautery. - Normal examined duodenum. - No specimens collected. Recommendation: - [facility]. - Repeat upper endoscopy in 3 months to assess healing. If there is concern for repeat bleeding during this admission, EGD should be repeated since food and clot were not completely cleared. - Use a proton pump inhibitor IV BID for 72h, thencan transition to PO BID for 3 months. - Feeding tube was removed, avoid NG tube for atleast 24 hours. Have speech reassess for PO intake (if primary team thinks that is a reasonable plan). Ifhe is able, he can try a PO diet. - Follow up H pylori stool Ag and treat if positive with Quadruple therapy. Attending Participation: I was present and participated during the entire procedure, including non-el portions. Electronically signed by Odalis Zheng MD Odalis Zheng M.D. 03/25/2025 11:40:36 AM Number of Addenda: 0 Note Initiated On: 03/25/2025 10:18 AM CC Letter to: Kamran Rowland M.D. Odalis Zheng MD ENDOSCOPY PROCEDURES Final Result * (ABNORMAL) Differential, auto (03/25/2025 8:30 AM CDT) Neutrophil abs 10.65(H) 1.50 - 6.50 K/cumm Imm gran abs 0.29(H) 0.00 - 0.10 K/cumm [facility] Lymphocyte abs 1.52 0.80 - 3.30 K/cumm [facility] Monocyte abs 0.68 0.20 - 0.80 K/cumm [facility] Eosinophil abs 0.20 0.00 - 0.50 K/cumm [facility] Basophil abs 0.05 0.00 - 0.10 K/cumm [facility] Neutrophil pct 79.4 % [facility] Comment: Interpretive Data Percent cell count reference ranges are not reported, since discordance with absolute values may lead to misinterpretation of CBC data. Current Interpretive Data was last revised on 2018. Imm gran pct 2.2 % [facility] Comment: Interpretive Data Percent cell count reference ranges are not reported, since discordance with absolute values may lead to misinterpretation of CBC data. Current Interpretive Data was last revised on 2018. Lymphocyte pct 11.4 % [facility] Comment: Interpretive Data Percent cell count reference ranges are not reported, since discordance with absolute values may lead to misinterpretation of CBC data. Current Interpretive Data was last revised on 2018. Monocyte pct 5.1 % [facility] Comment: Interpretive Data Percent cell count reference ranges are not reported, since discordance with absolute values may lead to misinterpretation of CBC data. Current Interpretive Data was last revised on 2018. Eosinophil pct 1.5 % [facility] Comment: Interpretive Data Percent cell count reference ranges are not reported, since discordance with absolute values may lead to misinterpretation of CBC data. Current Interpretive Data was last revised on 2018. Basophil pct 0.4 % [facility] Comment: Interpretive Data Percent cell count reference ranges are not reported, since discordance with absolute values may lead to misinterpretation of CBC data. Current Interpretive Data was last revised on 2018. Blood 03/25/2025 8:30 AM CDT 03/25/2025 10:38 AM CDT us Joslyn Davidson MD LAB BLOOD ORDERABLES Razia westfall Result [facility] Department [place] [address] * (ABNORMAL) CBC with auto differential (03/25/2025 8:30 AM CDT) WBC 13.39(H) 3.80 - 9.90 K/cumm Hgb 7.8(L) 13.0 - 17.5 g/dL [facility] Hct 24.0(L) 38.9 - 50.3 % [facility] Plt 214 150 - 400 K/cumm [facility] MPV 14.3(H) 9.1 - 12.3 fL [facility] RBC 2.61(L) 4.30 - 5.80 M/cumm [facility] MCV 92.0 81.3 - 96.4 fL [facility] MCH 29.9 27.1 - 33.3 pg [facility] MCHC 32.5 32.3 - 35.7 g/dL [facility] RDW CV 14.5 11.1 - 14.9 % [facility] RDW SD 46.9 35.7 - 48.1 fL [facility] NRBC abs 0.02(H) 0.00 - 0.01 K/cumm [facility] Blood 03/25/2025 8:30 AM CDT 03/25/2025 10:38 AM CDT Joslyn Davidson MD LAB BLOOD ORDERABLES Razia l Result Performing Organization Address [facility] Co de Phone Number [facility] Department [place] [address] * H. pylori antigen, stool Stool (03/25/2025 8:30 AM CDT) H. pylori Ag, stool Negative Negative Comment: Interpretative Data Testing performed at the [facility] using the Curian HpSA lateral flow immunoassay that detects Helicobacter pylori antigen in feces. This test is FDA cleared and its performance characteristics have been verified by the performing laboratory. False negative H. pylori antigen results may occur in patients on antimicrobials, proton pump inhibitors, or bismuth preparations; if clinically indicated, testing should be repeated on a new specimen two weeks after discontinuing these treatments. Interpretative data last revised November 2020. Stool 03/25/2025 8:30 AM CDT 03/25/2025 10:42 AM CDT Joslyn Davidson MD LAB MICROBIOLOGY - GENERA L ORDERABLES Final Result Performing Organization Address [facility] Co de Phone Number [facility] Department [place] [address] * POCT glucose (03/25/2025 7:44 AM CDT) Glucose, POC 106 70 - 199 mg/dL Blood 03/25/2025 7:44 AM CDT 03/25/2025 7:44 AM CDT Anival Leonard MD LAB POCT ORDERABLES - DEV ICE Final Result Performing Organization Address [facility] Co de Phone Number [facility] Department [place] [address] * (ABNORMAL) CBC without differential (03/25/2025 3:35 AM CDT) WBC 12.96(H) 3.80 - 9.90 K/cumm Hgb 7.9(L) 13.0 - 17.5 g/dL [facility] Hct 24.1(L) 38.9 - 50.3 % [facility] Plt 183 150 - 400 K/cumm [facility] MPV 13.7(H) 9.1 - 12.3 fL [facility] RBC 2.64(L) 4.30 - 5.80 M/cumm [facility] MCV 91.3 81.3 - 96.4 fL [facility] MCH 29.9 27.1 - 33.3 pg [facility] MCHC 32.8 32.3 - 35.7 g/dL [facility] RDW CV 14.4 11.1 - 14.9 % [facility] RDW SD 46.5 35.7 - 48.1 fL [facility] NRBC abs 0.00 0.00 - 0.01 K/cumm [facility] Blood 03/25/2025 3:35 AM CDT 03/25/2025 4:26 AM CDT Narrative [facility] - 03/25/2025 4:36 AM CDT 1 hour after transfusion of red blood cells is complete us Joslyn Davidson MD LAB BLOOD ORDERABLES Razia l Result [facility] Department [place] [address] * POCT glucose (03/25/2025 3:26 AM CDT) Pathologist [facility] Glucose, POC 97 70 - 199 mg/dL Blood 03/25/2025 3:26 AM CDT 03/25/2025 3:26 AM CDT us Anival Leonard MD LAB POCT ORDERABLES - DEV ICE Final Result [facility] Department [place] [address] * Transfuse RBC (03/25/2025 1:49 AM CDT) Blood Joslyn Davidson MD BLOOD TRANSFUSION ORDERAB LES Final Result Performing Organization Address [facility] Co de Phone Number [facility] [place] [address] * POCT glucose (03/24/2025 11:35 PM CDT) Glucose, POC 98 70 - 199 mg/dL Blood 03/24/2025 11:3 5 PM CDT 03/24/2025 11:35 PM CDT Anival Leonard MD LAB POCT ORDERABLES - DEV ICE Final Result Performing Organization Address [facility] de Phone Number [facility] [place] [address] * Prepare RBC: 1 Units (03/24/2025 9:09 PM CDT) [facility] Product code [id number] Unit Number [id number] [facility] Product Blood Type APOS [facility] Dispense Status PRESUMED TRANSFUSED [facility] Blood 03/24/2025 9:09 PM CDT 03/24/2025 9:09 PM CDT Narrative [facility] - 03/25/2025 4:01 PM CDT Are special requirements needed? (All products are leukoreduced and CMV- safe)- >No Date required:-[id number] LRRBC # of [id number] Reasons:-Hgb <7 g/dL} Joslyn Davidson MD BLOOD BANK PRODUCT ORDERA BLES Final Result Performing Organization Address [facility] Co de Phone Number [facility] [place] [address] * eGFR (03/24/2025 8:26 PM CDT) Pathologist [facility] eGFR >90 >=60 mL/min/1. 73 m2 Comment: Interpretive Data Reference Interval Normal >/= 90 mL/min/1.73m2 Mildly decreased* 60 - 89 mL/min/1.73m2 Mildly to moderately decreased 45 - 59 mL/min/1.73m2 Moderately to severely decreased 30 - 44 mL/min/1.73m2 Severely decreased 15 - 29 mL/min/1.73m2 Kidney Failure < 15 mL/min/1.73m2 *Relative to young adult level Estimated glomerular filtration rate is determined by the 2020 CKD-EPI equation recommended by the National Kid[employer] (A Unifying Approach to GFR Estimation: Recommendations of the NKF-ASK Task Force on Reassessing the Inclusion of Race in Diagnosing Kidney Disease, JASN 2020). The CKD-EPI equation should not be used for patients with unstable renal function and has not been validated in children and those over 70. Current interpretive data was last reviewed 2021. Blood 03/24/2025 8:26 PM CDT 03/24/2025 8:53 PM CDT Joslyn Davidson MD LAB BLOOD ORDERABLES Razia westfall Result [facility] Department [place] [address] * (ABNORMAL) Differential, auto (03/24/2025 8:26 PM CDT) Pathologist [facility] Neutrophil abs 11.57(H) 1.50 - 6.50 K/cumm Imm gran abs 0.51(H) 0.00 - 0.10 K/cumm [facility] Lymphocyte abs 2.48 0.80 - 3.30 K/cumm [facility] Monocyte abs 0.89(H) 0.20 - 0.80 K/cumm [facility] Eosinophil abs 0.28 0.00 - 0.50 K/cumm [facility] Basophil abs 0.04 0.00 - 0.10 K/cumm [facility] Neutrophil pct 73.4 % [facility] Comment: Interpretive Data Percent cell count reference ranges are not reported, since discordance with absolute values may lead to misinterpretation of CBC data. Current Interpretive Data was last revised on 2018. Imm gran pct 3.2 % [facility] Comment: Interpretive Data Percent cell count reference ranges are not reported, since discordance with absolute values may lead to misinterpretation of CBC data. Current Interpretive Data was last revised on 2018. Lymphocyte pct 15.7 % [facility] Comment: Interpretive Data Percent cell count reference ranges are not reported, since discordance with absolute values may lead to misinterpretation of CBC data. Current Interpretive Data was last revised on 2018. Monocyte pct 5.6 % [facility] Comment: Interpretive Data Percent cell count reference ranges are not reported, since discordance with absolute values may lead to misinterpretation of CBC data. Current Interpretive Data was last revised on 2018. Eosinophil pct 1.8 % [facility] Comment: Interpretive Data Percent cell count reference ranges are not reported, since discordance with absolute values may lead to misinterpretation of CBC data. Current Interpretive Data was last revised on 2018. Basophil pct 0.3 % [facility] Comment: Interpretive Data Percent cell count reference ranges are not reported, since discordance with absolute values may lead to misinterpretation of CBC data. Current Interpretive Data was last revised on 2018. Blood 03/24/2025 8:26 PM CDT 03/24/2025 8:52 PM CDT us Joslyn Davidson MD LAB BLOOD ORDERABLES Razia l Result [facility] Department [place] [address] * (ABNORMAL) Iron profile w/ IBC (03/24/2025 8:26 PM CDT) Iron 54 50 - 150 mcg/dL TIBC 169(L) 250 - 400 mcg/dL [facility] Transferrin saturation 32 20 - 50 % [facility] Blood 03/24/2025 8:26 PM CDT 03/24/2025 8:53 PM CDT Joslyn Davidson MD LAB BLOOD ORDERABLES Razia westfall Result Performing Organization Address [facility] Co de Phone Number [facility] Department [place] [address] * (ABNORMAL) CBC with auto differential (03/24/2025 8:26 PM CDT) Pathologist [facility] WBC 15.77(H) 3.80 - 9.90 K/cumm Hgb 6.7(L) 13.0 - 17.5 g/dL [facility] Hct 21.1(L) 38.9 - 50.3 % [facility] Plt 223 150 - 400 K/cumm [facility] MPV 13.9(H) 9.1 - 12.3 fL [facility] RBC 2.29(L) 4.30 - 5.80 M/cumm [facility] MCV 92.1 81.3 - 96.4 fL [facility] MCH 29.3 27.1 - 33.3 pg [facility] MCHC 31.8(L) 32.3 - 35.7 g/dL [facility] RDW CV 14.2 11.1 - 14.9 % [facility] RDW SD 46.1 35.7 - 48.1 fL [facility] NRBC abs 0.02(H) 0.00 - 0.01 K/cumm [facility] Blood 03/24/2025 8:26 PM CDT 03/24/2025 8:52 PM CDT Joslyn Davidson MD LAB BLOOD ORDERABLES Razia westfall Result Performing Organization Address City/[facility]/ZIP Co de Phone Number [facility] Department [place] [address] * Phosphorus (03/24/2025 8:26 PM CDT) Phosphorus, pl 2.9 2.3 - 4.5 mg/dL Blood 03/24/2025 8:26 PM CDT 03/24/2025 8:53 PM CDT Joslyn Davidson MD LAB BLOOD ORDERABLES Razia l Result Performing Organization Address [facility] Co de Phone Number [facility] [place] [address] * Folate (03/24/2025 8:26 PM CDT) [facility] Folic acid 13.6 >=5.0 ng/mL Blood 03/24/2025 8:26 PM CDT 03/24/2025 8:53 PM CDT Result [facility] Joslyn Davidson MD LAB BLOOD ORDERABLES Razia l Result Performing Organization Address [facility] Co de Phone Number [facility] [place] [address] * Vitamin B12 (03/24/2025 8:26 PM CDT) [facility] Vitamin B12 743 230 - 1,250 pg/mL Blood 03/24/2025 8:26 PM CDT 03/24/2025 8:53 PM CDT Result [facility] Joslyn Davidson MD LAB BLOOD ORDERABLES Razia l Result Performing Organization Address City/[facility] Co de Phone Number [facility] [place] [address] * (ABNORMAL) Comprehensive metabolic panel (03/24/2025 8:26 PM CDT) [facility] Sodium 141 135 - 145 mmol/L Potassium, pl 4.1 3.3 - 4.9 mmol/L [facility] Chloride 110 97 - 110 mmol/L [facility] CO2 24 22 - 32 mmol/L [facility] Anion gap 7 2 - 15 mmol/L [facility] BUN 26(H) 6 - 25 mg/dL [facility] Creatinine 0.72(L) 0.80 - 1.30 mg/dL [facility] Glucose 94 70 - 199 mg/dL [facility] Comment: Interpretive Data Fasting glucose >/= 126 mg/dl is diagnostic for diabetes. Fasting is defined as no caloric intake for at least 8 hours. Fasting glucose between 100 mg/dl to 125 mg/dl is diagnostic of prediabetes. In a patient with classic symptoms of hyperglycemia or hyperglycemic crisis, a random glucose >/= 200 mg/dl is diagnostic for diabetes. In the absence of unequivocal hyperglycemia, results should be confirmed by repeat testing. The classification and Diagnosis of Diabetes Diabetes Care 202; 46: S19-S40. Current interpretive data was last revised 2022. Calcium 8.2(L) 8.5 - 10.3 mg/dL [facility] Bilirubin, total 0.3 0.1 - 1.2 mg/dL [facility] Protein, pl 5.8(L) 6.5 - 8.5 g/dL [facility] Albumin 2.5(L) 3.5 - 5.0 g/dL [facility] Alk phos 68 40 - 130 Units/L [facility] ALT 6(L) 7 - 55 Units/L [facility] AST 16 10 - 50 Units/L [facility] Blood 03/24/2025 8:26 PM CDT 03/24/2025 8:53 PM CDT Joslyn Davidson MD LAB BLOOD ORDERABLES Razia l Result [facility] Department [place] [address] * POCT glucose (03/24/2025 8:16 PM CDT) [facility] Glucose, POC 104 70 - 199 mg/dL Blood 03/24/2025 8:16 PM CDT 03/24/2025 8:16 PM CDT Anival Leonard MD LAB POCT ORDERABLES - DEV ICE Final Result Performing Organization Address [facility] Co de Phone Number [facility] [place] [address] * POCT glucose (03/24/2025 3:57 PM CDT) Glucose, POC 114 70 - 199 mg/dL Blood 03/24/2025 3:57 PM CDT 03/24/2025 3:57 PM CDT Anival Leonard MD LAB POCT ORDERABLES - DEV ICE Final Result Performing Organization Address [facility] de Phone Number [facility] [place] [address] * (ABNORMAL) POCT glucose (03/24/2025 11:53 AM CDT) Glucose, POC 201(H) 70 - 199 mg/dL Blood 03/24/2025 11:5 3 AM CDT 03/24/2025 11:53 AM CDT Anival Leonard MD LAB POCT ORDERABLES - DEV ICE Final Result Performing Organization Address [facility] de Phone Number [facility] [place] [address] * XR Abdomen Ap 1 Vw (03/24/2025 11:15 AM CDT) Anatomical Region Laterality Modality Body, Abdomen N/A Computed Radiogr aphy 03/25/2025 8:18 AM CDT Impressions 03/25/2025 8:18 AM CDT Weighted enteral tube tip overlies junction of 2nd and 3rd duodenum. Visualized bowel gas pattern unremarkable Electronically signed by: Alessandro Shore M.D. Narrative 03/25/2025 8:18 AM CDT EXAMINATION: Abdomen, one view. HISTORY: Check tube placement. COMPARISON: 03/23/2025 Procedure Note Alessandro Shore MD - 03/25/2025 EXAMINATION: Abdomen, one view. HISTORY: Check tube placement. COMPARISON: 03/23/2025 IMPRESSION: Weighted enteral tube tip overlies junction of 2nd and 3rd duodenum. Visualized bowel gas pattern unremarkable Electronically signed by: Alessandro Shore M.D. Joslyn Davidson MD IMG XR PROCEDURES Final R esult * aPTT (03/24/2025 10:33 AM CDT) aPTT 31 28 - 38 sec Comment: Interpretive Data Heparin therapeutic range: 66.0 - 100.0 seconds. Range based on correlation with therapeutic heparin activity range of 0.3 - 0.7 Units/mL. Current interpretive data was last revised on 2023. Blood 03/24/2025 10:3 3 AM CDT 03/24/2025 11:23 AM CDT Joslyn Davidson MD LAB BLOOD ORDERABLES Razia l Result Performing Organization Address City/State/[facility] Co de Phone Number [facility] Department [place] [address] * (ABNORMAL) Protime-INR (03/24/2025 10:33 AM CDT) PT 13.6(H) 9.7 - 13.0 sec INR 1.25(H) 0.90 - 1.20 [facility] Comment: Interpretive data Oral anticoagulant therapeutic ranges: Venous thromboembolism prophylaxis or treatment: 2.0-3.0 CARDIOLOGY Standard range: 2.0-3.0 High-intensity range: 2.5-3.5 Refer to indication-specific guidelines for appropriate target ranges for prosthetic heart valve replacement. Current interpretive data was last revised on 2019. Blood 03/24/2025 10:3 3 AM CDT 03/24/2025 11:23 AM CDT Joslyn Davidson MD LAB BLOOD ORDERABLES Razia l Result Performing Organization Address City/[facility]/ZIP Co de Phone Number [facility] Department [place] [address] * Type and screen (03/24/2025 9:31 AM CDT) [facility] Jackie, indirect Negative ABO Rh A Positive [facility] Blood 03/24/2025 9:31 AM CDT 03/24/2025 9:49 AM CDT Narrative [facility] - 03/24/2025 11:04 AM CDT Has the patient had Daratumumab or Isatuximab in the past 6 months?->Unknown Joslyn Davidson MD LAB BLOOD BANK TEST ORDER DEJAN Final Result Performing Organization Address [facility] Co de Phone Number [facility] [place] [address] * (ABNORMAL) Differential, auto (03/24/2025 9:16 AM CDT) [facility] Neutrophil abs 14.06(H) 1.50 - 6.50 K/cumm Imm gran abs 0.63(H) 0.00 - 0.10 K/cumm [facility] Lymphocyte abs 1.85 0.80 - 3.30 K/cumm [facility] Monocyte abs 0.85(H) 0.20 - 0.80 K/cumm [facility] Eosinophil abs 0.18 0.00 - 0.50 K/cumm [facility] Basophil abs 0.06 0.00 - 0.10 K/cumm [facility] Neutrophil pct 79.8 % [facility] Comment: Interpretive Data Percent cell count reference ranges are not reported, since discordance with absolute values may lead to misinterpretation of CBC data. Current Interpretive Data was last revised on 2018. Imm gran pct 3.6 % [facility] Comment: Interpretive Data Percent cell count reference ranges are not reported, since discordance with absolute values may lead to misinterpretation of CBC data. Current Interpretive Data was last revised on 2018. Lymphocyte pct 10.5 % [facility] Comment: Interpretive Data Percent cell count reference ranges are not reported, since discordance with absolute values may lead to misinterpretation of CBC data. Current Interpretive Data was last revised on 2018. Monocyte pct 4.8 % [facility] Comment: Interpretive Data Percent cell count reference ranges are not reported, since discordance with absolute values may lead to misinterpretation of CBC data. Current Interpretive Data was last revised on 2018. Eosinophil pct 1.0 % [facility] Comment: Interpretive Data Percent cell count reference ranges are not reported, since discordance with absolute values may lead to misinterpretation of CBC data. Current Interpretive Data was last revised on 2018. Basophil pct 0.3 % [facility] Comment: Interpretive Data Percent cell count reference ranges are not reported, since discordance with absolute values may lead to misinterpretation of CBC data. Current Interpretive Data was last revised on 2018. Blood 03/24/2025 9:16 AM CDT 03/24/2025 9:48 AM CDT Joslyn Davidson MD LAB BLOOD ORDERABLES Razia westfall Result [facility] Department [place] [address] * (ABNORMAL) CBC with auto differential (03/24/2025 9:16 AM CDT) WBC 17.63(H) 3.80 - 9.90 K/cumm Hgb 7.1(L) 13.0 - 17.5 g/dL [facility] Hct 22.5(L) 38.9 - 50.3 % [facility] Plt 262 150 - 400 K/cumm [facility] MPV 13.4(H) 9.1 - 12.3 fL [facility] RBC 2.45(L) 4.30 - 5.80 M/cumm [facility] MCV 91.8 81.3 - 96.4 fL [facility] MCH 29.0 27.1 - 33.3 pg [facility] MCHC 31.6(L) 32.3 - 35.7 g/dL [facility] RDW CV 14.1 11.1 - 14.9 % [facility] RDW SD 45.7 35.7 - 48.1 fL [facility] NRBC abs 0.03(H) 0.00 - 0.01 K/cumm [facility] Blood 03/24/2025 9:16 AM CDT 03/24/2025 9:48 AM CDT Joslyn Davidson MD LAB BLOOD ORDERABLES Razia l Result Performing Organization Address City/[facility]/ZIP Co de Phone Number [facility] [place] [address] * Lipase (03/24/2025 9:16 AM CDT) Lipase 47 10 - 99 Units/L Blood 03/24/2025 9:16 AM CDT 03/24/2025 9:48 AM CDT Joslyn Davidson MD LAB BLOOD ORDERABLES Razia l Result Performing Organization Address City/[facility]/ZIP Co de Phone Number [facility] Department [place] [address] * POCT glucose (03/24/2025 8:05 AM CDT) Glucose, POC 146 70 - 199 mg/dL Blood 03/24/2025 8:05 AM CDT 03/24/2025 8:05 AM CDT Anival Leonard MD LAB POCT ORDERABLES - DEV ICE Final Result Performing Organization Address City/[facility]/ZIP Co de Phone Number [facility] [place] [address] * POCT glucose (03/24/2025 4:12 AM CDT) Glucose, POC 164 70 - 199 mg/dL Blood 03/24/2025 4:12 AM CDT 03/24/2025 4:12 AM CDT Anival Leonard MD LAB POCT ORDERABLES - DEV ICE Final Result Performing Organization Address [facility] [place] [address] * POCT glucose (03/24/2025 12:20 AM CDT) Glucose, POC 160 70 - 199 mg/dL Blood 03/24/2025 12:2 0 AM CDT 03/24/2025 12:20 AM CDT Anival Leonard MD LAB POCT ORDERABLES - DEV ICE Final Result Performing Organization Address [facility] [place] [address] * Vancomycin level trough Draw trough 30 minutes prior to 4th dose. (03/23/2025 10:44 PM CDT) Vancomycin trough 15.2 10.0 - 20.0 mcg/mL Blood 03/23/2025 10:4 4 PM CDT 03/23/2025 11:35 PM CDT Narrative [facility] - 03/24/2025 12:04 AM CDT Draw trough 30 minutes prior to 4th dose. Joslyn Davidson MD LAB BLOOD ORDERABLES Razia l Result Performing Organization Address City/[facility] [place] [address] * CT Chest Abdomen Pelvis W Contrast (03/23/2025 9:58 PM CDT) Anatomical Region Laterality Modality Body N/A Computed Tomogra phy 03/24/2025 7:28 AM CDT Impressions 03/24/2025 7:28 AM CDT 1. Evolving sequelae of aspiration in both lungs including areas of improvement and areas of relative worsening with possible aspiration pneumonia. 2. Interval improvement of previously noted bowel obstruction with decompression of the small bowel. Extensive liquid stool throughout the colon, compatible with diarrheal state. 3. New peripancreatic fat stranding, most prominent in the pancreaticoduodenal groove. Recommend correlation with serum lipase to evaluate for pancreatitis. 4. 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 5. Unchanged probable left adrenal adenoma, which can be further evaluated with adrenal protocol CT or MRI in the outpatient setting after resolution of acute illness. Electronically signed by: Dago Duarte M.D. Narrative 03/24/2025 7:28 AM CDT EXAMINATION: Computed tomography of the chest, abdomen and pelvis with intravenous contrast HISTORY: 69-year-old man with fever, infectious source suspected. TECHNIQUE: Transaxial computed tomographic images of the chest, abdomen and pelvis were obtained with intravenous contrast according to the standard protocol after the uneventful administration of 75 mL Opti-Ray 350 intravenous contrast. COMPARISON: CT of the chest, abdomen, pelvis dated 03/14/2025 FINDINGS: Chest: Persistent extensive aspiration changes in both lungs including areas of somewhat confluent consolidation (for example in the superior segment of the left upper lobe. Compared to the prior examination is interval improvement of aspiration changes right upper lobe and significant increase aspiration changes in the right lower lobe. Small bilateral pleural effusions with associated atelectasis. No pulmonary edema or pneumothorax. No suspicious thyroid nodule. No supraclavicular, axillary, mediastinal, or hilar lymphadenopathy. Normal heart size. No pericardial effusion or pericardial thickening. Multivessel calcified atherosclerosis of the coronary arteries. Normal caliber thoracic aorta with mild atherosclerosis of the thoracic aorta and its major branches. Abdomen/Pelvis: No suspicious hepatic lesion. No biliary ductal dilation. Normal gallbladder and right adrenal gland. Probable left adrenal adenoma, incompletely evaluated, but unchanged. Multifocal splenic infarcts are again noted. The pancreatic parenchyma is normal, however there is increased peripancreatic fat stranding, most conspicuous in the pancreaticoduodenal groove. No suspicious renal lesion, hydronephrosis, or nephrolithiasis in either kidney. Small amount of gas in the urinary bladder may be related to recent instrumentation. Dystrophic calcifications in the prostate gland. No intraperitoneal free air or free fluid. Interval improvement of previously noted small bowel obstruction with interval decompression of the small bowel. A weighted tip feeding tube terminates at the junction of the 2nd and 3rd portions of the duodenum. Small duodenal diverticulum. There is liquid stool throughout the colon to the level of the rectum, compatible with diarrhea. There is a large fat and bowel containing left inguinal hernia containing nonobstructed loops of colon. Small fat-containing right inguinal hernia. Normal caliber abdominal aorta with mild calcified atherosclerosis of the abdominal aorta and its major branches. The portal vein, splenic vein, and superior mesenteric veins are patent without evidence of thrombosis. No suspicious lymphadenopathy in the abdomen or pelvis. No suspicious lytic or blastic osseous lesion. Procedure Note Dago Duarte MD - 03/24/2025 EXAMINATION: Computed tomography of the chest, abdomen and pelvis with intravenous contrast HISTORY: 69-year-old man with fever, infectious source suspected. TECHNIQUE: Transaxial computed tomographic images of the chest, abdomen and pelvis were obtained with intravenous contrast according to the standard protocol after the uneventful administration of 75 mL Opti-Ray 350 intravenous contrast. COMPARISON: CT of the chest, abdomen, pelvis dated 03/14/2025 FINDINGS: Chest: Persistent extensive aspiration changes in both lungs including areas of somewhat confluent consolidation (for example in the superior segment of the left upper lobe. Compared to the prior examination is interval improvement of aspiration changes right upper lobe and significant increase aspiration changes in the right lower lobe. Small bilateral pleural effusions with associated atelectasis. No pulmonary edema or pneumothorax. No suspicious thyroid nodule. No supraclavicular, axillary, mediastinal, or hilar lymphadenopathy. Normal heart size. No pericardial effusion or pericardial thickening. Multivessel calcified atherosclerosis of the coronary arteries. Normal caliber thoracic aorta with mild atherosclerosis of the thoracic aorta and its major branches. Abdomen/Pelvis: No suspicious hepatic lesion. No biliary ductal dilation. Normal gallbladder and right adrenal gland. Probable left adrenal adenoma, incompletely evaluated, but unchanged. Multifocal splenic infarcts are again noted. The pancreatic parenchyma is normal, however there is increased peripancreatic fat stranding, most conspicuous in the pancreaticoduodenal groove. No suspicious renal lesion, hydronephrosis, or nephrolithiasis in either kidney. Small amount of gas in the urinary bladder may be related to recent instrumentation. Dystrophic calcifications in the prostate gland. No intraperitoneal free air or free fluid. Interval improvement of previously noted small bowel obstruction with interval decompression of the small bowel. A weighted tip feeding tube terminates at the junction of the 2nd and 3rd portions of the duodenum. Small duodenal diverticulum. There is liquid stool throughout the colon to the level of the rectum, compatible with diarrhea. There is a large fat and bowel containing left inguinal hernia containing nonobstructed loops of colon. Small fat-containing right inguinal hernia. Normal caliber abdominal aorta with mild calcified atherosclerosis of the abdominal aorta and its major branches. The portal vein, splenic vein, and superior mesenteric veins are patent without evidence of thrombosis. No suspicious lymphadenopathy in the abdomen or pelvis. No suspicious lytic or blastic osseous lesion. IMPRESSION: 1. Evolving sequelae of aspiration in both lungs including areas of improvement and areas of relative worsening with possible aspiration pneumonia. 2. Interval improvement of previously noted bowel obstruction with decompression of the small bowel. Extensive liquid stool throughout the colon, compatible with diarrheal state. 3. New peripancreatic fat stranding, most prominent in the pancreaticoduodenal groove. Recommend correlation with serum lipase to evaluate for pancreatitis. 4. 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 5. Unchanged probable left adrenal adenoma, which can be further evaluated with adrenal protocol CT or MRI in the outpatient setting after resolution of acute illness. Electronically signed by: Dago Duarte M.D. Joslyn Davidson MD IMG CT PROCEDURES Final R esult * eGFR (03/23/2025 8:55 PM CDT) eGFR >90 >=60 mL/min/1. 73 m2 Comment: Interpretive Data Reference Interval Normal >/= 90 mL/min/1.73m2 Mildly decreased* 60 - 89 mL/min/1.73m2 Mildly to moderately decreased 45 - 59 mL/min/1.73m2 Moderately to severely decreased 30 - 44 mL/min/1.73m2 Severely decreased 15 - 29 mL/min/1.73m2 Kidney Failure < 15 mL/min/1.73m2 *Relative to young adult level Estimated glomerular filtration rate is determined by the 2020 CKD-EPI equation recommended by the National Kidney [employer] (A Unifying Approach to GFR Estimation: Recommendations of the NKF-ASK Task Force on Reassessing the Inclusion of Race in Diagnosing Kidney Disease, JASN 2020). The CKD-EPI equation should not be used for patients with unstable renal function and has not been validated in children and those over 70. Current interpretive data was last reviewed 2021. Blood 03/23/2025 8:55 PM CDT 03/23/2025 9:32 PM CDT us Joslyn Davidson MD LAB BLOOD ORDERABLES Razia westfall Result [facility] Department [place] [address] * (ABNORMAL) Differential, auto (03/23/2025 8:55 PM CDT) Pathologist [facility] Neutrophil abs 16.63(H) 1.50 - 6.50 K/cumm Imm gran abs 0.67(H) 0.00 - 0.10 K/cumm [facility] Lymphocyte abs 2.13 0.80 - 3.30 K/cumm [facility] Monocyte abs 1.03(H) 0.20 - 0.80 K/cumm [facility] Eosinophil abs 0.11 0.00 - 0.50 K/cumm [facility] Basophil abs 0.05 0.00 - 0.10 K/cumm [facility] Neutrophil pct 80.8 % [facility] Comment: Interpretive Data Percent cell count reference ranges are not reported, since discordance with absolute values may lead to misinterpretation of CBC data. Current Interpretive Data was last revised on 2018. Imm gran pct 3.2 % [facility] Comment: Interpretive Data Percent cell count reference ranges are not reported, since discordance with absolute values may lead to misinterpretation of CBC data. Current Interpretive Data was last revised on 2018. Lymphocyte pct 10.3 % [facility] Comment: Interpretive Data Percent cell count reference ranges are not reported, since discordance with absolute values may lead to misinterpretation of CBC data. Current Interpretive Data was last revised on 2018. Monocyte pct 5.0 % [facility] Comment: Interpretive Data Percent cell count reference ranges are not reported, since discordance with absolute values may lead to misinterpretation of CBC data. Current Interpretive Data was last revised on 2018. Eosinophil pct 0.5 % [facility] Comment: Interpretive Data Percent cell count reference ranges are not reported, since discordance with absolute values may lead to misinterpretation of CBC data. Current Interpretive Data was last revised on 2018. Basophil pct 0.2 % [facility] Comment: Interpretive Data Percent cell count reference ranges are not reported, since discordance with absolute values may lead to misinterpretation of CBC data. Current Interpretive Data was last revised on 2018. Blood 03/23/2025 8:55 PM CDT 03/23/2025 9:37 PM CDT Joslyn Davidson MD LAB BLOOD ORDERABLES Razia westfall Result [facility] Department [place] [address] * (ABNORMAL) CBC with auto differential (03/23/2025 8:55 PM CDT) WBC 20.62(H) 3.80 - 9.90 K/cumm Hgb 7.4(L) 13.0 - 17.5 g/dL [facility] Hct 23.4(L) 38.9 - 50.3 % [facility] Plt 230 150 - 400 K/cumm [facility] MPV 14.1(H) 9.1 - 12.3 fL [facility] RBC 2.55(L) 4.30 - 5.80 M/cumm [facility] MCV 91.8 81.3 - 96.4 fL [facility] MCH 29.0 27.1 - 33.3 pg [facility] MCHC 31.6(L) 32.3 - 35.7 g/dL [facility] RDW CV 14.1 11.1 - 14.9 % [facility] RDW SD 46.3 35.7 - 48.1 fL [facility] NRBC abs 0.00 0.00 - 0.01 K/cumm [facility] Blood 03/23/2025 8:55 PM CDT 03/23/2025 9:37 PM CDT Joslyn Davidson MD LAB BLOOD ORDERABLES Razia l Result [facility] Department [place] [address] * Phosphorus (03/23/2025 8:55 PM CDT) [facility] Phosphorus, pl 3.0 2.3 - 4.5 mg/dL Blood 03/23/2025 8:55 PM CDT 03/23/2025 9:32 PM CDT Joslyn Davidson MD LAB BLOOD ORDERABLES Razia l Result Performing Organization Address City/[facility] Co de Phone Number [facility] Department [place] [address] * (ABNORMAL) Comprehensive metabolic panel (03/23/2025 8:55 PM CDT) [facility] Sodium 144 135 - 145 mmol/L Potassium, pl 4.2 3.3 - 4.9 mmol/L [facility] Chloride 111(H) 97 - 110 mmol/L [facility] CO2 24 22 - 32 mmol/L [facility] Anion gap 9 2 - 15 mmol/L [facility] BUN 43(H) 6 - 25 mg/dL [facility] Creatinine 0.60(L) 0.80 - 1.30 mg/dL [facility] Glucose 121 70 - 199 mg/dL [facility] Comment: Interpretive Data Fasting glucose >/= 126 mg/dl is diagnostic for diabetes. Fasting is defined as no caloric intake for at least 8 hours. Fasting glucose between 100 mg/dl to 125 mg/dl is diagnostic of prediabetes. In a patient with classic symptoms of hyperglycemia or hyperglycemic crisis, a random glucose >/= 200 mg/dl is diagnostic for diabetes. In the absence of unequivocal hyperglycemia, results should be confirmed by repeat testing. The classification and Diagnosis of Diabetes Diabetes Care 2021; 46: S19-S40. Current interpretive data was last revised 2022. Calcium 7.9(L) 8.5 - 10.3 mg/dL [facility] Bilirubin, total 0.2 0.1 - 1.2 mg/dL [facility] Protein, pl 5.7(L) 6.5 - 8.5 g/dL [facility] Albumin 2.6(L) 3.5 - 5.0 g/dL [facility] Alk phos 85 40 - 130 Units/L [facility] ALT 21 7 - 55 Units/L [facility] AST 17 10 - 50 Units/L [facility] Blood 03/23/2025 8:55 PM CDT 03/23/2025 9:32 PM CDT us Joslyn Davidson MD LAB BLOOD ORDERABLES Razia l Result [facility] Department [place] [address] * POCT glucose (03/23/2025 8:16 PM CDT) Glucose, POC 140 70 - 199 mg/dL Blood 03/23/2025 8:16 PM CDT 03/23/2025 8:16 PM CDT us Anival Leonard MD LAB POCT ORDERABLES - DEV ICE Final Result [facility] Department [place] [address] * POCT glucose (03/23/2025 3:58 PM CDT) Glucose, POC 160 70 - 199 mg/dL Blood 03/23/2025 3:58 PM CDT 03/23/2025 3:58 PM CDT Anival Leonard MD LAB POCT ORDERABLES - DEV ICE Final Result Performing Organization Address [facility]/ZIP Co de Phone Number [facility] Department [place] [address] * (ABNORMAL) Aerobic culture and gram stain Sputum Sputum (03/23/2025 1:23 PM CDT) Direct Specimen Exam Stain: Moderate polymorphonuclear leukocytes seen. Few squamous epithelial cells seen. Few mixed bacterial cristino seen on Gram stain. Report Final Report: Moderate Yeast Emili pneumonia is very rare and requires a histopathological diagnosis. The recovery of these organisms in routine culture, in most cases, only represents overgrowth of the organism secondary to antimicrobial therapy. Please contact the microbiology laboratory at [phone] if identification or susceptibility testing is clinically indicated. Plus growth of clinically insignificant bacterial cristino. (.) [facility] Organism PLUS GROWTH OF CLINICALLY INSIGNIFICANT CRISTINO. [facility] Organism YEAST [facility] Sputum (Sputum) 03/23/2025 1 :23 PM CDT 03/23/2025 3:20 PM CDT Narrative [facility] - 03/25/2025 10:58 AM CDT Testing performed by [facility] ([phone]) Specimens submitted from normally sterile body sites will have all bacterial morphotypes identified. Specimens that contain grossly mixed cristino and/or are from body sites that are not normally sterile will be examined for Staphylococcus aureus, Pseudomonas aeruginosa, beta-hemolytic strep, vancomycin-resistant Enterococcus and fungus. If any of these are isolated, the organism will be reported. Current interpretive data was last revised on 2017. Anival Leonard MD LAB MICROBIOLOGY - GENERA L ORDERABLES Final Result [facility] Department [place] [address] * POCT glucose (03/23/2025 12:01 PM CDT) Glucose, POC 139 70 - 199 mg/dL Blood 03/23/2025 12:0 1 PM CDT 03/23/2025 12:01 PM CDT Anival Leonard MD LAB POCT ORDERABLES - DEV ICE Final Result Performing Organization Address [facility] de Phone Number [facility] [place] [address] * POCT glucose (03/23/2025 8:01 AM CDT) Glucose, POC 141 70 - 199 mg/dL Blood 03/23/2025 8:01 AM CDT 03/23/2025 8:01 AM CDT Anival Leonard MD LAB POCT ORDERABLES - DEV ICE Final Result Performing Organization Address [facility] Phone Number [facility] [place] [address] * XR Abdomen Ap 1 Vw (03/23/2025 7:44 AM CDT) Anatomical Region Laterality Modality Body, Abdomen N/A Computed Radiogr aphy 03/23/2025 8:12 AM CDT Impressions 03/23/2025 8:12 AM CDT Interval removal of the previously noted gastric tube and the recently placed nasoenteric tube. Interval placement of a new weighted tip enteric-type feeding tube which terminates in the gastric antrum. Recommend advancement of the feeding tube if postpyloric positioning is desired. Electronically signed by: Dago Duarte M.D. Narrative 03/23/2025 8:12 AM CDT EXAMINATION: Abdomen, one view. HISTORY: Check tube placement. COMPARISON: Abdominal radiograph dated 03/18/2025. Procedure Note Dago Duarte MD - 03/23/2025 EXAMINATION: Abdomen, one view. HISTORY: Check tube placement. COMPARISON: Abdominal radiograph dated 03/18/2025. IMPRESSION: Interval removal of the previously noted gastric tube and the recently placed nasoenteric tube. Interval placement of a new weighted tip enteric-type feeding tube which terminates in the gastric antrum. Recommend advancement of the feeding tube if postpyloric positioning is desired. Electronically signed by: Dago Duarte M.D. Joslyn Dvaidson MD IMG XR PROCEDURES Final R esult * POCT glucose (03/23/2025 3:55 AM CDT) Glucose, POC 157 70 - 199 mg/dL Blood 03/23/2025 3:55 AM CDT 03/23/2025 3:55 AM CDT Anival Leonard MD LAB POCT ORDERABLES - DEV ICE Final Result Performing Organization Address City[facility] Co de Phone Number [facility] Department [place] [address] * POCT glucose (03/22/2025 11:41 PM CDT) [facility] Signature Glucose, POC 183 70 - 199 mg/dL Blood 03/22/2025 11:4 1 PM CDT 03/22/2025 11:41 PM CDT Anival Leonard MD LAB POCT ORDERABLES - DEV ICE Final Result Performing Organization Address [facility] Co de Phone Number [facility] Department [place] [address] * eGFR (03/22/2025 9:01 PM CDT) [facility] eGFR >90 >=60 mL/min/1. 73 m2 Comment: Interpretive Data Reference Interval Normal >/= 90 mL/min/1.73m2 Mildly decreased* 60 - 89 mL/min/1.73m2 Mildly to moderately decreased 45 - 59 mL/min/1.73m2 Moderately to severely decreased 30 - 44 mL/min/1.73m2 Severely decreased 15 - 29 mL/min/1.73m2 Kidney Failure < 15 mL/min/1.73m2 *Relative to young adult level Estimated glomerular filtration rate is determined by the 2020 CKD-EPI equation recommended by the National Kidney Foundation (A Unifying Approach to GFR Estimation: Recommendations of the NKF-ASK Task Force on Reassessing the Inclusion of Race in Diagnosing Kidney Disease, JASN 202). The CKD-EPI equation should not be used for patients with unstable renal function and has not been validated in children and those over 70. Current interpretive data was last reviewed 2021. Blood 03/22/2025 9:01 PM CDT 03/22/2025 9:53 PM CDT Joslyn Davidson MD LAB BLOOD ORDERABLES Razia westfall Result [facility] Department [place] [address] * (ABNORMAL) Differential, auto (03/22/2025 9:01 PM CDT) Neutrophil abs 13.29(H) 1.50 - 6.50 K/cumm Imm gran abs 0.58(H) 0.00 - 0.10 K/cumm [facility] Lymphocyte abs 1.70 0.80 - 3.30 K/cumm [facility] Monocyte abs 0.88(H) 0.20 - 0.80 K/cumm [facility] Eosinophil abs 0.15 0.00 - 0.50 K/cumm [facility] Basophil abs 0.06 0.00 - 0.10 K/cumm [facility] Neutrophil pct 79.7 % [facility] Comment: Interpretive Data Percent cell count reference ranges are not reported, since discordance with absolute values may lead to misinterpretation of CBC data. Current Interpretive Data was last revised on 2018. Imm gran pct 3.5 % [facility] Comment: Interpretive Data Percent cell count reference ranges are not reported, since discordance with absolute values may lead to misinterpretation of CBC data. Current Interpretive Data was last revised on 2018. Lymphocyte pct 10.2 % [facility] Comment: Interpretive Data Percent cell count reference ranges are not reported, since discordance with absolute values may lead to misinterpretation of CBC data. Current Interpretive Data was last revised on 2018. Monocyte pct 5.3 % [facility] Comment: Interpretive Data Percent cell count reference ranges are not reported, since discordance with absolute values may lead to misinterpretation of CBC data. Current Interpretive Data was last revised on 2018. Eosinophil pct 0.9 % [facility] Comment: Interpretive Data Percent cell count reference ranges are not reported, since discordance with absolute values may lead to misinterpretation of CBC data. Current Interpretive Data was last revised on 2018. Basophil pct 0.4 % [facility] Comment: Interpretive Data Percent cell count reference ranges are not reported, since discordance with absolute values may lead to misinterpretation of CBC data. Current Interpretive Data was last revised on 2018. Blood 03/22/2025 9:01 PM CDT 03/22/2025 9:53 PM CDT Joslyn Davidson MD LAB BLOOD ORDERABLES Razia westfall Result [facility] Department [place] [address] * (ABNORMAL) CBC with auto differential (03/22/2025 9:01 PM CDT) WBC 16.66(H) 3.80 - 9.90 K/cumm Hgb 9.2(L) 13.0 - 17.5 g/dL [facility] Hct 28.5(L) 38.9 - 50.3 % [facility] Plt 300 150 - 400 K/cumm [facility] MPV 13.4(H) 9.1 - 12.3 fL [facility] RBC 3.15(L) 4.30 - 5.80 M/cumm [facility] MCV 90.5 81.3 - 96.4 fL [facility] MCH 29.2 27.1 - 33.3 pg [facility] MCHC 32.3 32.3 - 35.7 g/dL [facility] RDW CV 14.0 11.1 - 14.9 % [facility] RDW SD 45.2 35.7 - 48.1 fL [facility] NRBC abs 0.00 0.00 - 0.01 K/cumm [facility] Blood 03/22/2025 9:01 PM CDT 03/22/2025 9:53 PM CDT Joslyn Davidson MD LAB BLOOD ORDERABLES Razia l Result [facility] [place] [address] * Phosphorus (03/22/2025 9:01 PM CDT) [facility] Phosphorus, pl 2.8 2.3 - 4.5 mg/dL Blood 03/22/2025 9:01 PM CDT 03/22/2025 9:53 PM CDT Joslyn Davidson MD LAB BLOOD ORDERABLES Razia l Result Performing Organization Address City/[facility]/ZIP Co de Phone Number [facility] Department [place] [address] * (ABNORMAL) Comprehensive metabolic panel (03/22/2025 9:01 PM CDT) [facility] Sodium 142 135 - 145 mmol/L Potassium, pl 4.1 3.3 - 4.9 mmol/L [facility] Chloride 111(H) 97 - 110 mmol/L [facility] CO2 25 22 - 32 mmol/L [facility] Anion gap 6 2 - 15 mmol/L [facility] BUN 34(H) 6 - 25 mg/dL [facility] Creatinine 0.71(L) 0.80 - 1.30 mg/dL [facility] Glucose 129 70 - 199 mg/dL [facility] Comment: Interpretive Data Fasting glucose >/= 126 mg/dl is diagnostic for diabetes. Fasting is defined as no caloric intake for at least 8 hours. Fasting glucose between 100 mg/dl to 125 mg/dl is diagnostic of prediabetes. In a patient with classic symptoms of hyperglycemia or hyperglycemic crisis, a random glucose >/= 200 mg/dl is diagnostic for diabetes. In the absence of unequivocal hyperglycemia, results should be confirmed by repeat testing. The classification and Diagnosis of Diabetes Diabetes Care 2021; 46: S19-S40. Current interpretive data was last revised 2022. Calcium 7.7(L) 8.5 - 10.3 mg/dL [facility] Bilirubin, total 0.3 0.1 - 1.2 mg/dL [facility] Protein, pl 5.8(L) 6.5 - 8.5 g/dL [facility] Albumin 2.2(L) 3.5 - 5.0 g/dL [facility] Alk phos 92 40 - 130 Units/L [facility] [facility] ALT 23 7 - 55 Units/L [facility] AST 17 10 - 50 Units/L [facility] Blood 03/22/2025 9:01 PM CDT 03/22/2025 9:53 PM CDT us Joslyn Davidson MD LAB BLOOD ORDERABLES Razia l Result Performing Organization Address City/[facility]/ZIP Co de Phone Number [facility] Department [place] [address] * POCT glucose (03/22/2025 7:29 PM CDT) [facility] Glucose, POC 130 70 - 199 mg/dL Blood 03/22/2025 7:29 PM CDT 03/22/2025 7:29 PM CDT us Anival Leonard MD LAB POCT ORDERABLES - DEV ICE Final Result Performing Organization Address [facility]/ZIP Co de Phone Number [facility] Department [place] [address] * Respiratory pathogen panel Nasopharyngeal (03/22/2025 5:30 PM CDT) Pathologist [facility] Influenza A RNA Not Detected Not Detected Influenza B RNA Not Detected Not Detected [facility] RSV RNA Not Detected Not Detected [facility] COVID-19 RNA Not Detected Not Detected [facility] Coronavirus 229E RNA Not Detected Not Detected [facility] Coronavirus HKU1 RNA Not Detected Not Detected [facility] Coronavirus NL63 RNA Not Detected Not Detected [facility] Coronavirus OC43 RNA Not Detected Not Detected [facility] Adenovirus DNA Not Detected Not Detected [facility] Metapneumovirus RNA Not Detected Not Detected [facility] Rhinovirus/Enterov irus RNA Not Detected Not Detected [facility] Parainfluenza 1 RNA Not Detected Not Detected [facility] Parainfluenza 2 RNA Not Detected Not Detected [facility] Parainfluenza 3 RNA Not Detected Not Detected [facility] Parainfluenza 4 RNA Not Detected Not Detected [facility] B. pertussis DNA Not Detected Not Detected [facility] B. parapertussis DNA Not Detected Not Detected [facility] C. pneumoniae DNA Not Detected Not Detected [facility] M. pneumoniae DNA Not Detected Not Detected [facility] Nasopharyngeal 03/22/2025 5: 30 PM CDT 03/22/2025 6:34 PM CDT Narrative [facility] - 03/22/2025 7:45 PM CDT Is the Patient experiencing symptoms consistent with COVID?->Yes Surveillance testing for transplant patient?->No Interpretive Data The [employer] FilmArray Respiratory Panel (RP2.1) assay is a multiplexed real-time PCR based nucleic acid test capable of simultaneous qualitative detection and identification of multiple respiratory viral and bacterial nucleic acids, including SARS Coronavirus 2 (the causative agent of COVID-19). The following bacteria, viruses and virus subtypes can be identified using the [employer] RP2.1 assay: Bordetella pertussis, Bordetella parapertussis, Chlamydia pneumoniae, Mycoplasma pneumoniae, Adenovirus, SARS Coronavirus 2, seasonal coronaviruses (Coronavirus HKU1, Coronavirus NL63, Coronavirus 229E, and Coronavirus OC43), Influenza A, Influenza A subtype H1, Influenza A subtype H3, Influenza A subtype 2009 H1, Influenza B, Metapneumovirus, Parainfluenza 1, Parainfluenza 2, Parainfluenza 3, Parainfluenza 4, RSV, Rhinovirus/Enterovirus. Due to the genetic similarity between human Rhinovirus and Enterovirus, the FilmArray RP2.1 assay cannot reliably differentiate them. Coronavirus OC43 may cross-react with some isolates of Coronavirus HKU1. A dual positive result may be due to cross-reactivity or may indicate a co- infection. The detection and identification of specific viral and bacterial nucleic acids from individuals exhibiting signs and symptoms of a respiratory infection aids in the diagnosis of respiratory infection if used in conjunction with other clinical and epidemiological information. The results of this test should not be used as the sole basis for diagnosis, treatment, or other management decisions. Negative results in the setting of a respiratory illness may be due to infection with pathogens that are not detected by this test. Positive results do not rule out infection/co-infection with other organisms. The agent(s) detected by the [employer] RP2.1 may not be the definite cause of disease. Additional testing (lab, imaging, etc.) may be necessary when evaluating a patient with possible respiratory tract infection. The FilmArray RP2.1 assay has FDA clearance for testing of SPRAY GUNNER swabs. The performance of additional specimen types has been assessed by the performing laboratory. The performance characteristics of this assay have been determined by [facility] Molecular Infectious Disease Laboratory. Current interpretive data was last revised on 22. Joslyn Davidson MD LAB MICROBIOLOGY - GENERA L ORDERABLES Final Result [facility] Department [place] [address] * POCT glucose (03/22/2025 4:22 PM CDT) Glucose, POC 122 70 - 199 mg/dL Blood 03/22/2025 4:22 PM CDT 03/22/2025 4:22 PM CDT us Anival Leonard MD LAB POCT ORDERABLES - DEV ICE Final Result [facility] [place] [address] * POCT glucose (03/22/2025 12:17 PM CDT) Glucose, POC 135 70 - 199 mg/dL Blood 03/22/2025 12:1 7 PM CDT 03/22/2025 12:17 PM CDT Anival Leonard MD LAB POCT ORDERABLES - DEV ICE Final Result Performing Organization Address [facility] Co de Phone Number [facility] Department [place] [address] * Blood culture Blood (03/22/2025 9:53 AM CDT) Report Final Report: No growth Blood 03/22/2025 9:53 AM CDT 03/22/2025 10:22 AM CDT Narrative [facility] - 03/26/2025 12:01 PM CDT Collection->Peripheral 1. Blood cultures are incubated for 4 days on a continuously monitored blood culture system. The first report of a negative culture is issued within 24 hours of receipt of the specimen in the laboratory. 2. Positive culture results are reported as soon as they are detected. 3. The most important factor for detection of microbes in the setting of bloodstream infection is the volume of blood submitted for culture. Failure to collect an optimal blood volume can result in false negative blood cultures. 4. For pediatric patients, the recommended blood volume to collect follows a weight based strategy. See the electronic test catalog for collection instructions. 5. For positive blood cultures, a rapid molecular test may be performed for organism identification using the [employer] e[employer] blood culture identification panel for gram positive (BCID-GP) and gram negative (BCID-GN) organisms. This nucleic acid amplification test detects microbial DNA in positive blood culture broth. This assay has been cleared by the [place] Food and Drug Administration and its performance characteristics have been verified by the [facility] Microbiology Laboratory. For questions about this culture, contact the Microbiology Laboratory at [phone]. Interpretive data was last revised on 24. Joslyn Davidson MD LAB MICROBIOLOGY - GENERA L ORDERABLES Final Result Performing Organization Address [facility] Co de Phone Number [facility] Department [place] [address] * Blood culture Blood (03/22/2025 9:53 AM CDT) Report Final Report: No growth Blood 03/22/2025 9:53 AM CDT 03/22/2025 10:22 AM CDT Narrative [facility] - 03/26/2025 12:01 PM CDT Collection->Peripheral 1. Blood cultures are incubated for 4 days on a continuously monitored blood culture system. The first report of a negative culture is issued within 24 hours of receipt of the specimen in the laboratory. 2. Positive culture results are reported as soon as they are detected. 3. The most important factor for detection of microbes in the setting of bloodstream infection is the volume of blood submitted for culture. Failure to collect an optimal blood volume can result in false negative blood cultures. 4. For pediatric patients, the recommended blood volume to collect follows a weight based strategy. See the electronic test catalog for collection instructions. 5. For positive blood cultures, a rapid molecular test may be performed for organism identification using the [employer] blood culture identification panel for gram positive (BCID-GP) and gram negative (BCID-GN) organisms. This nucleic acid amplification test detects microbial DNA in positive blood culture broth. This assay has been cleared by the [place] Food and Drug Administration and its performance characteristics have been verified by the [facility] Microbiology Laboratory. For questions about this culture, contact the Microbiology Laboratory at [phone]. Interpretive data was last revised on 24. Joslyn Davidson MD LAB MICROBIOLOGY - GENERA L ORDERABLES Final Result Performing Organization Address [facility] Co de Phone Number [facility] [place] [address] * POCT glucose (03/22/2025 7:36 AM CDT) Glucose, POC 137 70 - 199 mg/dL Blood 03/22/2025 7:36 AM CDT 03/22/2025 7:36 AM CDT Anival Leonard MD LAB POCT ORDERABLES - DEV ICE Final [place] [address] * POCT glucose (03/22/2025 4:28 AM CDT) Glucose, POC 134 70 - 199 mg/dL Blood 03/22/2025 4:28 AM CDT 03/22/2025 4:28 AM CDT Anival Leonard MD LAB POCT ORDERABLES - DEV ICE Final Result Performing Organization Address City/[facility]/ZIP Co de Phone Number [facility] [place] [address] * POCT glucose (03/21/2025 11:25 PM CDT) Glucose, POC 119 70 - 199 mg/dL Blood 03/21/2025 11:2 5 PM CDT 03/21/2025 11:25 PM CDT Anival Leonard MD LAB POCT ORDERABLES - DEV ICE Final Result Performing Organization Address City/[facility]/ZIP Co [place] [address] * eGFR (03/21/2025 9:44 PM CDT) eGFR >90 >=60 mL/min/1. 73 m2 Comment: Interpretive Data Reference Interval Normal >/= 90 mL/min/1.73m2 Mildly decreased* 60 - 89 mL/min/1.73m2 Mildly to moderately decreased 45 - 59 mL/min/1.73m2 Moderately to severely decreased 30 - 44 mL/min/1.73m2 Severely decreased 15 - 29 mL/min/1.73m2 Kidney Failure < 15 mL/min/1.73m2 *Relative to young adult level Estimated glomerular filtration rate is determined by the 2020 CKD-EPI equation recommended by the National Kidney Foundation (A Unifying Approach to GFR Estimation: Recommendations of the NKF-ASK Task Force on Reassessing the Inclusion of Race in Diagnosing Kidney Disease, JASN 2020). The CKD-EPI equation should not be used for patients with unstable renal function and has not been validated in children and those over 70. Current interpretive data was last reviewed 2021. Blood 03/21/2025 9:44 PM CDT 03/21/2025 10:45 PM CDT Joslyn Davidson MD LAB BLOOD ORDERABLES Razia westfall Result [facility] Department [place] [address] * (ABNORMAL) Differential, auto (03/21/2025 9:44 PM CDT) Neutrophil abs 8.08(H) 1.50 - 6.50 K/cumm Imm gran abs 0.62(H) 0.00 - 0.10 K/cumm [facility] Lymphocyte abs 1.82 0.80 - 3.30 K/cumm [facility] Monocyte abs 0.64 0.20 - 0.80 K/cumm [facility] Eosinophil abs 0.20 0.00 - 0.50 K/cumm [facility] Basophil abs 0.05 0.00 - 0.10 K/cumm [facility] Neutrophil pct 70.8 % [facility] Comment: Interpretive Data Percent cell count reference ranges are not reported, since discordance with absolute values may lead to misinterpretation of CBC data. Current Interpretive Data was last revised on 2018. Imm gran pct 5.4 % [facility] Comment: Interpretive Data Percent cell count reference ranges are not reported, since discordance with absolute values may lead to misinterpretation of CBC data. Current Interpretive Data was last revised on 2018. Lymphocyte pct 16.0 % [facility] Comment: Interpretive Data Percent cell count reference ranges are not reported, since discordance with absolute values may lead to misinterpretation of CBC data. Current Interpretive Data was last revised on 2018. Monocyte pct 5.6 % [facility] Comment: Interpretive Data Percent cell count reference ranges are not reported, since discordance with absolute values may lead to misinterpretation of CBC data. Current Interpretive Data was last revised on 2018. Eosinophil pct 1.8 % [facility] Comment: Interpretive Data Percent cell count reference ranges are not reported, since discordance with absolute values may lead to misinterpretation of CBC data. Current Interpretive Data was last revised on 2018. Basophil pct 0.4 % [facility] Comment: Interpretive Data Percent cell count reference ranges are not reported, since discordance with absolute values may lead to misinterpretation of CBC data. Current Interpretive Data was last revised on 2018. Blood 03/21/2025 9:44 PM CDT 03/21/2025 10:46 PM CDT Joslyn Davidson MD LAB BLOOD ORDERABLES Razia l Result Performing Organization Address City/State/[facility] Co de Phone Number [facility] Department [place] [address] * (ABNORMAL) CBC with auto differential (03/21/2025 9:44 PM CDT) WBC 11.41(H) 3.80 - 9.90 K/cumm Hgb 10.4(L) 13.0 - 17.5 g/dL [facility] Hct 31.9(L) 38.9 - 50.3 % [facility] Plt 268 150 - 400 K/cumm [facility] MPV 13.5(H) 9.1 - 12.3 fL [facility] RBC 3.55(L) 4.30 - 5.80 M/cumm [facility] MCV 89.9 81.3 - 96.4 fL [facility] MCH 29.3 27.1 - 33.3 pg [facility] MCHC 32.6 32.3 - 35.7 g/dL [facility] RDW CV 14.0 11.1 - 14.9 % [facility] RDW SD 45.8 35.7 - 48.1 fL [facility] NRBC abs 0.00 0.00 - 0.01 K/cumm [facility] Blood 03/21/2025 9:44 PM CDT 03/21/2025 10:46 PM CDT Joslyn Davidson MD LAB BLOOD ORDERABLES Razia l Result Performing Organization Address City/[facility]/ZIP Co de Phone Number [facility] Department [place] [address] * Phosphorus (03/21/2025 9:44 PM CDT) Pathologist [facility] Phosphorus, pl 3.2 2.3 - 4.5 mg/dL Blood 03/21/2025 9:44 PM CDT 03/21/2025 10:45 PM CDT Joslyn Davidson MD LAB BLOOD ORDERABLES Razia l Result Performing Organization Address City/[facility]/ZIP Co de Phone Number [facility] Department [place] [address] * (ABNORMAL) Comprehensive metabolic panel (03/21/2025 9:44 PM CDT) Pathologist [facility] Sodium 143 135 - 145 mmol/L Potassium, pl 4.1 3.3 - 4.9 mmol/L [facility] Chloride 111(H) 97 - 110 mmol/L [facility] CO2 25 22 - 32 mmol/L [facility] Anion gap 7 2 - 15 mmol/L [facility] BUN 29(H) 6 - 25 mg/dL [facility] Creatinine 0.82 0.80 - 1.30 mg/dL [facility] Glucose 123 70 - 199 mg/dL [facility] Comment: Interpretive Data Fasting glucose >/= 126 mg/dl is diagnostic for diabetes. Fasting is defined as no caloric intake for at least 8 hours. Fasting glucose between 100 mg/dl to 125 mg/dl is diagnostic of prediabetes. In a patient with classic symptoms of hyperglycemia or hyperglycemic crisis, a random glucose >/= 200 mg/dl is diagnostic for diabetes. In the absence of unequivocal hyperglycemia, results should be confirmed by repeat testing. The classification and Diagnosis of Diabetes Diabetes Care 2021; 46: S19-S40. Current interpretive data was last revised 2022. Calcium 8.3(L) 8.5 - 10.3 mg/dL [facility] Bilirubin, total 0.3 0.1 - 1.2 mg/dL [facility] Protein, pl 6.4(L) 6.5 - 8.5 g/dL [facility] Albumin 2.8(L) 3.5 - 5.0 g/dL [facility] Alk phos 108 40 - 130 Units/L [facility] ALT 29 7 - 55 Units/L [facility] AST 28 10 - 50 Units/L [facility] Blood 03/21/2025 9:44 PM CDT 03/21/2025 10:45 PM CDT us Joslyn Davidson MD LAB BLOOD ORDERABLES Razia l Result [facility] Department [place] [address] * POCT glucose (03/21/2025 8:23 PM CDT) [facility] Glucose, POC 118 70 - 199 mg/dL Blood 03/21/2025 8:23 PM CDT 03/21/2025 8:23 PM CDT Anival Leonard MD LAB POCT ORDERABLES - DEV ICE Final Result Performing Organization Address City/[facility] Co de Phone Number [facility] Department [place] [address] * C. difficile testing Stool (03/21/2025 7:49 PM CDT) [facility] Result Negative Negative Toxin Result Negative Negative [facility] C. diff result Negative, free toxin Negative, free toxin [facility] C. diff interp Negative for toxigenic Clostridioides (Clostridium) difficile. Analysis was performed using a glutamate dehydrogenase antigen detection assay combined with a C. difficile toxin detection assay. [facility] Stool 03/21/2025 7:49 PM CDT 03/21/2025 9:12 PM CDT us Joslyn Davidson MD LAB MICROBIOLOGY - GENERA L ORDERABLES Final Result Performing Organization Address [facility] de Phone Number [facility] [place] [address] * Infection Prevention VRE Culture Stool (03/21/2025 7:47 PM CDT) Report Final Report: Negative Stool 03/21/2025 7:47 PM CDT 03/21/2025 10:03 PM CDT Narrative [facility] - 03/24/2025 6:20 AM CDT Surveillance culture for Infection Prevention purposes only; results indicate colonization, not infection requiring treatment. Testing performed by [facility] Microbiology Laboratory ([phone]). us Anival Leonard MD LAB MICROBIOLOGY - GENERA L ORDERABLES Final Result Performing Organization Address [facility] [place] [address] * XR Chest 1 View (03/21/2025 5:10 PM CDT) Anatomical Region Laterality Modality Body, Chest N/A Digital Radiogra phy 03/21/2025 10:1 6 PM CDT Impressions 03/22/2025 9:15 AM CDT The current study is compared with the prior radiograph dated 03/19/2025. Interval removal of right internal jugular central venous catheter. Feeding tube courses outside the field of view. No significant change in upper lobe predominant interstitial opacities which could represent trace edema with slight improved airspace opacification in the left lung apex. No definite pleural effusion. No pneumothorax. Unchanged cardiomediastinal silhouette. Dictated by: Lemuel Koroma MD The radiology attending physician has personally reviewed this study, and had reviewed and/or edited this written report and agrees with it. Electronically signed by: Homer Andrade M.D. Narrative 03/22/2025 9:15 AM CDT EXAMINATION: 1 view chest radiograph Procedure Note Homer Andrade MD - 03/22/2025 EXAMINATION: 1 view chest radiograph IMPRESSION: The current study is compared with the prior radiograph dated 03/19/2025. Interval removal of right internal jugular central venous catheter. Feeding tube courses outside the field of view. No significant change in upper lobe predominant interstitial opacities which could represent trace edema with slight improved airspace opacification in the left lung apex. No definite pleural effusion. No pneumothorax. Unchanged cardiomediastinal silhouette. Dictated by: Lemuel Koroma MD The radiology attending physician has personally reviewed this study, and had reviewed and/or edited this written report and agrees with it. Electronically signed by: Homer Andrade M.D. us Joslyn Davidson MD IMG XR PROCEDURES Final R esult * POCT glucose (03/21/2025 4:03 PM CDT) [facility] Signature Glucose, POC 114 70 - 199 mg/dL Blood 03/21/2025 4:03 PM CDT 03/21/2025 4:03 PM CDT us Anival Leonard MD LAB POCT ORDERABLES - DEV ICE Final Result [facility] Department [place] [address] * (ABNORMAL) Urinalysis reflex to microscopic and culture Urine, clean voided (03/21/2025 2:06 PM CDT) Color, ur Straw Yellow Clarity, ur Clear Clear [facility] Specific gravity, ur 1.022 1.003 - 1.030 [facility] pH, urine 7.0 [facility] Comment: Interpretive Data U rine pH is affected by diet, medications, systemic acid-base disturbances, and renal tubular function. pH may affect urinary stone formation. For example, urine pH below 6.0 may help reduce the tendency for calcium phosphate stones and pH greater than 6.0 may reduce the tendency for uric acid stone formation. Source: [facility] Current Interpretive Data was last revised on 2017 Protein, ur ql Trace Negative [facility] Glucose, ur ql Negative Negative [facility] Ketones, ur Negative Negative [facility] Bilirubin, ur Negative Negative [facility] Blood, ur 1+(A) Negative [facility] Urobilinogen, ur <2.0 <2.0 mg/dL [facility] Nitrite, ur Negative Negative [facility] Leukocyte esterase, ur 1+(A) Negative [facility] UA reflex comment Reflex to microscopic UA will be performed. [facility] Urine, clean voided 03/21/2025 2:06 PM CDT 03/21/2025 2:22 PM CDT us Joslyn Davidson MD LAB MICROBIOLOGY - GENERA L ORDERABLES Final Result [facility] Department [place] [address] * (ABNORMAL) Urinalysis, microscopic only (03/21/2025 2:06 PM CDT) WBC, ur 6-10(A) 0 - 5 /HPF RBC, ur 11-20(A) 0 - 2 /HPF [facility] Epithelial cells, squamous, ur 1-5 0 - 5 /HPF [facility] Bacteria, ur Trace(A) [facility] Mucous, ur Present(A) [facility] Culture Reflex Comment Reflex conditions for urine culture (WBC >10) not met. [facility] Urine, clean voided 03/21/2025 2:06 PM CDT 03/21/2025 2:22 PM CDT Joslyn Davidson MD LAB URINE ORDERABLES Razia westfall Result [facility] Department [place] [address] * COLLAR CUTTER Evaluate and Treat (FEES) (03/21/2025 12:30 PM CDT) Narrative [facility] - 03/21/2025 12:30 PM CDT Jason Beck SLP 03/21/2025 1:03 PM Speech-Language Pathology: Flexible Endoscopic Evaluation of Swallowing (FEES) [facility] 69 yo male with a history of Parkinson's disease, bipolar disorder, who is transferred from the psychiatry service to the ICU after an aspiration episode complicated by acute hypoxemic respiratory failure. He was admitted to the psychiatry service due to worsening mental status and psychosis that had been going on for several weeks. While on the psychiatry service, his Sinemet dose was titrated, neurology was following, and he was started on Ativan as well as clozapine. There was an ongoing evaluation for possible ECT. He had poor p.o. intake over the past day, this morning he was found to have increased respiratory effort, was desaturating. He required use of a non-rebreather and was transferred to the MICU. Respiratory/Intubation Status: Intubated 03/14-03/17; 4L NC CXR 03/17 - No change in mild ill-defined and patchy airspace opacities in the mid and upper lungs which may be due to aspiration or residual pulmonary edema. No new consolidation, pleural effusion, or pneumothorax. Precautions: Fall PLOF: Per Neurology H&P: At baseline, the patient ambulates with a walker when in the house and on his own two feet when outside the house. He does not drive. His drives him around. He does not manage his own medications; he does so with the assistance of his . Current Diet Order: NPO Baseline Diet: Regular diet prior to admission General Information John Arita 03/21/25 COLLAR CUTTER Received On: 03/21/25 General Observations: Pt awake laying in bed, present throughout exam. NPAT: 0 If pain >4, was RN notified? No Patient Stated Goal/Comments: Pt did not state any ST related goals. 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 Noted diffuse thin secretions throughout the pharynx and flowing into the trachea, likely continuous aspiration of secretions. Accepted x1 tsp of water, x1 tsp of nectar thick liquids and x1 tsp of puree. Trace/mild pyriform residue of all PO material observed to mix with secretions and overflow into the trachea in various volumes over the posterior commissure, noted anterior laryngeal penetration as well. Trace aspiration of thin and nectar liquids, moderate volume aspiration of puree. No response to aspiration despite coughing during bedside assessment. Cued coughing intermittently successful in ejecting material from visible portions of the trachea and the laryngeal vestibule. Exam terminated d/t severity of dysphagia and frequency of aspiration. Assessment Details & Results Purpose and Procedure of Flexible Endoscopic Evaluation of Swallowing: Completed to assess oropharyngeal swallow function and evaluate the safety/efficiency of the swallow so that diet recommendations can be made. Results are indicative of performance at time of exam. A flexible endoscope was passed transnasally to the level of the hypopharynx without administration of topical anesthetic. The soft palate, pharynx, larynx, and surrounding structures were viewed. Position During Assessment: Position: Seated upright, in a bed Anatomy and Physiology Consistencies Administered: Thin liquids, [place] thick liquids, Purees Thin Liquids: Laryngeal Penetration: Present Aspiration Present: Yes Amount: Moderate Successful Modifications : Cough Unsuccessful Modifications: Cough Penetration Aspiration Scale-Thin: 8-Material enters the airway, passes below the vocal folds and no effort is made to eject [place] Scale-Vallecular Residue-Thin Liquids: None Elyse Scale-Pyriform Sinus Residue-Thin Liquids: Trace [place] Thickened Liquids: Laryngeal Penetration: Present Aspiration Present: Yes Successful Modifications: Cough Unsuccessful Modifications: Cough Penetration Aspiration Scale-[place]: 8-Material enters the airway, passes below the vocal folds and no effort is made to eject [place] Scale-Vallecular Residue-[place] Thickened Liquids: None [place] Scale-Pyriform Sinus Residue-[place] Thickened Liquids: Trace Purees: Laryngeal Penetration: Present Aspiration Present: Yes Amount: Moderate Successful Modifications: Cough Unsuccessful Modifications: Cough Penetration Aspiration Scale-Puree: 8-Material enters the airway, passes below the vocal folds and no effort is made to eject [place]se Scale-Vallecular Residue-Puree: None [place] Scale-Pyriform Sinus Residue-Puree: Mild Dysphagia Outcome and Severity Scale: Dysphagia Outcomes and Severity Scale: 1 Severe dysphagia Levels 1 & 2 on the JAYCOB indicate need for nonoral nutrition. Treatment Treatment was not provided this date. Please reference care plan for treatment goals and details, if indicated. Plan COLLAR CUTTER Frequency of Services during current admission: 2-4x/wk [facility]LLAR CUTTER Recommendation (Add'l Services): Snf Facility Next Visit Plan:treatment/therapy Additional Referrals: n/a Discharge Summary Statement If this is the last swallow therapy visit, this serves as the discharge summary. us Joslyn Davidson MD COLLAR CUTTER ORDERABLES Final Res ult Performing Organization Address [facility] Co de Phone Number [facility] * POCT glucose (03/21/2025 12:06 PM CDT) Glucose, POC 110 70 - 199 mg/dL Blood 03/21/2025 12:0 6 PM CDT 03/21/2025 12:06 PM CDT us Anival Leonard MD LAB POCT ORDERABLES - DEV ICE Final Result Performing Organization Address City/State/[facility] Co de Phone Number [facility] Department [place] [address] * POCT glucose (03/21/2025 7:36 AM CDT) Glucose, POC 133 70 - 199 mg/dL Blood 03/21/2025 7:36 AM CDT 03/21/2025 7:36 AM CDT Anival Leonard MD LAB POCT ORDERABLES - DEV ICE Final Result Performing Organization Address [facility] de Phone Number [facility] [place] [address] * POCT glucose (03/21/2025 3:53 AM CDT) Glucose, POC 106 70 - 199 mg/dL Blood 03/21/2025 3:53 AM CDT 03/21/2025 3:53 AM CDT Anival Leonard MD LAB POCT ORDERABLES - DEV ICE Final Result Performing Organization Address [facility] de Phone Number [facility] [place] [address] * POCT glucose (03/21/2025 12:06 AM CDT) Pathologist [facility] Glucose, POC 116 70 - 199 mg/dL Blood 03/21/2025 12:0 6 AM CDT 03/21/2025 12:06 AM CDT Anival Leonard MD LAB POCT ORDERABLES - DEV ICE Final Result Performing Organization Address [facility] de Phone Number [facility] [place] [address] * eGFR (03/20/2025 9:21 PM CDT) eGFR >90 >=60 mL/min/1. 73 m2 Comment: Interpretive Data Reference Interval Normal >/= 90 mL/min/1.73m2 Mildly decreased* 60 - 89 mL/min/1.73m2 Mildly to moderately decreased 45 - 59 mL/min/1.73m2 Moderately to severely decreased 30 - 44 mL/min/1.73m2 Severely decreased 15 - 29 mL/min/1.73m2 Kidney Failure < 15 mL/min/1.73m2 *Relative to young adult level Estimated glomerular filtration rate is determined by the 2020 CKD-EPI equation recommended by the National Kidney Foundation (A Unifying Approach to GFR Estimation: Recommendations of the NKF-ASK Task Force on Reassessing the Inclusion of Race in Diagnosing Kidney Disease, JASN 2020). The CKD-EPI equation should not be used for patients with unstable renal function and has not been validated in children and those over 70. Current interpretive data was last reviewed 2021. Blood 03/20/2025 9:21 PM CDT 03/20/2025 9:54 PM CDT us Joslyn Davidson MD LAB BLOOD ORDERABLES Razia westfall Result [facility] Department [place] [address] * (ABNORMAL) Differential, auto (03/20/2025 9:21 PM CDT) Pathologist [facility] Neutrophil abs 5.34 1.50 - 6.50 K/cumm Imm gran abs 0.60(H) 0.00 - 0.10 K/cumm [facility] Lymphocyte abs 1.23 0.80 - 3.30 K/cumm [facility] Monocyte abs 0.50 0.20 - 0.80 K/cumm [facility] Eosinophil abs 0.20 0.00 - 0.50 K/cumm [facility] Basophil abs 0.02 0.00 - 0.10 K/cumm [facility] Neutrophil pct 67.7 % [facility] Comment: Interpretive Data Percent cell count reference ranges are not reported, since discordance with absolute values may lead to misinterpretation of CBC data. Current Interpretive Data was last revised on 2018. Imm gran pct 7.6 % [facility] Comment: Interpretive Data Percent cell count reference ranges are not reported, since discordance with absolute values may lead to misinterpretation of CBC data. Current Interpretive Data was last revised on 2018. Lymphocyte pct 15.6 % [facility] Comment: Interpretive Data Percent cell count reference ranges are not reported, since discordance with absolute values may lead to misinterpretation of CBC data. Current Interpretive Data was last revised on 2018. Monocyte pct 6.3 % [facility] Comment: Interpretive Data Percent cell count reference ranges are not reported, since discordance with absolute values may lead to misinterpretation of CBC data. Current Interpretive Data was last revised on 2018. Eosinophil pct 2.5 % [facility] Comment: Interpretive Data Percent cell count reference ranges are not reported, since discordance with absolute values may lead to misinterpretation of CBC data. Current Interpretive Data was last revised on 2018. Basophil pct 0.3 % [facility] Comment: Interpretive Data Percent cell count reference ranges are not reported, since discordance with absolute values may lead to misinterpretation of CBC data. Current Interpretive Data was last revised on 2018. Blood 03/20/2025 9:21 PM CDT 03/20/2025 9:54 PM CDT us Joslyn Davidson MD LAB BLOOD ORDERABLES Razia westfall Result [facility] Department [place] [address] * (ABNORMAL) CBC with auto differential (03/20/2025 9:21 PM CDT) WBC 7.89 3.80 - 9.90 K/cumm Hgb 10.1(L) 13.0 - 17.5 g/dL [facility] Hct 31.1(L) 38.9 - 50.3 % [facility] Plt 229 150 - 400 K/cumm [facility] MPV 13.6(H) 9.1 - 12.3 fL [facility] RBC 3.47(L) 4.30 - 5.80 M/cumm [facility] MCV 89.6 81.3 - 96.4 fL [facility] MCH 29.1 27.1 - 33.3 pg [facility] MCHC 32.5 32.3 - 35.7 g/dL [facility] RDW CV 14.1 11.1 - 14.9 % [facility] RDW SD 45.3 35.7 - 48.1 fL [facility] NRBC abs 0.00 0.00 - 0.01 K/cumm [facility] Blood 03/20/2025 9:21 PM CDT 03/20/2025 9:54 PM CDT Joslyn Davidson MD LAB BLOOD ORDERABLES Razia l Result Performing Organization Address City/[facility]/ZIP Co de Phone Number [facility] Department [place] [address] * Hepatitis panel, acute Blood (03/20/2025 9:21 PM CDT) Pathologist [facility] Hep A IgM Nonreactive Nonreactive Hep B core IgM Nonreactive Nonreactive [facility] Hep C Ab Nonreactive Nonreactive [facility] Comment:Antibodies to HCV no t detected. Does NOT exclude the possibility of recent exposure to HCV. Current interpretive data was last revised on 22 HepBsAg Nonreactive Nonreactive [facility] Blood 03/20/2025 9:21 PM CDT 03/20/2025 9:54 PM CDT Joslyn Davidson MD LAB MICROBIOLOGY - GENERA L ORDERABLES Final Result Performing Organization Address City/[facility]/ZIP Co de Phone Number [facility] Department [place] [address] * Phosphorus (03/20/2025 9:21 PM CDT) Pathologist [facility] Phosphorus, pl 3.6 2.3 - 4.5 mg/dL Blood 03/20/2025 9:21 PM CDT 03/20/2025 9:54 PM CDT Joslyn Davidson MD LAB BLOOD ORDERABLES Razia westfall Result [facility] Department [place] [address] * (ABNORMAL) Comprehensive metabolic panel (03/20/2025 9:21 PM CDT) Sodium 148(H) 135 - 145 mmol/L Potassium, pl 4.4 3.3 - 4.9 mmol/L [facility] Chloride 114(H) 97 - 110 mmol/L [facility] CO2 26 22 - 32 mmol/L [facility] Anion gap 8 2 - 15 mmol/L [facility] BUN 33(H) 6 - 25 mg/dL [facility] Creatinine 0.76(L) 0.80 - 1.30 mg/dL [facility] Glucose 119 70 - 199 mg/dL [facility] Comment: Interpretive Data Fasting glucose >/= 126 mg/dl is diagnostic for diabetes. Fasting is defined as no caloric intake for at least 8 hours. Fasting glucose between 100 mg/dl to 125 mg/dl is diagnostic of prediabetes. In a patient with classic symptoms of hyperglycemia or hyperglycemic crisis, a random glucose >/= 200 mg/dl is diagnostic for diabetes. In the absence of unequivocal hyperglycemia, results should be confirmed by repeat testing. The classification and Diagnosis of Diabetes Diabetes Care 2021; 46: S19-S40. Current interpretive data was last revised 2022. Calcium 8.4(L) 8.5 - 10.3 mg/dL [facility] Bilirubin, total 0.3 0.1 - 1.2 mg/dL [facility] Protein, pl 6.3(L) 6.5 - 8.5 g/dL [facility] Albumin 2.6(L) 3.5 - 5.0 g/dL [facility] Alk phos 122 40 - 130 Units/L [facility] ALT 41 7 - 55 Units/L [facility] AST 31 10 - 50 Units/L [facility] Blood 03/20/2025 9:21 PM CDT 03/20/2025 9:54 PM CDT Joslyn Davidson MD LAB BLOOD ORDERABLES Razia l Result [facility] [place] [address] * POCT glucose (03/20/2025 8:10 PM CDT) Glucose, POC 113 70 - 199 mg/dL Blood 03/20/2025 8:10 PM CDT 03/20/2025 8:10 PM CDT Anival Leonard MD LAB POCT ORDERABLES - DEV ICE Final Result Performing Organization Address [facility] Co de Phone Number [facility] [place] [address] * POCT glucose (03/20/2025 4:03 PM CDT) Glucose, POC 122 70 - 199 mg/dL Blood 03/20/2025 4:03 PM CDT 03/20/2025 4:03 PM CDT Anival Leonard MD LAB POCT ORDERABLES - DEV ICE Final Result Performing Organization Address City/[facility]/ZIP Co de Phone Number [facility] [place] [address] * POCT glucose (03/20/2025 11:05 AM CDT) Glucose, POC 166 70 - 199 mg/dL Blood 03/20/2025 11:0 5 AM CDT 03/20/2025 11:05 AM CDT Joslyn Davidson MD LAB POCT ORDERABLES - DEV ICE Final Result [facility] [place] [address] * POCT glucose (03/20/2025 7:16 AM CDT) Glucose, POC 127 70 - 199 mg/dL Blood 03/20/2025 7:16 AM CDT 03/20/2025 7:16 AM CDT Joslyn Davidson MD LAB POCT ORDERABLES - DEV ICE Final Result Performing Organization Address [facility]/ZIP Co de Phone Number [facility] Department [place] [address] * eGFR (03/20/2025 4:31 AM CDT) eGFR >90 >=60 mL/min/1. 73 m2 Comment: Interpretive Data Reference Interval Normal >/= 90 mL/min/1.73m2 Mildly decreased* 60 - 89 mL/min/1.73m2 Mildly to moderately decreased 45 - 59 mL/min/1.73m2 Moderately to severely decreased 30 - 44 mL/min/1.73m2 Severely decreased 15 - 29 mL/min/1.73m2 Kidney Failure < 15 mL/min/1.73m2 *Relative to young adult level Estimated glomerular filtration rate is determined by the 2020 CKD-EPI equation recommended by the National Kidney Foundation (A Unifying Approach to GFR Estimation: Recommendations of the NKF-ASK Task Force on Reassessing the Inclusion of Race in Diagnosing Kidney Disease, JASN 2020). The CKD-EPI equation should not be used for patients with unstable renal function and has not been validated in children and those over 70. Current interpretive data was last reviewed 2021. Blood 03/20/2025 4:31 AM CDT 03/20/2025 4:58 AM CDT us Dago Hsu MD LAB BLOOD ORDERABLES F inal Result Performing Organization Address City/[facility]/ZIP Co de Phone Number [facility] Department [place] [address] * (ABNORMAL) Differential, auto (03/20/2025 4:31 AM CDT) Neutrophil abs 6.89(H) 1.50 - 6.50 K/cumm Imm gran abs 0.81(H) 0.00 - 0.10 K/cumm [facility] Lymphocyte abs 1.31 0.80 - 3.30 K/cumm [facility] Monocyte abs 0.59 0.20 - 0.80 K/cumm [facility] Eosinophil abs 0.24 0.00 - 0.50 K/cumm [facility] Basophil abs 0.04 0.00 - 0.10 K/cumm [facility] Neutrophil pct 69.7 % [facility] Comment: Interpretive Data Percent cell count reference ranges are not reported, since discordance with absolute values may lead to misinterpretation of CBC data. Current Interpretive Data was last revised on 2018. Imm gran pct 8.2 % [facility] Comment: Interpretive Data Percent cell count reference ranges are not reported, since discordance with absolute values may lead to misinterpretation of CBC data. Current Interpretive Data was last revised on 2018. Lymphocyte pct 13.3 % [facility] Comment: Interpretive Data Percent cell count reference ranges are not reported, since discordance with absolute values may lead to misinterpretation of CBC data. Current Interpretive Data was last revised on 2018. Monocyte pct 6.0 % [facility] Comment: Interpretive Data Percent cell count reference ranges are not reported, since discordance with absolute values may lead to misinterpretation of CBC data. Current Interpretive Data was last revised on 2018. Eosinophil pct 2.4 % [facility] Comment: Interpretive Data Percent cell count reference ranges are not reported, since discordance with absolute values may lead to misinterpretation of CBC data. Current Interpretive Data was last revised on 2018. Basophil pct 0.4 % [facility] Comment: Interpretive Data Percent cell count reference ranges are not reported, since discordance with absolute values may lead to misinterpretation of CBC data. Current Interpretive Data was last revised on 2018. Blood 03/20/2025 4:31 AM CDT 03/20/2025 4:58 AM CDT Dago Hsu MD LAB BLOOD ORDERABLES F inal Result Performing Organization Address [facility] Co de Phone Number [facility] Department [place] [address] * (ABNORMAL) CBC with auto differential (03/20/2025 4:31 AM CDT) Pathologist [facility] WBC 9.88 3.80 - 9.90 K/cumm Hgb 10.4(L) 13.0 - 17.5 g/dL [facility] Hct 31.5(L) 38.9 - 50.3 % [facility] Plt 212 150 - 400 K/cumm [facility] MPV 13.2(H) 9.1 - 12.3 fL [facility] RBC 3.54(L) 4.30 - 5.80 M/cumm [facility] MCV 89.0 81.3 - 96.4 fL [facility] MCH 29.4 27.1 - 33.3 pg [facility] MCHC 33.0 32.3 - 35.7 g/dL [facility] RDW CV 14.0 11.1 - 14.9 % [facility] RDW SD 45.1 35.7 - 48.1 fL [facility] NRBC abs 0.00 0.00 - 0.01 K/cumm [facility] Blood 03/20/2025 4:31 AM CDT 03/20/2025 4:58 AM CDT Dago Hsu MD LAB BLOOD ORDERABLES F inal Result Performing Organization Address City/[facility]/ZIP Co de Phone Number [facility] Department [place] [address] * Phosphorus (03/20/2025 4:31 AM CDT) Phosphorus, pl 3.5 2.3 - 4.5 mg/dL Blood 03/20/2025 4:31 AM CDT 03/20/2025 4:58 AM CDT Joslyn Davidson MD LAB BLOOD ORDERABLES Razia westfall Result [facility] Department [place] [address] * (ABNORMAL) Comprehensive metabolic panel (03/20/2025 4:31 AM CDT) Sodium 148(H) 135 - 145 mmol/L Potassium, pl 4.5 3.3 - 4.9 mmol/L [facility] Chloride 112(H) 97 - 110 mmol/L [facility] CO2 26 22 - 32 mmol/L [facility] Anion gap 10 2 - 15 mmol/L [facility] BUN 32(H) 6 - 25 mg/dL [facility] Creatinine 0.81 0.80 - 1.30 mg/dL [facility] Glucose 126 70 - 199 mg/dL [facility] Comment: Interpretive Data Fasting glucose >/= 126 mg/dl is diagnostic for diabetes. Fasting is defined as no caloric intake for at least 8 hours. Fasting glucose between 100 mg/dl to 125 mg/dl is diagnostic of prediabetes. In a patient with classic symptoms of hyperglycemia or hyperglycemic crisis, a random glucose >/= 200 mg/dl is diagnostic for diabetes. In the absence of unequivocal hyperglycemia, results should be confirmed by repeat testing. The classification and Diagnosis of Diabetes Diabetes Care 2021; 46: S19-S40. Current interpretive data was last revised 2022. Calcium 8.9 8.5 - 10.3 mg/dL [facility] Bilirubin, total 0.3 0.1 - 1.2 mg/dL [facility] Protein, pl 6.4(L) 6.5 - 8.5 g/dL [facility] Albumin 2.7(L) 3.5 - 5.0 g/dL [facility] Alk phos 132(H) 40 - 130 Units/L [facility] ALT 101(H) 7 - 55 Units/L [facility] AST 44 10 - 50 Units/L [facility] Blood 03/20/2025 4:31 AM CDT 03/20/2025 4:58 AM CDT us Dago Hsu MD LAB BLOOD ORDERABLES F inal Result Performing Organization Address [facility] Co de Phone Number [facility] [place] [address] * POCT glucose (03/20/2025 4:06 AM CDT) Glucose, POC 138 70 - 199 mg/dL Blood 03/20/2025 4:06 AM CDT 03/20/2025 4:06 AM CDT us Joslyn Davidson MD LAB POCT ORDERABLES - DEV ICE Final Result Performing Organization Address [facility] Phone Number [facility] [place] [address] * POCT glucose (03/19/2025 11:54 PM CDT) Glucose, POC 106 70 - 199 mg/dL Blood 03/19/2025 11:5 4 PM CDT 03/19/2025 11:54 PM CDT us Joslyn Davidson MD LAB POCT ORDERABLES - DEV ICE Final Result Performing Organization Address [facility] de Phone Number [facility] Department [place] [address] * POCT glucose (03/19/2025 7:45 PM CDT) Glucose, POC 121 70 - 199 mg/dL Blood 03/19/2025 7:45 PM CDT 03/19/2025 7:45 PM CDT Joslyn Davidson MD LAB POCT ORDERABLES - DEV ICE Final Result Performing Organization Address [facility] Co de Phone Number [facility] [place] [address] * POCT glucose (03/19/2025 3:41 PM CDT) Glucose, POC 160 70 - 199 mg/dL Blood 03/19/2025 3:41 PM CDT 03/19/2025 3:41 PM CDT Joslyn Davidson MD LAB POCT ORDERABLES - DEV ICE Final Result Performing Organization Address [facility] [place] [address] * POCT glucose (03/19/2025 11:35 AM CDT) Glucose, POC 135 70 - 199 mg/dL Blood 03/19/2025 11:3 5 AM CDT 03/19/2025 11:35 AM CDT Joslyn Davidson MD LAB POCT ORDERABLES - DEV ICE Final Result Performing Organization Address [facility] [place] [address] * XR Chest 1 View (03/19/2025 9:56 AM CDT) Anatomical Region Laterality Modality Body, Chest N/A Computed Radiogr aphy 03/19/2025 11:1 0 AM CDT Impressions 03/19/2025 11:16 AM CDT Comparison is made to chest radiograph 03/18/2025. A feeding tube courses below the left hemidiaphragm and terminates outside of the field of view. A right internal jugular central venous catheter terminates within the right atrium. There is improved aeration of the lungs compared to the prior exam with persistent patchy airspace opacity is within the left lung apex. No pleural effusion or pneumothorax. The cardiomediastinal silhouette is unchanged. Dictated by: Tin Hawk MD The radiology attending physician has personally reviewed this study, and had reviewed and/or edited this written report and agrees with it. Electronically signed by: Homer Andrade M.D. Narrative 03/19/2025 11:16 AM CDT EXAMINATION: 1 view chest radiograph Procedure Note Homer Andrade MD - 03/19/2025 EXAMINATION: 1 view chest radiograph IMPRESSION: Comparison is made to chest radiograph 03/18/2025. A feeding tube courses below the left hemidiaphragm and terminates outside of the field of view. A right internal jugular central venous catheter terminates within the right atrium. There is improved aeration of the lungs compared to the prior exam with persistent patchy airspace opacity is within the left lung apex. No pleural effusion or pneumothorax. The cardiomediastinal silhouette is unchanged. Dictated by: Tin Hawk MD The radiology attending physician has personally reviewed this study, and had reviewed and/or edited this written report and agrees with it. Electronically signed by: Homer Andrade M.D. Joslyn Davidson MD IMG XR PROCEDURES Final R esult * Phosphorus (03/19/2025 8:39 AM CDT) Pathologist [facility] Phosphorus, pl 2.9 2.3 - 4.5 mg/dL Blood 03/19/2025 8:39 AM CDT 03/19/2025 10:22 AM CDT us Verona Suarez MD LAB BLOOD ORDERABLES Fin al Result [facility] Department [place] [address] * POCT glucose (03/19/2025 8:25 AM CDT) Glucose, POC 135 70 - 199 mg/dL Blood 03/19/2025 8:25 AM CDT 03/19/2025 8:25 AM CDT Joslyn Davidson MD LAB POCT ORDERABLES - DEV ICE Final Result [facility] [place] [address] * POCT glucose (03/19/2025 7:34 AM CDT) Glucose, POC 153 70 - 199 mg/dL Blood 03/19/2025 7:34 AM CDT 03/19/2025 7:34 AM CDT Joslyn Davidson MD LAB POCT ORDERABLES - DEV ICE Final Result Performing Organization Address [facility] de Phone Number [facility] [place] [address] * eGFR (03/19/2025 4:27 AM CDT) eGFR >90 >=60 mL/min/1. 73 m2 Comment: Interpretive Data Reference Interval Normal >/= 90 mL/min/1.73m2 Mildly decreased* 60 - 89 mL/min/1.73m2 Mildly to moderately decreased 45 - 59 mL/min/1.73m2 Moderately to severely decreased 30 - 44 mL/min/1.73m2 Severely decreased 15 - 29 mL/min/1.73m2 Kidney Failure < 15 mL/min/1.73m2 *Relative to young adult level Estimated glomerular filtration rate is determined by the 2020 CKD-EPI equation recommended by the National Kidney Foundation (A Unifying Approach to GFR Estimation: Recommendations of the NKF-ASK Task Force on Reassessing the Inclusion of Race in Diagnosing Kidney Disease, JASN 2020). The CKD-EPI equation should not be used for patients with unstable renal function and has not been validated in children and those over 70. Current interpretive data was last reviewed 2021. Blood 03/19/2025 4:27 AM CDT 03/19/2025 5:09 AM CDT us Dago Hsu MD LAB BLOOD ORDERABLES F inal Result [facility] Department [place] [address] * (ABNORMAL) Differential, auto (03/19/2025 4:27 AM CDT) Neutrophil abs 8.10(H) 1.50 - 6.50 K/cumm Imm gran abs 0.36(H) 0.00 - 0.10 K/cumm [facility] Lymphocyte abs 0.96 0.80 - 3.30 K/cumm [facility] Monocyte abs 0.67 0.20 - 0.80 K/cumm [facility] Eosinophil abs 0.12 0.00 - 0.50 K/cumm [facility] Basophil abs 0.02 0.00 - 0.10 K/cumm [facility] Neutrophil pct 79.2 % [facility] Comment: Interpretive Data Percent cell count reference ranges are not reported, since discordance with absolute values may lead to misinterpretation of CBC data. Current Interpretive Data was last revised on 2018. Imm gran pct 3.5 % [facility] Comment: Interpretive Data Percent cell count reference ranges are not reported, since discordance with absolute values may lead to misinterpretation of CBC data. Current Interpretive Data was last revised on 2018. Lymphocyte pct 9.4 % [facility] Comment: Interpretive Data Percent cell count reference ranges are not reported, since discordance with absolute values may lead to misinterpretation of CBC data. Current Interpretive Data was last revised on 2018. Monocyte pct 6.5 % [facility] Comment: Interpretive Data Percent cell count reference ranges are not reported, since discordance with absolute values may lead to misinterpretation of CBC data. Current Interpretive Data was last revised on 2018. Eosinophil pct 1.2 % [facility] Comment: Interpretive Data Percent cell count reference ranges are not reported, since discordance with absolute values may lead to misinterpretation of CBC data. Current Interpretive Data was last revised on 2018. Basophil pct 0.2 % [facility] Comment: Interpretive Data Percent cell count reference ranges are not reported, since discordance with absolute values may lead to misinterpretation of CBC data. Current Interpretive Data was last revised on 2018. Blood 03/19/2025 4:27 AM CDT 03/19/2025 4:46 AM CDT Dago Hsu MD LAB BLOOD ORDERABLES F inal Result Performing Organization Address City/[facility]/ZIP Co de Phone Number [facility] Department [place] [address] * (ABNORMAL) CBC with auto differential (03/19/2025 4:27 AM CDT) WBC 10.23(H) 3.80 - 9.90 K/cumm Hgb 9.9(L) 13.0 - 17.5 g/dL [facility] Hct 30.2(L) 38.9 - 50.3 % [facility] Plt 168 150 - 400 K/cumm [facility] MPV 13.4(H) 9.1 - 12.3 fL [facility] RBC 3.44(L) 4.30 - 5.80 M/cumm [facility] MCV 87.8 81.3 - 96.4 fL [facility] MCH 28.8 27.1 - 33.3 pg [facility] MCHC 32.8 32.3 - 35.7 g/dL [facility] RDW CV 13.6 11.1 - 14.9 % [facility] RDW SD 43.8 35.7 - 48.1 fL [facility] NRBC abs 0.00 0.00 - 0.01 K/cumm [facility] Blood 03/19/2025 4:27 AM CDT 03/19/2025 4:46 AM CDT Dago Hsu MD LAB BLOOD ORDERABLES F inal Result Performing Organization Address City/[facility]/ZIP Co de Phone Number [facility] Department [place] [address] * (ABNORMAL) Triglycerides (03/19/2025 4:27 AM CDT) Triglycerides 174(H) <=149 mg/dL Comment: Interpretive Data Ages < or = 9 years Acceptable: <75 mg/dL Borderline high: 75-99 mg/dL High: >or= 100 mg/dL Ages 10 to 20 years Acceptable: <90 mg/dL Borderline high: 90-129 mg/dL High: >or= 130 mg/dL Ages > or = 20 years Desirable: <150 mg/dL Borderline high: 150-199 mg/dL High: 200-499 mg/dL Very high: >or= 499 mg/dL Literature References: 1. Expert Panel on Integrated Guidelines for Cardiovascular Health and Risk Reduction in Children and Adolescents. Pediatrics 2011;128:S213 2. NCEP Expert Panel. Circulation 2004;110:227 Current Interpretive Data was last revised on 2018. Blood 03/19/2025 4:27 AM CDT 03/19/2025 4:46 AM CDT us Verona Suarez MD LAB BLOOD ORDERABLES Fin al Result [facility] Department [place] [address] * Magnesium (03/19/2025 4:27 AM CDT) Magnesium 2.0 1.4 - 2.5 mg/dL Blood 03/19/2025 4:27 AM CDT 03/19/2025 4:46 AM CDT us Dago Hsu MD LAB BLOOD ORDERABLES F inal Result [facility] Department [place] [address] * (ABNORMAL) Comprehensive metabolic panel (03/19/2025 4:27 AM CDT) Sodium 144 135 - 145 mmol/L Potassium, pl 3.6 3.3 - 4.9 mmol/L [facility] Chloride 111(H) 97 - 110 mmol/L [facility] CO2 26 22 - 32 mmol/L [facility] Anion gap 7 2 - 15 mmol/L [facility] BUN 29(H) 6 - 25 mg/dL [facility] Creatinine 0.73(L) 0.80 - 1.30 mg/dL [facility] Glucose 141 70 - 199 mg/dL [facility] Comment: Interpretive Data Fasting glucose >/= 126 mg/dl is diagnostic for diabetes. Fasting is defined as no caloric intake for at least 8 hours. Fasting glucose between 100 mg/dl to 125 mg/dl is diagnostic of prediabetes. In a patient with classic symptoms of hyperglycemia or hyperglycemic crisis, a random glucose >/= 200 mg/dl is diagnostic for diabetes. In the absence of unequivocal hyperglycemia, results should be confirmed by repeat testing. The classification and Diagnosis of Diabetes Diabetes Care 2021; 46: S19-S40. Current interpretive data was last revised 2022. Calcium 9.0 8.5 - 10.3 mg/dL [facility] Bilirubin, total 0.3 0.1 - 1.2 mg/dL [facility] Protein, pl 5.9(L) 6.5 - 8.5 g/dL [facility] Albumin 2.5(L) 3.5 - 5.0 g/dL [facility] Alk phos 116 40 - 130 Units/L [facility] ALT 55 7 - 55 Units/L [facility] Comment:Reviewed AST 41 10 - 50 Units/L [facility] Blood 03/19/2025 4:27 AM CDT 03/19/2025 4:46 AM CDT us Dago Hsu MD LAB BLOOD ORDERABLES F inal Result [facility] Department [place] [address] * POCT glucose (03/19/2025 3:42 AM CDT) [facility] Glucose, POC 138 70 - 199 mg/dL Blood 03/19/2025 3:42 AM CDT 03/19/2025 3:42 AM CDT Joslyn Davidson MD LAB POCT ORDERABLES - DEV ICE Final Result Performing Organization Address [facility] de Phone Number [facility] [place] [address] * POCT glucose (03/19/2025 12:06 AM CDT) Glucose, POC 134 70 - 199 mg/dL Blood 03/19/2025 12:0 6 AM CDT 03/19/2025 12:06 AM CDT Joslyn Davidson MD LAB POCT ORDERABLES - DEV ICE Final Result Performing Organization Address [facility] de Phone Number [facility] Department [place] [address] * Phosphorus (03/18/2025 8:51 PM CDT) Phosphorus, pl 3.2 2.3 - 4.5 mg/dL Blood 03/18/2025 8:51 PM CDT 03/18/2025 9:14 PM CDT Verona Suarez MD LAB BLOOD ORDERABLES Fin al Result Performing Organization Address [facility] Co de Phone Number [facility] [place] [address] * POCT glucose (03/18/2025 7:50 PM CDT) Glucose, POC 125 70 - 199 mg/dL Blood 03/18/2025 7:50 PM CDT 03/18/2025 7:50 PM CDT Joslyn Davidson MD LAB POCT ORDERABLES - DEV ICE Final Result [facility] [place] [address] * Infection Prevention Emili auris PCR, surveillance Axilla/Groin (03/18/2025 4:25 PM CDT) Emili auris DNA Not Detected Not Detected [facility] Comment: Interpretive Data Testing performed by [facility] using the Ileana cheyenne 6800 Emili auris assay. This assay detects DNA from Emili auris using Real-Time PCR. This assay is laboratory developed and is not cleared by the [facility] [[email or web address]] Food and Drug Administration. The performance characteristics have been verified by the [facility]. Axilla/Groin 03/18/2025 4:25 PM CDT 03/18/2025 4:39 PM CDT Min Peguero MD LAB MICROBIOLOGY - GENERAL ORDER DEJAN Final Result Performing Organization Address [facility]/ZIP Co de Phone Number [facility] [place] [address] [facility] * POCT glucose (03/18/2025 4:02 PM CDT) Glucose, POC 130 70 - 199 mg/dL Blood 03/18/2025 4:02 PM CDT 03/18/2025 4:02 PM CDT Joslyn Davidson MD LAB POCT ORDERABLES - DEV ICE Final Result Performing Organization Address City/[facility]/ZIP Co [place] [address] * FL Long GI Tube Placement (03/18/2025 2:51 PM CDT) Anatomical Region Laterality Modality Body N/A Radio Fluoroscop y 03/18/2025 3:07 PM CDT Impressions 03/18/2025 3:19 PM CDT Successful nasoenteric feeding tube placement. Dictated by: Lazaro Zepeda MD The radiology attending physician has personally reviewed this study, and had reviewed and/or edited this written report and agrees with it. Electronically signed by: Blaine Yeung M.D. Narrative 03/18/2025 3:19 PM CDT EXAMINATION: NASOENTERIC FEEDING TUBE PLACEMENT HISTORY: Need for postpyloric enteral feeds TECHNIQUE: The right nostril was anesthetized with viscous lidocaine and an 8 Trinidadian nasoenteric feeding tube was advanced under fluoroscopic guidance into the duodenum. Tube positioning was confirmed with injection of water soluble contrast. The patient tolerated the procedure well without difficulty. FINDINGS: An image obtained at the end of the procedure shows the tip of the catheter at the ligament of Treitz. At the conclusion of the procedure, the guidewire was removed. The attending radiologist, Dr. Blaine Yeung M.D., was present during the entire procedure. Procedure Note Blaine Yeung MD - 03/18/2025 EXAMINATION: NASOENTERIC FEEDING TUBE PLACEMENT HISTORY: Need for postpyloric enteral feeds TECHNIQUE: The right nostril was anesthetized with viscous lidocaine and an 8 Trinidadian nasoenteric feeding tube was advanced under fluoroscopic guidance into the duodenum. Tube positioning was confirmed with injection of water soluble contrast. The patient tolerated the procedure well without difficulty. FINDINGS: An image obtained at the end of the procedure shows the tip of the catheter at the ligament of Treitz. At the conclusion of the procedure, the guidewire was removed. The attending radiologist, Dr. Blaine Yeung M.D., was present during the entire procedure. IMPRESSION: Successful nasoenteric feeding tube placement. Dictated by: Lazaro Zepeda MD The radiology attending physician has personally reviewed this study, and had reviewed and/or edited this written report and agrees with it. Electronically signed by: Blaine Yeung M.D. Dago Hsu MD IMG FLUOROSCOPY PROCED URES Final Result * POCT glucose (03/18/2025 11:35 AM CDT) Glucose, POC 131 70 - 199 mg/dL Blood 03/18/2025 11:3 5 AM CDT 03/18/2025 11:35 AM CDT Joslyn Davidson MD LAB POCT ORDERABLES - DEV ICE Final Result Performing Organization Address [facility] Co de Phone Number [facility] [place] [address] * POCT glucose (03/18/2025 7:39 AM CDT) Glucose, POC 125 70 - 199 mg/dL Blood 03/18/2025 7:39 AM CDT 03/18/2025 7:39 AM CDT Joslyn Davidson MD LAB POCT ORDERABLES - DEV ICE Final Result Performing Organization Address [facility] de Phone Number [facility] Department [place] [address] * XR Abdomen Ap 1 Vw (03/18/2025 6:58 AM CDT) Anatomical Region Laterality Modality Body, Abdomen N/A Computed Radiogr aphy 03/18/2025 8:57 AM CDT Impressions 03/18/2025 9:54 AM CDT Exam dated 03/18/2025 4:39 AM: Gastric tube tip overlies the peripyloric region and side-port overlies the gastric antrum. Feeding tube has been removed. Boswell temperature probe in place. Nonobstructive bowel gas pattern. Persistent nephrograms which may represent renal dysfunction. Exam dated 03/18/2025 at 6:43 AM: The gastric tube has been retracted with tip and side-port overlying the gastric body. Otherwise no significant interval change. Dictated by: Lazaro Zepeda MD The radiology attending physician has personally reviewed this study, and had reviewed and/or edited this written report and agrees with it. Electronically signed by: David Ferrell M.D. Narrative 03/18/2025 9:54 AM CDT EXAMINATION: Abdomen, one view. Abdomen, one view. HISTORY: Ileus COMPARISON: Radiograph dated 03/17/2025 Procedure Note David Ferrell MD PhD - 03/18/2025 EXAMINATION: Abdomen, one view. Abdomen, one view. HISTORY: Ileus COMPARISON: Radiograph dated 03/17/2025 IMPRESSION: Exam dated 03/18/2025 4:39 AM: Gastric tube tip overlies the peripyloric region and side-port overlies the gastric antrum. Feeding tube has been removed. Boswell temperature probe in place. Nonobstructive bowel gas pattern. Persistent nephrograms which may represent renal dysfunction. Exam dated 03/18/2025 at 6:43 AM: The gastric tube has been retracted with tip and side-port overlying the gastric body. Otherwise no significant interval change. Dictated by: Lazaro Zepeda MD The radiology attending physician has personally reviewed this study, and had reviewed and/or edited this written report and agrees with it. Electronically signed by: David Ferrell M.D. Joslyn Davidson MD IMG XR PROCEDURES Final R esult * XR Abdomen Ap 1 Vw (03/18/2025 5:02 AM CDT) Anatomical Region Laterality Modality Body, Abdomen N/A Digital Radiogra phy 03/18/2025 8:57 AM CDT Impressions 03/18/2025 9:54 AM CDT Exam dated 03/18/2025 4:39 AM: Gastric tube tip overlies the peripyloric region and side-port overlies the gastric antrum. Feeding tube has been removed. Boswell temperature probe in place. Nonobstructive bowel gas pattern. Persistent nephrograms which may represent renal dysfunction. Exam dated 03/18/2025 at 6:43 AM: The gastric tube has been retracted with tip and side-port overlying the gastric body. Otherwise no significant interval change. Dictated by: Lazaro Zepeda MD The radiology attending physician has personally reviewed this study, and had reviewed and/or edited this written report and agrees with it. Electronically signed by: David Ferrell M.D. Narrative 03/18/2025 9:54 AM CDT EXAMINATION: Abdomen, one view. Abdomen, one view. HISTORY: Ileus COMPARISON: Radiograph dated 03/17/2025 Procedure Note David Ferrell MD PhD - 03/18/2025 EXAMINATION: Abdomen, one view. Abdomen, one view. HISTORY: Ileus COMPARISON: Radiograph dated 03/17/2025 IMPRESSION: Exam dated 03/18/2025 4:39 AM: Gastric tube tip overlies the peripyloric region and side-port overlies the gastric antrum. Feeding tube has been removed. Boswell temperature probe in place. Nonobstructive bowel gas pattern. Persistent nephrograms which may represent renal dysfunction. Exam dated 03/18/2025 at 6:43 AM: The gastric tube has been retracted with tip and side-port overlying the gastric body. Otherwise no significant interval change. Dictated by: Lazaro Zepeda MD The radiology attending physician has personally reviewed this study, and had reviewed and/or edited this written report and agrees with it. Electronically signed by: David Ferrell M.D. us Dago Hsu MD IMG XR PROCEDURES Razia l Result * XR Chest 1 View (03/18/2025 5:02 AM CDT) Anatomical Region Laterality Modality Body, Chest N/A Digital Radiogra phy 03/18/2025 9:02 AM CDT Impressions 03/18/2025 9:44 AM CDT Comparison is made to chest radiograph dated 03/17/2025. There is a right internal jugular approach central venous catheter with tip terminating at the superior cavoatrial junction. Gastric tube is in place with tip terminating off the [id number] below the diaphragm. Slight interval worsening of patchy airspace opacities most notable in the apices and left midlung, which may be related to aspiration. No pleural effusion or pneumothorax. Cardiomediastinal silhouette is stable. Dictated by: Joey Conway M.D. The radiology attending physician has personally reviewed this study, and had reviewed and/or edited this written report and agrees with it. Electronically signed by: Tammie Hannah M.D. Narrative 03/18/2025 9:44 AM CDT EXAMINATION: 1 view chest radiograph Procedure Note Tammie Hannah MD - 03/18/2025 EXAMINATION: 1 view chest radiograph IMPRESSION: Comparison is made to chest radiograph dated 03/17/2025. There is a right internal jugular approach central venous catheter with tip terminating at the superior cavoatrial junction. Gastric tube is in place with tip terminating off the [id number] below the diaphragm. Slight interval worsening of patchy airspace opacities most notable in the apices and left midlung, which may be related to aspiration. No pleural effusion or pneumothorax. Cardiomediastinal silhouette is stable. Dictated by: Joey Conway M.D. The radiology attending physician has personally reviewed this study, and had reviewed and/or edited this written report and agrees with it. Electronically signed by: Tammie Hannah M.D. us Dago Hsu MD IMG XR PROCEDURES Razia l Result * POCT glucose (03/18/2025 4:11 AM CDT) Pathologist [facility] Glucose, POC 138 70 - 199 mg/dL Blood 03/18/2025 4:11 AM CDT 03/18/2025 4:11 AM CDT us Joslyn Davidson MD LAB POCT ORDERABLES - DEV ICE Final Result [facility] Department [place] [address] * eGFR (03/18/2025 12:37 AM CDT) [facility] eGFR >90 >=60 mL/min/1. 73 m2 Comment: Interpretive Data Reference Interval Normal >/= 90 mL/min/1.73m2 Mildly decreased* 60 - 89 mL/min/1.73m2 Mildly to moderately decreased 45 - 59 mL/min/1.73m2 Moderately to severely decreased 30 - 44 mL/min/1.73m2 Severely decreased 15 - 29 mL/min/1.73m2 Kidney Failure < 15 mL/min/1.73m2 *Relative to young adult level Estimated glomerular filtration rate is determined by the 2020 CKD-EPI equation recommended by the National Kidney Foundation (A Unifying Approach to GFR Estimation: Recommendations of the NKF-ASK Task Force on Reassessing the Inclusion of Race in Diagnosing Kidney Disease, JASN 202). The CKD-EPI equation should not be used for patients with unstable renal function and has not been validated in children and those over 70. Current interpretive data was last reviewed 2021. Blood 03/18/2025 12:3 7 AM CDT 03/18/2025 1:06 AM CDT us Dago Hsu MD LAB BLOOD ORDERABLES F inal Result [facility] Department [place] [address] * (ABNORMAL) Differential, auto (03/18/2025 12:37 AM CDT) Neutrophil abs 9.74(H) 1.50 - 6.50 K/cumm Imm gran abs 0.05 0.00 - 0.10 K/cumm [facility] Lymphocyte abs 0.63(L) 0.80 - 3.30 K/cumm [facility] Monocyte abs 0.29 0.20 - 0.80 K/cumm [facility] Eosinophil abs 0.02 0.00 - 0.50 K/cumm [facility] Basophil abs 0.01 0.00 - 0.10 K/cumm [facility] Neutrophil pct 90.6 % [facility] Comment: Interpretive Data Percent cell count reference ranges are not reported, since discordance with absolute values may lead to misinterpretation of CBC data. Current Interpretive Data was last revised on 2018. Imm gran pct 0.5 % [facility] Comment: Interpretive Data Percent cell count reference ranges are not reported, since discordance with absolute values may lead to misinterpretation of CBC data. Current Interpretive Data was last revised on 2018. Lymphocyte pct 5.9 % [facility] Comment: Interpretive Data Percent cell count reference ranges are not reported, since discordance with absolute values may lead to misinterpretation of CBC data. Current Interpretive Data was last revised on 2018. Monocyte pct 2.7 % [facility] Comment: Interpretive Data Percent cell count reference ranges are not reported, since discordance with absolute values may lead to misinterpretation of CBC data. Current Interpretive Data was last revised on 2018. Eosinophil pct 0.2 % [facility] Comment: Interpretive Data Percent cell count reference ranges are not reported, since discordance with absolute values may lead to misinterpretation of CBC data. Current Interpretive Data was last revised on 2018. Basophil pct 0.1 % [facility] Comment: Interpretive Data Percent cell count reference ranges are not reported, since discordance with absolute values may lead to misinterpretation of CBC data. Current Interpretive Data was last revised on 2018. Blood 03/18/2025 12:3 7 AM CDT 03/18/2025 1:06 AM CDT us Dago Hsu MD LAB BLOOD ORDERABLES F inal Result [facility] Department [place] [address] * (ABNORMAL) CBC with auto differential (03/18/2025 12:37 AM CDT) WBC 10.74(H) 3.80 - 9.90 K/cumm Hgb 10.3(L) 13.0 - 17.5 g/dL [facility] Hct 30.4(L) 38.9 - 50.3 % [facility] Plt 147(L) 150 - 400 K/cumm [facility] MPV 13.6(H) 9.1 - 12.3 fL [facility] RBC 3.51(L) 4.30 - 5.80 M/cumm [facility] MCV 86.6 81.3 - 96.4 fL [facility] MCH 29.3 27.1 - 33.3 pg [facility] MCHC 33.9 32.3 - 35.7 g/dL [facility] RDW CV 13.6 11.1 - 14.9 % [facility] RDW SD 42.7 35.7 - 48.1 fL [facility] NRBC abs 0.00 0.00 - 0.01 K/cumm [facility] Blood 03/18/2025 12:3 7 AM CDT 03/18/2025 1:06 AM CDT Dago Hsu MD LAB BLOOD ORDERABLES F inal Result Performing Organization Address City/[facility]/ZIP Co de Phone Number [facility] [place] [address] * Phosphorus (03/18/2025 12:37 AM CDT) Phosphorus, pl 2.6 2.3 - 4.5 mg/dL Blood 03/18/2025 12:3 7 AM CDT 03/18/2025 1:06 AM CDT Dago Hsu MD LAB BLOOD ORDERABLES F inal Result Performing Organization Address [facility] Co de Phone Number [facility] [place] [address] * Magnesium (03/18/2025 12:37 AM CDT) Magnesium 2.4 1.4 - 2.5 mg/dL Blood 03/18/2025 12:3 7 AM CDT 03/18/2025 1:06 AM CDT Dago Hsu MD LAB BLOOD ORDERABLES F inal Result Performing Organization Address City/[facility]/ZIP Co de Phone Number [facility] [place] [address] * (ABNORMAL) Comprehensive metabolic panel (03/18/2025 12:37 AM CDT) Sodium 146(H) 135 - 145 mmol/L Potassium, pl 3.6 3.3 - 4.9 mmol/L [facility] Chloride 111(H) 97 - 110 mmol/L [facility] CO2 26 22 - 32 mmol/L [facility] Anion gap 9 2 - 15 mmol/L [facility] BUN 34(H) 6 - 25 mg/dL [facility] Creatinine 0.80 0.80 - 1.30 mg/dL [facility] Glucose 134 70 - 199 mg/dL [facility] Comment: Interpretive Data Fasting glucose >/= 126 mg/dl is diagnostic for diabetes. Fasting is defined as no caloric intake for at least 8 hours. Fasting glucose between 100 mg/dl to 125 mg/dl is diagnostic of prediabetes. In a patient with classic symptoms of hyperglycemia or hyperglycemic crisis, a random glucose >/= 200 mg/dl is diagnostic for diabetes. In the absence of unequivocal hyperglycemia, results should be confirmed by repeat testing. The classification and Diagnosis of Diabetes Diabetes Care 202; 46: S19-S40. Current interpretive data was last revised 2022. Calcium 8.8 8.5 - 10.3 mg/dL [facility] Bilirubin, total 0.4 0.1 - 1.2 mg/dL [facility] Protein, pl 6.0(L) 6.5 - 8.5 g/dL [facility] Albumin 2.7(L) 3.5 - 5.0 g/dL [facility] Alk phos 88 40 - 130 Units/L [facility] ALT 13 7 - 55 Units/L [facility] AST 30 10 - 50 Units/L [facility] Blood 03/18/2025 12:3 7 AM CDT 03/18/2025 1:06 AM CDT us Dago Hsu MD LAB BLOOD ORDERABLES F inal Result [facility] Department [place] [address] * POCT glucose (03/17/2025 11:26 PM CDT) Glucose, POC 128 70 - 199 mg/dL Blood 03/17/2025 11:2 6 PM CDT 03/17/2025 11:26 PM CDT Dago Hsu MD LAB POCT ORDERABLES - DEVICE Final Result Performing Organization Address City/[facility] Co de Phone Number [facility] [place] [address] * POCT glucose (03/17/2025 8:59 PM CDT) Glucose, POC 139 70 - 199 mg/dL Blood 03/17/2025 8:59 PM CDT 03/17/2025 8:59 PM CDT Dago Hsu MD LAB POCT ORDERABLES - DEVICE Final Result Performing Organization Address [facility] de Phone Number [facility] [place] [address] * POCT glucose (03/17/2025 4:01 PM CDT) Glucose, POC 147 70 - 199 mg/dL Blood 03/17/2025 4:01 PM CDT 03/17/2025 4:01 PM CDT Dago sHu MD LAB POCT ORDERABLES - DEVICE Final Result Performing Organization Address [facility] Co de Phone Number [facility] [place] [address] * POCT glucose (03/17/2025 11:46 AM CDT) Glucose, POC 152 70 - 199 mg/dL Blood 03/17/2025 11:4 6 AM CDT 03/17/2025 11:46 AM CDT us Dago Hsu MD LAB POCT ORDERABLES - DEVICE Final Result Performing Organization Address City/State/[facility] Co de Phone Number [facility] [place] [address] * POCT glucose (03/17/2025 7:37 AM CDT) Glucose, POC 162 70 - 199 mg/dL Blood 03/17/2025 7:37 AM CDT 03/17/2025 7:37 AM CDT Dago Hsu MD LAB POCT ORDERABLES - DEVICE Final Result Performing Organization Address [facility] de Phone Number [facility] [place] [address] * eGFR (03/17/2025 5:35 AM CDT) eGFR 68 >=60 mL/min/1. 73 m2 Comment: Interpretive Data Reference Interval Normal >/= 90 mL/min/1.73m2 Mildly decreased* 60 - 89 mL/min/1.73m2 Mildly to moderately decreased 45 - 59 mL/min/1.73m2 Moderately to severely decreased 30 - 44 mL/min/1.73m2 Severely decreased 15 - 29 mL/min/1.73m2 Kidney Failure < 15 mL/min/1.73m2 *Relative to young adult level Estimated glomerular filtration rate is determined by the 2020 CKD-EPI equation recommended by the National Kidney Foundation (A Unifying Approach to GFR Estimation: Recommendations of the NKF-ASK Task Force on Reassessing the Inclusion of Race in Diagnosing Kidney Disease, JASN 2020). The CKD-EPI equation should not be used for patients with unstable renal function and has not been validated in children and those over 70. Current interpretive data was last reviewed 2021. Blood 03/17/2025 5:35 AM CDT 03/17/2025 6:06 AM CDT us Dago Hsu MD LAB BLOOD ORDERABLES F inal Result [facility] Department [place] [address] * (ABNORMAL) Differential, auto (03/17/2025 5:35 AM CDT) Neutrophil abs 10.77(H) 1.50 - 6.50 K/cumm Imm gran abs 0.07 0.00 - 0.10 K/cumm [facility] Lymphocyte abs 0.51(L) 0.80 - 3.30 K/cumm [facility] Monocyte abs 0.24 0.20 - 0.80 K/cumm [facility] Eosinophil abs 0.01 0.00 - 0.50 K/cumm [facility] Basophil abs 0.01 0.00 - 0.10 K/cumm [facility] Neutrophil pct 92.7 % [facility] Comment: Interpretive Data Percent cell count reference ranges are not reported, since discordance with absolute values may lead to misinterpretation of CBC data. Current Interpretive Data was last revised on 2018. Imm gran pct 0.6 % [facility] Comment: Interpretive Data Percent cell count reference ranges are not reported, since discordance with absolute values may lead to misinterpretation of CBC data. Current Interpretive Data was last revised on 2018. Lymphocyte pct 4.4 % [facility] Comment: Interpretive Data Percent cell count reference ranges are not reported, since discordance with absolute values may lead to misinterpretation of CBC data. Current Interpretive Data was last revised on 2018. Monocyte pct 2.1 % [facility] Comment: Interpretive Data Percent cell count reference ranges are not reported, since discordance with absolute values may lead to misinterpretation of CBC data. Current Interpretive Data was last revised on 2018. Eosinophil pct 0.1 % [facility] Comment: Interpretive Data Percent cell count reference ranges are not reported, since discordance with absolute values may lead to misinterpretation of CBC data. Current Interpretive Data was last revised on 2018. Basophil pct 0.1 % [facility] Comment: Interpretive Data Percent cell count reference ranges are not reported, since discordance with absolute values may lead to misinterpretation of CBC data. Current Interpretive Data was last revised on 2018. Blood 03/17/2025 5:35 AM CDT 03/17/2025 6:06 AM CDT Dago Hsu MD LAB BLOOD ORDERABLES F inal Result Performing Organization Address City/[facility]/ZIP Co de Phone Number [facility] Department [place] [address] * (ABNORMAL) CBC with auto differential (03/17/2025 5:35 AM CDT) Pathologist [facility] WBC 11.61(H) 3.80 - 9.90 K/cumm Hgb 10.3(L) 13.0 - 17.5 g/dL [facility] Hct 29.7(L) 38.9 - 50.3 % [facility] Plt 148(L) 150 - 400 K/cumm [facility] MPV 14.3(H) 9.1 - 12.3 fL [facility] RBC 3.46(L) 4.30 - 5.80 M/cumm [facility] MCV 85.8 81.3 - 96.4 fL [facility] MCH 29.8 27.1 - 33.3 pg [facility] MCHC 34.7 32.3 - 35.7 g/dL [facility] RDW CV 13.4 11.1 - 14.9 % [facility] RDW SD 41.7 35.7 - 48.1 fL [facility] NRBC abs 0.00 0.00 - 0.01 K/cumm [facility] Blood 03/17/2025 5:35 AM CDT 03/17/2025 6:06 AM CDT Dago Hsu MD LAB BLOOD ORDERABLES F inal Result Performing Organization Address City/[facility]/ZIP Co de Phone Number [facility] Department [place] [address] * (ABNORMAL) Phosphorus (03/17/2025 5:35 AM CDT) Pathologist [facility] Phosphorus, pl 1.6(L) 2.3 - 4.5 mg/dL Blood 03/17/2025 5:35 AM CDT 03/17/2025 6:06 AM CDT Dago Hsu MD LAB BLOOD ORDERABLES F inal Result Performing Organization Address City/State/[facility] Co de Phone Number [facility] [place] [address] * (ABNORMAL) Magnesium (03/17/2025 5:35 AM CDT) Pathologist [facility] Magnesium 2.7(H) 1.4 - 2.5 mg/dL Blood 03/17/2025 5:35 AM CDT 03/17/2025 6:06 AM CDT Dago Hsu MD LAB BLOOD ORDERABLES F inal Result Performing Organization Address [facility] de Phone Number [facility] [place] [address] * (ABNORMAL) Blood gas, arterial (03/17/2025 5:35 AM CDT) Pathologist [facility] pH, Art 7.50(H) 7.35 - 7.45 PCO2, Arterial 27(L) 35 - 45 mmHg [facility] PO2, Arterial 151(H) 83 - 108 mmHg [facility] HCO3 Art (Calculated) 22 20 - 30 mmol/L [facility] BE, art -1 mmol/L [facility] Comment: Interpretive Data No Reference Range Established Current Interpretive Data was last revised on 2017 O2 Sat Art (Measured) 99(H) 90 - 95 % [facility] Blood 03/17/2025 5:35 AM CDT 03/17/2025 6:01 AM CDT us Dago Hsu MD LAB BLOOD ORDERABLES F inal Result [facility] Department [place] [address] * (ABNORMAL) Comprehensive metabolic panel (03/17/2025 5:35 AM CDT) Sodium 140 135 - 145 mmol/L Potassium, pl 3.7 3.3 - 4.9 mmol/L [facility] Chloride 109 97 - 110 mmol/L [facility] CO2 23 22 - 32 mmol/L [facility] Anion gap 8 2 - 15 mmol/L [facility] BUN 40(H) 6 - 25 mg/dL [facility] Creatinine 1.17 0.80 - 1.30 mg/dL [facility] Glucose 174 70 - 199 mg/dL [facility] Comment: Interpretive Data Fasting glucose >/= 126 mg/dl is diagnostic for diabetes. Fasting is defined as no caloric intake for at least 8 hours. Fasting glucose between 100 mg/dl to 125 mg/dl is diagnostic of prediabetes. In a patient with classic symptoms of hyperglycemia or hyperglycemic crisis, a random glucose >/= 200 mg/dl is diagnostic for diabetes. In the absence of unequivocal hyperglycemia, results should be confirmed by repeat testing. The classification and Diagnosis of Diabetes Diabetes Care 2021; 46: S19-S40. Current interpretive data was last revised 2022. Calcium 8.7 8.5 - 10.3 mg/dL [facility] Bilirubin, total 0.3 0.1 - 1.2 mg/dL [facility] Protein, pl 5.8(L) 6.5 - 8.5 g/dL [facility] Albumin 2.5(L) 3.5 - 5.0 g/dL [facility] Alk phos 73 40 - 130 Units/L [facility] ALT 9 7 - 55 Units/L [facility] AST 13 10 - 50 Units/L [facility] Blood 03/17/2025 5:35 AM CDT 03/17/2025 6:06 AM CDT us Dago Hsu MD LAB BLOOD ORDERABLES F inal Result [facility] Department [place] [address] * XR Chest 1 View (03/17/2025 4:41 AM CDT) Anatomical Region Laterality Modality Body, Chest N/A Computed Radiogr aphy 03/17/2025 8:01 AM CDT Impressions 03/17/2025 8:01 AM CDT Endotracheal tube tip approximately 2.5 cm above stewart. Right internal jugular catheter tip in upper right atrium. Gastric and feeding tubes in stomach with tips below field of view. Normal heart size. No change in mild ill-defined and patchy airspace opacities in the mid and upper lungs which may be due to aspiration or residual pulmonary edema. No new consolidation, pleural effusion, or pneumothorax. Electronically signed by: Tacos Nunn M.D. Narrative 03/17/2025 8:01 AM CDT EXAMINATION: 1 view chest radiograph COMPARISON: 03/16/2025 Procedure Note Tacos Nunn MD - 03/17/2025 EXAMINATION: 1 view chest radiograph COMPARISON: 03/16/2025 IMPRESSION: Endotracheal tube tip approximately 2.5 cm above stewart. Right internal jugular catheter tip in upper right atrium. Gastric and feeding tubes in stomach with tips below field of view. Normal heart size. No change in mild ill-defined and patchy airspace opacities in the mid and upper lungs which may be due to aspiration or residual pulmonary edema. No new consolidation, pleural effusion, or pneumothorax. Electronically signed by: Tacos Nunn M.D. us Dago Hsu MD IMG XR PROCEDURES Razia l Result * XR Abdomen Ap 1 Vw (03/17/2025 4:40 AM CDT) Anatomical Region Laterality Modality Body, Abdomen N/A Computed Radiogr aphy 03/17/2025 9:13 AM CDT Impressions 03/17/2025 9:13 AM CDT Exam 1 03/16/2025 at 3:55 PM: Gastric tube remains in place with the tip overlying the peripyloric stomach. Interval placement of a weighted feeding tube which terminates over the gastric body. No gas-filled dilated loops of bowel are seen within the abdomen. Paucity of bowel gas limits evaluation of bowel gas pattern abnormalities. Small amount of stool within the descending colon is noted. Exam 2 03/17/25 at 4:22 AM: The weighted feeding to slightly advanced, no terminating over the peripyloric stomach. A Boswell catheter temperature probe projects over the pelvis. Otherwise no significant change. Electronically signed by: Williams Mcguire M.D. Narrative 03/17/2025 9:13 AM CDT EXAMINATION: Abdomen, one view. X2 HISTORY: Tube placement, question ileus COMPARISON: 03/16/2025 11:20 AM Procedure Note Williams Mcguire MD - 03/17/2025 EXAMINATION: Abdomen, one view. X2 HISTORY: Tube placement, question ileus COMPARISON: 03/16/2025 11:20 AM IMPRESSION: Exam 1 03/16/2025 at 3:55 PM: Gastric tube remains in place with the tip overlying the peripyloric stomach. Interval placement of a weighted feeding tube which terminates over the gastric body. No gas-filled dilated loops of bowel are seen within the abdomen. Paucity of bowel gas limits evaluation of bowel gas pattern abnormalities. Small amount of stool within the descending colon is noted. Exam 2 03/17/25 at 4:22 AM: The weighted feeding to slightly advanced, no terminating over the peripyloric stomach. A Boswell catheter temperature probe projects over the pelvis. Otherwise no significant change. Electronically signed by: Williams Mcguire M.D. us Dago Hsu MD IMG XR PROCEDURES Razia l Result * POCT glucose (03/17/2025 3:17 AM CDT) Glucose, POC 167 70 - 199 mg/dL Comment:Glu2: RN/ Notified Glucose comment 1 Glu2: RITA/ Notified [facility] Blood 03/17/2025 3:17 AM CDT 03/17/2025 3:17 AM CDT Dago Hsu MD LAB POCT ORDERABLES - DEVICE Final Result Performing Organization Address [facility]/ZIP Co de Phone Number [facility] [place] [address] * POCT glucose (03/16/2025 11:16 PM CDT) Glucose, POC 187 70 - 199 mg/dL Comment:Glu2: RN/MD Notified Glucose comment 1 Glu2: RN/MD Notified [facility] Blood 03/16/2025 11:1 6 PM CDT 03/16/2025 11:16 PM CDT Dago Hsu MD LAB POCT ORDERABLES - DEVICE Final Result Performing Organization Address [facility] Co de Phone Number [facility] [place] [address] * POCT glucose (03/16/2025 7:24 PM CDT) Glucose, POC 182 70 - 199 mg/dL Comment:Glu2: RN/MD Notified Glucose comment 1 Glu2: RN/MD Notified [facility] Blood 03/16/2025 7:24 PM CDT 03/16/2025 7:24 PM CDT Dago Hsu MD LAB POCT ORDERABLES - DEVICE Final Result Performing Organization Address City/[facility]/[place] [address] * XR Abdomen Ap 1 Vw (03/16/2025 4:00 PM CDT) Anatomical Region Laterality Modality Body, Abdomen N/A Computed Radiogr aphy 03/17/2025 9:13 AM CDT Impressions 03/17/2025 9:13 AM CDT Exam 1 03/16/2025 at 3:55 PM: Gastric tube remains in place with the tip overlying the peripyloric stomach. Interval placement of a weighted feeding tube which terminates over the gastric body. No gas-filled dilated loops of bowel are seen within the abdomen. Paucity of bowel gas limits evaluation of bowel gas pattern abnormalities. Small amount of stool within the descending colon is noted. Exam 2 03/17/25 at 4:22 AM: The weighted feeding to slightly advanced, no terminating over the peripyloric stomach. A Boswell catheter temperature probe projects over the pelvis. Otherwise no significant change. Electronically signed by: Williams Mcguire M.D. Narrative 03/17/2025 9:13 AM CDT EXAMINATION: Abdomen, one view. X2 HISTORY: Tube placement, question ileus COMPARISON: 03/16/2025 11:20 AM Procedure Note Williams Mcguire MD - 03/17/2025 EXAMINATION: Abdomen, one view. X2 HISTORY: Tube placement, question ileus COMPARISON: 03/16/2025 11:20 AM IMPRESSION: Exam 1 03/16/2025 at 3:55 PM: Gastric tube remains in place with the tip overlying the peripyloric stomach. Interval placement of a weighted feeding tube which terminates over the gastric body. No gas-filled dilated loops of bowel are seen within the abdomen. Paucity of bowel gas limits evaluation of bowel gas pattern abnormalities. Small amount of stool within the descending colon is noted. Exam 2 03/17/25 at 4:22 AM: The weighted feeding to slightly advanced, no terminating over the peripyloric stomach. A Boswell catheter temperature probe projects over the pelvis. Otherwise no significant change. Electronically signed by: Williams Mcguire M.D. us Dago Hsu MD IMG XR PROCEDURES Razia l Result * POCT glucose (03/16/2025 3:49 PM CDT) [facility] Glucose, POC 162 70 - 199 mg/dL Blood 03/16/2025 3:49 PM CDT 03/16/2025 3:49 PM CDT us Dago Hsu MD LAB POCT ORDERABLES - DEVICE Final Result Performing Organization Address City/[facility] Co de Phone Number [facility] [place] [address] * POCT glucose (03/16/2025 11:33 AM CDT) Glucose, POC 196 70 - 199 mg/dL Blood 03/16/2025 11:3 3 AM CDT 03/16/2025 11:33 AM CDT Dago Hsu MD LAB POCT ORDERABLES - DEVICE Final Result Performing Organization Address [facility] de Phone Number [facility] [place] [address] * XR Abdomen Ap 1 Vw (03/16/2025 11:20 AM CDT) Anatomical Region Laterality Modality Body, Abdomen N/A Computed Radiogr aphy 03/16/2025 11:5 1 AM CDT Impressions 03/16/2025 12:14 PM CDT Nasogastric tube tip terminates at the gastric antrum with side port projecting over the gastric body. Dictated by: Genaro Ramos M.D. The radiology attending physician has personally reviewed this study, and had reviewed and/or edited this written report and agrees with it. Electronically signed by: Dago Duarte M.D. Narrative 03/16/2025 12:14 PM CDT EXAMINATION: Abdomen, one view. HISTORY: Check tube placement. COMPARISON: Abdominal radiograph dated 03/14/2025 Procedure Note Dago Duarte MD - 03/16/2025 EXAMINATION: Abdomen, one view. HISTORY: Check tube placement. COMPARISON: Abdominal radiograph dated 03/14/2025 IMPRESSION: Nasogastric tube tip terminates at the gastric antrum with side port projecting over the gastric body. Dictated by: Genaro Ramos M.D. The radiology attending physician has personally reviewed this study, and had reviewed and/or edited this written report and agrees with it. Electronically signed by: Dago Duarte M.D. Dago Hsu MD IMG XR PROCEDURES Razia l Result * (ABNORMAL) Lactate (03/16/2025 7:57 AM CDT) Lactate 2.1(H) 0.7 - 2.0 mmol/L Blood 03/16/2025 7:57 AM CDT 03/16/2025 8:14 AM CDT Dago Hsu MD LAB BLOOD ORDERABLES F inal Result Performing Organization Address [facility] de Phone Number [facility] [place] [address] * (ABNORMAL) Blood gas, arterial (03/16/2025 7:57 AM CDT) pH, Art 7.48(H) 7.35 - 7.45 PCO2, Arterial 28(L) 35 - 45 mmHg [facility] PO2, Arterial 148(H) 83 - 108 mmHg [facility] HCO3 Art (Calculated) 21 20 - 30 mmol/L [facility] BE, art -2 mmol/L [facility] Comment: Interpretive Data No Reference Range Established Current Interpretive Data was last revised on 2017 O2 Sat Art (Measured) 100(H) 90 - 95 % [facility] Blood 03/16/2025 7:57 AM CDT 03/16/2025 8:08 AM CDT Dago Hsu MD LAB BLOOD ORDERABLES F inal Result Performing Organization Address [facility] Co de Phone Number [facility] [place] [address] * (ABNORMAL) POCT glucose (03/16/2025 7:50 AM CDT) Pathologist [facility] Glucose, POC 220(H) 70 - 199 mg/dL Blood 03/16/2025 7:50 AM CDT 03/16/2025 7:50 AM CDT Dago Hsu MD LAB POCT ORDERABLES - DEVICE Final Result Performing Organization Address [facility] Co de Phone Number [facility] Department [place] [address] * (ABNORMAL) Lactate (03/16/2025 5:14 AM CDT) [facility] Lactate 2.1(H) 0.7 - 2.0 mmol/L Blood 03/16/2025 5:14 AM CDT 03/16/2025 5:31 AM CDT Dago Hsu MD LAB BLOOD ORDERABLES F inal Result Performing Organization Address [facility] Co de Phone Number [facility] Department [place] [address] * (ABNORMAL) eGFR (03/16/2025 5:14 AM CDT) [facility] eGFR 40(L) >=60 mL/min/1. 73 m2 Comment: Interpretive Data Reference Interval Normal >/= 90 mL/min/1.73m2 Mildly decreased* 60 - 89 mL/min/1.73m2 Mildly to moderately decreased 45 - 59 mL/min/1.73m2 Moderately to severely decreased 30 - 44 mL/min/1.73m2 Severely decreased 15 - 29 mL/min/1.73m2 Kidney Failure < 15 mL/min/1.73m2 *Relative to young adult level Estimated glomerular filtration rate is determined by the 2020 CKD-EPI equation recommended by the National Kidney [employer] (A Unifying Approach to GFR Estimation: Recommendations of the NKF-ASK Task Force on Reassessing the Inclusion of Race in Diagnosing Kidney Disease, JASN 2020). The CKD-EPI equation should not be used for patients with unstable renal function and has not been validated in children and those over 70. Current interpretive data was last reviewed 2021. Blood 03/16/2025 5:14 AM CDT 03/16/2025 5:31 AM CDT us Dago Hsu MD LAB BLOOD ORDERABLES F inal Result [facility] Department [place] [address] * (ABNORMAL) Differential, auto (03/16/2025 5:14 AM CDT) Pathologist [facility] Neutrophil abs 10.79(H) 1.50 - 6.50 K/cumm Imm gran abs 0.11(H) 0.00 - 0.10 K/cumm [facility] Lymphocyte abs 0.56(L) 0.80 - 3.30 K/cumm [facility] Monocyte abs 0.25 0.20 - 0.80 K/cumm [facility] Eosinophil abs 0.00 0.00 - 0.50 K/cumm [facility] Basophil abs 0.01 0.00 - 0.10 K/cumm [facility] Neutrophil pct 92.1 % [facility] Comment: Interpretive Data Percent cell count reference ranges are not reported, since discordance with absolute values may lead to misinterpretation of CBC data. Current Interpretive Data was last revised on 2018. Imm gran pct 0.9 % [facility] Comment: Interpretive Data Percent cell count reference ranges are not reported, since discordance with absolute values may lead to misinterpretation of CBC data. Current Interpretive Data was last revised on 2018. Lymphocyte pct 4.8 % [facility] Comment: Interpretive Data Percent cell count reference ranges are not reported, since discordance with absolute values may lead to misinterpretation of CBC data. Current Interpretive Data was last revised on 2018. Monocyte pct 2.1 % [facility] Comment: Interpretive Data Percent cell count reference ranges are not reported, since discordance with absolute values may lead to misinterpretation of CBC data. Current Interpretive Data was last revised on 2018. Eosinophil pct 0.0 % [facility] Comment: Interpretive Data Percent cell count reference ranges are not reported, since discordance with absolute values may lead to misinterpretation of CBC data. Current Interpretive Data was last revised on 2018. Basophil pct 0.1 % [facility] Comment: Interpretive Data Percent cell count reference ranges are not reported, since discordance with absolute values may lead to misinterpretation of CBC data. Current Interpretive Data was last revised on 2018. Blood 03/16/2025 5:14 AM CDT 03/16/2025 5:31 AM CDT us Dago Hsu MD LAB BLOOD ORDERABLES F inal Result [facility] Department [place] [address] * (ABNORMAL) CBC with auto differential (03/16/2025 5:14 AM CDT) Pathologist [facility] WBC 11.72(H) 3.80 - 9.90 K/cumm Hgb 11.4(L) 13.0 - 17.5 g/dL [facility] Hct 33.1(L) 38.9 - 50.3 % [facility] Plt 153 150 - 400 K/cumm [facility] MPV 13.6(H) 9.1 - 12.3 fL [facility] RBC 3.92(L) 4.30 - 5.80 M/cumm [facility] MCV 84.4 81.3 - 96.4 fL [facility] MCH 29.1 27.1 - 33.3 pg [facility] MCHC 34.4 32.3 - 35.7 g/dL [facility] RDW CV 13.3 11.1 - 14.9 % [facility] RDW SD 41.5 35.7 - 48.1 fL [facility] NRBC abs 0.00 0.00 - 0.01 K/cumm [facility] Blood 03/16/2025 5:14 AM CDT 03/16/2025 5:31 AM CDT Dago Hsu MD LAB BLOOD ORDERABLES F inal Result Performing Organization Address [facility] Co de Phone Number [facility] [place] [address] * (ABNORMAL) Triglycerides (03/16/2025 5:14 AM CDT) Triglycerides 270(H) <=149 mg/dL Comment: Interpretive Data Ages < or = 9 years Acceptable: <75 mg/dL Borderline high: 75-99 mg/dL High: >or= 100 mg/dL Ages 10 to 20 years Acceptable: <90 mg/dL Borderline high: 90-129 mg/dL High: >or= 130 mg/dL Ages > or = 20 years Desirable: <150 mg/dL Borderline high: 150-199 mg/dL High: 200-499 mg/dL Very high: >or= 499 mg/dL Literature References: 1. Expert Panel on Integrated Guidelines for Cardiovascular Health and Risk Reduction in Children and Adolescents. Pediatrics 2011;128:S213 2. NCEP Expert Panel. Circulation 2004;110:227 Current Interpretive Data was last revised on 2018. Blood 03/16/2025 5:14 AM CDT 03/16/2025 5:31 AM CDT us Verona Suarez MD LAB BLOOD ORDERABLES Fin al Result Performing Organization Address [facility] Co de Phone Number [facility] Department [place] [address] * Phosphorus (03/16/2025 5:14 AM CDT) Phosphorus, pl 3.2 2.3 - 4.5 mg/dL Blood 03/16/2025 5:14 AM CDT 03/16/2025 5:31 AM CDT Dago Hsu MD LAB BLOOD ORDERABLES F inal Result Performing Organization Address [facility] Co de Phone Number [facility] Department [place] [address] * (ABNORMAL) Magnesium (03/16/2025 5:14 AM CDT) [facility] Magnesium 2.6(H) 1.4 - 2.5 mg/dL Blood 03/16/2025 5:14 AM CDT 03/16/2025 5:31 AM CDT Dago Hsu MD LAB BLOOD ORDERABLES F inal Result [facility] [place] [address] * (ABNORMAL) Comprehensive metabolic panel (03/16/2025 5:14 AM CDT) [facility] Sodium 136 135 - 145 mmol/L Potassium, pl 3.2(L) 3.3 - 4.9 mmol/L [facility] Chloride 102 97 - 110 mmol/L [facility] CO2 22 22 - 32 mmol/L [facility] Anion gap 12 2 - 15 mmol/L [facility] BUN 47(H) 6 - 25 mg/dL [facility] Creatinine 1.80(H) 0.80 - 1.30 mg/dL [facility] Glucose 212(H) 70 - 199 mg/dL [facility] Comment: Interpretive Data Fasting glucose >/= 126 mg/dl is diagnostic for diabetes. Fasting is defined as no caloric intake for at least 8 hours. Fasting glucose between 100 mg/dl to 125 mg/dl is diagnostic of prediabetes. In a patient with classic symptoms of hyperglycemia or hyperglycemic crisis, a random glucose >/= 200 mg/dl is diagnostic for diabetes. In the absence of unequivocal hyperglycemia, results should be confirmed by repeat testing. The classification and Diagnosis of Diabetes Diabetes Care 202; 46: S19-S40. Current interpretive data was last revised 2022. Calcium 8.7 8.5 - 10.3 mg/dL [facility] Bilirubin, total 0.3 0.1 - 1.2 mg/dL [facility] Protein, pl 5.6(L) 6.5 - 8.5 g/dL [facility] Albumin 2.6(L) 3.5 - 5.0 g/dL [facility] Alk phos 57 40 - 130 Units/L [facility] ALT 14 7 - 55 Units/L [facility] AST 19 10 - 50 Units/L [facility] Blood 03/16/2025 5:14 AM CDT 03/16/2025 5:31 AM CDT us Dago Hsu MD LAB BLOOD ORDERABLES F inal Result [facility] Department [place] [address] * XR Chest 1 View (03/16/2025 4:39 AM CDT) Anatomical Region Laterality Modality Body, Chest N/A Computed Radiogr aphy 03/16/2025 6:56 AM CDT Impressions 03/16/2025 6:57 AM CDT Comparison made with radiograph dated 03/15/2025. Endotracheal tube terminates in distal thoracic trachea. Gastric tube courses below the diaphragm. [place] turning device is noted. Cardiac contours are unchanged. No pleural effusion. No pneumothorax. Scattered airspace opacities are significantly improved compared to radiograph dated 03/14/2025, and likely represent changes of resolving pulmonary edema versus aspiration. Relative hyperlucency of the right lung secondary to patient rotation. . Dictated by: Librado James MD The radiology attending physician has personally reviewed this study, and had reviewed and/or edited this written report and agrees with it. Electronically signed by: Jami Carrillo M.D. Narrative 03/16/2025 6:57 AM CDT EXAMINATION: 1 view chest radiograph Procedure Note Jami Carrillo MD - 03/16/2025 EXAMINATION: 1 view chest radiograph IMPRESSION: Comparison made with radiograph dated 03/15/2025. Endotracheal tube terminates in distal thoracic trachea. Gastric tube courses below the diaphragm. [place] turning device is noted. Cardiac contours are unchanged. No pleural effusion. No pneumothorax. Scattered airspace opacities are significantly improved compared to radiograph dated 03/14/2025, and likely represent changes of resolving pulmonary edema versus aspiration. Relative hyperlucency of the right lung secondary to patient rotation. . Dictated by: Librado James MD The radiology attending physician has personally reviewed this study, and had reviewed and/or edited this written report and agrees with it. Electronically signed by: Jami Carrillo M.D. Dago Hsu MD IMG XR PROCEDURES Razia l Result * POCT glucose (03/16/2025 3:29 AM CDT) [facility] Glucose, POC 196 70 - 199 mg/dL Blood 03/16/2025 3:29 AM CDT 03/16/2025 3:29 AM CDT Dago Hsu MD LAB POCT ORDERABLES - DEVICE Final Result Performing Organization Address City/[facility]/ZIP Co de Phone Number [facility] Department [place] [address] * (ABNORMAL) Lactate (03/16/2025 12:30 AM CDT) [facility] Lactate 2.2(H) 0.7 - 2.0 mmol/L Blood 03/16/2025 12:3 0 AM CDT 03/16/2025 12:59 AM CDT Result [facility] Dago Hsu MD LAB BLOOD ORDERABLES F inal Result Performing Organization Address [facility]/ZIP Co de Phone Number [facility] Department [place] [address] * (ABNORMAL) Blood gas, arterial (03/16/2025 12:30 AM CDT) Pathologist [facility] pH, Art 7.47(H) 7.35 - 7.45 PCO2, Arterial 27(L) 35 - 45 mmHg [facility] PO2, Arterial 140(H) 83 - 108 mmHg [facility] HCO3 Art (Calculated) 20 20 - 30 mmol/L [facility] BE, art -3 mmol/L [facility] Comment: Interpretive Data No Reference Range Established Current Interpretive Data was last revised on 2017 O2 Sat Art (Measured) 99(H) 90 - 95 % [facility] Blood 03/16/2025 12:3 0 AM CDT 03/16/2025 12:41 AM CDT Dago Hsu MD LAB BLOOD ORDERABLES F inal Result Performing Organization Address [facility] Co de Phone Number [facility] [place] [address] * POCT glucose (03/15/2025 11:56 PM CDT) Glucose, POC 128 70 - 199 mg/dL Blood 03/15/2025 11:5 6 PM CDT 03/15/2025 11:56 PM CDT Dago Hsu MD LAB POCT ORDERABLES - DEVICE Final Result Performing Organization Address [facility] Co de Phone Number [facility] [place] [address] * (ABNORMAL) Lactate (03/15/2025 8:52 PM CDT) Lactate 2.6(H) 0.7 - 2.0 mmol/L Blood 03/15/2025 8:52 PM CDT 03/15/2025 9:48 PM CDT Dago Hsu MD LAB BLOOD ORDERABLES F inal Result Performing Organization Address [facility] Co de Phone Number [facility] [place] [address] * POCT glucose (03/15/2025 7:36 PM CDT) Pathologist [facility] Glucose, POC 127 70 - 199 mg/dL Blood 03/15/2025 7:36 PM CDT 03/15/2025 7:36 PM CDT Dago Hsu MD LAB POCT ORDERABLES - DEVICE Final Result Performing Organization Address [facility] Co de Phone Number [facility] [place] [address] * Infection Prevention Eimli auris PCR, surveillance Axilla/Groin (03/15/2025 4:52 PM CDT) [facility] Emili auris DNA Not Detected Not Detected [facility] Comment: Interpretive Data Testing performed by [facility] Infectious Disease [facility] using the Ileana cheyenne 6800 Emili auris assay. This assay detects DNA from Emili auris using Real-Time PCR. This assay is laboratory developed and is not cleared by the [facility] [[email or web address]] Food and Drug Administration. The performance characteristics have been verified by the [facility]ious Disease [facility]. Axilla/Groin 03/15/2025 4:52 PM CDT 03/15/2025 5:05 PM CDT Narrative [facility] 03/16/2025 2:18 AM CDT Order placed by [facility] due to ring surveillance. Result [facility] Instant Order Generic Provider LAB MICROBIOLOGY - GENERAL ORDERABLES Final Result Performing Organization Address [facility] Co de Phone Number [facility] Department [place] [address] [facility] * (ABNORMAL) Lactate (03/15/2025 4:07 PM CDT) [facility] Lactate 3.2(H) 0.7 - 2.0 mmol/L Blood 03/15/2025 4:07 PM CDT 03/15/2025 4:13 PM CDT Dago Hsu MD LAB BLOOD ORDERABLES F inal Result Performing Organization Address [facility]/ZIP Co de Phone Number [facility] Department [place] [address] * (ABNORMAL) Blood gas, arterial (03/15/2025 4:07 PM CDT) Pathologist [facility] pH, Art 7.42 7.35 - 7.45 PCO2, Arterial 28(L) 35 - 45 mmHg [facility] PO2, Arterial 158(H) 83 - 108 mmHg [facility] HCO3 Art (Calculated) 19(L) 20 - 30 mmol/L [facility] BE, art -5 mmol/L [facility] Comment: Interpretive Data No Reference Range Established Current Interpretive Data was last revised on 2017 O2 Sat Art (Measured) 99(H) 90 - 95 % [facility] Blood 03/15/2025 4:07 PM CDT 03/15/2025 4:13 PM CDT Dago Hsu MD LAB BLOOD ORDERABLES F inal Result Performing Organization Address [facility]/ZIP Co de Phone Number [facility] Department [place] [address] * POCT glucose (03/15/2025 3:50 PM CDT) [facility] Glucose, POC 155 70 - 199 mg/dL Blood 03/15/2025 3:50 PM CDT 03/15/2025 3:50 PM CDT Dago Hsu MD LAB POCT ORDERABLES - DEVICE Final Result Performing Organization Address [facility] Co de Phone Number [facility] [place] [address] * (ABNORMAL) Troponin I high-sensitivity 6-hour (03/15/2025 2:03 PM CDT) Pathologist [facility] Trop I hs 75(H) <=35 ng/L Comment: Interpretive Data For further hscTnI resources including the diagnostic algorithm and an aid in interpretation, copy and paste this link: [email or web address] Current Interpretive Data last revised 2020. Trop I hs pct delta -57(C) % [facility] Comment:Previous critical va lue noted within 48 hours ago. Trop I hs interp Significa nt(C) [facility] Comment:Previous critical va lue noted within 48 hours ago. Blood 03/15/2025 2:03 PM CDT 03/15/2025 2:30 PM CDT Dago Hsu MD LAB BLOOD ORDERABLES F inal Result Performing Organization Address [facility] Co de Phone Number [facility] Department [place] [address] * (ABNORMAL) Troponin I high-sensitivity 4-hour (03/15/2025 12:01 PM CDT) Pathologist [facility] Trop I hs 91(H) <=35 ng/L Comment: Interpretive Data For further hscTnI resources including the diagnostic algorithm and an aid in interpretation, copy and paste this link: [email or web address]/show/[email or web address] Current Interpretive Data last revised 2020. Trop I hs pct delta -47(C) % [facility] Comment:Previous critical va lue noted within 48 hours ago. Trop I hs interp Significa nt(C) [facility] Blood 03/15/2025 12:0 1 PM CDT 03/15/2025 12:29 PM CDT Dago Hsu MD LAB BLOOD ORDERABLES F inal Result Performing Organization Address [facility] Co de Phone Number [facility] Department [place] [address] * (ABNORMAL) Lactate (03/15/2025 12:01 PM CDT) Pathologist [facility] Lactate 3.2(H) 0.7 - 2.0 mmol/L Blood 03/15/2025 12:0 1 PM CDT 03/15/2025 12:29 PM CDT Dago Hsu MD LAB BLOOD ORDERABLES F inal Result Performing Organization Address [facility] de Phone Number [facility] [place] [address] * POCT glucose (03/15/2025 11:33 AM CDT) Pathologist [facility] Glucose, POC 189 70 - 199 mg/dL Blood 03/15/2025 11:3 3 AM CDT 03/15/2025 11:33 AM CDT Dago Hsu MD LAB POCT ORDERABLES - DEVICE Final Result Performing Organization Address [facility] de Phone Number [facility] [place] [address] * (ABNORMAL) Troponin I high-sensitivity 2-hour (03/15/2025 10:05 AM CDT) [facility] Trop I hs 114(H) <=35 ng/L Comment: Interpretive Data For further [facility] resources including the diagnostic algorithm and an aid in interpretation, copy and paste this link: [email or web address]/show/[email or web address] Current Interpretive Data last revised 2020. Trop I hs pct delta -34(C) % [facility] Trop I hs interp Significa nt(C) [facility] Blood 03/15/2025 10:0 5 AM CDT 03/15/2025 10:38 AM CDT Dago Hsu MD LAB BLOOD ORDERABLES F inal Result Performing Organization Address [facility] de Phone Number [facility] [place] [address] * Critical result callback Cardio chemistry (03/15/2025 10:05 AM CDT) Date Notified [id number] Time Notified 1121 [facility] Test name Trop I hs VIT[facility] Called/Read Back Norma PADRON [facility] Credentials RN [facility] Called By SB [facility] Blood 03/15/2025 10:0 5 AM CDT 03/15/2025 10:38 AM CDT Dago Hsu MD LAB BLOOD ORDERABLES F inal Result Performing Organization Address [facility] [place] [address] * (ABNORMAL) Troponin I high-sensitivity series (baseline, 2hr, 4hr, 6hr) (03/15/2025 8:01 AM CDT) Pathologist [facility] Trop I hs 173(H) <=35 ng/L Comment: Interpretive Data For further hscTnI resources including the diagnostic algorithm and an aid in interpretation, copy and paste this link: [email or web address]/show/[email or web address] Current Interpretive Data last revised 2020. Blood 03/15/2025 8:01 AM CDT 03/15/2025 8:10 AM CDT Dago Hsu MD LAB BLOOD ORDERABLES F inal Result Performing Organization Address [facility] [place] [address] * (ABNORMAL) Lactate (03/15/2025 8:01 AM CDT) Pathologist [facility] Lactate 3.9(H) 0.7 - 2.0 mmol/L Blood 03/15/2025 8:01 AM CDT 03/15/2025 8:10 AM CDT Dago Hsu MD LAB BLOOD ORDERABLES F inal Result Performing Organization Address [facility] de Phone Number [facility] [place] [address] * Urea nitrogen, urine, random (03/15/2025 8:01 AM CDT) Urea nitrogen, ur 455 mg/dL Comment: Interpretive Data No reference range established. Current interpretive data was last revised 2019. Urine 03/15/2025 8:01 AM CDT 03/15/2025 8:10 AM CDT Dago Hsu MD LAB URINE ORDERABLES F inal Result Performing Organization Address [facility] de Phone Number [facility] [place] [address] * Sodium, urine, random (03/15/2025 8:01 AM CDT) Sodium, ur <20 mmol/L Comment: Interpretive Data No reference range established. Current interpretive data was last revised 2019. Urine 03/15/2025 8:01 AM CDT 03/15/2025 8:10 AM CDT Dago Hsu MD LAB URINE ORDERABLES F inal Result Performing Organization Address [facility] de Phone Number [facility] [place] [address] * Creatinine, urine, random (03/15/2025 8:01 AM CDT) Creatinine Ur 66.3 mg/dL Comment: Interpretive Data No reference range established. Current interpretive data was last revised 2019. Urine 03/15/2025 8:01 AM CDT 03/15/2025 8:10 AM CDT Dago Hsu MD LAB URINE ORDERABLES F inal Result Performing Organization Address [facility] Co de Phone Number [facility] [place] [address] * (ABNORMAL) Blood gas, arterial (03/15/2025 8:01 AM CDT) pH, Art 7.37 7.35 - 7.45 PCO2, Arterial 29(L) 35 - 45 mmHg [facility] PO2, Arterial 162(H) 83 - 108 mmHg [facility] HCO3 Art (Calculated) 17(L) 20 - 30 mmol/L [facility] BE, art -7 mmol/L [facility] Comment: Interpretive Data No Reference Range Established Current Interpretive Data was last revised on 2017 O2 Sat Art (Measured) 99(H) 90 - 95 % [facility] Blood 03/15/2025 8:01 AM CDT 03/15/2025 8:08 AM CDT Dago Hsu MD LAB BLOOD ORDERABLES F inal Result Performing Organization Address [facility] Co de Phone Number [facility] [place] [address] * POCT glucose (03/15/2025 7:41 AM CDT) Glucose, POC 175 70 - 199 mg/dL Blood 03/15/2025 7:41 AM CDT 03/15/2025 7:41 AM CDT Dago Hsu MD LAB POCT ORDERABLES - DEVICE Final Result Performing Organization Address [facility] Co de Phone Number [facility] [place] [address] * (ABNORMAL) POCT glucose (03/15/2025 5:39 AM CDT) Pathologist [facility] Glucose, POC 205(H) 70 - 199 mg/dL Blood 03/15/2025 5:39 AM CDT 03/15/2025 5:39 AM CDT Dago Hsu MD LAB POCT ORDERABLES - DEVICE Final Result Performing Organization Address [facility]/ZIP Co de Phone Number [facility] Department [place] [address] * (ABNORMAL) Lactate (03/15/2025 5:30 AM CDT) [facility] Lactate 3.7(H) 0.7 - 2.0 mmol/L Blood 03/15/2025 5:30 AM CDT 03/15/2025 5:51 AM CDT Dago Hsu MD LAB BLOOD ORDERABLES F inal Result Performing Organization Address [facility] Co de Phone Number [facility] [place] [address] * (ABNORMAL) eGFR (03/15/2025 5:30 AM CDT) [facility] eGFR 30(L) >=60 mL/min/1. 73 m2 Comment: Interpretive Data Reference Interval Normal >/= 90 mL/min/1.73m2 Mildly decreased* 60 - 89 mL/min/1.73m2 Mildly to moderately decreased 45 - 59 mL/min/1.73m2 Moderately to severely decreased 30 - 44 mL/min/1.73m2 Severely decreased 15 - 29 mL/min/1.73m2 Kidney Failure < 15 mL/min/1.73m2 *Relative to young adult level Estimated glomerular filtration rate is determined by the 2020 CKD-EPI equation recommended by the National [employer] (A Unifying Approach to GFR Estimation: Recommendations of the NKF-ASK Task Force on Reassessing the Inclusion of Race in Diagnosing Kidney Disease, JASN 2020). The CKD-EPI equation should not be used for patients with unstable renal function and has not been validated in children and those over 70. Current interpretive data was last reviewed 2021. Blood 03/15/2025 5:30 AM CDT 03/15/2025 5:52 AM CDT us Dago Hsu MD LAB BLOOD ORDERABLES F inal Result [facility] Department [place] [address] * (ABNORMAL) Differential, auto (03/15/2025 5:30 AM CDT) Neutrophil abs 18.78(H) 1.50 - 6.50 K/cumm Imm gran abs 0.30(H) 0.00 - 0.10 K/cumm [facility] Lymphocyte abs 0.78(L) 0.80 - 3.30 K/cumm [facility] Monocyte abs 0.67 0.20 - 0.80 K/cumm [facility] Eosinophil abs 0.20 0.00 - 0.50 K/cumm [facility] Basophil abs 0.10 0.00 - 0.10 K/cumm [facility] Neutrophil pct 90.2 % [facility] Comment: Interpretive Data Percent cell count reference ranges are not reported, since discordance with absolute values may lead to misinterpretation of CBC data. Current Interpretive Data was last revised on 2018. Imm gran pct 1.4 % [facility] Comment: Interpretive Data Percent cell count reference ranges are not reported, since discordance with absolute values may lead to misinterpretation of CBC data. Current Interpretive Data was last revised on 2018. Lymphocyte pct 3.7 % [facility] Comment: Interpretive Data Percent cell count reference ranges are not reported, since discordance with absolute values may lead to misinterpretation of CBC data. Current Interpretive Data was last revised on 2018. Monocyte pct 3.2 % [facility] Comment: Interpretive Data Percent cell count reference ranges are not reported, since discordance with absolute values may lead to misinterpretation of CBC data. Current Interpretive Data was last revised on 2018. Eosinophil pct 1.0 % [facility] Comment: Interpretive Data Percent cell count reference ranges are not reported, since discordance with absolute values may lead to misinterpretation of CBC data. Current Interpretive Data was last revised on 2018. Basophil pct 0.5 % [facility] Comment: Interpretive Data Percent cell count reference ranges are not reported, since discordance with absolute values may lead to misinterpretation of CBC data. Current Interpretive Data was last revised on 2018. Blood 03/15/2025 5:30 AM CDT 03/15/2025 5:51 AM CDT us Dago Hsu MD LAB BLOOD ORDERABLES F inal Result [facility] Department [place] [address] * (ABNORMAL) CBC with auto differential (03/15/2025 5:30 AM CDT) Pathologist [facility] WBC 20.83(H) 3.80 - 9.90 K/cumm Hgb 13.8 13.0 - 17.5 g/dL [facility] Comment:CALLED KOFI PFEIFFER RN Consistent with historical value. This result has been called to KOFI ECHEVERRIA RN by [id number] on 03/15/2025 06:07:13. Hct 40.9 38.9 - 50.3 % [facility] Plt 217 150 - 400 K/cumm [facility] MPV 13.9(H) 9.1 - 12.3 fL [facility] RBC 4.74 4.30 - 5.80 M/cumm [facility] MCV 86.3 81.3 - 96.4 fL [facility] MCH 29.1 27.1 - 33.3 pg [facility] MCHC 33.7 32.3 - 35.7 g/dL [facility] RDW CV 13.2 11.1 - 14.9 % [facility] RDW SD 41.3 35.7 - 48.1 fL [facility] NRBC abs 0.00 0.00 - 0.01 K/cumm [facility] Morphologic Screen Results confirmed by manual morphology review. [facility] Blood 03/15/2025 5:30 AM CDT 03/15/2025 5:51 AM CDT Dago Hsu MD LAB BLOOD ORDERABLES F inal Result Performing Organization Address [facility] de Phone Number [facility] [place] [address] * (ABNORMAL) Phosphorus (03/15/2025 5:30 AM CDT) Phosphorus, pl 4.7(H) 2.3 - 4.5 mg/dL Blood 03/15/2025 5:30 AM CDT 03/15/2025 5:52 AM CDT Dago Hsu MD LAB BLOOD ORDERABLES F inal Result Performing Organization Address [facility] de Phone Number [facility] [place] [address] * Magnesium (03/15/2025 5:30 AM CDT) Magnesium 2.2 1.4 - 2.5 mg/dL Blood 03/15/2025 5:30 AM CDT 03/15/2025 5:52 AM CDT Dago Hsu MD LAB BLOOD ORDERABLES F inal Result Performing Organization Address [facility] de Phone Number [facility] [place] [address] * Creatine kinase (CK), total (03/15/2025 5:30 AM CDT) CK 69 40 - 300 Units/L Blood 03/15/2025 5:30 AM CDT 03/15/2025 5:52 AM CDT us Dago Hsu MD LAB BLOOD ORDERABLES F inal Result [facility] Department [place] [address] * (ABNORMAL) Comprehensive metabolic panel (03/15/2025 5:30 AM CDT) Sodium 135 135 - 145 mmol/L Potassium, pl 5.1(H) 3.3 - 4.9 mmol/L [facility] Chloride 100 97 - 110 mmol/L [facility] CO2 19(L) 22 - 32 mmol/L [facility] Anion gap 16(H) 2 - 15 mmol/L [facility] BUN 51(H) 6 - 25 mg/dL [facility] Creatinine 2.32(H) 0.80 - 1.30 mg/dL [facility] Comment:Reviewed Glucose 222(H) 70 - 199 mg/dL [facility] Comment: Interpretive Data Fasting glucose >/= 126 mg/dl is diagnostic for diabetes. Fasting is defined as no caloric intake for at least 8 hours. Fasting glucose between 100 mg/dl to 125 mg/dl is diagnostic of prediabetes. In a patient with classic symptoms of hyperglycemia or hyperglycemic crisis, a random glucose >/= 200 mg/dl is diagnostic for diabetes. In the absence of unequivocal hyperglycemia, results should be confirmed by repeat testing. The classification and Diagnosis of Diabetes Diabetes Care 202; 46: S19-S40. Current interpretive data was last revised 2022. Calcium 8.4(L) 8.5 - 10.3 mg/dL [facility] Bilirubin, total 0.9 0.1 - 1.2 mg/dL [facility] Protein, pl 5.9(L) 6.5 - 8.5 g/dL [facility] Albumin 2.9(L) 3.5 - 5.0 g/dL [facility] Alk phos 56 40 - 130 Units/L [facility] ALT 20 7 - 55 Units/L [facility] AST 37 10 - 50 Units/L [facility] Blood 03/15/2025 5:30 AM CDT 03/15/2025 5:52 AM CDT us Dago Hsu MD LAB BLOOD ORDERABLES F inal Result [facility] Department [place] [address] * XR Chest 1 View (03/15/2025 4:24 AM CDT) Anatomical Region Laterality Modality Body, Chest N/A Computed Radiogr aphy 03/15/2025 9:22 AM CDT Impressions 03/15/2025 11:02 AM CDT First exam 03/14/2025, 11:19 PM: Comparison is made to chest radiograph 03/14/2025. An endotracheal tube terminates in the mid thoracic trachea. A gastric tube courses below the left hemidiaphragm and terminates outside of the field of view. A right internal jugular central venous catheter terminates in the superior cavoatrial junction. Scattered patchy airspace opacities throughout the lungs are in keeping with aspiration change. No pleural effusion or pneumothorax. The cardiomediastinal silhouette is normal. Second exam 03/15/2025, 4:17 AM: No significant interval change. Dictated by: Tin Hawk MD The radiology attending physician has personally reviewed this study, and had reviewed and/or edited this written report and agrees with it. Electronically signed by: Jami Carrillo M.D. Narrative 03/15/2025 11:02 AM CDT Examination: 2 portable chests Chest one view portable Chest one view portable Procedure Note Jami Carrillo MD - 03/15/2025 Examination: 2 portable chests Chest one view portable Chest one view portable IMPRESSION: First exam 03/14/2025, 11:19 PM: Comparison is made to chest radiograph 03/14/2025. An endotracheal tube terminates in the mid thoracic trachea. A gastric tube courses below the left hemidiaphragm and terminates outside of the field of view. A right internal jugular central venous catheter terminates in the superior cavoatrial junction. Scattered patchy airspace opacities throughout the lungs are in keeping with aspiration change. No pleural effusion or pneumothorax. The cardiomediastinal silhouette is normal. Second exam 03/15/2025, 4:17 AM: No significant interval change. Dictated by: Tin Hawk MD The radiology attending physician has personally reviewed this study, and had reviewed and/or edited this written report and agrees with it. Electronically signed by: Jami Carrillo M.D. Dago Hsu MD IMG XR PROCEDURES Razia l Result * (ABNORMAL) Lactate (03/15/2025 1:58 AM CDT) Pathologist [facility] Lactate 3.8(H) 0.7 - 2.0 mmol/L Blood 03/15/2025 1:58 AM CDT 03/15/2025 2:14 AM CDT Dago Hsu MD LAB BLOOD ORDERABLES F inal Result Performing Organization Address [facility] de Phone Number [facility] Department [place] [address] * (ABNORMAL) Blood gas, arterial (03/15/2025 1:58 AM CDT) Pathologist [facility] pH, Art 7.32(L) 7.35 - 7.45 PCO2, Arterial 34(L) 35 - 45 mmHg [facility] PO2, Arterial 230(H) 83 - 108 mmHg [facility] HCO3 Art (Calculated) 18(L) 20 - 30 mmol/L [facility] BE, art -8 mmol/L [facility] Comment: Interpretive Data No Reference Range Established Current Interpretive Data was last revised on 2017 O2 Sat Art (Measured) 100(H) 90 - 95 % [facility] Blood 03/15/2025 1:58 AM CDT 03/15/2025 2:09 AM CDT Dago Hsu MD LAB BLOOD ORDERABLES F inal Result Performing Organization Address [facility] de Phone Number [facility] Department [place] [address] * XR Chest 1 View (03/15/2025 1:36 AM CDT) Anatomical Region Laterality Modality Body, Chest N/A Digital Radiogra phy 03/15/2025 9:22 AM CDT Impressions 03/15/2025 11:02 AM CDT First exam 03/14/2025, 11:19 PM: Comparison is made to chest radiograph 03/14/2025. An endotracheal tube terminates in the mid thoracic trachea. A gastric tube courses below the left hemidiaphragm and terminates outside of the field of view. A right internal jugular central venous catheter terminates in the superior cavoatrial junction. Scattered patchy airspace opacities throughout the lungs are in keeping with aspiration change. No pleural effusion or pneumothorax. The cardiomediastinal silhouette is normal. Second exam 03/15/2025, 4:17 AM: No significant interval change. Dictated by: Tin Hawk MD The radiology attending physician has personally reviewed this study, and had reviewed and/or edited this written report and agrees with it. Electronically signed by: Jami Carrillo M.D. Narrative 03/15/2025 11:02 AM CDT Examination: 2 portable chests Chest one view portable Chest one view portable Procedure Note Jami Carrillo MD - 03/15/2025 Examination: 2 portable chests Chest one view portable Chest one view portable IMPRESSION: First exam 03/14/2025, 11:19 PM: Comparison is made to chest radiograph 03/14/2025. An endotracheal tube terminates in the mid thoracic trachea. A gastric tube courses below the left hemidiaphragm and terminates outside of the field of view. A right internal jugular central venous catheter terminates in the superior cavoatrial junction. Scattered patchy airspace opacities throughout the lungs are in keeping with aspiration change. No pleural effusion or pneumothorax. The cardiomediastinal silhouette is normal. Second exam 03/15/2025, 4:17 AM: No significant interval change. Dictated by: Tin Hawk MD The radiology attending physician has personally reviewed this study, and had reviewed and/or edited this written report and agrees with it. Electronically signed by: Jami Carrillo M.D. us Dago Hsu MD IMG XR PROCEDURES Razia l Result * Vancomycin level random (03/14/2025 10:51 PM CDT) Vancomycin random 15.9 mcg/mL Comment: Interpretive Data No reference ranges have been established for random drug levels. Current Interpretive Data was last revised on 2021. Blood 03/14/2025 10:5 1 PM CDT 03/14/2025 11:08 PM CDT Dago Hsu MD LAB BLOOD ORDERABLES F inal Result Performing Organization Address [facility] Phone Number [facility] Department [place] [address] * (ABNORMAL) POCT glucose (03/14/2025 9:15 PM CDT) Glucose, POC 255(H) 70 - 199 mg/dL Blood 03/14/2025 9:15 PM CDT 03/14/2025 9:15 PM CDT Result [facility] Dago Hsu MD LAB POCT ORDERABLES - DEVICE Final Result Performing Organization Address [facility] de Phone Number [facility] [place] [address] * (ABNORMAL) Lactate (03/14/2025 9:10 PM CDT) Lactate 3.7(H) 0.7 - 2.0 mmol/L Blood 03/14/2025 9:10 PM CDT 03/14/2025 9:39 PM CDT Dago Hsu MD LAB BLOOD ORDERABLES F inal Result [facility] [place] [address] * (ABNORMAL) Urinalysis reflex to microscopic and culture Urine (03/14/2025 9:10 PM CDT) Color, ur Yellow Yellow Clarity, ur Cloudy(A) Clear [facility] Specific gravity, ur >1.042(H) 1.003 - 1.030 [facility] pH, urine 6.0 [facility] Comment: Interpretive Data U rine pH is affected by diet, medications, systemic acid-base disturbances, and renal tubular function. pH may affect urinary stone formation. For example, urine pH below 6.0 may help reduce the tendency for calcium phosphate stones and pH greater than 6.0 may reduce the tendency for uric acid stone formation. Source: [facility] Current Interpretive Data was last revised on 2017 Protein, ur ql 1+(A) Negative [facility] Glucose, ur ql Trace(A) Negative [facility] Ketones, ur Negative Negative [facility] Bilirubin, ur Negative Negative [facility] Blood, ur 1+(A) Negative [facility] Urobilinogen, ur <2.0 <2.0 mg/dL [facility] Nitrite, ur Negative Negative [facility] Leukocyte esterase, ur Negative Negative [facility] UA reflex comment Reflex to microscopic UA will be performed. [facility] Urine 03/14/2025 9:10 PM CDT 03/14/2025 10:01 PM CDT us David Brooks MD LAB MICROBIOLOGY - GENERAL ORDERABLES Final Result [facility] [place] [address] * (ABNORMAL) Urinalysis, microscopic only (03/14/2025 9:10 PM CDT) WBC, ur 0-5 0 - 5 /HPF RBC, ur 3-5(A) 0 - 2 /HPF [facility] Epithelial cells, squamous, ur 1-5 0 - 5 /HPF [facility] Bacteria, ur 3+(A) [facility] Yeast, ur 4+(A) [facility] Culture Reflex Comment Reflex conditions for urine culture (WBC >10) not met. [facility] Urine 03/14/2025 9:10 PM CDT 03/14/2025 10:01 PM CDT us David Brooks MD LAB URINE ORDERABLES Final Result [facility] Department [place] [address] * XR Abdomen Ap 1 Vw (03/14/2025 6:05 PM CDT) Anatomical Region Laterality Modality Body, Abdomen N/A Computed Radiogr aphy 03/15/2025 8:21 AM CDT Impressions 03/15/2025 8:37 AM CDT Gastric tube tip projecting over the 1st part of the duodenum with side port projecting over the gastric antrum. Kidneys are hyperdense compatible with same day contrast-enhanced study. Left lower lobe opacities compatible with aspiration. Dictated by: Genaro Ramos M.D. The radiology attending physician has personally reviewed this study, and had reviewed and/or edited this written report and agrees with it. Electronically signed by: Thuy Troncoso M.D. Narrative 03/15/2025 8:37 AM CDT EXAMINATION: Abdomen, one view. HISTORY: Check tube placement. COMPARISON: CT chest abdomen pelvis dated 03/14/2025 Procedure Note Thuy Troncoso MD - 03/15/2025 EXAMINATION: Abdomen, one view. HISTORY: Check tube placement. COMPARISON: CT chest abdomen pelvis dated 03/14/2025 IMPRESSION: Gastric tube tip projecting over the 1st part of the duodenum with side port projecting over the gastric antrum. Kidneys are hyperdense compatible with same day contrast-enhanced study. Left lower lobe opacities compatible with aspiration. Dictated by: Genaro Ramos M.D. The radiology attending physician has personally reviewed this study, and had reviewed and/or edited this written report and agrees with it. Electronically signed by: Thuy Troncoso M.D. Dago Hsu MD IMG XR PROCEDURES Razia l Result * NH ARTL CATHJ/CANNULJ MNTR/TRANSFUSION SPX PRQ (03/14/2025 4:29 PM CDT) Narrative Dago Hsu MD - 03/14/2025 4:29 PM CDT Dago Hsu MD 03/14/2025 4:34 PM Arterial Line Insertion Date/Time: 03/14/2025 4:29 PM Performed by: Rashi Ragland MD Authorized by: Rashi Ragland MD [place] Protocol: RN Notified of Procedure: yes Informed consent: Risks, benefits, alternatives discussed and patient/door to door sales representative/guardian agrees and accepts Patient's stated name/ matches armband: Yes and patient unable to verbalize - armband matched to name and within medical record Allergies confirmed: yes Consent form signed, dated, timed; matches correct patient, intended procedure and site: Yes Imaging: Pertinent imaging reviewed, correctly oriented and match to patient identifiers Lab/Diag test results: Pertinent lab/diag tests reviewed and match to patient identifiers Supplies, devices and special equipment are available: yes Site/side marked: yes Indications: multiple ABGs, respiratory failure and hemodynamic monitoring Location: Left radial Patient skin preparation: chlorhexidine Ultrasound guidance: Real-time needle guidance Patient preparation: Cap, gown, gloves, handwashing, mask, towels, full body drape and sterile probe cover Post-procedure: Line sutured and dressing applied Rashi Ragland MD IV THERAPY ORDERABLES Final Resu lt * (ABNORMAL) POCT glucose (03/14/2025 4:02 PM CDT) [facility] Signature Glucose, POC 202(H) 70 - 199 mg/dL Blood 03/14/2025 4:02 PM CDT 03/14/2025 4:02 PM CDT Dago Hsu MD LAB POCT ORDERABLES - DEVICE Final Result Performing Organization Address [facility] de Phone Number [facility] [place] [address] * (ABNORMAL) Blood gas, arterial (03/14/2025 3:02 PM CDT) pH, Art 7.23(L) 7.35 - 7.45 PCO2, Arterial 50(H) 35 - 45 mmHg [facility] PO2, Arterial 189(H) 83 - 108 mmHg [facility] HCO3 Art (Calculated) 21 20 - 30 mmol/L [facility] BE, art -8 mmol/L [facility] Comment: Interpretive Data No Reference Range Established Current Interpretive Data was last revised on 2017 O2 Sat Art (Measured) 99(H) 90 - 95 % [facility] Blood 03/14/2025 3:02 PM CDT 03/14/2025 3:19 PM CDT Dago Hsu MD LAB BLOOD ORDERABLES F inal Result Performing Organization Address [facility] Co de Phone Number [facility] Department [place] [address] * (ABNORMAL) POC Blood Gas and Chemistries, Arterial - (03/14/2025 2:59 PM CDT) pH, Art POC 7.24(L) 7.35 - 7.45 pCO2, Art POC 47(H) 35 - 45 mmHg [facility] pO2, Art POC 146(H) 83 - 108 mmHg [facility] Na, POC 131(L) 135 - 145 mmol/L [facility] K POC 4.1 3.3 - 4.9 mmol/L [facility] Comment: Interpretive Data Not all point of care methods assess for hemolysis. Confirm with instrument and retest K+ if not consistent with clinical signs and symptoms. Current Interpretive Data was last revised on 2024. Cl, POC 101 97 - 110 mmol/L [facility] Ionized Ca, POC 4.83 4.50 - 5.10 mg/dL [facility] Glucose, POC 227(H) 70 - 199 mg/dL [facility] Lactate POC 3.6(H) 0.7 - 2.0 mmol/L [facility] SO2 (raman) arterial 100(H) 90 - 95 % [facility] Base excess, POC -7.4 mmol/L [facility] HCO3, Art POC 20 20 - 30 mmol/L [facility] Hct, POC 44.0 41.4 - 51.6 % [facility] Total Hb, POC 14.6 13.8 - 17.2 g/dL [facility] Blood 03/14/2025 2:59 PM CDT 03/14/2025 2:59 PM CDT us Dago Hsu MD LAB POCT ORDERABLES - DEVICE Final Result [facility] [place] [address] * CT Chest Abdomen Pelvis W Contrast (03/14/2025 1:59 PM CDT) Anatomical Region Laterality Modality Body N/A Computed Tomogra phy 03/14/2025 2:30 PM CDT Impressions 03/14/2025 2:52 PM CDT 1. Extensive changes of aspiration. Of note, the nasogastric tube terminates in the proximal duodenum and the stomach remains dilated and fluid filled. Consider withdrawal of the nasogastric tube to reposition tip within the gastric body. 2. Findings most compatible with partial small bowel obstruction given relative transition point in the left mid-abdomen. Less likely, these findings could represent ileus, possibly related to autonomic dysfunction in the setting of Parkinson's disease. 3. Age-indeterminate splenic infarcts without definite embolic source. Motion and phase of contrast limit evaluation of left atrial appendage; consider echocardiogram for further evaluation. 4. Probable left adrenal adenoma, suboptimally evaluated given motion. Recommend further characterization with adrenal protocol CT or MRI in the outpatient setting after resolution of acute illness. 5. Large rectal stool ball without evidence of stercoral colitis. The Non Critical results were discussed with Dr. Suarez by Dr. Maharaj on 03/14/2025 2:29 PM Dictated by: Lenard Maharaj M.D. The radiology attending physician has personally reviewed this study, and had reviewed and/or edited this written report and agrees with it. Electronically signed by: Dago Duarte M.D. Narrative 03/14/2025 2:52 PM CDT EXAMINATION: CT CHEST ABDOMEN PELVIS W CONTRAST HISTORY: Evaluating for obstruction, also had aspiration event earlier this morning TECHNIQUE: Transaxial computed tomographic images of the chest, abdomen, and pelvis were obtained according to the standard protocol after the uneventful administration of 69 mL of intravenous contrast. COMPARISON: Radiographs from 03/14/2025. FINDINGS: Motion limits artifact of the upper abdomen and lungs. Endotracheal tube terminating approximately 4 cm with stewart. Right internal jugular central venous catheter with tip in the superior cavoatrial junction. Nasogastric tube with tip terminating in the proximal duodenum. Multifocal changes of aspiration in the bilateral upper lobes and left greater than right lower lobes. Trace left greater than right pleural effusions. No pneumothorax. Heart size within normal limits without pericardial effusion. Coronary artery calcifications. Circumferential submucosal thickening of the esophagus with mucosal hyperenhancement, which may be reactive in the setting of vomiting/aspiration. Multiple splenic infarcts. No suspicious liver lesion. Gallbladder, pancreas, right adrenal gland within normal limits. Left adrenal adenoma, probable and incompletely evaluated due to motion. No suspicious renal lesion or hydronephrosis. Boswell catheter decompressing the urinary bladder. Partial small bowel obstruction with relative transition point in the left mid abdomen (2/224). Decompressed loops of bowel in the left hemiabdomen with diffuse foci of gas in the colon as well as the rectum. Large left inguinal hernia with fat and a portion of the sigmoid colon, which is nondilated and contains stool. Large rectal stool ball without evidence of stercoral colitis. Duodenal diverticulum is noted. Normal appendix. No pathologic abdominopelvic lymphadenopathy. Non-aneurysmal aorta with atherosclerotic change. No aggressive osseous lesion. Procedure Note Dago Duarte MD - 03/14/2025 EXAMINATION: CT CHEST ABDOMEN PELVIS W CONTRAST HISTORY: Evaluating for obstruction, also had aspiration event earlier this morning TECHNIQUE: Transaxial computed tomographic images of the chest, abdomen, and pelvis were obtained according to the standard protocol after the uneventful administration of 69 mL of intravenous contrast. COMPARISON: Radiographs from 03/14/2025. FINDINGS: Motion limits artifact of the upper abdomen and lungs. Endotracheal tube terminating approximately 4 cm with stewart. Right internal jugular central venous catheter with tip in the superior cavoatrial junction. Nasogastric tube with tip terminating in the proximal duodenum. Multifocal changes of aspiration in the bilateral upper lobes and left greater than right lower lobes. Trace left greater than right pleural effusions. No pneumothorax. Heart size within normal limits without pericardial effusion. Coronary artery calcifications. Circumferential submucosal thickening of the esophagus with mucosal hyperenhancement, which may be reactive in the setting of vomiting/aspiration. Multiple splenic infarcts. No suspicious liver lesion. Gallbladder, pancreas, right adrenal gland within normal limits. Left adrenal adenoma, probable and incompletely evaluated due to motion. No suspicious renal lesion or hydronephrosis. Boswell catheter decompressing the urinary bladder. Partial small bowel obstruction with relative transition point in the left mid abdomen (). Decompressed loops of bowel in the left hemiabdomen with diffuse foci of gas in the colon as well as the rectum. Large left inguinal hernia with fat and a portion of the sigmoid colon, which is nondilated and contains stool. Large rectal stool ball without evidence of stercoral colitis. Duodenal diverticulum is noted. Normal appendix. No pathologic abdominopelvic lymphadenopathy. Non-aneurysmal aorta with atherosclerotic change. No aggressive osseous lesion. IMPRESSION: 1. Extensive changes of aspiration. Of note, the nasogastric tube terminates in the proximal duodenum and the stomach remains dilated and fluid filled. Consider withdrawal of the nasogastric tube to reposition tip within the gastric body. 2. Findings most compatible with partial small bowel obstruction given relative transition point in the left mid-abdomen. Less likely, these findings could represent ileus, possibly related to autonomic dysfunction in the setting of Parkinson's disease. 3. Age-indeterminate splenic infarcts without definite embolic source. Motion and phase of contrast limit evaluation of left atrial appendage; consider echocardiogram for further evaluation. 4. Probable left adrenal adenoma, suboptimally evaluated given motion. Recommend further characterization with adrenal protocol CT or MRI in the outpatient setting after resolution of acute illness. 5. Large rectal stool ball without evidence of stercoral colitis. The Non Critical results were discussed with Dr. Suarez by Dr. Maharaj on 03/14/2025 2:29 PM Dictated by: Lenard Maharaj M.D. The radiology attending physician has personally reviewed this study, and had reviewed and/or edited this written report and agrees with it. Electronically signed by: Dago Duarte M.D. us Dago Hsu MD IMG CT PROCEDURES Razia l Result * XR Chest 1 View (03/14/2025 1:06 PM CDT) Anatomical Region Laterality Modality Body, Chest N/A Computed Radiogr aphy 03/14/2025 1:56 PM CDT Impressions 03/14/2025 8:46 PM CDT The current study is compared with the prior radiograph dated 03/14/2025. An endotracheal tube tip projects 4 cm above the stewart. A right internal jugular central venous catheter tip overlies the superior cavoatrial junction. Gastric tube terminates below the left hemidiaphragmatic the [id number]. There are persistent patchy multifocal airspace opacities throughout the left lung and right upper lung which again may be secondary to pulmonary edema. No pleural effusion or pneumothorax. Stable cardiomediastinal silhouette. Dictated by: Jordi Schmitz MD The radiology attending physician has personally reviewed this study, and had reviewed and/or edited this written report and agrees with it. Electronically signed by: David Javier M.D. Narrative 03/14/2025 8:46 PM CDT EXAMINATION: 1 view chest radiograph Procedure Note David Javier MD PhD - 03/14/2025 EXAMINATION: 1 view chest radiograph IMPRESSION: The current study is compared with the prior radiograph dated 03/14/2025. An endotracheal tube tip projects 4 cm above the stewart. A right internal jugular central venous catheter tip overlies the superior cavoatrial junction. Gastric tube terminates below the left hemidiaphragmatic the [id number]. There are persistent patchy multifocal airspace opacities throughout the left lung and right upper lung which again may be secondary to pulmonary edema. No pleural effusion or pneumothorax. Stable cardiomediastinal silhouette. Dictated by: Jordi Schmitz MD The radiology attending physician has personally reviewed this study, and had reviewed and/or edited this written report and agrees with it. Electronically signed by: David Javier M.D. us Dago Hsu MD IMG XR PROCEDURES Razia l Result * TRANSTHORACIC ECHO (TTE) COMPLETE W DOPPLER/CF W CONTRAST (03/14/2025 12:23 PM CDT) Anatomical Region Laterality Modality Ultrasound 03/14/2025 11:3 8 AM CDT Narrative 03/14/2025 1:09 PM CDT [facility] [place] [place] [address] Transthoracic Echocardiographic Report Patient Name: JOHN ARITA W : 1955 (69y 3m) Gender: M Study Date: 03/14/2025 11:38:11 AM Ht(Inch): 66 Wt(Lb): 162.92 BSA: 1.86 Block Captain: Hunter Lim [facility], [facility] Location: [id number] Order Provider: DAGO HSU Heart Rate: 122 BMI: 26.29 BP: 69 / 54 Ref Provider: DAGO HSU PROCEDURES: Echocardiographic Report: Transthoracic complete echo with strain imaging and contrast, 2D, spectral and tissue Doppler, color flow Doppler, M-mode. Contrast: Contrast Enhancement was Employed: After initial imaging due to sub- optimal quality related to co-morbidity defined by patient's body habitus. 2.3 ml Optison Administered, (0.7 ml wasted). Technically difficult study due to: Body habitus. Poor acoustic windows. Patient on ventilator. Patient unable to cooperate. Limited visualization of some cardiac structures precludes the ability to obtain complete measurements - INDICATIONS: Atrial fibrillation. CONCLUSIONS: 1. Reduced image resolution; Unable to quantify LVEF ; Grossly, Normal left ventricular size based on volume index. Normal LV wall thickness. Grossly Normal left ventricular systolic function. Normal diastolic function. The average global longitudinal strain is normal. ATTESTATION: I have personally reviewed and interpreted this study without fellow or resident. - DISCLAIMER: The study images and the final report will be retained in the patient chart by the Echo Laboratory for the legally required time period. This chart constitutes the legal record of any testing performed. FINDINGS: Left Ventricle: The left ventricle is not well visualized due to limited views. Right Ventricle: The right ventricle is not well visualized due to limited views. Left Atrium: The left atrium is not well visualized due to limited views. Right Atrium: The right atrium is not well visualized due to limited views. Mitral Valve: Mitral valve is not well visualized due to limited views. No mitral regurgitation. No stenosis present. Aortic Valve: Aortic valve not well visualized due to limited views. No aortic regurgitation. No aortic valve stenosis. Tricuspid Valve: Tricuspid valve is not well visualized due to limited views. No tricuspid regurgitation. No tricuspid valve stenosis. Pulmonic Valve: The pulmonic valve is not well visualized due to limited views. Pericardium: The pericardium is not well visualized due to limited views. Aorta: Aortic root not well visualized due to limited views. PASP: Unable to determine PASP due to inadequate TR jet. Unable to determine PASP due to image quality. Rhythm: The rhythm during the study was sinus tachycardia. MEASUREMENTS: 2D/MM Value Range Doppler Value Range RV Base Dimen 2D 2.1 cm [ 2.5 - 4.2 ] LVOT Diam 1.97 cm TAPSE 1.57 cm [ 1.71 - 5.00 ] MV E Peak Roberto 0.5 m/s [ 0.6 - 1.3 ] MV A Peak Roberto 0.2 m/s [ 1.0 - 1.2 ] MV E/A 2.0 ratio [ 0.8 - 1.5 ] MV Decel Time 34.57 msec [ 104.00 - 258.00 ] Med E` Roberto 5.4 cm/sec [ 8.0 - 25.0 ] Lat E` Roberto 7.4 cm/sec [ 10.0 - 25.0 ] Average E/E` 7.81 RV S` 19.26 cm/sec PV Peak Roberto 0.9 m/s [ 0.4 - 0.8 ] PV Peak PG 3.24 mmHg Electronically Signed By: Brodie Suárez MD 03/14/2025 1:08:41 PM CDT Procedure Note Brodie Suárez MD - 03/14/2025 [facility] [place] [address] Transthoracic Echocardiographic Report Patient Name: JOHN ARITA W : 1955 (69y 3m) Gender: M Study Date: 03/14/2025 11:38:11 AM Ht(Inch): 66 Wt(Lb): 162.92 BSA: 1.86 Block Captain: Hunter Lim [facility], [facility] Location: [id number] Order Provider:DAGO HSU Heart Rate: 122 BMI: 26.29 BP: 69 / 54 Ref Provider: DAGO HSU PROCEDURES: Echocardiographic Report: Transthoracic complete echo with strain imagingand contrast, 2D, spectral and tissue Doppler, color flow Doppler, M-mode. Contrast: Contrast Enhancement was Employed: After initial imaging due tosub- optimal quality related to co-morbidity defined by patient's body habitus. 2.3 mlOptison Administered, (0.7 ml wasted). Technically difficult study due to: Body habitus. Poor acoustic windows.Patient on ventilator. Patient unable to cooperate. Limited visualization of somecardiac structures precludes the ability to obtain complete measurements - INDICATIONS: Atrial fibrillation. CONCLUSIONS: 1. Reduced image resolution; Unable to quantify LVEF ; Grossly, Normalleft ventricular size based on volume index. Normal LV wall thickness. Grossly Normal leftventricular systolic function. Normal diastolic function. The average globallongitudinal strain is normal. ATTESTATION: I have personally reviewed and interpreted this study without fellow orresident. - DISCLAIMER: The study images and the final report will be retained in the patientchart by the Echo Laboratory for the legally required time period. This chart constitutesthe legal record of any testing performed. FINDINGS: Left Ventricle: The left ventricle is not well visualized due to limitedviews. Right Ventricle: The right ventricle is not well visualized due to limitedviews. Left Atrium: The left atrium is not well visualized due to limitedviews. Right Atrium: The right atrium is not well visualized due to limitedviews. Mitral Valve: Mitral valve is not well visualized due to limited views. Nomitral regurgitation. No stenosis present. Aortic Valve: Aortic valve not well visualized due to limited views. Noaortic regurgitation. No aortic valve stenosis. Tricuspid Valve: Tricuspid valve is not well visualized due to limitedviews. No tricuspid regurgitation. No tricuspid valve stenosis. Pulmonic Valve: The pulmonic valve is not well visualized due to limitedviews. Pericardium: The pericardium is not well visualized due to limitedviews. Aorta: Aortic root not well visualized due to limited views. PASP: Unable to determine PASP due to inadequate TR jet. Unable todetermine PASP due to image quality. Rhythm: The rhythm during the study was sinus tachycardia. MEASUREMENTS: 2D/MM Value Range Doppler ValueRange RV Base Dimen 2D 2.1 cm [ 2.5 - 4.2 ] LVOT Diam 1.97cm TAPSE 1.57 cm [ 1.71 - 5.00 ] MV E Peak Roberto 0.5 m/s[ 0.6 - 1.3 ] MV A Peak Roberto 0.2 m/s [ 1.0 - 1.2 ] MV E/A 2.0 ratio [ 0.8 - 1.5 ] MV Decel Time 34.57 msec [ 104.00 - 258.00 ] Med E` Roberto 5.4 cm/sec [ 8.0 - 25.0 ] Lat E` Roberto 7.4 cm/sec [ 10.0 - 25.0 ] Average E/E` 7.81 RV S` 19.26 cm/sec PV Peak Roberto 0.9 m/s [ 0.4 - 0.8 ] PV Peak PG 3.24 mmHg Electronically Signed By: Brodie Suárez MD 03/14/2025 1:08:41 PM CDT us Dago Hsu MD CV ECHO PROCEDURES Fin al Result * (ABNORMAL) POC Blood Gas and Chemistries, Arterial - (03/14/2025 12:20 PM CDT) pH, Art POC 7.15(C) 7.35 - 7.45 pCO2, Art POC 66(H) 35 - 45 mmHg [facility] pO2, Art POC 135(H) 83 - 108 mmHg [facility] Na, POC 132(L) 135 - 145 mmol/L [facility] K POC 4.5 3.3 - 4.9 mmol/L [facility] Comment: Interpretive Data Not all point of care methods assess for hemolysis. Confirm with instrument and retest K+ if not consistent with clinical signs and symptoms. Current Interpretive Data was last revised on 2024. Cl, POC 100 97 - 110 mmol/L [facility] Ionized Ca, POC 4.94 4.50 - 5.10 mg/dL [facility] Glucose, POC 190 70 - 199 mg/dL [facility] Lactate POC 4.6(C) 0.7 - 2.0 mmol/L [facility] SO2 (raman) arterial 100(H) 90 - 95 % [facility] Base excess, POC -7.4 mmol/L [facility] HCO3, Art POC 23 20 - 30 mmol/L [facility] Hct, POC 49.0 41.4 - 51.6 % [facility] Total Hb, POC 16.3 13.8 - 17.2 g/dL [facility] Blood 03/14/2025 12:2 0 PM CDT 03/14/2025 12:20 PM CDT Dago Hsu MD LAB POCT ORDERABLES - DEVICE Final Result Performing Organization Address City/[facility] Co de Phone Number [facility] [place] [address] * POCT glucose (03/14/2025 11:51 AM CDT) Glucose, POC 183 70 - 199 mg/dL Blood 03/14/2025 11:5 1 AM CDT 03/14/2025 11:51 AM CDT Dago Hsu MD LAB POCT ORDERABLES - DEVICE Final Result Performing Organization Address [facility] de Phone Number [facility] [place] [address] * [place] INSJ NON-TUNNELED CENTRAL VENOUS CATH AGE 5 YR/> (03/14/2025 10:15 AM CDT) Narrative Dago Hsu MD - 03/14/2025 10:15 AM CDT Dago Hsu MD 03/14/2025 4:34 PM Central Line Insertion Date/Time: 03/14/2025 10:15 AM Performed by: Tiago Polanco MD Authorized by: Tiago Polanco MD [place] Protocol: RN Notified of Procedure: yes Informed consent: Patient/door to door sales representative/guardian agrees and accepts Patient's stated name/ matches armband: Patient unable to verbalize - armband matched to name and within medical record Allergies confirmed: yes Consent form signed, dated, timed; matches correct patient, intended procedure and site: Yes Imaging: Pertinent imaging reviewed, correctly oriented and match to patient identifiers Lab/Diag test results: Pertinent lab/diag tests reviewed and match to patient identifiers Supplies, devices and special equipment are available: yes Site/side marked: n/a Immediately prior to the procedure a time out was called: a verbal verification by the procedure participants confirmed correct patient identity, correct site/side marked and visible (if applicable); agreement on procedure to be done; and correct patient positioning Have non- routine considerations been assessed?: Yes Indications: Administer vasoactive medications Patient position: Trendelenburg Skin preparation: Skin prepped with 2% chlorhexidine Provider preparation: Cap, full body drape, gloves, gown, handwashing, mask and towels Location: Right internal jugular Technique: Landmarks identified Ultrasound guidance: Pre-procedure diagnostic and real-time needle guidance Assessment: Blood return through all ports and placement verified by x-ray Catheter type: Triple lumen Catheter placed through introducer: Triple Catheter size: 7 Fr Needle inserted, vein idenitified then guidewire inserted easily into vein: Yes Number of attempts: 1 Successful placement: Yes Catheter secured at (cm): 16 Catheter length (cm): 20 Line securement: Line sutured and dressing applied Patient tolerance: Patient tolerated the procedure well with no immediate complications Post Procedure Debrief: All guidewires, needles, sponges or other items are accounted for: yes Any special post procedure monitoring, testing or other considerations: yes (enter/request order) All specimens identified, labeled and matched to patient identification: n/a Responsible libertarian for transporting specimen(s) to lab determined: n/a Tiago Polanco MD IN CLINIC/BEDSIDE ORDERABLES Final Result * Critical Result Callback Chemistry (03/14/2025 9:48 AM CDT) Date Notified [id number] Time Notified 1004 [facility] TestName pH Adrian, pCO2 VITO BOOKER Called/Read Back Mandy BOOKER Credentials RITA BOOKER Called By [facility] Blood 03/14/2025 9:48 AM CDT 03/14/2025 9:55 AM CDT us Dago Hsu MD LAB BLOOD ORDERABLES F inal Result [facility] Department of Laboratories [place], [place] [id number] * (ABNORMAL) Blood gas, venous (03/14/2025 9:48 AM CDT) pH, Venous 7.08(C) 7.32 - 7.43 PCO2, Venous 84(C) 40 - 50 mmHg [facility] PO2, Venous 53 mmHg [facility] Comment: Interpretive Data No Reference Range Established Current Interpretive Data was last revised on 2018. HCO3 Venous, Calculated 26 20 - 30 mmol/L [facility] BE, venous -10 mmol/L [facility] Comment: Interpretive Data No Reference Range Established Current Interpretive Data was last revised on 2018. Blood 03/14/2025 9:48 AM CDT 03/14/2025 9:55 AM CDT us Dago Hsu MD LAB BLOOD ORDERABLES F inal Result [facility] Department [place] [address] * INTUBATION (03/14/2025 9:34 AM CDT) Narrative Gorge Deelon MD - 03/14/2025 9:34 AM CDT Gorge Deleon MD 03/14/2025 6:01 PM Intubation Date/Time: 03/14/2025 9:34 AM Performed by: Jovanny Galeana DO Authorized by: Jovanny Galeana DO [place] Protocol: RN Notified of Procedure: yes Informed consent: Unable to obtain due to emergent status Patient's stated name/ matches armband: Patient unable to verbalize - armband matched to name and within medical record Allergies confirmed: yes Consent form signed, dated, timed; matches correct patient, intended procedure and site: No consent form due to emergent status Imaging: Pertinent imaging reviewed, correctly oriented and match to patient identifiers Lab/Diag test results: Pertinent lab/diag tests reviewed and match to patient identifiers Supplies, devices and special equipment are available: yes Site/side marked: yes Immediately prior to the procedure a time out was called: a verbal verification by the procedure participants confirmed correct patient identity, correct site/side marked and visible (if applicable); agreement on procedure to be done; and correct patient positioning Indications: Respiratory failure, airway protection and hypoxemia Intubation method: Video-assisted Patient status: RSI Patient position: Flat Preoxygenation: Optiflow. Mask Ease: not attempted Sedation: ketamine and versed. Paralytic: Rocuronium Visualization used: Direct Laryngoscope size: Mac 4 Tube size (mm): 8.0 Tube type: Cuffed Number of attempts: 1 Was this a difficult intubation?: No Cricoid pressure: No Cords visualized: Yes Post-procedure assessment: Chest rise and ETCO2 monitor Breath sounds: Equal Cuff inflated: Yes ETT to lip (cm): 26 Tube secured with: ETT moscoso Chest x-ray interpreted by: Chest x-ray findings: Endotracheal tube too low Tube repositioned: Tube repositioned successfully Patient tolerance: Patient tolerated the procedure well with no immediate complications Post Procedure Debrief: All guidewires, needles, sponges or other items are accounted for: yes Any special post procedure monitoring, testing or other considerations: yes (enter/request order) All specimens identified, labeled and matched to patient identification: n/a Responsible libertarian for transporting specimen(s) to lab determined: n/a Called to patient's room for worsening hypoxia despite max optiflow (60L @ 100% FiO2). A NRB was placed overtop of the optiflow and patient's oxygen saturation increased to about 90-91% saturation. Decision made to intubate the patient for airway protection and hypoxia. A timeout was called and back up airway adjuncts were available. After medications were given, initial view of the cords revealed copious amounts of dark tinged liquid requiring lots of suctioning. After suctioning out about 600 cc of this fluid, the cords were visualized and an 8.0 ETT was placed easily. There was chest rise and EtCO2 detected on the monitor. Patient's oxygen saturation took a little while to improve but did improve with some recruitment maneuvers. Afterwards, the patient went into SVT. Please see significant event note for additional details. After patient stabilized, CXR obtained. ETT appeared deep with partial right mainstem. The ETT was then pulled back 3 cm to be 23 cm at the lip. us Jovanny Galeana DO IN CLINIC/BEDSIDE JORDIN ORANTES Final Result * (ABNORMAL) POCT glucose (03/14/2025 9:31 AM CDT) Glucose, POC 232(H) 70 - 199 mg/dL Blood 03/14/2025 9:31 AM CDT 03/14/2025 9:31 AM CDT Dago Hsu MD LAB POCT ORDERABLES - DEVICE Final Result [facility] Department [place] [address] * XR Abdomen Ap 1 Vw (03/14/2025 9:15 AM CDT) Anatomical Region Laterality Modality Body, Abdomen N/A Computed Radiogr aphy 03/14/2025 9:29 AM CDT Impressions 03/14/2025 9:29 AM CDT Interval placement of a nasogastric tube which loops in the gastric fundus and terminates in the distal stomach. Redemonstration of dilated small bowel in the central abdomen concerning for obstruction. Electronically signed by: Charles Franco M.D. Narrative 03/14/2025 9:29 AM CDT EXAMINATION: Abdomen, one view. HISTORY: Tube placement COMPARISON: 0518 hours Procedure Note Charles Franco MD - 03/14/2025 EXAMINATION: Abdomen, one view. HISTORY: Tube placement COMPARISON: 0518 hours IMPRESSION: Interval placement of a nasogastric tube which loops in the gastric fundus and terminates in the distal stomach. Redemonstration of dilated small bowel in the central abdomen concerning for obstruction. Electronically signed by: Charles Franco M.D. Dago Hsu MD IMG XR PROCEDURES Razia l Result * XR Chest 1 View (03/14/2025 9:14 AM CDT) Anatomical Region Laterality Modality Body, Chest N/A Computed Radiogr aphy 03/14/2025 9:53 AM CDT Impressions 03/14/2025 10:05 AM CDT Comparison with 03/14/2025 at 6:56 AM. Interval retraction of endotracheal tube now 2 cm above the stewart. Gastric tube below the diaphragm. Diffuse airspace opacities of the upper lobes may be secondary to edema. No effusion or pneumothorax. Normal heart size. Dictated by: Noé Cristina MD PHD The radiology attending physician has personally reviewed this study, and had reviewed and/or edited this written report and agrees with it. Electronically signed by: Gregg Perez M.D. Narrative 03/14/2025 10:05 AM CDT EXAMINATION: 1 view chest radiograph Procedure Note Gregg Perez MD - 03/14/2025 EXAMINATION: 1 view chest radiograph IMPRESSION: Comparison with 03/14/2025 at 6:56 AM. Interval retraction of endotracheal tube now 2 cm above the stewart. Gastric tube below the diaphragm. Diffuse airspace opacities of the upper lobes may be secondary to edema. No effusion or pneumothorax. Normal heart size. Dictated by: Noé Cristina MD PHD The radiology attending physician has personally reviewed this study, and had reviewed and/or edited this written report and agrees with it. Electronically signed by: Gregg Perez M.D. us Dago Hsu MD IMG XR PROCEDURES Razia l Result * ECG 12 lead (03/14/2025 8:41 AM CDT) Ventricular Rate EKG/Min [address] [facility] Atrial Rate 121 BPM [facility] [place]-Interval (MSEC) 136 ms [facility] QRS-Interval (MSEC) 76 ms [facility] QT-Interval (MSEC) 302 ms [facility] QTc 428 ms [facility] P Matthews 55 degrees [facility] R Matthews -2 degrees [facility] T Matthews 72 degrees [facility] Diagnosis Sinus tachycardia Right atrial enlargement Nonspecific ST and T wave abnormality Abnormal ECG When compared with ECG of 14-MAR-2025 06:48, (unconfirmed) No significant change was found Confirmed by MIKE JAFFE M.D ([id number]) on 03/14/2025 1:51:45 PM [facility] 03/14/2025 8:41 AM CDT 03/14/2025 1:51 PM CDT us David Brooks MD ECG ORDERABLES Final Resul t [facility] * Pneumonia PCR Tracheal aspirate (03/14/2025 8:37 AM CDT) C. pneumoniae DNA Not Detected Not Detected Legionella pneumophila DNA Not Detected Not Detected [facility] M. pneumoniae DNA Not Detected Not Detected [facility] Adenovirus DNA Not Detected Not Detected [facility] Coronavirus (229E, OC43, HKU1, NL63) RNA Not Detected Not Detected [facility] Metapneumovirus RNA Not Detected Not Detected [facility] Rhinovirus/Enterov irus RNA Not Detected Not Detected [facility] Influenza A RNA Not Detected Not Detected [facility] Influenza B RNA Not Detected Not Detected [facility] Parainfluenza virus (1-4) RNA Not Detected Not Detected [facility] RSV RNA Not Detected Not Detected [facility] Tracheal aspirate 03/14/2025 8:37 AM CDT 03/14/2025 7:20 PM CDT Narrative [facility] - 03/14/2025 8:48 PM CDT The BioFire Pneumonia Panel is a multiplexed nucleic acid test capable of simultaneous detection and identification of multiple respiratory viruses and bacteria. This panel detects Adenovirus, coronaviruses (Coronavirus HKU1, Coronavirus NL63, Coronavirus 229E, and Coronavirus OC43), Influenza A, Influenza B, Human metapneumovirus, Parainfluenza (1-4), RSV, Rhinovirus/Enterovirus, Chlamydia pneumoniae, Mycoplasma pneumoniae, and Legionella pneumophila. Additional aerobic bacterial targets are reported with the accompanying culture results with the same accession number. Rhinovirus and Enterovirus are genetically similar and cannot be reliably differentiated with this method. Negative adenovirus results should be confirmed by an alternative methodology (i.e. standalone PCR) if the suspicion for adenovirus infection is high. The results of this test must be considered in the clinical context of the patient and should not be used as the sole basis for diagnosis, treatment, or other management decisions. Negative results in the setting of a respiratory illness may be due to infection with pathogens that are not detected by this test. Positive results do not rule out infection/co-infection with other organisms. The [employer] Pneumonia Panel is FDA cleared for lower respiratory tract specimens. The performance characteristics of this assay have been determined by [facility]. Current interpretive data was last revised on 2024. us Dago Hsu MD LAB MICROBIOLOGY - GEN ERAL ORDERABLES Final Result [facility] Department [place] [address] * (ABNORMAL) Pneumonia PCR with aerobic culture and Gram stain Tracheal aspirate (03/14/2025 8:37 AM CDT) Direct Specimen Exam Molecular Analysis: 10^4 copies/mL Klebsiella pneumoniae group Correlation of molecular analysis with final culture results is recommended. Direct Specimen Exam Stain: Few polymorphonuclear leukocytes seen. No squamous epithelial cells seen. Moderate mixed bacterial cristino seen on Gram stain. [facility] Report Final Report: Greater than or equal to 100,000 colonies/ml of Yeast Emili pneumonia is very rare and requires a histopathological diagnosis. The recovery of these organisms in routine culture, in most cases, only represents overgrowth of the organism secondary to antimicrobial therapy. Please contact the microbiology laboratory at [phone] if identification or susceptibility testing is clinically indicated. Plus growth of clinically insignificant bacterial cristino. (.) [facility] Organism YEAST [facility] Organism PLUS GROWTH OF CLINICALLY INSIGNIFICANT CRISTINO. [facility] Tracheal aspirate 03/14/2025 8:37 AM CDT 03/14/2025 6:03 PM CDT Narrative [facility] - 03/17/2025 1:22 PM CDT When rapid molecular testing results are reported, testing completed using the Out[employer] FilmArray Pneumonia Panel. This molecular assay detects: Acinetobacter calcoaceticus-baumannii complex, Enterobacter cloacae complex, Escherichia coli, Haemophilus influenzae, Enterobacter (Klebsiella) aerogenes, Klebsiella oxytoca, Klebsiella pneumoniae group, Moraxella catarrhalis, Proteus spp., Pseudomonas aeruginosa, Serratia marcescens, Staphylococcus aureus, Streptococcus agalactiae, Streptococcus pneumoniae, and Streptococcus pyogenes. These bacteria are detected and reported semi-quantitatively with bins representing approximately 10^4, 10^5, 10^6, or greater than or equal to 10^7 genomic copies of bacterial nucleic acid per mL (copies/mL) of specimen. These quantities are reported to aid in estimating the relative abundance of organism(s) detected within the specimen and to correlate these results with culture results. For Staphylococcus aureus, mecA/C and MREJ genes are evaluated to predict methicillin resistance or susceptibility. For Gram-negative bacteria, the beta-lactamases CTX-M, IMP, KPC, NDM, VIM and OXA-48-like are evaluated and reported if detected. For Gram-negative organisms, the absence of detection of resistance markers does not exclude resistance. Correlation with final culture results and susceptibility testing is recommended. The FilmArray Pneumonia Panel is cleared by the [place] Food and Drug Administration and its performance characteristics have been confirmed by the [facility]. The performance of the FilmArray Pneumonia Panel has not been established for monitoring treatment of infection and bacterial nucleic acids may persist independent of organism viability. Dago Hsu MD LAB MICROBIOLOGY - GEN ERAL ORDERABLES Final Result [facility] Department [place] [address] * (ABNORMAL) Lactate (03/14/2025 8:37 AM CDT) Pathologist [facility] Lactate 5.2(C) 0.7 - 2.0 mmol/L Blood 03/14/2025 8:37 AM CDT 03/14/2025 10:04 AM CDT Dago Hsu MD LAB BLOOD ORDERABLES F inal Result [facility] Department [place] [address] * Check Sample (03/14/2025 8:37 AM CDT) Pathologist [facility] ABO Rh A Positive [facility] HC[facility] OTHER 03/14/2025 8:37 AM CDT 03/14/2025 10:04 AM CDT Dago Hsu MD LAB BLOOD ORDERABLES F inal Result Performing Organization Address City/[facility] Co de Phone Number [facility] Department [place] [address] BJ * Critical Result Callback Chemistry (03/14/2025 8:37 AM CDT) Date Notified [id number] Time Notified 1034 [facility] TestName Lactate [facility] Called/Read Back Mandy BOOKER Credentials RN [facility] Called By cliff BOOKER Blood 03/14/2025 8:37 AM CDT 03/14/2025 10:04 AM CDT Dago Hsu MD LAB BLOOD ORDERABLES F inal Result Performing Organization Address [facility] de Phone Number [facility] Department [place] [address] * Volatiles screen, serum (03/14/2025 8:37 AM CDT) Pathologist [facility] Methanol None Detected None Detected Ethanol, sr None Detected None Detected [facility] Isopropanol Screen, Serum None Detected None Detected [facility] Acetone Screen, Serum None Detected None Detected [facility] Comment: Interpretive Data This test was developed using an analyte specific reagent. Its performance characteristics were determined by the [facility] in a manner consistent with CLIA requirements. This test has not been cleared or approved by the U.S. Food and Drug Administration. Current interpretive data was last revised on 2013. Blood 03/14/2025 8:37 AM CDT 03/14/2025 9:55 AM CDT Dago Hsu MD LAB BLOOD ORDERABLES F inal Result Performing Organization Address City/[facility] Co de Phone Number [facility] [place] [address] * Beta-hydroxybutyrate (03/14/2025 8:37 AM CDT) [facility] Beta-Hydroxybut yrate 0.3 0.0 - 0.5 mmol/L Blood 03/14/2025 8:37 AM CDT 03/14/2025 9:55 AM CDT us Dago Hsu MD LAB BLOOD ORDERABLES F inal Result [facility] [place] [address] * (ABNORMAL) CBC without differential (03/14/2025 8:37 AM CDT) [facility] WBC 8.62 3.80 - 9.90 K/cumm Hgb 18.9(H) 13.0 - 17.5 g/dL [facility] Hct 56.9(H) 38.9 - 50.3 % [facility] Plt 206 150 - 400 K/cumm [facility] MPV Not Measured 9.1 - 12.3 fL [facility] RBC 6.37(H) 4.30 - 5.80 M/cumm [facility] MCV 89.3 81.3 - 96.4 fL [facility] MCH 29.7 27.1 - 33.3 pg [facility] MCHC 33.2 32.3 - 35.7 g/dL [facility] RDW CV 13.3 11.1 - 14.9 % [facility] RDW SD 42.6 35.7 - 48.1 fL [facility] NRBC abs 0.00 0.00 - 0.01 K/cumm [facility] Blood 03/14/2025 8:37 AM CDT 03/14/2025 10:04 AM CDT us David Brooks MD LAB BLOOD ORDERABLES Final Result [facility] Department [place] [address] * Osmolality, blood (03/14/2025 8:37 AM CDT) [facility] Osmo 290 275 - 300 mOsm/kg Blood 03/14/2025 8:37 AM CDT 03/14/2025 10:04 AM CDT Dago Hsu MD LAB BLOOD ORDERABLES F inal Result Performing Organization Address [facility] [place] [address] * (ABNORMAL) Hemoglobin A1c (03/14/2025 8:37 AM CDT) [facility] Hgb A1C 6.0(H) 4.0 - 5.6 % Estimated Average Glucose 126 mg/dL [facility] Comment: The ADA recommends reporting an estimated Average Glucose (eAG) with all Hemoglobin A1c results using the equation derived from a study of 507 normal and diabetic adults. Minority populations were underrepresented and children were not included. (Diabetes Care 2020; 43(S1): S66-S76). The eAG is not equivalent to a fasting glucose. Blood 03/14/2025 8:37 AM CDT 03/14/2025 9:55 AM CDT Dago Hsu MD LAB BLOOD ORDERABLES F inal Result Performing Organization Address City[facility] [place] [address] * XR Chest 1 View (03/14/2025 7:00 AM CDT) Anatomical Region Laterality Modality Body, Chest N/A Computed Radiogr aphy 03/14/2025 8:32 AM CDT Impressions 03/14/2025 8:49 AM CDT Comparison with 03/02/2025. 03/14/2025 at 4:12 AM: Increased bibasilar atelectasis. No pleural effusion, or pneumothorax. Normal heart size. Moderate gaseous distention of the stomach. 03/14/2025 at 6:56 AM: Interval gastric tube placement and intubation with endotracheal tube overlying the right mainstem bronchus. Increased opacification of the lower lobes may be secondary to aspiration or atelectasis The Non Critical results were discussed with Dr. Suarez by Dr. Cristina on 03/14/2025 at 8:32 AM. Dictated by: Noé Cristina MD PHD The radiology attending physician has personally reviewed this study, and had reviewed and/or edited this written report and agrees with it. Electronically signed by: Gregg Perez M.D. Narrative 03/14/2025 8:49 AM CDT EXAMINATION: 1 view chest radiograph Procedure Note Gregg Perez MD - 03/14/2025 EXAMINATION: 1 view chest radiograph IMPRESSION: Comparison with 03/02/2025. 03/14/2025 at 4:12 AM: Increased bibasilar atelectasis. No pleural effusion, or pneumothorax. Normal heart size. Moderate gaseous distention of the stomach. 03/14/2025 at 6:56 AM: Interval gastric tube placement and intubation with endotracheal tube overlying the right mainstem bronchus. Increased opacification of the lower lobes may be secondary to aspiration or atelectasis The Non Critical results were discussed with Dr. Suarez by Dr. Cristina on 03/14/2025 at 8:32 AM. Dictated by: Noé Cristina MD PHD The radiology attending physician has personally reviewed this study, and had reviewed and/or edited this written report and agrees with it. Electronically signed by: Gregg Perez M.D. us Dago Hsu MD IMG XR PROCEDURES Razia l Result * ECG 12 lead (03/14/2025 6:48 AM CDT) Ventricular Rate EKG/Min 118 BPM [facility] Atrial Rate [address] [facility] NH-Interval (MSEC) [address] [facility] QRS-Interval (MSEC) [address] [facility] QT-Interval (MSEC) 326 ms [facility] QTc 456 ms [facility] P Matthews 42 degrees [facility] R Matthews -9 degrees [facility] T Matthews 91 degrees [facility] Diagnosis Sinus tachycardia ST & T wave abnormality, consider lateral ischemia Abnormal ECG When compared with ECG of 14-MAR-2025 04:47, (unconfirmed) No significant change was found Confirmed by MIKE JAFFE M.D ([id number]) on 03/14/2025 1:51:39 PM [facility] 03/14/2025 6:48 AM CDT 03/14/2025 1:51 PM CDT us David Brooks MD ECG ORDERABLES Final Resul t [facility] * Troponin I high-sensitivity (03/14/2025 5:30 AM CDT) Trop I hs 18 <=35 ng/L Comment: Interpretive Data For further hscTnI resources including the diagnostic algorithm and an aid in interpretation, copy and paste this link: https://bjhlab.testcatalog.org/show/[email or web address] Current Interpretive Data last revised 2020. Blood 03/14/2025 5:30 AM CDT 03/14/2025 5:53 AM CDT us David Brooks MD LAB BLOOD ORDERABLES Final Result [facility] Department [place] [address] * Blood culture Blood (03/14/2025 5:30 AM CDT) Report Final Report: No growth Blood 03/14/2025 5:30 AM CDT 03/14/2025 6:34 AM CDT Narrative [facility] - 03/18/2025 7:00 AM CDT From a different site than #1. Collection->Peripheral 1. Blood cultures are incubated for 4 days on a continuously monitored blood culture system. The first report of a negative culture is issued within 24 hours of receipt of the specimen in the laboratory. 2. Positive culture results are reported as soon as they are detected. 3. The most important factor for detection of microbes in the setting of bloodstream infection is the volume of blood submitted for culture. Failure to collect an optimal blood volume can result in false negative blood cultures. 4. For pediatric patients, the recommended blood volume to collect follows a weight based strategy. See the electronic test catalog for collection instructions. 5. For positive blood cultures, a rapid molecular test may be performed for organism identification using the [place] ePlex blood culture identification panel for gram positive (BCID-GP) and gram negative (BCID-GN) organisms. This nucleic acid amplification test detects microbial DNA in positive blood culture broth. This assay has been cleared by the [place] Food and Drug Administration and its performance characteristics have been verified by the [facility]. For questions about this culture, contact the Microbiology Laboratory at [phone]. Interpretive data was last revised on 24. David Brooks MD LAB MICROBIOLOGY - GENERAL ORDERABLES Final Result [facility] Department [place] [address] * Blood culture Blood Right (03/14/2025 5:30 AM CDT) Report Final Report: No growth Blood (Right) 03/14/2025 5:3 0 AM CDT 03/14/2025 7:29 AM CDT [facility] - 03/18/2025 12:00 PM CDT Collection->Peripheral 1. Blood cultures are incubated for 4 days on a continuously monitored blood culture system. The first report of a negative culture is issued within 24 hours of receipt of the specimen in the laboratory. 2. Positive culture results are reported as soon as they are detected. 3. The most important factor for detection of microbes in the setting of bloodstream infection is the volume of blood submitted for culture. Failure to collect an optimal blood volume can result in false negative blood cultures. 4. For pediatric patients, the recommended blood volume to collect follows a weight based strategy. See the electronic test catalog for collection instructions. 5. For positive blood cultures, a rapid molecular test may be performed for organism identification using the [place] ePlex blood culture identification panel for gram positive (BCID-GP) and gram negative (BCID-GN) organisms. This nucleic acid amplification test detects microbial DNA in positive blood culture broth. This assay has been cleared by the [place] Food and Drug Administration and its performance characteristics have been verified by the [facility]. For questions about this culture, contact the Microbiology Laboratory at [phone]. Interpretive data was last revised on 24. David Brooks MD LAB MICROBIOLOGY - GENERAL ORDERABLES Final Result Performing Organization Address City/[facility]/ZIP Co de Phone Number [facility] Department [place] [address] * Type and screen (03/14/2025 5:30 AM CDT) Jackie, indirect Negative ABO Rh A Positive [facility] Blood 03/14/2025 5:30 AM CDT 03/14/2025 6:26 AM CDT Narrative [facility] - 03/14/2025 7:19 AM CDT Has the patient had Daratumumab or Isatuximab in the past 6 months?->Unknown David Brooks MD LAB BLOOD BANK TEST ORDERAB LES Final Result Performing Organization Address [facility]/State/ZIP Co de Phone Number [facility] Department [place] [address] * Infection Prevention MRSA Only (Staphylococcus aureus) Culture Nasal (03/14/2025 5:30 AM CDT) Report Final Report: Negative Nasal 03/14/2025 5:30 AM CDT 03/14/2025 6:34 AM CDT Narrative [facility] - 03/15/2025 7:15 AM CDT Testing performed by [facility] ([phone]). David Brooks MD LAB MICROBIOLOGY - GENERAL ORDERABLES Final Result Performing Organization Address [facility] Co de Phone Number [facility] [place] [address] * Phosphorus (03/14/2025 5:30 AM CDT) Phosphorus, pl 3.3 2.3 - 4.5 mg/dL Blood 03/14/2025 5:30 AM CDT 03/14/2025 5:53 AM CDT David Brooks MD LAB BLOOD ORDERABLES Final Result Performing Organization Address [facility] de Phone Number [facility] [place] [address] * Magnesium (03/14/2025 5:30 AM CDT) Magnesium 2.0 1.4 - 2.5 mg/dL Blood 03/14/2025 5:30 AM CDT 03/14/2025 5:53 AM CDT David Brooks MD LAB BLOOD ORDERABLES Final Result Performing Organization Address [facility] de Phone Number [facility] [place] [address] * (ABNORMAL) Blood gas, venous (03/14/2025 5:30 AM CDT) pH, Venous 7.46(H) 7.32 - 7.43 PCO2, Venous 31(L) 40 - 50 mmHg [facility] PO2, Venous 48 mmHg [facility] Comment: Interpretive Data No Reference Range Established Current Interpretive Data was last revised on 2018. HCO3 Venous, Calculated 22 20 - 30 mmol/L [facility] BE, venous 0 mmol/L [facility] Comment: Interpretive Data No Reference Range Established Current Interpretive Data was last revised on 2018. Blood 03/14/2025 5:30 AM CDT 03/14/2025 5:51 AM CDT us David Brooks MD LAB BLOOD ORDERABLES Final Result [facility] Department [place] [address] * XR Abdomen Ap 1 Vw (03/14/2025 5:14 AM CDT) Anatomical Region Laterality Modality Body, Abdomen N/A Computed Radiogr aphy 03/14/2025 8:55 AM CDT Impressions 03/14/2025 9:03 AM CDT Moderate gaseous distention of the stomach. Multiple dilated loops of small bowel throughout the abdomen concerning for possible small bowel obstruction versus ileus. Dictated by: Choco Atkins M.D. The radiology attending physician has personally reviewed this study, and had reviewed and/or edited this written report and agrees with it. Electronically signed by: Charles Franco M.D. Narrative 03/14/2025 9:03 AM CDT EXAMINATION: Abdomen, one view. HISTORY: Abdominal distension. COMPARISON: None Procedure Note Charles Franco MD - 03/14/2025 EXAMINATION: Abdomen, one view. HISTORY: Abdominal distension. COMPARISON: None IMPRESSION: Moderate gaseous distention of the stomach. Multiple dilated loops of small bowel throughout the abdomen concerning for possible small bowel obstruction versus ileus. Dictated by: Choco Atkins M.D. The radiology attending physician has personally reviewed this study, and had reviewed and/or edited this written report and agrees with it. Electronically signed by: Charles Franco M.D. us David Brooks MD IMG XR PROCEDURES Final Res ult * ECG 12 lead (03/14/2025 4:47 AM CDT) Ventricular Rate EKG/Min 126 BPM [facility] Atrial Rate 126 BPM [facility] NH-Interval (MSEC) 138 ms [facility] QRS-Interval (MSEC) 82 ms [facility] QT-Interval (MSEC) 312 ms [facility] QTc 451 ms [facility] P Matthews 45 degrees [facility] R Matthews -17 degrees [facility] T Matthews 83 degrees [facility] Diagnosis Sinus tachycardia Possible Left atrial enlargement ST & T wave abnormality, consider lateral ischemia Abnormal ECG When compared with ECG of 14-MAR-2025 04:14, (unconfirmed) No significant change was found Confirmed by MIKE JAFFE M.D ([id number]) on 03/14/2025 1:51:29 PM [facility] 03/14/2025 4:47 AM CDT 03/14/2025 1:51 PM CDT us David Brooks MD ECG ORDERABLES Final Resul t [facility] * XR Chest 1 View (03/14/2025 4:25 AM CDT) Anatomical Region Laterality Modality Body, Chest N/A Computed Radiogr aphy 03/14/2025 8:32 AM CDT Impressions 03/14/2025 8:49 AM CDT Comparison with 03/02/2025. 03/14/2025 at 4:12 AM: Increased bibasilar atelectasis. No pleural effusion, or pneumothorax. Normal heart size. Moderate gaseous distention of the stomach. 03/14/2025 at 6:56 AM: Interval gastric tube placement and intubation with endotracheal tube overlying the right mainstem bronchus. Increased opacification of the lower lobes may be secondary to aspiration or atelectasis The Non Critical results were discussed with Dr. Suarez by Dr. Cristina on 03/14/2025 at 8:32 AM. Dictated by: Noé Cristina MD PHD The radiology attending physician has personally reviewed this study, and had reviewed and/or edited this written report and agrees with it. Electronically signed by: Gregg Perez M.D. Narrative 03/14/2025 8:49 AM CDT EXAMINATION: 1 view chest radiograph Procedure Note Gregg Perez MD - 03/14/2025 EXAMINATION: 1 view chest radiograph IMPRESSION: Comparison with 03/02/2025. 03/14/2025 at 4:12 AM: Increased bibasilar atelectasis. No pleural effusion, or pneumothorax. Normal heart size. Moderate gaseous distention of the stomach. 03/14/2025 at 6:56 AM: Interval gastric tube placement and intubation with endotracheal tube overlying the right mainstem bronchus. Increased opacification of the lower lobes may be secondary to aspiration or atelectasis The Non Critical results were discussed with Dr. Suarez by Dr. Cristina on 03/14/2025 at 8:32 AM. Dictated by: Noé Cristina MD PHD The radiology attending physician has personally reviewed this study, and had reviewed and/or edited this written report and agrees with it. Electronically signed by: Gregg Perez M.D. us David Brooks MD IMG XR PROCEDURES Final Res ult * ECG 12 lead (03/14/2025 4:14 AM CDT) Ventricular Rate EKG/Min [address] [facility] Atrial Rate 124 BPM [facility] NH-Interval (MSEC) 144 ms [facility] QRS-Interval (MSEC) 78 ms [facility] QT-Interval (MSEC) 316 ms [facility] QTc 453 ms [facility] P Matthews 31 degrees [facility] R Matthews -15 degrees [facility] T Matthews 134 degrees [facility] Diagnosis Sinus tachycardia ST & T wave abnormality, consider lateral ischemia Abnormal ECG No previous ECGs available Confirmed by Raghavendra PETERS, Renae ([id number]) on 03/14/2025 12:44:02 PM [facility] 03/14/2025 4:14 AM CDT 03/14/2025 12:44 PM CDT us Dago Hsu MD ECG ORDERABLES Final Result [facility] * (ABNORMAL) Arterial Blood gas w/Lactate POCT (03/14/2025 4:07 AM CDT) Lactate POC i-STAT 1.6 0.7 - 2.0 mmol/L pH POC 7.44 7.35 - 7.45 [facility] pCO2, Art POC 32(L) 35 - 45 mmHg [facility] PO2 POC 65(L) 80 - 105 mmHg [facility] CO2, total POC 22 20 - 30 mmol/L [facility] HCO3, POC 21 21 - 30 mmol/L [facility] BE POC -3(L) -2 - 3 mmol/L [facility] O2 sat POC 93(L) 95 - 98 % [facility] Blood 03/14/2025 4:07 AM CDT 03/14/2025 4:07 AM CDT us David Brooks MD LAB BLOOD ORDERABLES Final Result [facility] Department [place] [address] * eGFR (03/14/2025 4:03 AM CDT) Pathologist [facility] eGFR 80 >=60 mL/min/1. 73 m2 Comment: Interpretive Data Reference Interval Normal >/= 90 mL/min/1.73m2 Mildly decreased* 60 - 89 mL/min/1.73m2 Mildly to moderately decreased 45 - 59 mL/min/1.73m2 Moderately to severely decreased 30 - 44 mL/min/1.73m2 Severely decreased 15 - 29 mL/min/1.73m2 Kidney Failure < 15 mL/min/1.73m2 *Relative to young adult level Estimated glomerular filtration rate is determined by the 2020 CKD-EPI equation recommended by the National Kidney Foundation (A Unifying Approach to GFR Estimation: Recommendations of the NKF-ASK Task Force on Reassessing the Inclusion of Race in Diagnosing Kidney Disease, JASN 2020). The CKD-EPI equation should not be used for patients with unstable renal function and has not been validated in children and those over 70. Current interpretive data was last reviewed 2021. Blood 03/14/2025 4:03 AM CDT 03/14/2025 4:54 AM CDT David Brooks MD LAB BLOOD ORDERABLES Final Result [facility] Department [place] [address] * (ABNORMAL) Basic metabolic panel (03/14/2025 4:03 AM CDT) [facility] Sodium 137 135 - 145 mmol/L Potassium, pl 4.0 3.3 - 4.9 mmol/L [facility] Chloride 96(L) 97 - 110 mmol/L [facility] CO2 21(L) 22 - 32 mmol/L [facility] Anion gap 20(H) 2 - 15 mmol/L [facility] BUN 29(H) 6 - 25 mg/dL [facility] Creatinine 1.02 0.80 - 1.30 mg/dL [facility] Glucose 264(H) 70 - 199 mg/dL [facility] Comment: Interpretive Data Fasting glucose >/= 126 mg/dl is diagnostic for diabetes. Fasting is defined as no caloric intake for at least 8 hours. Fasting glucose between 100 mg/dl to 125 mg/dl is diagnostic of prediabetes. In a patient with classic symptoms of hyperglycemia or hyperglycemic crisis, a random glucose >/= 200 mg/dl is diagnostic for diabetes. In the absence of unequivocal hyperglycemia, results should be confirmed by repeat testing. The classification and Diagnosis of Diabetes Diabetes Care 2021; 46: S19-S40. Current interpretive data was last revised 2022. Calcium 10.1 8.5 - 10.3 mg/dL [facility] Blood 03/14/2025 4:03 AM CDT 03/14/2025 4:54 AM CDT David Brooks MD LAB BLOOD ORDERABLES Final Result Performing Organization Address City/[facility]/ZIP Co de Phone Number [facility] Department [place] [address] * Phosphorus (03/10/2025 8:45 PM CDT) Phosphorus, pl 2.9 2.3 - 4.5 mg/dL Blood 03/10/2025 8:45 PM CDT 03/10/2025 9:13 PM CDT Chauncey Suárez MD PhD LAB BLOOD ORDERABLES Final Result Performing Organization Address City/[facility]/ZIP Co de Phone Number [facility] Department [place] [address] * eGFR (03/09/2025 10:08 PM CDT) Pathologist [facility] eGFR >90 >=60 mL/min/1. 73 m2 Comment: Interpretive Data Reference Interval Normal >/= 90 mL/min/1.73m2 Mildly decreased* 60 - 89 mL/min/1.73m2 Mildly to moderately decreased 45 - 59 mL/min/1.73m2 Moderately to severely decreased 30 - 44 mL/min/1.73m2 Severely decreased 15 - 29 mL/min/1.73m2 Kidney Failure < 15 mL/min/1.73m2 *Relative to young adult level Estimated glomerular filtration rate is determined by the 2020 CKD-EPI equation recommended by the National Kidney Foundation (A Unifying Approach to GFR Estimation: Recommendations of the NKF-ASK Task Force on Reassessing the Inclusion of Race in Diagnosing Kidney Disease, JASN 2020). The CKD-EPI equation should not be used for patients with unstable renal function and has not been validated in children and those over 70. Current interpretive data was last reviewed 2021. Blood 03/09/2025 10:0 8 PM CDT 03/09/2025 10:56 PM CDT Chauncey Suárez MD PhD LAB BLOOD ORDERABLES Final Result Performing Organization Address City/[facility]/ZIP Co de Phone Number [facility] Department [place] [address] * Differential, auto (03/09/2025 10:08 PM CDT) Neutrophil abs 5.68 1.50 - 6.50 K/cumm Imm gran abs 0.05 0.00 - 0.10 K/cumm [facility] Lymphocyte abs 1.30 0.80 - 3.30 K/cumm [facility] Monocyte abs 0.61 0.20 - 0.80 K/cumm [facility] Eosinophil abs 0.13 0.00 - 0.50 K/cumm [facility] Basophil abs 0.03 0.00 - 0.10 K/cumm [facility] Neutrophil pct 72.8 % [facility] Comment: Interpretive Data Percent cell count reference ranges are not reported, since discordance with absolute values may lead to misinterpretation of CBC data. Current Interpretive Data was last revised on 2018. Imm gran pct 0.6 % [facility] Comment: Interpretive Data Percent cell count reference ranges are not reported, since discordance with absolute values may lead to misinterpretation of CBC data. Current Interpretive Data was last revised on 2018. Lymphocyte pct 16.7 % [facility] Comment: Interpretive Data Percent cell count reference ranges are not reported, since discordance with absolute values may lead to misinterpretation of CBC data. Current Interpretive Data was last revised on 2018. Monocyte pct 7.8 % [facility] Comment: Interpretive Data Percent cell count reference ranges are not reported, since discordance with absolute values may lead to misinterpretation of CBC data. Current Interpretive Data was last revised on 2018. Eosinophil pct 1.7 % [facility] Comment: Interpretive Data Percent cell count reference ranges are not reported, since discordance with absolute values may lead to misinterpretation of CBC data. Current Interpretive Data was last revised on 2018. Basophil pct 0.4 % [facility] Comment: Interpretive Data Percent cell count reference ranges are not reported, since discordance with absolute values may lead to misinterpretation of CBC data. Current Interpretive Data was last revised on 2018. Blood 03/09/2025 10:0 8 PM CDT 03/09/2025 10:56 PM CDT us Mark Almanza MD PhD LAB BLOOD ORDE ROLANDA Final Result [facility] Department [place] [address] * (ABNORMAL) CBC with auto differential (03/09/2025 10:08 PM CDT) Pathologist [facility] WBC 7.80 3.80 - 9.90 K/cumm Hgb 13.3 13.0 - 17.5 g/dL [facility] Hct 39.5 38.9 - 50.3 % [facility] Plt 175 150 - 400 K/cumm [facility] MPV 13.8(H) 9.1 - 12.3 fL [facility] RBC 4.55 4.30 - 5.80 M/cumm [facility] MCV 86.8 81.3 - 96.4 fL [facility] MCH 29.2 27.1 - 33.3 pg [facility] MCHC 33.7 32.3 - 35.7 g/dL [facility] RDW CV 12.7 11.1 - 14.9 % [facility] RDW SD 40.5 35.7 - 48.1 fL [facility] NRBC abs 0.00 0.00 - 0.01 K/cumm [facility] Blood 03/09/2025 10:0 8 PM CDT 03/09/2025 10:56 PM CDT us Mark Almanza MD PhD LAB BLOOD ORDE ROLANDA Final Result [facility] Department [place] [address] * Phosphorus (03/09/2025 10:08 PM CDT) Pathologist [facility] Phosphorus, pl 3.0 2.3 - 4.5 mg/dL Blood 03/09/2025 10:0 8 PM CDT 03/09/2025 10:56 PM CDT us Chauncey Suárez MD PhD LAB BLOOD ORDERABLES Final Result [facility] Department [place] [address] * (ABNORMAL) Basic metabolic panel (03/09/2025 10:08 PM CDT) [facility] Sodium 139 135 - 145 mmol/L Potassium, pl 4.1 3.3 - 4.9 mmol/L [facility] Chloride 101 97 - 110 mmol/L [facility] CO2 26 22 - 32 mmol/L [facility] Anion gap 12 2 - 15 mmol/L [facility] BUN 15 6 - 25 mg/dL [facility] Creatinine 0.78(L) 0.80 - 1.30 mg/dL [facility] Glucose 101 70 - 199 mg/dL [facility] Comment: Interpretive Data Fasting glucose >/= 126 mg/dl is diagnostic for diabetes. Fasting is defined as no caloric intake for at least 8 hours. Fasting glucose between 100 mg/dl to 125 mg/dl is diagnostic of prediabetes. In a patient with classic symptoms of hyperglycemia or hyperglycemic crisis, a random glucose >/= 200 mg/dl is diagnostic for diabetes. In the absence of unequivocal hyperglycemia, results should be confirmed by repeat testing. The classification and Diagnosis of Diabetes Diabetes Care 202; 46: S19-S40. Current interpretive data was last revised 2022. Calcium 9.1 8.5 - 10.3 mg/dL [facility] Blood 03/09/2025 10:0 8 PM CDT 03/09/2025 10:56 PM CDT us Chauncey Suárez MD PhD LAB BLOOD ORDERABLES Final Result [facility] Department [place] [address] * eGFR (03/08/2025 10:27 PM CDT) [facility] eGFR >90 >=60 mL/min/1. 73 m2 Comment: Interpretive Data Reference Interval Normal >/= 90 mL/min/1.73m2 Mildly decreased* 60 - 89 mL/min/1.73m2 Mildly to moderately decreased 45 - 59 mL/min/1.73m2 Moderately to severely decreased 30 - 44 mL/min/1.73m2 Severely decreased 15 - 29 mL/min/1.73m2 Kidney Failure < 15 mL/min/1.73m2 *Relative to young adult level Estimated glomerular filtration rate is determined by the 2020 CKD-EPI equation recommended by the National Kidney Foundation (A Unifying Approach to GFR Estimation: Recommendations of the NKF-ASK Task Force on Reassessing the Inclusion of Race in Diagnosing Kidney Disease, JASN 2020). The CKD-EPI equation should not be used for patients with unstable renal function and has not been validated in children and those over 70. Current interpretive data was last reviewed 2021. Blood 03/08/2025 10:2 7 PM CDT 03/08/2025 11:35 PM CDT us Chauncey Suárez MD PhD LAB BLOOD ORDERABLES Final Result [facility] Department [place] [address] * Differential, auto (03/08/2025 10:27 PM CDT) Neutrophil abs 4.49 1.50 - 6.50 K/cumm Imm gran abs 0.04 0.00 - 0.10 K/cumm [facility] Lymphocyte abs 1.12 0.80 - 3.30 K/cumm [facility] Monocyte abs 0.63 0.20 - 0.80 K/cumm [facility] Eosinophil abs 0.14 0.00 - 0.50 K/cumm [facility] Basophil abs 0.02 0.00 - 0.10 K/cumm [facility] Neutrophil pct 69.7 % [facility] Comment: Interpretive Data Percent cell count reference ranges are not reported, since discordance with absolute values may lead to misinterpretation of CBC data. Current Interpretive Data was last revised on 2018. Imm gran pct 0.6 % [facility] Comment: Interpretive Data Percent cell count reference ranges are not reported, since discordance with absolute values may lead to misinterpretation of CBC data. Current Interpretive Data was last revised on 2018. Lymphocyte pct 17.4 % [facility] Comment: Interpretive Data Percent cell count reference ranges are not reported, since discordance with absolute values may lead to misinterpretation of CBC data. Current Interpretive Data was last revised on 2018. Monocyte pct 9.8 % [facility] Comment: Interpretive Data Percent cell count reference ranges are not reported, since discordance with absolute values may lead to misinterpretation of CBC data. Current Interpretive Data was last revised on 2018. Eosinophil pct 2.2 % [facility] Comment: Interpretive Data Percent cell count reference ranges are not reported, since discordance with absolute values may lead to misinterpretation of CBC data. Current Interpretive Data was last revised on 2018. Basophil pct 0.3 % [facility] Comment: Interpretive Data Percent cell count reference ranges are not reported, since discordance with absolute values may lead to misinterpretation of CBC data. Current Interpretive Data was last revised on 2018. Blood 03/08/2025 10:2 7 PM CDT 03/08/2025 11:35 PM CDT Mark Almanza MD PhD LAB BLOOD JORDIN ORANTES Final Result [facility] Department [place] [address] * (ABNORMAL) CBC with auto differential (03/08/2025 10:27 PM CDT) WBC 6.44 3.80 - 9.90 K/cumm Hgb 13.2 13.0 - 17.5 g/dL [facility] Hct 38.9 38.9 - 50.3 % [facility] Plt 143(L) 150 - 400 K/cumm [facility] MPV 13.9(H) 9.1 - 12.3 fL [facility] RBC 4.51 4.30 - 5.80 M/cumm [facility] MCV 86.3 81.3 - 96.4 fL [facility] MCH 29.3 27.1 - 33.3 pg [facility] MCHC 33.9 32.3 - 35.7 g/dL [facility] RDW CV 12.5 11.1 - 14.9 % [facility] RDW SD 39.3 35.7 - 48.1 fL [facility] NRBC abs 0.00 0.00 - 0.01 K/cumm [facility] Blood 03/08/2025 10:2 7 PM CDT 03/08/2025 11:35 PM CDT us Mark Almanza MD PhD LAB BLOOD ORDE RABLES Final Result [facility] Department [place] [address] * Phosphorus (03/08/2025 10:27 PM CDT) Pathologist [facility] Phosphorus, pl 2.4 2.3 - 4.5 mg/dL Blood 03/08/2025 10:2 7 PM CDT 03/08/2025 11:35 PM CDT us Chauncey Suárez MD PhD LAB BLOOD ORDERABLES Final Result [facility] Department [place] [address] * (ABNORMAL) Basic metabolic panel (03/08/2025 10:27 PM CDT) Pathologist [facility] Sodium 136 135 - 145 mmol/L Potassium, pl 4.3 3.3 - 4.9 mmol/L [facility] Comment:Hemolyzed; Potassium value may be falsely elevated by as much as 0.6-1.0 mmol/L. Suggest redraw and reanalysis. Chloride 101 97 - 110 mmol/L [facility] CO2 27 22 - 32 mmol/L [facility] Anion gap 8 2 - 15 mmol/L [facility] BUN 21 6 - 25 mg/dL [facility] Creatinine 0.72(L) 0.80 - 1.30 mg/dL [facility] Glucose 151 70 - 199 mg/dL [facility] Comment: Interpretive Data Fasting glucose >/= 126 mg/dl is diagnostic for diabetes. Fasting is defined as no caloric intake for at least 8 hours. Fasting glucose between 100 mg/dl to 125 mg/dl is diagnostic of prediabetes. In a patient with classic symptoms of hyperglycemia or hyperglycemic crisis, a random glucose >/= 200 mg/dl is diagnostic for diabetes. In the absence of unequivocal hyperglycemia, results should be confirmed by repeat testing. The classification and Diagnosis of Diabetes Diabetes Care 202; 46: S19-S40. Current interpretive data was last revised 2022. Calcium 8.7 8.5 - 10.3 mg/dL [facility] Blood 03/08/2025 10:2 7 PM CDT 03/08/2025 11:35 PM CDT us Chauncey Suárez MD PhD LAB BLOOD ORDERABLES Final Result [facility] Department [place] [address] * eGFR (03/07/2025 9:01 PM CDT) eGFR >90 >=60 mL/min/1. 73 m2 Comment: Interpretive Data Reference Interval Normal >/= 90 mL/min/1.73m2 Mildly decreased* 60 - 89 mL/min/1.73m2 Mildly to moderately decreased 45 - 59 mL/min/1.73m2 Moderately to severely decreased 30 - 44 mL/min/1.73m2 Severely decreased 15 - 29 mL/min/1.73m2 Kidney Failure < 15 mL/min/1.73m2 *Relative to young adult level Estimated glomerular filtration rate is determined by the 2020 CKD-EPI equation recommended by the National Kidney Foundation (A Unifying Approach to GFR Estimation: Recommendations of the NKF-ASK Task Force on Reassessing the Inclusion of Race in Diagnosing Kidney Disease, JASN 2020). The CKD-EPI equation should not be used for patients with unstable renal function and has not been validated in children and those over 70. Current interpretive data was last reviewed 2021. Blood 03/07/2025 9:01 PM CDT 03/07/2025 10:06 PM CDT us Chauncey Suárez MD PhD LAB BLOOD ORDERABLES Final Result [facility] Department [place] [address] * (ABNORMAL) Differential, auto (03/07/2025 9:01 PM CDT) Neutrophil abs 3.08 1.50 - 6.50 K/cumm Imm gran abs 0.02 0.00 - 0.10 K/cumm [facility] Lymphocyte abs 0.79(L) 0.80 - 3.30 K/cumm [facility] Monocyte abs 0.52 0.20 - 0.80 K/[facility]umm [facility] Eosinophil abs 0.05 0.00 - 0.50 K/cumm [facility] Basophil abs 0.02 0.00 - 0.10 K/cumm [facility] Neutrophil pct 68.9 % [facility] Comment: Interpretive Data Percent cell count reference ranges are not reported, since discordance with absolute values may lead to misinterpretation of CBC data. Current Interpretive Data was last revised on 2018. Imm gran pct 0.4 % [facility] Comment: Interpretive Data Percent cell count reference ranges are not reported, since discordance with absolute values may lead to misinterpretation of CBC data. Current Interpretive Data was last revised on 2018. Lymphocyte pct 17.6 % [facility] Comment: Interpretive Data Percent cell count reference ranges are not reported, since discordance with absolute values may lead to misinterpretation of CBC data. Current Interpretive Data was last revised on 2018. Monocyte pct 11.6 % [facility] Comment: Interpretive Data Percent cell count reference ranges are not reported, since discordance with absolute values may lead to misinterpretation of CBC data. Current Interpretive Data was last revised on 2018. Eosinophil pct 1.1 % [facility] Comment: Interpretive Data Percent cell count reference ranges are not reported, since discordance with absolute values may lead to misinterpretation of CBC data. Current Interpretive Data was last revised on 2018. Basophil pct 0.4 % [facility] Comment: Interpretive Data Percent cell count reference ranges are not reported, since discordance with absolute values may lead to misinterpretation of CBC data. Current Interpretive Data was last revised on 2018. Blood 03/07/2025 9:01 PM CDT 03/07/2025 10:08 PM CDT Mark Almanza MD PhD LAB BLOOD ORDE ROLANDA Final Result [facility] Department [place] [address] * (ABNORMAL) CBC with auto differential (03/07/2025 9:01 PM CDT) WBC 4.48 3.80 - 9.90 K/cumm Hgb 13.4 13.0 - 17.5 g/dL [facility] Hct 40.4 38.9 - 50.3 % [facility] Plt 142(L) 150 - 400 K/cumm [facility] MPV 13.3(H) 9.1 - 12.3 fL [facility] RBC 4.63 4.30 - 5.80 M/cumm [facility] MCV 87.3 81.3 - 96.4 fL [facility] MCH 28.9 27.1 - 33.3 pg [facility] MCHC 33.2 32.3 - 35.7 g/dL [facility] RDW CV 12.7 11.1 - 14.9 % [facility] RDW SD 40.5 35.7 - 48.1 fL [facility] NRBC abs 0.00 0.00 - 0.01 K/cumm [facility] Blood 03/07/2025 9:01 PM CDT 03/07/2025 10:08 PM CDT us Mark Almanza MD PhD LAB BLOOD JORDIN ORANTES Final Result [facility] Department [place] [address] * Phosphorus (03/07/2025 9:01 PM CDT) [facility] Phosphorus, pl 2.6 2.3 - 4.5 mg/dL Blood 03/07/2025 9:01 PM CDT 03/07/2025 10:06 PM CDT Chauncey Suárez MD PhD LAB BLOOD ORDERABLES Final Result Performing Organization Address [facility] Co de Phone Number [facility] Department [place] [address] * (ABNORMAL) Basic metabolic panel (03/07/2025 9:01 PM CDT) [facility] Sodium 138 135 - 145 mmol/L Potassium, pl 3.8 3.3 - 4.9 mmol/L [facility] Chloride 105 97 - 110 mmol/L [facility] CO2 27 22 - 32 mmol/L [facility] Anion gap 6 2 - 15 mmol/L [facility] BUN 19 6 - 25 mg/dL [facility] Creatinine 0.67(L) 0.80 - 1.30 mg/dL [facility] Glucose 105 70 - 199 mg/dL [facility] Comment: Interpretive Data Fasting glucose >/= 126 mg/dl is diagnostic for diabetes. Fasting is defined as no caloric intake for at least 8 hours. Fasting glucose between 100 mg/dl to 125 mg/dl is diagnostic of prediabetes. In a patient with classic symptoms of hyperglycemia or hyperglycemic crisis, a random glucose >/= 200 mg/dl is diagnostic for diabetes. In the absence of unequivocal hyperglycemia, results should be confirmed by repeat testing. The classification and Diagnosis of Diabetes Diabetes Care 202; 46: S19-S40. Current interpretive data was last revised 2022. Calcium 9.1 8.5 - 10.3 mg/dL [facility] Blood 03/07/2025 9:01 PM CDT 03/07/2025 10:06 PM CDT Chauncey Suárez MD PhD LAB BLOOD ORDERABLES Final Result Performing Organization Address City/[facility]/ZIP Co de Phone Number [facility] Department [place] [address] * eGFR (03/06/2025 10:12 PM CDT) eGFR >90 >=60 mL/min/1. 73 m2 Comment: Interpretive Data Reference Interval Normal >/= 90 mL/min/1.73m2 Mildly decreased* 60 - 89 mL/min/1.73m2 Mildly to moderately decreased 45 - 59 mL/min/1.73m2 Moderately to severely decreased 30 - 44 mL/min/1.73m2 Severely decreased 15 - 29 mL/min/1.73m2 Kidney Failure < 15 mL/min/1.73m2 *Relative to young adult level Estimated glomerular filtration rate is determined by the 2020 CKD-EPI equation recommended by the National Kidney Foundation (A Unifying Approach to GFR Estimation: Recommendations of the NKF-ASK Task Force on Reassessing the Inclusion of Race in Diagnosing Kidney Disease, JASN 2020). The CKD-EPI equation should not be used for patients with unstable renal function and has not been validated in children and those over 70. Current interpretive data was last reviewed 2021. Blood 03/06/2025 10:1 2 PM CDT 03/06/2025 10:37 PM CDT us Chauncey Suárez MD PhD LAB BLOOD ORDERABLES Final Result [facility] Department [place] [address] * (ABNORMAL) Differential, auto (03/06/2025 10:12 PM CDT) Pathologist [facility] Neutrophil abs 5.62 1.50 - 6.50 K/cumm Imm gran abs 0.03 0.00 - 0.10 K/cumm [facility] Lymphocyte abs 0.30(L) 0.80 - 3.30 K/cumm [facility] Monocyte abs 0.38 0.20 - 0.80 K/cumm [facility] Eosinophil abs 0.01 0.00 - 0.50 K/cumm [facility] Basophil abs 0.02 0.00 - 0.10 K/cumm [facility] Neutrophil pct 88.3 % [facility] Comment: Interpretive Data Percent cell count reference ranges are not reported, since discordance with absolute values may lead to misinterpretation of CBC data. Current Interpretive Data was last revised on 2018. Imm gran pct 0.5 % [facility] Comment: Interpretive Data Percent cell count reference ranges are not reported, since discordance with absolute values may lead to misinterpretation of CBC data. Current Interpretive Data was last revised on 2018. Lymphocyte pct 4.7 % [facility] Comment: Interpretive Data Percent cell count reference ranges are not reported, since discordance with absolute values may lead to misinterpretation of CBC data. Current Interpretive Data was last revised on 2018. Monocyte pct 6.0 % [facility] Comment: Interpretive Data Percent cell count reference ranges are not reported, since discordance with absolute values may lead to misinterpretation of CBC data. Current Interpretive Data was last revised on 2018. Eosinophil pct 0.2 % [facility] Comment: Interpretive Data Percent cell count reference ranges are not reported, since discordance with absolute values may lead to misinterpretation of CBC data. Current Interpretive Data was last revised on 2018. Basophil pct 0.3 % [facility] Comment: Interpretive Data Percent cell count reference ranges are not reported, since discordance with absolute values may lead to misinterpretation of CBC data. Current Interpretive Data was last revised on 2018. Blood 03/06/2025 10:1 2 PM CDT 03/06/2025 10:36 PM CDT us Mark Almanza MD PhD LAB BLOOD ORDE ROLANDA Final Result Performing Organization Address City/[facility]/ZIP Co de Phone Number [facility] [place] [address] * (ABNORMAL) CBC with auto differential (03/06/2025 10:12 PM CDT) Pathologist [facility] WBC 6.36 3.80 - 9.90 K/cumm Hgb 14.0 13.0 - 17.5 g/dL [facility] Hct 42.2 38.9 - 50.3 % [facility] Plt 126(L) 150 - 400 K/cumm [facility] MPV 13.4(H) 9.1 - 12.3 fL [facility] RBC 4.76 4.30 - 5.80 M/cumm [facility] MCV 88.7 81.3 - 96.4 fL [facility] MCH 29.4 27.1 - 33.3 pg [facility] MCHC 33.2 32.3 - 35.7 g/dL [facility] RDW CV 12.6 11.1 - 14.9 % [facility] RDW SD 40.6 35.7 - 48.1 fL [facility] NRBC abs 0.00 0.00 - 0.01 K/cumm [facility] Blood 03/06/2025 10:1 2 PM CDT 03/06/2025 10:36 PM CDT us Mark Almanza MD PhD LAB BLOOD ORDE ROLANDA Final Result [facility] Department [place] [address] * Phosphorus (03/06/2025 10:12 PM CDT) Pathologist [facility] Phosphorus, pl 2.9 2.3 - 4.5 mg/dL Blood 03/06/2025 10:1 2 PM CDT 03/06/2025 10:37 PM CDT us Chauncey Suárez MD PhD LAB BLOOD ORDERABLES Final Result [facility] Department [place] [address] * (ABNORMAL) Basic metabolic panel (03/06/2025 10:12 PM CDT) Pathologist [facility] Sodium 139 135 - 145 mmol/L Potassium, pl 4.2 3.3 - 4.9 mmol/L [facility] Chloride 104 97 - 110 mmol/L [facility] CO2 25 22 - 32 mmol/L [facility] Anion gap 10 2 - 15 mmol/L [facility] BUN 21 6 - 25 mg/dL [facility] Creatinine 0.79(L) 0.80 - 1.30 mg/dL [facility] Glucose 123 70 - 199 mg/dL [facility] Comment: Interpretive Data Fasting glucose >/= 126 mg/dl is diagnostic for diabetes. Fasting is defined as no caloric intake for at least 8 hours. Fasting glucose between 100 mg/dl to 125 mg/dl is diagnostic of prediabetes. In a patient with classic symptoms of hyperglycemia or hyperglycemic crisis, a random glucose >/= 200 mg/dl is diagnostic for diabetes. In the absence of unequivocal hyperglycemia, results should be confirmed by repeat testing. The classification and Diagnosis of Diabetes Diabetes Care 202; 46: S19-S40. Current interpretive data was last revised 2022. Calcium 8.9 8.5 - 10.3 mg/dL [facility] Blood 03/06/2025 10:1 2 PM CDT 03/06/2025 10:37 PM CDT us Chauncey Suárez MD PhD LAB BLOOD ORDERABLES Final Result Performing Organization Address City/[facility]/ZIP Co de Phone Number [facility] Department [place] [address] * Continuous Video EEG (03/06/2025 1:45 PM CDT) Anatomical Region Laterality Modality EEG Narrative 03/08/2025 4:37 PM CDT Video-EEG Report Patient Name: John Arita [facility] Medical Record Number (MRN): [id number] [facility] Record: [id number] Date of (): 1955 Ordering Provider: Dr. Almanza CC: Kamran Rowland Start Time: 03/05/2025 12:02:43 PM End Time: 03/06/2025 1:10:54 PM Introduction: Mr. Arita is a 69 y.o. male with Parkinson's disease and bipolar disorder who presented with several weeks of altered mentation, delusions, AVH, and increased stiffness. The EEG was performed to evaluate for seizures. This is a report of continuous video-EEG monitoring. High definition digital video and digital EEG were recorded continuously with a [employer] EEG acquisition system. This was a 32 channel EEG with additional anterior temporal electrodes. Electrodes were placed with collodion following the 10/20 International System. The patient was monitored and observed continuously by technical personnel. Digital seizure and spike detection were utilized during the recording. EEG description: Epoch 1 : 03/05/2025 12:02:43 PM to 08:00:00 AM BACKGROUND: The awake background was continuous, symmetric, and well organized and included an 8-9 Hz posterior dominant rhythm which attenuated with eye opening and activity. Excess diffuse theta and delta activity occurred throughout the study intermittently. Drowsiness was demonstrated by emergence of diffuse polymorphic theta frequencies and dropout of myogenic artifacts. Prominent wicket spikes were present and best appreciated in the bilateral temporal electrodes. As the record progressed, stage II sleep was identified by vertex waves, sleep spindles and K-complexes. During the recording, there were changes consistent with light and deep sleep stages. The record showed variability. Hyperventilation and photic strobe stimulation were not performed. SPORADIC DISCHARGES: None. PERIODIC OR RHYTHMIC PATTERNS: None. SEIZURES: None. EVENTS: Event button was pressed on 03/05/2025 at 13:31:33 for unclear reason based on review of the video. No epileptiform activity or change in EEG background occurred during this time. EKG: No significant dysrhythmia. Epoch 2 : 03/06/2025 08:00 AM to 1:10:54 PM BACKGROUND: The awake background included a 8-9 Hz posterior dominant rhythm which attenuated with eye opening and activity. Mild excess diffuse delta activity occurred throughout the study. During drowsiness, identified by ocular signs and alpha attenuation, there was intermittent, diffuse, asynchronous theta activity admixed with 2-4 Hz polymorphic frontotemporal delta activity. Sleep was not present during this epoch. The record showed variability. Hyperventilation and photic strobe stimulation were not performed. SPORADIC DISCHARGES: None. PERIODIC OR RHYTHMIC PATTERNS: None. SEIZURES: None. EVENTS: None EKG: No significant dysrhythmia. Interpretation: No clinical or electrographic seizures were recorded during this study. There was no significant EEG change during the recorded event. The interictal EEG was abnormal due to mild generalized slowing. Generalized slowing indicates diffuse cerebral dysfunction as seen in metabolic, toxic, or diffuse or multifocal structural abnormalities. Genaro Sky M.D.,Ph.D. Pediatric Epilepsy Fellow, PGY6 By signing this report, the attending Electroencephalographer certifies that he/she personally reviewed the electrodiagnostics study and has edited this report to fully conform with his/her intent. Signing Attending: Joshua Sage MD us Mark Almanza MD PhD NEUROLOGY JORDIN ORANTES Final Result * eGFR (03/05/2025 9:12 PM CDT) eGFR >90 >=60 mL/min/1. 73 m2 Comment: Interpretive Data Reference Interval Normal >/= 90 mL/min/1.73m2 Mildly decreased* 60 - 89 mL/min/1.73m2 Mildly to moderately decreased 45 - 59 mL/min/1.73m2 Moderately to severely decreased 30 - 44 mL/min/1.73m2 Severely decreased 15 - 29 mL/min/1.73m2 Kidney Failure < 15 mL/min/1.73m2 *Relative to young adult level Estimated glomerular filtration rate is determined by the 2020 CKD-EPI equation recommended by the National Kidney Foundation (A Unifying Approach to GFR Estimation: Recommendations of the NKF-ASK Task Force on Reassessing the Inclusion of Race in Diagnosing Kidney Disease, JASN 2020). The CKD-EPI equation should not be used for patients with unstable renal function and has not been validated in children and those over 70. Current interpretive data was last reviewed 2021. Blood 03/05/2025 9:12 PM CDT 03/05/2025 9:49 PM CDT us Chauncey Suárez MD PhD LAB BLOOD ORDERABLES Final Result [facility] Department [place] [address] * Differential, auto (03/05/2025 9:12 PM CDT) Neutrophil abs 6.45 1.50 - 6.50 K/cumm Imm gran abs 0.04 0.00 - 0.10 K/cumm [facility] Lymphocyte abs 1.53 0.80 - 3.30 K/cumm [facility] Monocyte abs 0.47 0.20 - 0.80 K/cumm [facility] Eosinophil abs 0.17 0.00 - 0.50 K/cumm [facility] Basophil abs 0.02 0.00 - 0.10 K/cumm [facility] Neutrophil pct 74.3 % [facility] Comment: Interpretive Data Percent cell count reference ranges are not reported, since discordance with absolute values may lead to misinterpretation of CBC data. Current Interpretive Data was last revised on 2018. Imm gran pct 0.5 % [facility] Comment: Interpretive Data Percent cell count reference ranges are not reported, since discordance with absolute values may lead to misinterpretation of CBC data. Current Interpretive Data was last revised on 2018. Lymphocyte pct 17.6 % [facility] Comment: Interpretive Data Percent cell count reference ranges are not reported, since discordance with absolute values may lead to misinterpretation of CBC data. Current Interpretive Data was last revised on 2018. Monocyte pct 5.4 % [facility] Comment: Interpretive Data Percent cell count reference ranges are not reported, since discordance with absolute values may lead to misinterpretation of CBC data. Current Interpretive Data was last revised on 2018. Eosinophil pct 2.0 % [facility] Comment: Interpretive Data Percent cell count reference ranges are not reported, since discordance with absolute values may lead to misinterpretation of CBC data. Current Interpretive Data was last revised on 2018. Basophil pct 0.2 % [facility] Comment: Interpretive Data Percent cell count reference ranges are not reported, since discordance with absolute values may lead to misinterpretation of CBC data. Current Interpretive Data was last revised on 2018. Blood 03/05/2025 9:12 PM CDT 03/05/2025 9:48 PM CDT us Mark Almanza MD PhD LAB BLOOD ORDMichael GELLERAUNDREA Final Result [facility] Department [place] [address] * (ABNORMAL) CBC with auto differential (03/05/2025 9:12 PM CDT) WBC 8.68 3.80 - 9.90 K/cumm Hgb 15.3 13.0 - 17.5 g/dL [facility] Hct 45.6 38.9 - 50.3 % [facility] Plt 186 150 - 400 K/cumm [facility] MPV 13.8(H) 9.1 - 12.3 fL [facility] RBC 5.25 4.30 - 5.80 M/cumm [facility] MCV 86.9 81.3 - 96.4 fL [facility] MCH 29.1 27.1 - 33.3 pg [facility] MCHC 33.6 32.3 - 35.7 g/dL [facility] RDW CV 12.4 11.1 - 14.9 % [facility] RDW SD 39.6 35.7 - 48.1 fL [facility] NRBC abs 0.00 0.00 - 0.01 K/cumm [facility] Blood 03/05/2025 9:12 PM CDT 03/05/2025 9:48 PM CDT us Mark Almanza MD PhD LAB BLOOD ORDMichael ORANTES Final Result [facility] [place] [address] * Phosphorus (03/05/2025 9:12 PM CDT) [facility] Phosphorus, pl 3.3 2.3 - 4.5 mg/dL Blood 03/05/2025 9:12 PM CDT 03/05/2025 9:49 PM CDT us Chauncey Suárez MD PhD LAB BLOOD ORDERABLES Final Result Performing Organization Address City/[facility]/ZIP Co de Phone Number [facility] [place] [address] * Magnesium (03/05/2025 9:12 PM CDT) [facility] Magnesium 2.2 1.4 - 2.5 mg/dL Blood 03/05/2025 9:12 PM CDT 03/05/2025 9:49 PM CDT Chauncey Suárez MD PhD LAB BLOOD ORDERABLES Final Result Performing Organization Address City/[facility] Co de Phone Number [facility] [place] [address] * Basic metabolic panel (03/05/2025 9:12 PM CDT) [facility] Sodium 144 135 - 145 mmol/L Potassium, pl 4.2 3.3 - 4.9 mmol/L [facility] Chloride 103 97 - 110 mmol/L [facility] CO2 28 22 - 32 mmol/L [facility] Anion gap 13 2 - 15 mmol/L [facility] BUN 20 6 - 25 mg/dL [facility] Creatinine 0.80 0.80 - 1.30 mg/dL [facility] Glucose 110 70 - 199 mg/dL [facility] Comment: Interpretive Data Fasting glucose >/= 126 mg/dl is diagnostic for diabetes. Fasting is defined as no caloric intake for at least 8 hours. Fasting glucose between 100 mg/dl to 125 mg/dl is diagnostic of prediabetes. In a patient with classic symptoms of hyperglycemia or hyperglycemic crisis, a random glucose >/= 200 mg/dl is diagnostic for diabetes. In the absence of unequivocal hyperglycemia, results should be confirmed by repeat testing. The classification and Diagnosis of Diabetes Diabetes Care 2021; 46: S19-S40. Current interpretive data was last revised 2022. Calcium 9.8 8.5 - 10.3 mg/dL [facility] Blood 03/05/2025 9:12 PM CDT 03/05/2025 9:49 PM CDT us Chauncey Suárez MD PhD LAB BLOOD ORDERABLES Final Result [facility] Department [place] [address] * MRI Brain W WO Contrast (03/05/2025 7:02 PM CDT) Anatomical Region Laterality Modality Head and Neck N/A Magnetic Resonan ce 03/06/2025 10:3 9 AM CDT Impressions 03/06/2025 11:35 AM CDT No MR evidence of acute intracranial abnormality. Dictated by: Marilu Evans DO The radiology attending physician has personally reviewed this study, and had reviewed and/or edited this written report and agrees with it. Electronically signed by: Jeannette Gross M.D. Narrative 03/06/2025 11:35 AM CDT EXAMINATION: Magnetic resonance imaging (MRI) of the brain and brainstem without and with contrast HISTORY: 69-year-old male with history of Parkinson's disease and bipolar disorder presenting with cognitive decline and psychosis over the past 3-4 weeks. Also with increased paratonia. TECHNIQUE: Multiplanar multi-weighted MRI of the brain and brainstem was performed without and with intravenous contrast using the general brain protocol. Contrast information: 12 mL Gadoterate Meglumine IV COMPARISON: CT head 03/01/2025 FINDINGS: Diffusion weighted images reveal no hyperintensities to suggest acute cerebral infarction. The susceptibility weighted sequences reveal no evidence of acute or chronic hemorrhage. The ventricles are normal in size and position without evidence of hydrocephalus. Mild generalized parenchymal volume loss. Mild periventricular, subcortical, and deep white matter T2/FLAIR hyperintensities are nonspecific but likely represent chronic small vessel ischemic changes. Posterior neck sebaceous cyst. EEG leads overlie the scalp. The superior sagittal sinus demonstrates normal venous flow. The corpus callosum is normal in shape and signal intensity. The posterior fossa is unremarkable. The pituitary and sella are normal. Pannus posterior to the dens at the axial joint without canal stenosis. The paranasal sinuses are normal. The visualized portions of the mastoids are unremarkable. The orbits appear normal. Normal flow voids are demonstrated in the carotid arteries and basilar artery. There is no abnormal contrast enhancement. Suboccipital cutaneous sebaceous cyst. Procedure Note Jeannette Patricia MD - 03/06/2025 EXAMINATION: Magnetic resonance imaging (MRI) of the brain and brainstem without and with contrast HISTORY: 69-year-old male with history of Parkinson's disease and bipolar disorder presenting with cognitive decline and psychosis over the past 3-4 weeks. Also with increased paratonia. TECHNIQUE: Multiplanar multi-weighted MRI of the brain and brainstem was performed without and with intravenous contrast using the general brain protocol. Contrast information: 12 mL Gadoterate Meglumine IV COMPARISON: CT head 03/01/2025 FINDINGS: Diffusion weighted images reveal no hyperintensities to suggest acute cerebral infarction. The susceptibility weighted sequences reveal no evidence of acute or chronic hemorrhage. The ventricles are normal in size and position without evidence of hydrocephalus. Mild generalized parenchymal volume loss. Mild periventricular, subcortical, and deep white matter T2/FLAIR hyperintensities are nonspecific but likely represent chronic small vessel ischemic changes. Posterior neck sebaceous cyst. EEG leads overlie the scalp. The superior sagittal sinus demonstrates normal venous flow. The corpus callosum is normal in shape and signal intensity. The posterior fossa is unremarkable. The pituitary and sella are normal. Pannus posterior to the dens at the axial joint without canal stenosis. The paranasal sinuses are normal. The visualized portions of the mastoids are unremarkable. The orbits appear normal. Normal flow voids are demonstrated in the carotid arteries and basilar artery. There is no abnormal contrast enhancement. Suboccipital cutaneous sebaceous cyst. IMPRESSION: No MR evidence of acute intracranial abnormality. Dictated by: Marilu Evans DO The radiology attending physician has personally reviewed this study, and had reviewed and/or edited this written report and agrees with it. Electronically signed by: Jeannette Gross M.D. us Mark Almanza MD PhD IMG MRI PROCED URES Final Result * eGFR (03/04/2025 9:24 PM CDT) eGFR >90 >=60 mL/min/1. 73 m2 Comment: Interpretive Data Reference Interval Normal >/= 90 mL/min/1.73m2 Mildly decreased* 60 - 89 mL/min/1.73m2 Mildly to moderately decreased 45 - 59 mL/min/1.73m2 Moderately to severely decreased 30 - 44 mL/min/1.73m2 Severely decreased 15 - 29 mL/min/1.73m2 Kidney Failure < 15 mL/min/1.73m2 *Relative to young adult level Estimated glomerular filtration rate is determined by the 2020 CKD-EPI equation recommended by the National Kidney Foundation (A Unifying Approach to GFR Estimation: Recommendations of the NKF-ASK Task Force on Reassessing the Inclusion of Race in Diagnosing Kidney Disease, JASN 2020). The CKD-EPI equation should not be used for patients with unstable renal function and has not been validated in children and those over 70. Current interpretive data was last reviewed 2021. Blood 03/04/2025 9:24 PM CDT 03/04/2025 9:50 PM CDT us Chauncey Suárez MD PhD LAB BLOOD ORDERABLES Final Result [facility] Department of Laboratories [place], [place] [id number] * Differential, auto (03/04/2025 9:24 PM CDT) Neutrophil abs 5.76 1.50 - 6.50 K/cumm Imm gran abs 0.03 0.00 - 0.10 K/cumm [facility] Lymphocyte abs 1.49 0.80 - 3.30 K/cumm [facility] Monocyte abs 0.59 0.20 - 0.80 K/cumm [facility] Eosinophil abs 0.16 0.00 - 0.50 K/cumm [facility] Basophil abs 0.03 0.00 - 0.10 K/cumm [facility] Neutrophil pct 71.4 % [facility] Comment: Interpretive Data Percent cell count reference ranges are not reported, since discordance with absolute values may lead to misinterpretation of CBC data. Current Interpretive Data was last revised on 2018. Imm gran pct 0.4 % [facility] Comment: Interpretive Data Percent cell count reference ranges are not reported, since discordance with absolute values may lead to misinterpretation of CBC data. Current Interpretive Data was last revised on 2018. Lymphocyte pct 18.5 % [facility] Comment: Interpretive Data Percent cell count reference ranges are not reported, since discordance with absolute values may lead to misinterpretation of CBC data. Current Interpretive Data was last revised on 2018. Monocyte pct 7.3 % [facility] Comment: Interpretive Data Percent cell count reference ranges are not reported, since discordance with absolute values may lead to misinterpretation of CBC data. Current Interpretive Data was last revised on 2018. Eosinophil pct 2.0 % [facility] Comment: Interpretive Data Percent cell count reference ranges are not reported, since discordance with absolute values may lead to misinterpretation of CBC data. Current Interpretive Data was last revised on 2018. Basophil pct 0.4 % [facility] Comment: Interpretive Data Percent cell count reference ranges are not reported, since discordance with absolute values may lead to misinterpretation of CBC data. Current Interpretive Data was last revised on 2018. Blood 03/04/2025 9:24 PM CDT 03/04/2025 9:50 PM CDT us Mark Almanza MD PhD LAB BLOOD ORDMichael ORANTES Final Result Performing Organization Address City/State/[facility] de Phone Number [facility] Department [place] [address] * (ABNORMAL) CBC with auto differential (03/04/2025 9:24 PM CDT) [facility] WBC 8.06 3.80 - 9.90 K/cumm Hgb 14.2 13.0 - 17.5 g/dL [facility] Hct 41.9 38.9 - 50.3 % [facility] Plt 177 150 - 400 K/cumm [facility] MPV 13.1(H) 9.1 - 12.3 fL [facility] RBC 4.74 4.30 - 5.80 M/cumm [facility] MCV 88.4 81.3 - 96.4 fL [facility] MCH 30.0 27.1 - 33.3 pg [facility] MCHC 33.9 32.3 - 35.7 g/dL [facility] RDW CV 12.6 11.1 - 14.9 % [facility] RDW SD 40.5 35.7 - 48.1 fL [facility] NRBC abs 0.00 0.00 - 0.01 K/cumm [facility] Blood 03/04/2025 9:24 PM CDT 03/04/2025 9:50 PM CDT us Mark Almanza MD PhD LAB BLOOD JORDIN ORANTES Final Result Performing Organization Address [place] [facility] Co de Phone Number [facility] Department [place] [address] * Phosphorus (03/04/2025 9:24 PM CDT) [facility] Phosphorus, pl 3.0 2.3 - 4.5 mg/dL Blood 03/04/2025 9:24 PM CDT 03/04/2025 9:50 PM CDT us Chauncey Suárez MD PhD LAB BLOOD ORDERABLES Final Result [facility] Department [place] [address] * Magnesium (03/04/2025 9:24 PM CDT) [facility] Magnesium 2.2 1.4 - 2.5 mg/dL Blood 03/04/2025 9:24 PM CDT 03/04/2025 9:50 PM CDT us Chauncey Suárez MD PhD LAB BLOOD ORDERABLES Final Result Performing Organization Address City/[facility] Co de Phone Number [facility] [place] [address] * Basic metabolic panel (03/04/2025 9:24 PM CDT) [facility] Sodium 142 135 - 145 mmol/L Potassium, pl 4.1 3.3 - 4.9 mmol/L [facility] Chloride 106 97 - 110 mmol/L [facility] CO2 27 22 - 32 mmol/L [facility] Anion gap 9 2 - 15 mmol/L [facility] BUN 25 6 - 25 mg/dL [facility] Creatinine 0.85 0.80 - 1.30 mg/dL [facility] Glucose 164 70 - 199 mg/dL [facility] Comment: Interpretive Data Fasting glucose >/= 126 mg/dl is diagnostic for diabetes. Fasting is defined as no caloric intake for at least 8 hours. Fasting glucose between 100 mg/dl to 125 mg/dl is diagnostic of prediabetes. In a patient with classic symptoms of hyperglycemia or hyperglycemic crisis, a random glucose >/= 200 mg/dl is diagnostic for diabetes. In the absence of unequivocal hyperglycemia, results should be confirmed by repeat testing. The classification and Diagnosis of Diabetes Diabetes Care 2021; 46: S19-S40. Current interpretive data was last revised 2022. Calcium 9.7 8.5 - 10.3 mg/dL [facility] Blood 03/04/2025 9:24 PM CDT 03/04/2025 9:50 PM CDT Chauncey Suárez MD PhD LAB BLOOD ORDERABLES Final Result Performing Organization Address City/[facility] de Phone Number [facility] Department [place] [address] * eGFR (03/03/2025 9:06 PM CDT) Pathologist [facility] eGFR >90 >=60 mL/min/1. 73 m2 Comment: Interpretive Data Reference Interval Normal >/= 90 mL/min/1.73m2 Mildly decreased* 60 - 89 mL/min/1.73m2 Mildly to moderately decreased 45 - 59 mL/min/1.73m2 Moderately to severely decreased 30 - 44 mL/min/1.73m2 Severely decreased 15 - 29 mL/min/1.73m2 Kidney Failure < 15 mL/min/1.73m2 *Relative to young adult level Estimated glomerular filtration rate is determined by the 2020 CKD-EPI equation recommended by the National Kidney Foundation (A Unifying Approach to GFR Estimation: Recommendations of the NKF-ASK Task Force on Reassessing the Inclusion of Race in Diagnosing Kidney Disease, JASN 2020). The CKD-EPI equation should not be used for patients with unstable renal function and has not been validated in children and those over 70. Current interpretive data was last reviewed 2021. Blood 03/03/2025 9:06 PM CDT 03/03/2025 9:35 PM CDT us Chauncey Suárez MD PhD LAB BLOOD ORDERABLES Final Result Performing Organization Address City/[facility]/ZIP Co de Phone Number [facility] Department [place] [address] * Differential, auto (03/03/2025 9:06 PM CDT) Pathologist [facility] Neutrophil abs 6.18 1.50 - 6.50 K/cumm Imm gran abs 0.03 0.00 - 0.10 K/cumm [facility] Lymphocyte abs 1.54 0.80 - 3.30 K/cumm [facility] Monocyte abs 0.67 0.20 - 0.80 K/cumm [facility] Eosinophil abs 0.13 0.00 - 0.50 K/cumm [facility] Basophil abs 0.04 0.00 - 0.10 K/cumm [facility] Neutrophil pct 72.0 % [facility] Comment: Interpretive Data Percent cell count reference ranges are not reported, since discordance with absolute values may lead to misinterpretation of CBC data. Current Interpretive Data was last revised on 2018. Imm gran pct 0.3 % [facility] Comment: Interpretive Data Percent cell count reference ranges are not reported, since discordance with absolute values may lead to misinterpretation of CBC data. Current Interpretive Data was last revised on 2018. Lymphocyte pct 17.9 % [facility] Comment: Interpretive Data Percent cell count reference ranges are not reported, since discordance with absolute values may lead to misinterpretation of CBC data. Current Interpretive Data was last revised on 2018. Monocyte pct 7.8 % [facility] Comment: Interpretive Data Percent cell count reference ranges are not reported, since discordance with absolute values may lead to misinterpretation of CBC data. Current Interpretive Data was last revised on 2018. Eosinophil pct 1.5 % [facility] Comment: Interpretive Data Percent cell count reference ranges are not reported, since discordance with absolute values may lead to misinterpretation of CBC data. Current Interpretive Data was last revised on 2018. Basophil pct 0.5 % [facility] Comment: Interpretive Data Percent cell count reference ranges are not reported, since discordance with absolute values may lead to misinterpretation of CBC data. Current Interpretive Data was last revised on 2018. Blood 03/03/2025 9:06 PM CDT 03/03/2025 9:35 PM CDT us Mark Almanza MD PhD LAB BLOOD JORDIN ORANTES Final Result [facility] Department [place] [address] * (ABNORMAL) CBC with auto differential (03/03/2025 9:06 PM CDT) [facility] WBC 8.59 3.80 - 9.90 K/cumm Hgb 14.0 13.0 - 17.5 g/dL [facility] Hct 41.8 38.9 - 50.3 % [facility] Plt 187 150 - 400 K/cumm [facility] MPV 13.1(H) 9.1 - 12.3 fL [facility] RBC 4.71 4.30 - 5.80 M/cumm [facility] MCV 88.7 81.3 - 96.4 fL [facility] MCH 29.7 27.1 - 33.3 pg [facility] MCHC 33.5 32.3 - 35.7 g/dL [facility] RDW CV 12.7 11.1 - 14.9 % [facility] RDW SD 41.2 35.7 - 48.1 fL [facility] NRBC abs 0.00 0.00 - 0.01 K/cumm [facility] Blood 03/03/2025 9:06 PM CDT 03/03/2025 9:35 PM CDT us Mark Almanza MD PhD LAB BLOOD ORDMichael ORANTES Final Result Performing Organization Address City/[facility]/ZIP Co de Phone Number [facility] Department [place] [address] * Phosphorus (03/03/2025 9:06 PM CDT) [facility] Phosphorus, pl 2.6 2.3 - 4.5 mg/dL Blood 03/03/2025 9:06 PM CDT 03/03/2025 9:35 PM CDT us Chauncey Suárez MD PhD LAB BLOOD ORDERABLES Final Result Performing Organization Address City/[facility]/ZIP Co de Phone Number [facility] [place] [address] * Magnesium (03/03/2025 9:06 PM CDT) Pathologist [facility] Magnesium 2.1 1.4 - 2.5 mg/dL Blood 03/03/2025 9:06 PM CDT 03/03/2025 9:35 PM CDT Chauncey Suárez MD PhD LAB BLOOD ORDERABLES Final Result [facility] Department [place] [address] * (ABNORMAL) Basic metabolic panel (03/03/2025 9:06 PM CDT) Pathologist [facility] Sodium 140 135 - 145 mmol/L Potassium, pl 4.3 3.3 - 4.9 mmol/L [facility] Comment:Hemolyzed; Potassium value may be falsely elevated by as much as 0.3-0.5 mmol/L. Suggest redraw and reanalysis. Chloride 105 97 - 110 mmol/L [facility] CO2 27 22 - 32 mmol/L [facility] Anion gap 8 2 - 15 mmol/L [facility] BUN 26(H) 6 - 25 mg/dL [facility] Creatinine 0.80 0.80 - 1.30 mg/dL [facility] Glucose 136 70 - 199 mg/dL [facility] Comment: Interpretive Data Fasting glucose >/= 126 mg/dl is diagnostic for diabetes. Fasting is defined as no caloric intake for at least 8 hours. Fasting glucose between 100 mg/dl to 125 mg/dl is diagnostic of prediabetes. In a patient with classic symptoms of hyperglycemia or hyperglycemic crisis, a random glucose >/= 200 mg/dl is diagnostic for diabetes. In the absence of unequivocal hyperglycemia, results should be confirmed by repeat testing. The classification and Diagnosis of Diabetes Diabetes Care 202; 46: S19-S40. Current interpretive data was last revised 2022. Calcium 9.5 8.5 - 10.3 mg/dL [facility] Blood 03/03/2025 9:06 PM CDT 03/03/2025 9:35 PM CDT us Chauncey Suárez MD PhD LAB BLOOD ORDERABLES Final Result [facility] [place] [address] * Creatine kinase (CK), total (03/03/2025 12:20 PM CDT) CK 65 40 - 300 Units/L Blood 03/03/2025 12:2 0 PM CDT 03/03/2025 12:44 PM CDT us Mark Almanza MD PhD LAB BLOOD ORDE RABLES Final Result Performing Organization Address City/[facility] Co de Phone Number [facility] Department [place] [address] * eGFR (03/02/2025 9:04 PM CDT) eGFR >90 >=60 mL/min/1. 73 m2 Comment: Interpretive Data Reference Interval Normal >/= 90 mL/min/1.73m2 Mildly decreased* 60 - 89 mL/min/1.73m2 Mildly to moderately decreased 45 - 59 mL/min/1.73m2 Moderately to severely decreased 30 - 44 mL/min/1.73m2 Severely decreased 15 - 29 mL/min/1.73m2 Kidney Failure < 15 mL/min/1.73m2 *Relative to young adult level Estimated glomerular filtration rate is determined by the 2020 CKD-EPI equation recommended by the National Kidney Foundation (A Unifying Approach to GFR Estimation: Recommendations of the NKF-ASK Task Force on Reassessing the Inclusion of Race in Diagnosing Kidney Disease, JASN 2020). The CKD-EPI equation should not be used for patients with unstable renal function and has not been validated in children and those over 70. Current interpretive data was last reviewed 2021. Blood 03/02/2025 9:04 PM CDT 03/02/2025 9:55 PM CDT us Chauncey Suárez MD PhD LAB BLOOD ORDERABLES Final Result Performing Organization Address City/[facility]/ZIP Co de Phone Number [facility] Department [place] [address] * (ABNORMAL) Phosphorus (03/02/2025 9:04 PM CDT) [facility] Phosphorus, pl 2.2(L) 2.3 - 4.5 mg/dL Blood 03/02/2025 9:04 PM CDT 03/02/2025 9:55 PM CDT Chauncey Suárez MD PhD LAB BLOOD ORDERABLES Final Result Performing Organization Address [facility] Co de Phone Number [facility] Department [place] [address] * Magnesium (03/02/2025 9:04 PM CDT) [facility] Magnesium 2.1 1.4 - 2.5 mg/dL Blood 03/02/2025 9:04 PM CDT 03/02/2025 9:55 PM CDT Chauncey Suárez MD PhD LAB BLOOD ORDERABLES Final Result Performing Organization Address [facility] Co de Phone Number [facility] Department [place] [address] * Basic metabolic panel (03/02/2025 9:04 PM CDT) [facility] Sodium 140 135 - 145 mmol/L Potassium, pl 3.8 3.3 - 4.9 mmol/L [facility] Chloride 106 97 - 110 mmol/L [facility] CO2 27 22 - 32 mmol/L [facility] Anion gap 7 2 - 15 mmol/L [facility] BUN 24 6 - 25 mg/dL [facility] Creatinine 0.82 0.80 - 1.30 mg/dL [facility] Glucose 132 70 - 199 mg/dL [facility] Comment: Interpretive Data Fasting glucose >/= 126 mg/dl is diagnostic for diabetes. Fasting is defined as no caloric intake for at least 8 hours. Fasting glucose between 100 mg/dl to 125 mg/dl is diagnostic of prediabetes. In a patient with classic symptoms of hyperglycemia or hyperglycemic crisis, a random glucose >/= 200 mg/dl is diagnostic for diabetes. In the absence of unequivocal hyperglycemia, results should be confirmed by repeat testing. The classification and Diagnosis of Diabetes Diabetes Care 2021; 46: S19-S40. Current interpretive data was last revised 2022. Calcium 9.3 8.5 - 10.3 mg/dL [facility] Blood 03/02/2025 9:04 PM CDT 03/02/2025 9:55 PM CDT us Chauncey Suárez MD PhD LAB BLOOD ORDERABLES Final Result [facility] Department [place] [address] * EEG (03/02/2025 10:10 AM CDT) Anatomical Region Laterality Modality EEG Narrative 03/02/2025 1:07 PM CDT Routine EEG Report Patient Name: John Arita [facility] Medical Record Number (MRN): [id number] [facility] Record: [id number] Date of (): 1955 EEG Date: 03/02/2025 Ordering Provider: Chris Holbrook MD CC: Kamran Rowland Start Time: 03/02/2025 9:32:40 AM End Time: 03/02/2025 9:55:28 AM Introduction: Mr. Arita is a 69 y.o. male with a history of iPD (CD IR 25/100 1/2 tab TID), hx of Bipolar (prior on [place], Esketamine, stopped 18 years ago) who presents from clinic 03/01 with AVH, decreased PO intake, AMS. EEG was performed to evaluate for seizures. This is a 32 channel EEG recording acquired on a [employer] EEG-1200 acquisition system. Scalp electrodes were placed according to the international 10-20 System. The analog EEG was filtered from 1-70 Hz and digitally sampled at 200 Hz. The record was then reformatted for review in bipolar and referential montages. EEG Description: There was a 7-8 Hz posterior rhythm. The background also included bilateral, diffuse, asynchronous admixed theta and delta range activity, with shifting predominance especially bitemporally. During drowsiness, identified by ocular signs and alpha attenuation, there was intermittent, diffuse, asynchronous theta activity admixed with 2-4 Hz polymorphic frontotemporal delta activity with increased superimposed rhythmic theta and alpha range activities in up to 1 second bursts over the left temporal region. Stage II sleep was not seen. The record showed variability. Hyperventilation was not performed. Photic strobe stimulation elicited no abnormalities. There were no definite focal or lateralized abnormalities. There were no epileptiform abnormalities. Interpretation: The EEG was abnormal due to mild to moderate generalized slowing. Generalized slowing indicates diffuse cerebral dysfunction as seen in metabolic, toxic, or diffuse or multifocal structural abnormalities. Noted bursts of rhythmic alpha and theta over the left temporal region likely represented benign drowsy variants. By signing this report, the attending Electroencephalographer certifies that he/she personally reviewed the electrodiagnostics study and has edited this report to fully conform with his/her intent. Signing Attending: Carlos Castro MD PhD Chauncey Suárez MD PhD NEUROLOGY ORDERABLES Final Result * XR Chest 1 View (03/02/2025 12:32 AM CDT) Anatomical Region Laterality Modality Body, Chest N/A Computed Radiogr aphy 03/02/2025 2:00 AM CDT Impressions 03/02/2025 9:08 AM CDT Comparison is made to prior chest radiograph dated 02/17 2025. Small lung volumes. Calcified hilar lymph nodes, likely sequela of old granulomatous disease. There is no pulmonary consolidation, mass, or edema. No pleural effusion or pneumothorax. The cardiomediastinal silhouette is stable. Calcifications of the thoracic aorta. Dictated by: Marcelina Hauser MD, PhD. The radiology attending physician has personally reviewed this study, and had reviewed and/or edited this written report and agrees with it. Electronically signed by: Charles Franco M.D. Narrative 03/02/2025 9:08 AM CDT EXAMINATION: 1 view chest radiograph Procedure Note Charles Franco MD - 03/02/2025 EXAMINATION: 1 view chest radiograph IMPRESSION: Comparison is made to prior chest radiograph dated 02/17 2025. Small lung volumes. Calcified hilar lymph nodes, likely sequela of old granulomatous disease. There is no pulmonary consolidation, mass, or edema. No pleural effusion or pneumothorax. The cardiomediastinal silhouette is stable. Calcifications of the thoracic aorta. Dictated by: Marcelina Hauser MD, PhD. The radiology attending physician has personally reviewed this study, and had reviewed and/or edited this written report and agrees with it. Electronically signed by: Charles Franco M.D. Tere Whit Marvin MD IMG XR PROCEDURES F inal Result * CT Head WO Contrast (03/01/2025 8:30 PM CDT) Anatomical Region Laterality Modality Head and Neck N/A Computed Tomogra phy 03/01/2025 9:25 PM CDT Impressions 03/02/2025 12:40 PM CDT No acute intracranial hemorrhage, hydrocephalus, or mass effect. Dictated by: Tin Hawk MD The radiology attending physician has personally reviewed this study, and had reviewed and/or edited this written report and agrees with it. Electronically signed by: Brian Villarreal MD, PHD Narrative 03/02/2025 12:40 PM CDT EXAMINATION: CT head without contrast HISTORY: 69 years-old Male with catatonia, hx of parkinsons. TECHNIQUE: CT of the head was performed with images acquired from skull base to vertex without intravenous contrast. COMPARISON: 02/10/2025 FINDINGS: There is no acute intracranial hemorrhage. Scattered ill-defined hypodensities in the periventricular and subcortical white matter are nonspecific, likely on the basis of chronic small vessel ischemic change. There is mild parenchymal volume loss. Ventricles are of normal size and morphology. No mass effect or midline shift is present. The johnson-white matter differentiation is normal. The visualized portions of the orbits are normal. The visualized portions of the mastoids are normal. The visualized portions of the paranasal sinuses are normal. No fractures are identified. Procedure Note Brian Villarreal MD PhD - 03/02/2025 EXAMINATION: CT head without contrast HISTORY: 69 years-old Male with catatonia, hx of parkinsons. TECHNIQUE: CT of the head was performed with images acquired from skull base to vertex without intravenous contrast. COMPARISON: 02/10/2025 FINDINGS: There is no acute intracranial hemorrhage. Scattered ill-defined hypodensities in the periventricular and subcortical white matter are nonspecific, likely on the basis of chronic small vessel ischemic change. There is mild parenchymal volume loss. Ventricles are of normal size and morphology. No mass effect or midline shift is present. The johnson-white matter differentiation is normal. The visualized portions of the orbits are normal. The visualized portions of the mastoids are normal. The visualized portions of the paranasal sinuses are normal. No fractures are identified. IMPRESSION: No acute intracranial hemorrhage, hydrocephalus, or mass effect. Dictated by: Tin Hawk MD The radiology attending physician has personally reviewed this study, and had reviewed and/or edited this written report and agrees with it. Electronically signed by: Brian Villarreal MD, PHD Jessee Cagle MD IMG CT PROCEDURES Final Result * ECG 12-LEAD (03/01/2025 7:06 PM CDT) Narrative [facility] - 03/01/2025 7:06 PM CDT Daisy Lee MD 03/01/2025 7:06 PM ECG 12 lead Date/Time: 03/01/2025 7:06 PM Performed by: Daisy Lee MD Authorized by: Jessee Cagle MD Quality: Tracing quality: Limited by artifact Rate: ECG rate: 105 ECG rate assessment: tachycardic Rhythm: Rhythm: sinus tachycardia Ectopy: Ectopy: none QRS: QRS axis: Normal QRS intervals: Normal Conduction: Conduction: normal ST segments: ST segments: Abnormal T waves: T waves: non-specific Previous ECG: Previous ECG: Compared to current Similarity: No change Interpretation: Interpretation: No significant change Recommended Follow-up: Recommended follow up: cardiac workup and further workup in the ED Procedure Note Daisy Lee MD - 03/01/2025 7:06 PM CDT Procedure ECG 12 lead Date/Time: 03/01/2025 7:06 PM Performed by: Daisy Lee MD Authorized by: Jessee Cagle MD Quality: Tracing quality: Limited by artifact Rate: ECG rate: 105 ECG rate assessment: tachycardic Rhythm: Rhythm: sinus tachycardia Ectopy: Ectopy: none QRS: QRS axis: Normal QRS intervals: Normal Conduction: Conduction: normal ST segments: ST segments: Abnormal T waves: T waves: non-specific Previous ECG: Previous ECG: Compared to current Similarity: No change Interpretation: Interpretation: No significant change Recommended Follow-up: Recommended follow up: cardiac workup and further workup in the ED Daisy Lee MD 03/01/25 0003 Jessee Cagle MD ECG ORDERABLES Final Result [facility] * (ABNORMAL) Urinalysis reflex to microscopic and culture Urine (03/01/2025 6:57 PM CDT) Color, ur Yellow Yellow Clarity, ur Clear Clear [facility] Specific gravity, ur 1.033(H) 1.003 - 1.030 [facility] pH, urine 6.0 [facility] Comment: Interpretive Data U rine pH is affected by diet, medications, systemic acid-base disturbances, and renal tubular function. pH may affect urinary stone formation. For example, urine pH below 6.0 may help reduce the tendency for calcium phosphate stones and pH greater than 6.0 may reduce the tendency for uric acid stone formation. Source: [facility] Current Interpretive Data was last revised on 2017 Protein, ur ql 1+(A) Negative [facility] Glucose, ur ql Negative Negative [facility] Ketones, ur 3+(A) Negative [facility] Bilirubin, ur Negative Negative [facility] Blood, ur Trace(A) Negative [facility] Urobilinogen, ur <2.0 <2.0 mg/dL [facility] Nitrite, ur Negative Negative [facility] Leukocyte esterase, ur Negative Negative [facility] UA reflex comment Reflex to microscopic UA will be performed. [facility] Urine 03/01/2025 6:57 PM CDT 03/01/2025 7:01 PM CDT Jessee Cagle MD LAB MICROBIOLOGY - GENERAL ORD ERABLES Final Result [facility] Department [place] [address] * (ABNORMAL) Drugs of Abuse Screen, Urine without Confirmation (03/01/2025 6:57 PM CDT) Amphetamine, ur Not Detected CutOff 500ng/mL Comment: Interpretive Data - Amphetamines: Samples containing greater than 500 ng/mL d-methamphetamine or other cross-reacting amphetamine compounds are reported as positive. Amphetamine immunoassays are subject to significant false positive rates due to cross-reactivity of non-amphetamine drugs. Confirmatory testing required for definitive results. Current Interpretive Data was last reviewed 2023. Barbiturates, ur Not Detected CutOff 200ng/mL [facility] Comment: Interpretive Data - Barbiturates: Samples containing greater than 200 ng/mL secobarbital or other cross-reacting barbiturate compounds are reported as positive. False positive and false negative results are possible. Confirmatory testing required for definitive results. Current Interpretive Data was last reviewed 2023. Benzodiazepines, ur Screen Positive, presumptive (A) CutOff 100ng/mL [facility] Comment: Interpretive Data - Benzodiazepines: Samples containing greater than 100 ng/mL nordiazepam or other cross-reacting compounds are reported as positive. False positive and false negative results are possible. Confirmatory testing required for definitive results. Current Interpretive Data was last reviewed 2023. Cannabinoids, ur Not Detected CutOff 50 ng/mL [facility] Comment: Interpretive Data - Cannabinoids: Samples containing greater than 50 ng/mL delta-9 THC -COOH or other cross- reacting compounds are reported as positive. False positive and false negative results are possible. Confirmatory testing required for definitive results. Current Interpretive Data was last reviewed 2023. Cocaine, ur Not Detected CutOff 150ng/mL [facility] [facility] Comment: Interpretive Data - Cocaine: Samples containing greater than 150 ng/mL benzoylecgonine or other cross- reacting compounds are reported as positive. False positive and false negative results are possible. Confirmatory testing required for definitive results. Current Interpretive Data was last reviewed 2023. Fentanyl, Ur Not Detected CutOff 5 ng/mL [facility] Comment: Interpretive Data - Fentanyl: Samples containing greater than 5 ng/mL norfentanyl, fentanyl, or other cross-reacting fentanyl compounds are reported as positive. False positive and false negative results are possible. Confirmatory testing required for definitive results. Current Interpretive Data was last reviewed 2024. Methadone, ur Not Detected CutOff 300ng/mL [facility] Comment: Interpretive Data - Methadone: Samples containing greater than 300 ng/mL d,l-methadone or other cross-reacting compounds are reported as positive. False positive and false negative results are possible. Confirmatory testing required for definitive results. Current Interpretive Data was last reviewed 2023. Opiates, ur Not Detected CutOff 300ng/mL [facility] Comment: Interpretive Data - Opiates: Samples containing greater than 300 ng/mL morphine or other cross-reacting compounds are reported as positive. False positive and false negative results are possible. Confirmatory testing required for definitive results. Current Interpretive Data was last reviewed 2023. Oxycodone, ur Not Detected CutOff 100ng/mL [facility] Comment: Interpretive Data - Oxycodone: Samples containing greater than 100 ng/mL oxycodone or other cross-reacting compounds are reported as positive. False positive and false negative results are possible. Confirmatory testing required for definitive results. Current Interpretive Data was last reviewed 2023. Phencyclidine, ur Not Detected CutOff 25 ng/mL [facility] Comment: Interpretive Data - Phencyclidine: Samples containing greater than 25 ng/mL phencyclidine or other cross-reacting compounds are reported as positive. False positive and false negative results are possible. Confirmatory testing required for definitive results. Current Interpretive Data was last reviewed 2023. Urine Creatinine 187 mg/dL [facility] Comment: Interpretive Data Urine Creatinine: < 10 mg/dL is extremely dilute = or > 10 but < 20 mg/dL is dilute = or > 20 mg/dL is normal Current Interpretive Data was last revised on 2018. Urine 03/01/2025 6:57 PM CDT 03/01/2025 7:02 PM CDT Narrative [facility] - 03/01/2025 7:38 PM CDT Drug of Abuse screening is performed by immunoassay for medical purposes only. This is not to be used for Pain Management purposes. Jessee Cagle MD LAB URINE ORDERABLES Final Res ult Performing Organization Address [facility] Co de Phone Number [facility] Department [place] [address] * (ABNORMAL) Urinalysis, microscopic only (03/01/2025 6:57 PM CDT) WBC, ur 0-5 0 - 5 /HPF RBC, ur 0-2 0 - 2 /HPF [facility] Mucous, ur Present(A) [facility] Hyaline casts, ur 21-50(A) 0 - 10 /LPF [facility] Culture Reflex Comment Reflex conditions for urine culture (WBC >10) not met. [facility] Urine 03/01/2025 6:57 PM CDT 03/01/2025 7:01 PM CDT Jessee Cagle MD LAB URINE ORDERABLES Final Res ult Performing Organization Address [facility] Co de Phone Number [facility] Department [place] [address] * Troponin I high-sensitivity (03/01/2025 5:58 PM CDT) Trop I hs 7 <=35 ng/L Comment: Interpretive Data For further hscTnI resources including the diagnostic algorithm and an aid in interpretation, copy and paste this link: https://bjhlab.testcatalog.org/show/hsTrop-[email or web address] Current Interpretive Data last revised 2020. Blood 03/01/2025 5:58 PM CDT 03/01/2025 6:18 PM CDT Jessee Cagle MD LAB BLOOD ORDERABLES Final Res ult Performing Organization Address [facility] Co de Phone Number [facility] [place] [address] * eGFR (03/01/2025 5:58 PM CDT) eGFR 80 >=60 mL/min/1. 73 m2 Comment: Interpretive Data Reference Interval Normal >/= 90 mL/min/1.73m2 Mildly decreased* 60 - 89 mL/min/1.73m2 Mildly to moderately decreased 45 - 59 mL/min/1.73m2 Moderately to severely decreased 30 - 44 mL/min/1.73m2 Severely decreased 15 - 29 mL/min/1.73m2 Kidney Failure < 15 mL/min/1.73m2 *Relative to young adult level Estimated glomerular filtration rate is determined by the 2020 CKD-EPI equation recommended by the National Kidney Foundation (A Unifying Approach to GFR Estimation: Recommendations of the NKF-ASK Task Force on Reassessing the Inclusion of Race in Diagnosing Kidney Disease, JASN 2020). The CKD-EPI equation should not be used for patients with unstable renal function and has not been validated in children and those over 70. Current interpretive data was last reviewed 2021. Blood 03/01/2025 5:58 PM CDT 03/01/2025 6:18 PM CDT Jessee Cagle MD LAB BLOOD ORDERABLES Final Res ult Performing Organization Address [facility]/ZIP Co de Phone Number [facility] [place] [address] * (ABNORMAL) Differential, auto (03/01/2025 5:58 PM CDT) Neutrophil abs 9.83(H) 1.50 - 6.50 K/cumm Imm gran abs 0.05 0.00 - 0.10 K/cumm [facility] Lymphocyte abs 0.97 0.80 - 3.30 K/cumm [facility] Monocyte abs 0.62 0.20 - 0.80 K/cumm [facility] Eosinophil abs 0.03 0.00 - 0.50 K/cumm [facility] Basophil abs 0.02 0.00 - 0.10 K/cumm [facility] Neutrophil pct 85.3 % [facility] Comment: Interpretive Data Percent cell count reference ranges are not reported, since discordance with absolute values may lead to misinterpretation of CBC data. Current Interpretive Data was last revised on 2018. Imm gran pct 0.4 % [facility] Comment: Interpretive Data Percent cell count reference ranges are not reported, since discordance with absolute values may lead to misinterpretation of CBC data. Current Interpretive Data was last revised on 2018. Lymphocyte pct 8.4 % [facility] Comment: Interpretive Data Percent cell count reference ranges are not reported, since discordance with absolute values may lead to misinterpretation of CBC data. Current Interpretive Data was last revised on 2018. Monocyte pct 5.4 % [facility] Comment: Interpretive Data Percent cell count reference ranges are not reported, since discordance with absolute values may lead to misinterpretation of CBC data. Current Interpretive Data was last revised on 2018. Eosinophil pct 0.3 % [facility] Comment: Interpretive Data Percent cell count reference ranges are not reported, since discordance with absolute values may lead to misinterpretation of CBC data. Current Interpretive Data was last revised on 2018. Basophil pct 0.2 % [facility] Comment: Interpretive Data Percent cell count reference ranges are not reported, since discordance with absolute values may lead to misinterpretation of CBC data. Current Interpretive Data was last revised on 2018. Blood 03/01/2025 5:58 PM CDT 03/01/2025 6:18 PM CDT us Jessee Cagle MD LAB BLOOD ORDERABLES Final Res ult [facility] Department [place] [address] * (ABNORMAL) CBC with auto differential (03/01/2025 5:58 PM CDT) [facility] WBC 11.52(H) 3.80 - 9.90 K/cumm Hgb 15.4 13.0 - 17.5 g/dL [facility] Hct 45.6 38.9 - 50.3 % [facility] Plt 223 150 - 400 K/cumm [facility] MPV 13.8(H) 9.1 - 12.3 fL [facility] RBC 5.18 4.30 - 5.80 M/cumm [facility] MCV 88.0 81.3 - 96.4 fL [facility] MCH 29.7 27.1 - 33.3 pg [facility] MCHC 33.8 32.3 - 35.7 g/dL [facility] RDW CV 12.9 11.1 - 14.9 % [facility] RDW SD 41.4 35.7 - 48.1 fL [facility] NRBC abs 0.00 0.00 - 0.01 K/cumm [facility] Blood 03/01/2025 5:58 PM CDT 03/01/2025 6:18 PM CDT us Jessee Cagle MD LAB BLOOD ORDERABLES Final Res ult Performing Organization Address [facility]/ZIP Co de Phone Number [facility] Department [place] [address] * (ABNORMAL) Comprehensive metabolic panel (03/01/2025 5:58 PM CDT) [facility] Sodium 141 135 - 145 mmol/L Potassium, pl 4.0 3.3 - 4.9 mmol/L [facility] Chloride 103 97 - 110 mmol/L [facility] CO2 18(L) 22 - 32 mmol/L [facility] Anion gap 20(H) 2 - 15 mmol/L [facility] BUN 28(H) 6 - 25 mg/dL [facility] Creatinine 1.02 0.80 - 1.30 mg/dL [facility] Glucose 107 70 - 199 mg/dL [facility] Comment: Interpretive Data Fasting glucose >/= 126 mg/dl is diagnostic for diabetes. Fasting is defined as no caloric intake for at least 8 hours. Fasting glucose between 100 mg/dl to 125 mg/dl is diagnostic of prediabetes. In a patient with classic symptoms of hyperglycemia or hyperglycemic crisis, a random glucose >/= 200 mg/dl is diagnostic for diabetes. In the absence of unequivocal hyperglycemia, results should be confirmed by repeat testing. The classification and Diagnosis of Diabetes Diabetes Care 2021; 46: S19-S40. Current interpretive data was last revised 2022. Calcium 9.7 8.5 - 10.3 mg/dL [facility] Bilirubin, total 0.7 0.1 - 1.2 mg/dL [facility] Protein, pl 7.5 6.5 - 8.5 g/dL [facility] Albumin 4.1 3.5 - 5.0 g/dL [facility] Alk phos 79 40 - 130 Units/L [facility] ALT 10 7 - 55 Units/L [facility] AST 25 10 - 50 Units/L [facility] Blood 03/01/2025 5:58 PM CDT 03/01/2025 6:18 PM CDT us Jessee Cagle MD LAB BLOOD ORDERABLES Final Res ult [facility] Department [place] [address] * Troponin I high-sensitivity 2-hour (02/17/2025 11:13 AM CDT) Trop I hs <4 <=35 ng/L Comment: Interpretive Data For further hscTnI resources including the diagnostic algorithm and an aid in interpretation, copy and paste this link: https://bjhlab.testcatalog.org/show/[email or web address] Current Interpretive Data last revised 2020. Trop I hs delta 0 ng/L [facility] Trop I hs interp Insignificant [facility] Blood 02/17/2025 11:1 3 AM CDT 02/17/2025 11:18 AM CDT Sue Buckley MD LAB BLOOD ORDERABLES Final Result [facility] Department [place] [address] * Drugs of Abuse Screen, Urine with Reflex Confirmation (02/17/2025 10:48 AM CDT) Amphetamine, ur Not Detected CutOff 500ng/mL Comment: Interpretive Data - Amphetamines: Samples containing greater than 500 ng/mL d-methamphetamine or other cross-reacting amphetamine compounds are reported as positive. Amphetamine immunoassays are subject to significant false positive rates due to cross-reactivity of non-amphetamine drugs. Confirmatory testing required for definitive results. Current Interpretive Data was last reviewed 2023. Barbiturates, ur Not Detected CutOff 200ng/mL [facility] Comment: Interpretive Data - Barbiturates: Samples containing greater than 200 ng/mL secobarbital or other cross-reacting barbiturate compounds are reported as positive. False positive and false negative results are possible. Confirmatory testing required for definitive results. Current Interpretive Data was last reviewed 2023. Benzodiazepines, ur Not Detected CutOff 100ng/mL [facility] Comment: Interpretive Data - Benzodiazepines: Samples containing greater than 100 ng/mL nordiazepam or other cross-reacting compounds are reported as positive. False positive and false negative results are possible. Confirmatory testing required for definitive results. Current Interpretive Data was last reviewed 2023. Cannabinoids, ur Not Detected CutOff 50 ng/mL [facility] Comment: Interpretive Data - Cannabinoids: Samples containing greater than 50 ng/mL delta-9 THC -COOH or other cross- reacting compounds are reported as positive. False positive and false negative results are possible. Confirmatory testing required for definitive results. Current Interpretive Data was last reviewed 2023. Cocaine, ur Not Detected CutOff 150ng/mL [facility] Comment: Interpretive Data - Cocaine: Samples containing greater than 150 ng/mL benzoylecgonine or other cross- reacting compounds are reported as positive. False positive and false negative results are possible. Confirmatory testing required for definitive results. Current Interpretive Data was last reviewed 2023. Fentanyl, Ur Not Detected CutOff 5 ng/mL [facility] Comment: Interpretive Data - Fentanyl: Samples containing greater than 5 ng/mL norfentanyl, fentanyl, or other cross-reacting fentanyl compounds are reported as positive. False positive and false negative results are possible. Confirmatory testing required for definitive results. Current Interpretive Data was last reviewed 2024. Methadone, ur Not Detected CutOff 300ng/mL [facility] Comment: Interpretive Data - Methadone: Samples containing greater than 300 ng/mL d,l-methadone or other cross-reacting compounds are reported as positive. False positive and false negative results are possible. Confirmatory testing required for definitive results. Current Interpretive Data was last reviewed 2023. Opiates, ur Not Detected CutOff 300ng/mL [facility] Comment: Interpretive Data - Opiates: Samples containing greater than 300 ng/mL morphine or other cross-reacting compounds are reported as positive. False positive and false negative results are possible. Confirmatory testing required for definitive results. Current Interpretive Data was last reviewed 2023. Oxycodone, ur Not Detected CutOff 100ng/mL [facility] Comment: Interpretive Data - Oxycodone: Samples containing greater than 100 ng/mL oxycodone or other cross-reacting compounds are reported as positive. False positive and false negative results are possible. Confirmatory testing required for definitive results. Current Interpretive Data was last reviewed 2023. Phencyclidine, ur Not Detected CutOff 25 ng/mL [facility] Comment: Interpretive Data - Phencyclidine: Samples containing greater than 25 ng/mL phencyclidine or other cross-reacting compounds are reported as positive. False positive and false negative results are possible. Confirmatory testing required for definitive results. Current Interpretive Data was last reviewed 2023. Urine Creatinine 97 mg/dL [facility] Comment: Interpretive Data Urine Creatinine: < 10 mg/dL is extremely dilute = or > 10 but < 20 mg/dL is dilute = or > 20 mg/dL is normal Current Interpretive Data was last revised on 2018. Urine 02/17/2025 10:4 8 AM CDT 02/17/2025 10:57 AM CDT Narrative [facility] - 02/17/2025 12:05 PM CDT Drug of Abuse screening is performed by immunoassay for medical purposes only. This is not to be used for Pain Management purposes. If Detected, confirmation testing will be performed for Amphetamines, Cocaine, Fentanyl, Methadone, Opiates, Oxycodone or Phencyclidine. us Dora Alcaraz MD LAB URINE ORDERABLES Final Resu lt [facility] Department [place] [address] * Urinalysis reflex to microscopic and culture Urine (02/17/2025 10:48 AM CDT) Color, ur Straw Yellow Clarity, ur Clear Clear [facility] Specific gravity, ur 1.018 1.003 - 1.030 [facility] pH, urine 7.0 [facility] Comment: Interpretive Data U rine pH is affected by diet, medications, systemic acid-base disturbances, and renal tubular function. pH may affect urinary stone formation. For example, urine pH below 6.0 may help reduce the tendency for calcium phosphate stones and pH greater than 6.0 may reduce the tendency for uric acid stone formation. Source: [facility] [employer] Current Interpretive Data was last revised on 2017 Protein, ur ql Trace Negative [facility] Glucose, ur ql Negative Negative [facility] Ketones, ur Negative Negative [facility] Bilirubin, ur Negative Negative [facility] Blood, ur Negative Negative [facility] Urobilinogen, ur <2.0 <2.0 mg/dL [facility] Nitrite, ur Negative Negative [facility] Leukocyte esterase, ur Negative Negative [facility] UA reflex comment Reflex conditions for microscopic UA and culture not met. [facility] Urine 02/17/2025 10:4 8 AM CDT 02/17/2025 10:55 AM CDT Sue Buckley MD LAB MICROBIOLOGY - G ENERAL [place] [address] * HIV 1/2 Antibody plus p24 Antigen Blood (02/17/2025 9:39 AM CDT) [facility] HIV 1/2 ab + p24 ag Nonreactive Nonreactive Comment:Nonreactive for HIV- 1 antigen and HIV-1/HIV-2 antibodies. No laboratory evidence of HIV infection. If acute HIV infection is suspected, consider testing for HIV-1 RNA. Current interpretive data was last revised on 22. Blood 02/17/2025 9:39 AM CDT 02/17/2025 9:54 AM CDT Sue Buckley MD LAB MICROBIOLOGY - G ENERAL ORDERABLES Final Result Performing Organization Address [facility] Co de Phone Number [facility] Department [place] [address] * Respiratory pathogen panel Nasopharyngeal (02/17/2025 9:39 AM CDT) [facility] Influenza A RNA Not Detected Not Detected Influenza B RNA Not Detected Not Detected [facility] RSV RNA Not Detected Not Detected [facility] COVID-19 RNA Not Detected Not Detected [facility] Coronavirus 229E RNA Not Detected Not Detected [facility] Coronavirus HKU1 RNA Not Detected Not Detected [facility] Coronavirus NL63 RNA Not Detected Not Detected [facility] Coronavirus OC43 RNA Not Detected Not Detected [facility] Adenovirus DNA Not Detected Not Detected [facility] Metapneumovirus RNA Not Detected Not Detected [facility] Rhinovirus/Enterov irus RNA Not Detected Not Detected [facility] Parainfluenza 1 RNA Not Detected Not Detected [facility] Parainfluenza 2 RNA Not Detected Not Detected [facility] Parainfluenza 3 RNA Not Detected Not Detected [facility] Parainfluenza 4 RNA Not Detected Not Detected [facility] B. pertussis DNA Not Detected Not Detected [facility] B. parapertussis DNA Not Detected Not Detected [facility] C. pneumoniae DNA Not Detected Not Detected [facility] M. pneumoniae DNA Not Detected Not Detected [facility] Nasopharyngeal 02/17/2025 9: 39 AM CDT 02/17/2025 10:01 AM CDT Narrative [facility] - 02/17/2025 11:00 AM CDT Is the Patient experiencing symptoms consistent with COVID?->Unknown Surveillance testing for transplant patient?->No Interpretive Data The [employer] FilmArray Respiratory Panel (RP2.1) assay is a multiplexed real-time PCR based nucleic acid test capable of simultaneous qualitative detection and identification of multiple respiratory viral and bacterial nucleic acids, including SARS Coronavirus 2 (the causative agent of COVID-19). The following bacteria, viruses and virus subtypes can be identified using the FilmArray RP2.1 assay: Bordetella pertussis, Bordetella parapertussis, Chlamydia pneumoniae, Mycoplasma pneumoniae, Adenovirus, SARS Coronavirus 2, seasonal coronaviruses (Coronavirus HKU1, Coronavirus NL63, Coronavirus 229E, and Coronavirus OC43), Influenza A, Influenza A subtype H1, Influenza A subtype H3, Influenza A subtype 2009 H1, Influenza B, Metapneumovirus, Parainfluenza 1, Parainfluenza 2, Parainfluenza 3, Parainfluenza 4, RSV, Rhinovirus/Enterovirus. Due to the genetic similarity between human Rhinovirus and Enterovirus, the FilmArray RP2.1 assay cannot reliably differentiate them. Coronavirus OC43 may cross-react with some isolates of Coronavirus HKU1. A dual positive result may be due to cross-reactivity or may indicate a co- infection. The detection and identification of specific viral and bacterial nucleic acids from individuals exhibiting signs and symptoms of a respiratory infection aids in the diagnosis of respiratory infection if used in conjunction with other clinical and epidemiological information. The results of this test should not be used as the sole basis for diagnosis, treatment, or other management decisions. Negative results in the setting of a respiratory illness may be due to infection with pathogens that are not detected by this test. Positive results do not rule out infection/co-infection with other organisms. The agent(s) detected by the Film[employer] RP2.1 may not be the definite cause of disease. Additional testing (lab, imaging, etc.) may be necessary when evaluating a patient with possible respiratory tract infection. The FilmArray RP2.1 assay has FDA clearance for testing of SPRAY GUNNER swabs. The performance of additional specimen types has been assessed by the performing laboratory. The performance characteristics of this assay have been determined by [facility] Molecular Infectious Disease Laboratory. Current interpretive data was last revised on 22. Sue Buckley MD LAB MICROBIOLOGY - G ENERAL ORDERABLES Final Result Performing Organization Address [facility] Co de Phone Number [facility] [place] [address] * Methylmalonic acid, serum (02/17/2025 9:39 AM CDT) Pathologist [facility] MMA 0.10 <=0.40 nmol/mL [facility] Comment: ADDITIONAL INFORMATION This test was developed and its performance characteristics determined by [facility] in a manner consistent with CLIA requirements. This test has not been cleared or approved by the U.S. Food and Drug Administration. Test Performed by: [facility] [address] [address] Aircraft Dispatcher: Harman Escobar Ph.D.; CLIA# [id number] Blood 02/17/2025 9:39 AM CDT 02/17/2025 4:41 PM CDT Sue Buckley MD LAB BLOOD ORDERABLES Final Result Performing Organization Address City/[facility]/ZIP Co de Phone Number [facility] [place] [address] [facility] * RPR Blood (02/17/2025 9:39 AM CDT) Pathologist [facility] RPR Nonreactive Nonreactive Blood 02/17/2025 9:39 AM CDT 02/17/2025 9:54 AM CDT Sue Buckley MD LAB MICROBIOLOGY - G ENERAL ORDERABLES Final Result Performing Organization Address [facility] de Phone Number [facility] [place] [address] * Vitamin B1 (02/17/2025 9:39 AM CDT) Thiamine (Vit B1) 125 70 - 180 nmol/L [facility] Comment: ADDITIONAL INFORMATION This test was developed and its performance characteristics determined by [facility] in a manner consistent with CLIA requirements. This test has not been cleared or approved by the U.S. Food and Drug Administration. Test Performed by: [facility] [address] [place] [address] Aircraft Dispatcher: Harman Escobar Ph.D.; CLIA# [id number] Blood 02/17/2025 9:39 AM CDT 02/17/2025 10:24 AM CDT Sue Buckley MD LAB BLOOD ORDERABLES Final Result Performing Organization Address [facility] de Phone Number [facility] [place] [address] [facility] * Folate (02/17/2025 9:39 AM CDT) Pathologist [facility] Folic acid See Comment >=5.0 ng/mL Comment: Credited; Hemolyzed Specimen Telephone report made to: Raissa ZHANG) on 02/17/2025 12:35:08 CDT by [facility] . Blood 02/17/2025 9:39 AM CDT 02/17/2025 9:54 AM CDT us Sue Buckley MD LAB BLOOD ORDERABLES Final Result Performing Organization Address [facility] Co de Phone Number VITO [facility] [place] [address] * Vitamin B12 (02/17/2025 9:39 AM CDT) Vitamin B12 425 230 - 1,250 pg/mL Blood 02/17/2025 9:39 AM CDT 02/17/2025 9:54 AM CDT us Sue Buckley MD LAB BLOOD ORDERABLES Final Result Performing Organization Address [facility] de Phone Number [facility] [place] [address] * Creatine kinase (CK), total (02/17/2025 9:39 AM CDT) CK 59 40 - 300 Units/L Blood 02/17/2025 9:39 AM CDT 02/17/2025 9:54 AM CDT us Dago Alvarado MD LAB BLOOD ORDERABLES Razia l Result Performing Organization Address [facility] de Phone Number [facility] [place] [address] * XR Chest 1 View (02/17/2025 9:24 AM CDT) Anatomical Region Laterality Modality Body, Chest N/A Computed Radiogr aphy 02/17/2025 10:1 5 AM CDT Impressions 02/17/2025 2:10 PM CDT No prior radiographs available for comparison. Calcified hilar lymph nodes likely sequela of old granulomatous disease. No consolidation, pleural effusion, or pneumothorax. Mildly tortuous thoracic aorta. There is widening of the right paratracheal stripe, which is indeterminate, but could be secondary to a vascular cause, mediastinal fat, or less likely mass. Recommend correlation with any available prior imaging to document stability. Normal-sized cardiac silhouette. Dictated by: Lemuel Koroma MD The radiology attending physician has personally reviewed this study, and had reviewed and/or edited this written report and agrees with it. Electronically signed by: Gerardo Carias M.D. Narrative 02/17/2025 2:10 PM CDT EXAMINATION: 1 view chest radiograph Procedure Note Gerardo Carias MD - 02/17/2025 EXAMINATION: 1 view chest radiograph IMPRESSION: No prior radiographs available for comparison. Calcified hilar lymph nodes likely sequela of old granulomatous disease. No consolidation, pleural effusion, or pneumothorax. Mildly tortuous thoracic aorta. There is widening of the right paratracheal stripe, which is indeterminate, but could be secondary to a vascular cause, mediastinal fat, or less likely mass. Recommend correlation with any available prior imaging to document stability. Normal-sized cardiac silhouette. Dictated by: Lemuel Koroma MD The radiology attending physician has personally reviewed this study, and had reviewed and/or edited this written report and agrees with it. Electronically signed by: Gerardo Carias M.D. Sue Buckley MD IMG XR PROCEDURES Fi nal Result * ECG 12-LEAD (02/17/2025 9:22 AM CDT) Narrative [facility] - 02/17/2025 9:22 AM CDT Dora Alcaraz MD 02/17/2025 9:24 AM ECG 12 lead Date/Time: 02/17/2025 9:22 AM Performed by: Dora Alcaraz MD Authorized by: Sue Buckley MD Rate: ECG rate: 103 ECG rate assessment: tachycardic Rhythm: Rhythm: sinus tachycardia Ectopy: Ectopy: none QRS: QRS axis: Left QRS intervals: Normal Conduction: Conduction: normal ST segments: ST segments: Normal T waves: T waves: normal Previous ECG: Previous ECG: Unavailable Interpretation: Interpretation: non-specific Recommended Follow-up: Recommended follow up: further workup in the ED Procedure Note Dora Alcaraz MD - 02/17/2025 9:22 AM CDT Procedure ECG 12 lead Date/Time: 02/17/2025 9:22 AM Performed by: Dora Alcaraz MD Authorized by: Sue Buckley MD Rate: ECG rate: 103 ECG rate assessment: tachycardic Rhythm: Rhythm: sinus tachycardia Ectopy: Ectopy: none QRS: QRS axis: Left QRS intervals: Normal Conduction: Conduction: normal ST segments: ST segments: Normal T waves: T waves: normal Previous ECG: Previous ECG: Unavailable Interpretation: Interpretation: non-specific Recommended Follow-up: Recommended follow up: further workup in the ED Dora Alcaraz MD 02/17/25 0924 us Sue Buckley MD ECG ORDERABLES Razia l Result [facility] * Troponin I high-sensitivity series (baseline, 2hr, 4hr, 6hr) (02/17/2025 9:12 AM CDT) [facility] Trop I hs <4 <=35 ng/L Comment: Interpretive Data For further hscTnI resources including the diagnostic algorithm and an aid in interpretation, copy and paste this link: https://bjhlab.testcatalog.org/show/[email or web address] Current Interpretive Data last revised 2020. Blood 02/17/2025 9:12 AM CDT 02/17/2025 9:20 AM CDT us Sue Buckley MD LAB BLOOD ORDERABLES Final Result Performing Organization Address City/State/[facility] Co de Phone Number [facility] Department [place] [address] * POCT glucose (02/17/2025 8:57 AM CDT) [facility] Glucose, POC 118 70 - 199 mg/dL Blood 02/17/2025 8:57 AM CDT 02/17/2025 8:57 AM CDT Dora Alcaraz MD LAB POCT ORDERABLES - DEVICE Fi nal Result Performing Organization Address [facility]/ZIP Co de Phone Number [facility] Department [place] [address] * eGFR (02/17/2025 8:54 AM CDT) [facility] eGFR >90 >=60 mL/min/1. 73 m2 Comment: Interpretive Data Reference Interval Normal >/= 90 mL/min/1.73m2 Mildly decreased* 60 - 89 mL/min/1.73m2 Mildly to moderately decreased 45 - 59 mL/min/1.73m2 Moderately to severely decreased 30 - 44 mL/min/1.73m2 Severely decreased 15 - 29 mL/min/1.73m2 Kidney Failure < 15 mL/min/1.73m2 *Relative to young adult level Estimated glomerular filtration rate is determined by the 2020 CKD-EPI equation recommended by the National Kidney Foundation (A Unifying Approach to GFR Estimation: Recommendations of the NKF-ASK Task Force on Reassessing the Inclusion of Race in Diagnosing Kidney Disease, JASN 2020). The CKD-EPI equation should not be used for patients with unstable renal function and has not been validated in children and those over 70. Current interpretive data was last reviewed 2021. Blood 02/17/2025 8:54 AM CDT 02/17/2025 9:00 AM CDT Sue Buckley MD LAB BLOOD ORDERABLES Final Result Performing Organization Address City/[facility]/ZIP Co de Phone Number [facility] Department [place] [address] * Differential, auto (02/17/2025 8:54 AM CDT) [facility] Neutrophil abs 5.45 1.50 - 6.50 K/cumm Imm gran abs 0.04 0.00 - 0.10 K/cumm [facility] Lymphocyte abs 1.21 0.80 - 3.30 K/cumm [facility] Monocyte abs 0.39 0.20 - 0.80 K/cumm [facility] Eosinophil abs 0.08 0.00 - 0.50 K/cumm [facility] Basophil abs 0.03 0.00 - 0.10 K/cumm [facility] Neutrophil pct 75.7 % [facility] Comment: Interpretive Data Percent cell count reference ranges are not reported, since discordance with absolute values may lead to misinterpretation of CBC data. Current Interpretive Data was last revised on 2018. Imm gran pct 0.6 % [facility] Comment: Interpretive Data Percent cell count reference ranges are not reported, since discordance with absolute values may lead to misinterpretation of CBC data. Current Interpretive Data was last revised on 2018. Lymphocyte pct 16.8 % [facility] Comment: Interpretive Data Percent cell count reference ranges are not reported, since discordance with absolute values may lead to misinterpretation of CBC data. Current Interpretive Data was last revised on 2018. Monocyte pct 5.4 % [facility] Comment: Interpretive Data Percent cell count reference ranges are not reported, since discordance with absolute values may lead to misinterpretation of CBC data. Current Interpretive Data was last revised on 2018. Eosinophil pct 1.1 % [facility] Comment: Interpretive Data Percent cell count reference ranges are not reported, since discordance with absolute values may lead to misinterpretation of CBC data. Current Interpretive Data was last revised on 2018. Basophil pct 0.4 % [facility] Comment: Interpretive Data Percent cell count reference ranges are not reported, since discordance with absolute values may lead to misinterpretation of CBC data. Current Interpretive Data was last revised on 2018. Blood 02/17/2025 8:54 AM CDT 02/17/2025 9:00 AM CDT Sue Buckley MD LAB BLOOD ORDERABLES Final Result [facility] [place] [address] * Thyroid Function [place] (02/17/2025 8:54 AM CDT) [facility] TSH 3.10 0.30 - 4.20 mcIUnit/mL Blood 02/17/2025 8:54 AM CDT 02/17/2025 9:00 AM CDT us Sue Buckley MD LAB BLOOD ORDERABLES Final Result Performing Organization Address [facility] de Phone Number [facility] [place] [address] * (ABNORMAL) CBC with auto differential (02/17/2025 8:54 AM CDT) [facility] WBC 7.20 3.80 - 9.90 K/cumm Hgb 16.3 13.0 - 17.5 g/dL [facility] Hct 47.8 38.9 - 50.3 % [facility] Plt 197 150 - 400 K/cumm [facility] MPV 12.4(H) 9.1 - 12.3 fL [facility] RBC 5.50 4.30 - 5.80 M/cumm [facility] MCV 86.9 81.3 - 96.4 fL [facility] MCH 29.6 27.1 - 33.3 pg [facility] MCHC 34.1 32.3 - 35.7 g/dL [facility] RDW CV 12.5 11.1 - 14.9 % [facility] RDW SD 39.8 35.7 - 48.1 fL [facility] NRBC abs 0.00 0.00 - 0.01 K/cumm [facility] Blood 02/17/2025 8:54 AM CDT 02/17/2025 9:00 AM CDT us Sue Buckley MD LAB BLOOD ORDERABLES Final Result Performing Organization Address [facility] Co de Phone Number [facility] Department [place] [address] * Ethanol (02/17/2025 8:54 AM CDT) Pathologist [facility] Ethanol <10 <=10 mg/dL Comment: Interpretive Data Legal limit of intoxication > or = 80 mg/dL Levels > or = 400 mg/dL are potentially TOXIC. Current interpretive data was last revised on 2018. Blood 02/17/2025 8:54 AM CDT 02/17/2025 9:00 AM CDT Dora Alcaraz MD LAB BLOOD ORDERABLES Final Resu lt Performing Organization Address [facility] de Phone Number [facility] Department [place] [address] * Comprehensive metabolic panel (02/17/2025 8:54 AM CDT) Pathologist [facility] Sodium 140 135 - 145 mmol/L Potassium, pl 4.7 3.3 - 4.9 mmol/L [facility] Comment:Hemolyzed; Potassium value may be falsely elevated by as much as 0.3-0.5 mmol/L. Suggest redraw and reanalysis. Chloride 104 97 - 110 mmol/L [facility] CO2 25 22 - 32 mmol/L [facility] Anion gap 11 2 - 15 mmol/L [facility] BUN 15 6 - 25 mg/dL [facility] Creatinine 0.88 0.80 - 1.30 mg/dL [facility] Glucose 125 70 - 199 mg/dL [facility] Comment: Interpretive Data Fasting glucose >/= 126 mg/dl is diagnostic for diabetes. Fasting is defined as no caloric intake for at least 8 hours. Fasting glucose between 100 mg/dl to 125 mg/dl is diagnostic of prediabetes. In a patient with classic symptoms of hyperglycemia or hyperglycemic crisis, a random glucose >/= 200 mg/dl is diagnostic for diabetes. In the absence of unequivocal hyperglycemia, results should be confirmed by repeat testing. The classification and Diagnosis of Diabetes Diabetes Care 2021; 46: S19-S40. Current interpretive data was last revised 2022. Calcium 9.5 8.5 - 10.3 mg/dL [facility] Bilirubin, total 0.5 0.1 - 1.2 mg/dL [facility] Protein, pl 7.8 6.5 - 8.5 g/dL [facility] Albumin 4.4 3.5 - 5.0 g/dL [facility] Alk phos 75 40 - 130 Units/L [facility] ALT 12 7 - 55 Units/L [facility] AST 25 10 - 50 Units/L [facility] Comment:Hemolyzed; result ma y be falsely elevated Blood 02/17/2025 8:54 AM CDT 02/17/2025 9:00 AM CDT us Sue Buckley MD LAB BLOOD ORDERABLES Final Result Performing Organization Address [facility] Co de Phone Number [facility] Department [place] [address] * Neuro CT Outside Reference (02/14/2025 8:18 AM CDT) Impressions [facility] - 02/14/2025 8:18 AM CDT These images are for Reference purposes only and have not been reviewed by [facility] Radiology. There will be no report generated by a [facility] Radiologist. Narrative [facility] - 02/14/2025 8:18 AM CDT EXAMINATION: Images For Reference Purposes Only us Zander Lugo MD PhD IMG CT PROCEDURES F inal Result Performing Organization Address City/[facility] Co de Phone Number [facility] from Last 3 Months Insurance [employer] MEDIC[id number] Advance Directives For more information, please contact: [phone] * Full Code (Latest Code Status on File) Date Activated Date Inactivated Comments 03/02/2025 1:33 AM 03/29/2025 8:54 PM Care Teams Research [place] Supervisor Relationship Specialty Start Date End Date Kamran Rowland MD [address] [id number] PCP - General Family Medicine 05/25/18
--- OUTSIDE RECORDS SUMMARY | 2025-04-24 13:45 | XMS_ITS | Referral Summary ---
Author Organization [facility] Address [address] [place] [address] Care Team Providers Care Fishing Hand Name Role Phone Kamran Rowland MD Primary Care Provider [phone] Encounters Date Type Department Care Team Description 5 4:46 PM CDT - 5 4:49 PM CDT Hospital Encounter [address] [phone] Jessee Cagle MD Perez, Chauncey Simeon MD PhD John Kellogg MD Varadhachary, Mark Wright MD PhD David Brooks MD Reynolds, MD Lety Suarez, MD Horacio Reddy, Anival Balderrama MD Catatonia (Primary Dx); Parkinson's disease with dyskinesia and fluctuating manifestations (HCC); Psychosis, unspecified psychosis type (HCC) [F29]; Parkinson's disease, unspecified whether dyskinesia present, unspecified whether manifestations fluctuate (HCC) [G20.A1]; Aspiration into airway, initial encounter; Acute hypoxic respiratory failure (HCC); Shock (HCC); Melena Discharge Disposition: Discharge to an Rehab facility 5 12:58 PM CDT - 5 11:59 PM CDT Hospital Encounter [facility] Radiology [address] [place] [phone] Discharge Disposition: Discharge to home or self care 5 10:16 AM CDT Anesthesia Event [facility] [address] [place] [address] Keagan Tripp MD 5 9:50 AM CDT - 5 10:40 AM CDT Surgery [facility] [address] [place] [phone] Odalis Zheng MD ESOPHAGOGASTRODUODENOSCOPY CONTROL BLEED 5 10:08 AM CDT Anesthesia Event [address] [phone] Catrina Heaton NP 5 1:45 PM CDT - 5 11:59 PM CDT Hospital Encounter [facility] Radiology [address] [place] [address] Discharge Disposition: Discharge to home or self care 5 3:31 PM CDT Anesthesia Event [address] [phone] Andria Lopez NP 5 Documentation [facility] 6th [place] [address] [place] [id number] Chante Park CMA 5 Orders Only [facility] [address] [facility] 6th [place] [address] [place] [address] Hannah Cope NP Parkinson's disease with dyskinesia and fluctuating manifestations (HCC) (Primary Dx) 5 Results Follow-Up [facility] Emergency Department [address] [place] [address] Ricardo Negrete RN CBC with auto differential, Comprehensive metabolic panel, Urinalysis reflex to microscopic and culture Urine, Additional followed-up results: 3 5 Telephone [facility] [address] [facility] [address] [place] [address] Renée Rhoades 5 2:30 PM CDT Telemedicine [facility] [address] [place] [address] Advanced Medicine [address] [place] [phone] Hannah Cope NP Parkinson's disease with dyskinesia and fluctuating manifestations (HCC) 5 1:30 PM CDT Office Visit [facility] [address] [place] [phone] Hannah Cope NP Psychosis, unspecified psychosis type (HCC) (Primary Dx); Parkinson's disease, unspecified whether dyskinesia present, unspecified whether manifestations fluctuate (HCC) 5 8:40 AM CDT - 5 12:12 PM CDT Emergency [facility] Emergency Department [address] [place] [address] Dora Alcaraz MD Transient alteration of awareness (Primary Dx); Parkinson's disease without fluctuating manifestations, unspecified whether dyskinesia present (HCC) Discharge Disposition: Discharge to home or self care 5 Telephone [facility] [address] [place] [address] Advanced Medicine [address] [place] [phone] Zander Lugo MD PhD 5 8:18 AM CDT - 5 11:59 PM CDT Hospital Encounter [facility] [address] [place] [address] Discharge Disposition: Discharge to home or self care 5 Documentation [facility] [address] [place] [phone] Teja Guerra RMA 5 Telephone [facility] [address] [place] [phone] Zander Lugo MD PhD 5 9:30 AM CDT Office Visit [facility] [address] [facility] 7th [place] [address] Hannah Cope NP Psychosis, unspecified psychosis type (HCC) (Primary Dx); Parkinson's disease with dyskinesia and fluctuating manifestations ([facility]) 5 Telephone [facility] [address] [facility] 7th [place] [address] Eunice Lima RN from Last 3 Months Allergies Active Allergy Reactions Criticality Noted Date Comments Sulfa (Sulfonamide Antibiotics) Other (See comments) Low 09/15/2018 Facial contorsion Medications walker miscIndications :Parkinson disease ([facility]) Rollator walker 1 each 9 Active carbidopa-levod [...] @ 6am, 1.5 @ 8am, 1 1/4 every 2 hours until 8pm, 1 tab @ 8pm. 5 03/29/20 25 Discontinu ed(Stop Taking at Discharge) ARIPiprazole (ABILIFY) 2 mg tablet Take 1 tablet (2 mg total) by mouth every morning 5 03/29/20 25 Discontinu ed(Stop Taking at Discharge) ALPRAZolam (XANAX) 0.25 mg tablet TAKE 1/2 TABLET BY MOUTH TWICE DAILY NEEDED FOR ANXIETY 04/03/29/20 Discontinu ed(Stop Taking at Discharge) Active Problems [...] 1 tab @ 8pm. Taking doses at [id number] (8 doses/day) Would recommend stopping aripiprazole and [...] EMS and have Mr. Arita transported to [facility] ED as she cannot safely transport him [...] alone and encouraged his to look into [facility], in-home care for supervision or adult [...] awareness/inattentiveness and confusion. I cannot see the [place] records (labs, CT reportedly unrevealing). We should [...] best for him to be seen at [facility] ED so that neurology can [...] would also help for sleep, but Mr. Arita preferred to hold off. Recommendations: Start quetiapine 12.5 mg nightly and can increase as needed/tolerated to 25 mg nightly for psychosis Continue current carbidopa-levodopa dosing though may need to decrease this if psychosis escalates or does not respond to quetiapine Will request OSH records for review Discussed that he should not e left unsupervised home alone and encouraged his to look into [facility], in-home care for supervision or adult day care if possible Will recommend occupational therapy, speech therapy, and physical therapy at next visit and can decide on location accordingly Follow-up in 1 week Assessment & Plan (10/16/2024 4:09 PM MUSEUM TECHNICIAN): 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 Send a referral for PT to [facility], same location as 06/12/20 referral. 5. Regular [...] Resolved Date Severe malnutrition 03/03/2025 03/11/20 25 Social History Tobacco Use Types Packs/Day Years Used Date Smoking Tobacco: Former Smokeless Tobacco: Never Tobacco Cessation:Counseling Given: Not Answered [facility] Utilities Answer Date Recorded In the past 12 months has [employer], gas, oil, or water [employer] threatened to shut off services in your [...] week 03/28/2025 How often do you attend sabianism or islam serv ices? Never 03/28/2025 Do you belong to any clubs o r organizations such as sabianism groups, unions, fraternal or athletic groups, or [...] Date Recorded PHQ-2 Total Score 0 03/28/2025 [facility] - Occupational Stress [...] any time in the past 12 m [facility], were you homeless or living in [...] on file Legal Sex Male 8:00 PM MUSEUM TECHNICIAN Gender Identity Male 09/21/2022 5:48 PM MUSEUM TECHNICIAN Sexual Orientation Straight 09/21/2022 5: 48 PM MUSEUM TECHNICIAN Last Filed Vital Signs Vital Sign Reading [...] Mass Index 25.94 03/18/2025 12:00 AM CDT Functional Status * Are you deaf or do you have serious difficulty hearing? Answer Date of Assessment Author No 03/10/2025 12:57 PM CDT Rosie Whitakeria, PACKING TRACTOR MACHINE OPERATOR * Are you blind or do you have serious difficulty seeing, even when wearing glasses? Answer Date of Assessment Author No 03/10/2025 12:57 PM CDT Rosie Whitakeria, PACKING TRACTOR MACHINE OPERATOR * Do you have serious difficulty walking or climbing stairs? Answer Date of Assessment Author No 03/10/2025 12:57 PM CDT Rosie Whitakeria, PACKING TRACTOR MACHINE OPERATOR * Do you have serious difficulty dressing or bathing? Answer Date of Assessment Author No 03/10/2025 12:57 PM CDT Rosie Whitakeria, PACKING TRACTOR MACHINE OPERATOR * Because of a physical, mental, or emotional condition, do you have serious difficulty doing errandsalone such as visiting the doctor? Answer Date of Assessment Author No 03/10/2025 12:57 PM CDT Rosie Whitakeria, PACKING TRACTOR MACHINE OPERATOR Mental Status * Because of a physical, mental, or emotional condition, do you have serious difficulty concentrating, remembering, or making decisions? (5 years old or older) Answer Entry Date Author No 03/10/2025 12:57 PM CDT Rosie Whitaker, PACKING TRACTOR MACHINE OPERATOR Plan of Treatment Not on file Procedures Procedure Name Priority Date/Time Associated Diagnosis [...] VIDEO IP Routine 03/26/2025 1:15 PM CDT ALUMINUM SIDING MECHANIC EVALUATE AND TREAT VIDEOFLUOROSCOPIC SWALLOW STUDY Routine [...] GLUCOSE DEVICE Routine 03/25/2025 12:59 PM CDT WY AN PROCEDURE PLACEHOLDER Routine 03/07 10:30 AM CDT [place] AN ELECTIVE ENDOTRACHEAL AIRWAY Routine 03/25/2025 10:30 [...] AND CULTURE Routine 03/21/2025 2:06 PM CDT ALUMINUM SIDING MECHANIC EVALUATE AND TREAT FIBEROPTIC ENDOSCOPIC SWALLOW Routine [...] VIEW IP Routine 03/14/2025 6:05 PM CDT WY ARTL CATHJ/CANNULJ MNTR/TRANSFUSION SPX PRQ Routine 03/14/2025 [...] GLUCOSE DEVICE Routine 03/14/2025 11:51 AM CDT WY INSJ NON-TUNNELED CENTRAL VENOUS CATH AGE 5 [...] 5:30 AM CDT TROPONIN I HIGH-SENSITIVITY STAT 06/2025 5:30 AM CDT BLOOD CULTURE Routine [...] Glucose 106 70 - 199 mg/dL [facility] Comment: Interpretive Data Fasting glucose >/= 126 [...] was last revised 2022. Testing performed by: [facility], [address] [facility], [place]., [address] Blood 04/09/2025 5:22 AM CDT 04/09/2025 7:25 AM CDT us Notinfile Unknown LAB BLOOD ORDERABLES Final Res ult [facility] Department [place] [address] * CS BASIC METABOLIC PANEL (04/09/2025 5:22 AM CDT) Sodium 137 135 - 145 mmol/L [facility] Comment:Testing performed by : [facility], [address] [place]., [address] Potassium, pl 3.5 3.3 - 4.9 mmol/L [facility] Comment:Testing performed by : [facility], [address] [facility], [address] Chloride 99 97 - 110 mmol/L [facility] Comment:Testing performed by : [facility], [address] [facility], [address] CO2 26 22 - 32 mmol/L [facility] Comment:Testing performed by : [facility], [address] [facility], [address] Anion gap 12 2 - 15 mmol/L [facility] Comment:Testing performed by : [facility], [address] [facility], [address] BUN 12 6 - 25 mg/dL [facility] Comment:Testing performed by : [facility], [address] [facility], [address] Creatinine 0.81 0.80 - 1.30 mg/dL [facility] Comment:Testing performed by : [facility], [address] [facility], [address] Calcium 8.7 8.5 - 10.3 mg/dL [facility] Comment:Testing performed by : [facility], [address] [facility], [address] Blood 04/09/2025 5:22 AM CDT 04/09/2025 7:25 AM CDT us Notinfile Unknown LAB BLOOD ORDERABLES Final Res ult [facility] Department [place] [address] * eGFR (04/09/2025 5:22 AM CDT) eGFR [...] was last reviewed 2021. Testing performed by: [facility], [address] [place] [address]., [address] Blood 04/09/2025 5:22 AM CDT 04/09/2025 7:49 AM CDT us Notinfile Unknown LAB BLOOD ORDERABLES Final Res ult [facility] One [facility] Department [place] [address] * (ABNORMAL) CBC without differential (04/09/2025 5:22 AM CDT) WBC 7.05 3.80 - 9.90 K/cumm [facility] Comment:Testing performed by : [facility], 1 [place]., [address] Hgb 8.8(L) 13.0 - 17.5 g/dL [facility] Comment:Testing performed by : [facility], [address] [place]., [address] Hct 27.6(L) 38.9 - 50.3 % [facility] Comment:Testing performed by : [facility], [address] [facility], [address] Plt 323 150 - 400 K/cumm [facility] Comment:Testing performed by : [facility], [address] [facility], [address] MPV 12.1 9.1 - 12.3 fL [facility] Comment:Testing performed by : [facility], [address] [facility], [address] RBC 3.00(L) 4.30 - 5.80 M/cumm [facility] Comment:Testing performed by : [facility], [address] [facility], [address] MCV 92.0 81.3 - 96.4 fL [facility] Comment:Testing performed by : [facility], [address] [facility], [address] MCH 29.3 27.1 - 33.3 pg [facility] Comment:Testing performed by : [facility], [address] [facility], [address] MCHC 31.9(L) 32.3 - 35.7 g/dL [facility] Comment:Testing performed by : [facility], [address] [facility], [address] RDW CV 14.6 11.1 - 14.9 % [facility] Comment:Testing performed by : [facility], [address] [facility], [address] RDW SD 48.6(H) 35.7 - 48.1 fL [facility] Comment:Testing performed by : [facility], [address] [facility], [address] NRBC abs 0.00 0.00 - 0.01 K/cumm [facility] Comment:Testing performed by : [facility], [address] [facility], [address] Blood 04/09/2025 5:22 AM CDT 04/09/2025 7:25 AM CDT us Notinfile Unknown LAB BLOOD ORDERABLES Final Res ult [facility] Department [place] [address] * (ABNORMAL) Urinalysis reflex to microscopic (04/06/2025 5:46 PM CDT) Color, ur Yellow Yellow [facility] Comment:Testing performed by : [facility], [address] [place] [address]., [address] Clarity, ur Clear Clear [facility] Comment:Testing performed by : [facility], [address] [place] [address], [address] Specific gravity, ur 1.031(H) 1.003 - 1.030 [facility] Comment:Testing performed by : [facility], [address] [facility], [address] pH, urine 6.0 [facility] Comment: Interpretive Data Urine pH is affected by diet, medications, systemic acid-base disturbances, and renal tubular function. pH may affect urinary stone formation. For example, urine pH below 6.0 may help reduce the tendency for calcium phosphate stones and pH greater than 6.0 may reduce the tendency for uric acid stone formation. Source: [facility] Current Interpretive Data was last revised on 2017 Testing performed by: [facility], [address] [place]., [address] Protein, ur ql 1+(A) Negative [facility] Comment:Testing performed by : [facility], [address] [place] [address]., [address] Glucose, ur ql Negative Negative [facility] Comment:Testing performed by : [facility], [address] [place] [address]., [address] Ketones, ur Trace Negative [facility] Comment:Testing performed by : [facility], [address] [place]., [address] Bilirubin, ur Negative Negative [facility] Comment:Testing performed by : [facility], [address] [place]., [address] Blood, ur Negative Negative [facility] Comment:Testing performed by : [facility], [address] [place]., [address] Urobilinogen, ur 2.0(A) <2.0 mg/dL [facility] Comment:Testing performed by : [facility], [address] [facility], [address] Nitrite, ur Negative Negative [facility] Comment:Testing performed by : [facility], [address] [facility], [address] Leukocyte esterase, ur Trace(A) Negative [facility] Comment:Testing performed by : [facility], [address] [place] [address], [address] UA reflex comment Reflex to microscopic UA will be performed. [facility] Comment:Testing performed by : [facility], [address] [facility], [address] Urine 04/06/2025 5:46 PM CDT 04/06/2025 7:40 PM CDT Medicine LAB URINE ORDERABLES Final Resul t [facility] Department [place] [address] * (ABNORMAL) Urinalysis, microscopic only (04/06/2025 5:46 PM CDT) WBC, ur 6-10(A) 0 - 5 /HPF [facility] Comment:Testing performed by : [facility], [address] [facility], [address] RBC, ur 0-2 0 - 2 /HPF [facility] Comment:Testing performed by : [facility], [address] [place] [address]., [address] Epithelial cells, squamous, ur 1-5 0 - 5 /HPF [facility] Comment:Testing performed by : [facility], [address] [place]., [address] Bacteria, ur 1+(A) [facility] Comment:Testing performed by : [facility], [address] [place]., [address] Mucous, ur Present(A) [facility] Comment:Testing performed by : [facility], [address] [place]., [address] Hyaline casts, ur 6-10 0 - 10 /LPF [facility] Comment:Testing performed by : [facility], [address] [place]., [address] Granular casts, ur 1-5(A) 0 - 0 /LPF [facility] Comment:Testing performed by : [facility], [address] [place]., [address] Urine 04/06/2025 5:46 PM CDT 04/06/2025 7:40 PM CDT Medicine LAB URINE ORDERABLES Final Resul t [facility] One [facility] Department [place] [address] * CS GLUCOSE (04/05/2025 7:54 AM CDT) Glucose 114 70 - 199 mg/dL [facility] Comment: Interpretive Data Fasting glucose >/= 126 [...] was last revised 2022. Testing performed by: [facility], [address] [place]., [address] Blood 04/05/2025 7:54 AM CDT 04/05/2025 10:06 AM CDT us Notinfile Unknown LAB BLOOD ORDERABLES Final Res ult [facility] Department [place] [address] * (ABNORMAL) CS BASIC METABOLIC PANEL (04/05/2025 7:54 AM CDT) Sodium 140 135 - 145 mmol/L [facility] Comment:Testing performed by : [facility], [address] [place] [address], [address] Potassium, pl 3.7 3.3 - 4.9 mmol/L [facility] Comment:Testing performed by : [facility], [address] [facility], [address] Chloride 101 97 - 110 mmol/L [facility] Comment:Testing performed by : [facility], [address] [facility], [address] CO2 28 22 - 32 mmol/L [facility] Comment:Testing performed by : [facility], [address] [facility], [address] Anion gap 11 2 - 15 mmol/L [facility] Comment:Testing performed by : [facility], [address] [place] [address], [address] BUN 13 6 - 25 mg/dL [facility] Comment:Testing performed by : [facility], [address] [facility], [address] Creatinine 0.72(L) 0.80 - 1.30 mg/dL [facility] Comment:Testing performed by : [facility], [address] [place] [address], [address] Calcium 8.9 8.5 - 10.3 mg/dL [facility] Comment:Testing performed by : [facility], [address] [place]., [address] Blood 04/05/2025 7:54 AM CDT 04/05/2025 10:06 AM CDT us Notinfile Unknown LAB BLOOD ORDERABLES Final Res ult Performing Organization Address [facility] de Phone Number [facility] Department [place] [address] * eGFR (04/05/2025 7:54 AM CDT) eGFR >90 >=60 mL/min/1. 73 m2 [facility] Comment: Interpretive Data Reference Interval Normal >/= [...] was last reviewed 2021. Testing performed by: [facility], [address] [place]., [address] Blood 04/05/2025 7:54 AM CDT 04/05/2025 10:31 AM CDT us Notinfile Unknown LAB BLOOD ORDERABLES Final Res ult Performing Organization Address City/[facility] Co de Phone Number [facility] One [facility] Department [place] [address] * (ABNORMAL) CBC without differential (04/05/2025 7:54 AM CDT) WBC 8.33 3.80 - 9.90 K/cumm [facility] Comment:Testing performed by : [facility], [address] [place] [address], [address] Hgb 9.3(L) 13.0 - 17.5 g/dL [facility] Comment:Testing performed by : [facility], [address] [place] [address], [address] Hct 29.1(L) 38.9 - 50.3 % [facility] Comment:Testing performed by : [facility], [address] [place] [address], [address] Plt 404(H) 150 - 400 K/cumm [facility] Comment:Testing performed by : [facility], [address] [place] [address], [address] MPV 12.3 9.1 - 12.3 fL [facility] Comment:Testing performed by : [facility], [address] [facility], [address] RBC 3.18(L) 4.30 - 5.80 M/cumm [facility] Comment:Testing performed by : [facility], [address] [place] [address], [address] MCV 91.5 81.3 - 96.4 fL [facility] Comment:Testing performed by : [facility], [address] [place] [address], [address] MCH 29.2 27.1 - 33.3 pg [facility] Comment:Testing performed by : [facility], [address] [place] [address], [address] MCHC 32.0(L) 32.3 - 35.7 g/dL [facility] Comment:Testing performed by : [facility], [address] [place]., [address] RDW CV 14.6 11.1 - 14.9 % [facility] Comment:Testing performed by : [facility], [address] [place]., [address] RDW SD 48.4(H) 35.7 - 48.1 fL [facility] Comment:Testing performed by : [facility], [address] [place]., [address] NRBC abs 0.00 0.00 - 0.01 K/cumm [facility] Comment:Testing performed by : [facility], [address] [place]., [address] Blood 04/05/2025 7:54 AM CDT 04/05/2025 10:06 AM CDT us Notinfile Unknown LAB BLOOD ORDERABLES Final Res ult [facility] One [facility] Department [place] [address] * CS GLUCOSE (04/03/2025 7:00 AM CDT) [facility] Glucose 103 70 - 199 mg/dL [facility] Comment: Interpretive Data Fasting glucose >/= [...] was last revised 2022. Testing performed by: [facility], [address] [place]., [address] Blood 04/03/2025 7:00 AM CDT 04/03/2025 11:28 AM CDT us Notinfile Unknown LAB BLOOD ORDERABLES Final Res ult [facility] One [facility] Department [place] [address] * (ABNORMAL) CS BASIC METABOLIC PANEL (04/03/2025 7:00 AM CDT) Sodium 138 135 - 145 mmol/L [facility] Comment:Testing performed by : [facility], [address] [facility], [address] Potassium, pl 3.1(L) 3.3 - 4.9 mmol/L [facility] Comment:Testing performed by : [facility], [address] [facility], [address] Chloride 102 97 - 110 mmol/L [facility] Comment:Testing performed by : [facility], [address] [facility], [address] CO2 26 22 - 32 mmol/L [facility] Comment:Testing performed by : [facility], [address] [facility], [address] Anion gap 10 2 - 15 mmol/L [facility] Comment:Testing performed by : [facility], [address] [place] [address], [address] BUN 10 6 - 25 mg/dL [facility] Comment:Testing performed by : [facility], [address] [place] [address], [address] Creatinine 0.70(L) 0.80 - 1.30 mg/dL [facility] Comment:Testing performed by : [facility], [address] [facility], [address] Calcium 8.5 8.5 - 10.3 mg/dL [facility] Comment:Testing performed by : [facility], [address] [place] [address], [id number] Blood 04/03/2025 7:00 AM CDT 04/03/2025 11:28 AM CDT us Notinfile Unknown LAB BLOOD ORDERABLES Final Res ult Performing Organization Address [facility] Co de Phone Number [facility] Department [place] [address] * eGFR (04/03/2025 7:00 AM CDT) eGFR >90 >=60 mL/min/1. 73 m2 [facility] Comment: Interpretive Data Reference Interval Normal >/= [...] was last reviewed 2021. Testing performed by: [facility], 1 [facility], [place]., [address] Blood 04/03/2025 7:00 AM CDT 04/03/2025 11:36 AM CDT us Notinfile Unknown LAB BLOOD ORDERABLES Final Res ult Performing Organization Address City/[facility]/ZIP Co de Phone Number [facility] Department [place] [address] * (ABNORMAL) Vitamin D 25 hydroxy (04/03/2025 7:00 AM CDT) [facility] Vitamin D 25-OH 18(L) 30 - 80 ng/mL [facility] Comment:Testing performed by : [facility], [address] [facility], [address] Blood 04/03/2025 7:00 AM CDT 04/03/2025 11:28 AM CDT us Notinfile Unknown LAB BLOOD ORDERABLES Final Res ult [facility] One [facility] Department [place] [address] * (ABNORMAL) CBC without differential (04/03/2025 7:00 AM CDT) [facility] WBC 8.76 3.80 - 9.90 K/cumm [facility] Comment:Testing performed by : [facility], [address] [place] [address], [address] Hgb 8.3(L) 13.0 - 17.5 g/dL [facility] Comment:Testing performed by : [facility], [address] [place] [address], [address] Hct 26.0(L) 38.9 - 50.3 % [facility] Comment:Testing performed by : [facility], 1 [place]., [address] Plt 428(H) 150 - 400 K/cumm [facility] Comment:Testing performed by : [facility], [address] [place] [address], [address] MPV 12.5(H) 9.1 - 12.3 fL [facility] Comment:Testing performed by : [facility], [address] [facility], [address] RBC 2.82(L) 4.30 - 5.80 M/cumm [facility] Comment:Testing performed by : [facility], [address] [place] [address], [address] MCV 92.2 81.3 - 96.4 fL [facility] Comment:Testing performed by : [facility], [address] [facility], [address] MCH 29.4 27.1 - 33.3 pg [facility] Comment:Testing performed by : [facility], [address] [facility], [address] MCHC 31.9(L) 32.3 - 35.7 g/dL [facility] Comment:Testing performed by : [facility], [address] [facility], [address] RDW CV 14.6 11.1 - 14.9 % [facility] Comment:Testing performed by : [facility], [address] [facility], [address] RDW SD 49.1(H) 35.7 - 48.1 fL [facility] Comment:Testing performed by : [facility], [address] [facility], [address] NRBC abs 0.00 0.00 - 0.01 K/cumm [facility] Comment:Testing performed by : [facility], [address] [facility], [address] Blood 04/03/2025 7:00 AM CDT 04/03/2025 11:28 AM CDT us Notinfile Unknown LAB BLOOD ORDERABLES Final Res ult [facility] One [facility] Department [place] [address] * POCT glucose (03/29/2025 11:15 AM CDT) Glucose, POC 106 70 - 199 mg/dL Blood 03/29/2025 11:1 5 AM CDT 03/29/2025 11:15 AM CDT us Anival Tacos Leonard MD LAB POCT ORDERABLES - DEV ICE Final Result Performing Organization Address City/[facility]/ZIP Co de Phone Number [facility] [place] [address] * POCT glucose (03/29/2025 8:11 AM CDT) Glucose, POC 107 70 - 199 mg/dL Blood 03/29/2025 8:11 AM CDT 03/29/2025 8:11 AM CDT Anival Leonard MD LAB POCT ORDERABLES - DEV ICE Final Result Performing Organization Address [facility] [place] [address] * POCT glucose (03/29/2025 4:53 AM CDT) Glucose, POC 100 70 - 199 mg/dL Blood 03/29/2025 4:53 AM CDT 03/29/2025 4:53 AM CDT Anival Leonard MD LAB POCT ORDERABLES - DEV ICE Final Result Performing Organization Address City/[facility] Co de Phone Number [facility] [place] [address] * POCT glucose (03/29/2025 12:18 AM CDT) Glucose, POC 103 70 - 199 mg/dL Blood 03/29/2025 12:1 8 AM CDT 03/29/2025 12:18 AM CDT Anival Leonard MD LAB POCT ORDERABLES - DEV ICE Final Result Performing Organization Address City/[facility]/ZIP Co de Phone Number [facility] [place] [address] * eGFR (03/28/2025 9:21 PM CDT) Pathologist [facility] eGFR >90 >=60 mL/min/1. 73 m2 [...] MD LAB BLOOD ORDERABLES Razia westfall Result [facility] One [facility] Department [place] [address] * (ABNORMAL) Differential, auto (03/28/2025 9:21 PM CDT) Pathologist [facility] Neutrophil abs 6.97(H) 1.50 - 6.50 K/cumm Imm gran abs 0.27(H) 0.00 - 0.10 K/cumm [facility] Lymphocyte abs 1.89 0.80 - 3.30 K/cumm [facility] Monocyte abs 0.64 0.20 - 0.80 K/cumm [facility] Eosinophil abs 0.16 0.00 - 0.50 K/cumm [facility] Basophil abs 0.05 0.00 - 0.10 K/cumm [facility] Neutrophil pct 69.9 % [facility] Comment: Interpretive Data Percent cell count reference ranges are not reported, since discordance with absolute values may lead to misinterpretation of CBC data. Current Interpretive Data was last revised on 2018. Imm gran pct 2.7 % [facility] Comment: Interpretive Data Percent cell count reference ranges are not reported, since discordance with absolute values may lead to misinterpretation of CBC data. Current Interpretive Data was last revised on 2018. Lymphocyte pct 18.9 % [facility] Comment: Interpretive Data Percent cell count reference ranges are not reported, since discordance with absolute values may lead to misinterpretation of CBC data. Current Interpretive Data was last revised on 2018. Monocyte pct 6.4 % [facility] Comment: Interpretive Data Percent cell count reference ranges are not reported, since discordance with absolute values may lead to misinterpretation of CBC data. Current Interpretive Data was last revised on 2018. Eosinophil pct 1.6 % [facility] Comment: Interpretive Data Percent cell count reference ranges are not reported, since discordance with absolute values may lead to misinterpretation of CBC data. Current Interpretive Data was last revised on 2018. Basophil pct 0.5 % [facility] Comment: Interpretive Data Percent cell count reference ranges are not reported, since discordance with absolute values may lead to misinterpretation of CBC data. Current Interpretive Data was last revised on 2018. Blood 03/28/2025 9:21 PM CDT 03/28/2025 10:45 PM CDT us Joslyn Davidson MD LAB BLOOD ORDERABLES Razia westfall Result [facility] One [facility] Department [place] [address] * (ABNORMAL) CBC with auto differential (03/28/2025 9:21 PM CDT) WBC 9.98(H) 3.80 - 9.90 K/cumm Hgb 7.9(L) 13.0 - 17.5 g/dL [facility] Hct 24.6(L) 38.9 - 50.3 % [facility] Plt 279 150 - 400 K/cumm [facility] MPV 12.8(H) 9.1 - 12.3 fL [facility] RBC 2.70(L) 4.30 - 5.80 M/cumm [facility] MCV 91.1 81.3 - 96.4 fL [facility] MCH 29.3 27.1 - 33.3 pg [facility] MCHC 32.1(L) 32.3 - 35.7 g/dL [facility] RDW CV 14.9 11.1 - 14.9 % [facility] RDW SD 48.0 35.7 - 48.1 fL [facility] NRBC abs 0.00 0.00 - 0.01 K/cumm [facility] Blood 03/28/2025 9:21 PM CDT 03/28/2025 10:45 PM CDT Joslyn Davidson MD LAB BLOOD ORDERABLES Razia l Result Performing Organization Address City/[facility]/ZIP Co de Phone Number [facility] [place] [address] * Phosphorus (03/28/2025 9:21 PM CDT) Pathologist [facility] Phosphorus, pl 2.4 2.3 - 4.5 mg/dL Blood 03/28/2025 9:21 PM CDT 03/28/2025 10:45 PM CDT Joslyn Davidson MD LAB BLOOD ORDERABLES Razia l Result [facility] [place] [address] * (ABNORMAL) Comprehensive metabolic panel (03/28/2025 9:21 PM CDT) [facility] Sodium 135 135 - 145 mmol/L Potassium, pl 3.7 3.3 - 4.9 mmol/L [facility] Chloride 103 97 - 110 mmol/L [facility] CO2 24 22 - 32 mmol/L [facility] Anion gap 8 2 - 15 mmol/L [facility] BUN 12 6 - 25 mg/dL [facility] Creatinine 0.68(L) 0.80 - 1.30 mg/dL [facility] Glucose 97 70 - 199 mg/dL [facility] Comment: Interpretive Data Fasting glucose >/= [...] 2022. Calcium 7.9(L) 8.5 - 10.3 mg/dL [facility] Bilirubin, total 0.3 0.1 - 1.2 mg/dL [facility] Protein, pl 5.7(L) 6.5 - 8.5 g/dL [facility] Albumin 2.4(L) 3.5 - 5.0 g/dL [facility] Alk phos 65 40 - 130 Units/L [facility] ALT 8 7 - 55 Units/L [facility] AST 16 10 - 50 Units/L [facility] Blood 03/28/2025 9:21 PM CDT 03/28/2025 10:45 PM CDT us Joslyn Davidson MD LAB BLOOD ORDERABLES Razia l Result [facility] One [facility] Department [place] [address] * POCT glucose (03/28/2025 8:06 PM CDT) [facility] Signature Glucose, POC 119 70 - 199 mg/dL Blood 03/28/2025 8:06 PM CDT 03/28/2025 8:06 PM CDT Anival Leonard MD LAB POCT ORDERABLES - DEV ICE Final Result Performing Organization Address [facility] de Phone Number [facility] [place] [address] * POCT glucose (03/28/2025 3:57 PM CDT) Glucose, POC 113 70 - 199 mg/dL Blood 03/28/2025 3:57 PM CDT 03/28/2025 3:57 PM CDT Anival Leonard MD LAB POCT ORDERABLES - DEV ICE Final Result Performing Organization Address [facility] de Phone Number [facility] [place] [address] * POCT glucose (03/28/2025 12:10 PM CDT) Glucose, POC 106 70 - 199 mg/dL Blood 03/28/2025 12:1 0 PM CDT 03/28/2025 12:10 PM CDT Anival Leonard MD LAB POCT ORDERABLES - DEV ICE Final Result Performing Organization Address [facility] de Phone Number [facility] [place] [address] * POCT glucose (03/28/2025 8:34 AM CDT) Glucose, POC 117 70 - 199 mg/dL Blood 03/28/2025 8:34 AM CDT 03/28/2025 8:34 AM CDT Anival Leonard MD LAB POCT ORDERABLES - DEV ICE Final Result Performing Organization Address [facility]/ZIP Co de Phone Number [facility] [place] [address] * POCT glucose (03/28/2025 4:04 AM CDT) Glucose, POC 101 70 - 199 mg/dL Blood 03/28/2025 4:04 AM CDT 03/28/2025 4:04 AM CDT Anival Leonard MD LAB POCT ORDERABLES - DEV ICE Final Result Performing Organization Address City/[facility] Co de Phone Number [facility] [place] [address] * POCT glucose (03/28/2025 12:10 AM CDT) Glucose, POC 97 70 - 199 mg/dL Blood 03/28/2025 12:1 0 AM CDT 03/28/2025 12:10 AM CDT Anival Leonard MD LAB POCT ORDERABLES - DEV ICE Final Result Performing Organization Address City/[facility] Co de Phone Number [facility] [place] [address] * eGFR (03/27/2025 8:40 PM CDT) eGFR [...] MD LAB BLOOD ORDERABLES Razia westfall Result [facility] One [facility] Department [place] [address] * (ABNORMAL) Differential, auto (03/27/2025 8:40 PM CDT) Neutrophil abs 9.30(H) 1.50 - 6.50 K/cumm Imm gran abs 0.37(H) 0.00 - 0.10 K/cumm [facility] Lymphocyte abs 1.66 0.80 - 3.30 K/cumm [facility] Monocyte abs 0.75 0.20 - 0.80 K/cumm [facility] Eosinophil abs 0.16 0.00 - 0.50 K/cumm [facility] Basophil abs 0.05 0.00 - 0.10 K/cumm [facility] Neutrophil pct 75.7 % [facility] Comment: Interpretive Data Percent cell count reference ranges are not reported, since discordance with absolute values may lead to misinterpretation of CBC data. Current Interpretive Data was last revised on 2018. Imm gran pct 3.0 % [facility] Comment: Interpretive Data Percent cell count reference ranges are not reported, since discordance with absolute values may lead to misinterpretation of CBC data. Current Interpretive Data was last revised on 2018. Lymphocyte pct 13.5 % [facility] Comment: Interpretive Data Percent cell count reference ranges are not reported, since discordance with absolute values may lead to misinterpretation of CBC data. Current Interpretive Data was last revised on 2018. Monocyte pct 6.1 % [facility] Comment: Interpretive Data Percent cell count reference ranges are not reported, since discordance with absolute values may lead to misinterpretation of CBC data. Current Interpretive Data was last revised on 2018. Eosinophil pct 1.3 % [facility] Comment: Interpretive Data Percent cell count reference ranges are not reported, since discordance with absolute values may lead to misinterpretation of CBC data. Current Interpretive Data was last revised on 2018. Basophil pct 0.4 % [facility] Comment: Interpretive Data Percent cell count reference ranges are not reported, since discordance with absolute values may lead to misinterpretation of CBC data. Current Interpretive Data was last revised on 2018. Blood 03/27/2025 8:40 PM CDT 03/27/2025 9:26 PM CDT Joslyn Davidson MD LAB BLOOD ORDERABLES Razia westfall Result [facility] One [facility] Department [place] [address] * (ABNORMAL) CBC with auto differential (03/27/2025 8:40 PM CDT) WBC 12.29(H) 3.80 - 9.90 K/cumm Hgb 8.5(L) 13.0 - 17.5 g/dL [facility] Hct 25.7(L) 38.9 - 50.3 % [facility] Plt 250 150 - 400 K/cumm [facility] MPV 13.0(H) 9.1 - 12.3 fL [facility] RBC 2.81(L) 4.30 - 5.80 M/cumm [facility] MCV 91.5 81.3 - 96.4 fL [facility] MCH 30.2 27.1 - 33.3 pg [facility] MCHC 33.1 32.3 - 35.7 g/dL [facility] RDW CV 15.0(H) 11.1 - 14.9 % [facility] RDW SD 47.8 35.7 - 48.1 fL [facility] NRBC abs 0.00 0.00 - 0.01 K/cumm [facility] Blood 03/27/2025 8:40 PM CDT 03/27/2025 9:26 PM CDT Joslyn Davidson MD LAB BLOOD ORDERABLES Razia l Result Performing Organization Address [facility] Co de Phone Number [facility] [place] [address] * Phosphorus (03/27/2025 8:40 PM CDT) Pathologist [facility] Phosphorus, pl 2.8 2.3 - 4.5 mg/dL Blood 03/27/2025 8:40 PM CDT 03/27/2025 9:25 PM CDT Joslyn Davidson MD LAB BLOOD ORDERABLES Razia l Result Performing Organization Address [facility] de Phone Number [facility] [place] [address] * (ABNORMAL) Comprehensive metabolic panel (03/27/2025 8:40 PM CDT) [facility] Sodium 138 135 - 145 mmol/L Potassium, pl 3.4 3.3 - 4.9 mmol/L [facility] Chloride 107 97 - 110 mmol/L [facility] CO2 23 22 - 32 mmol/L [facility] Anion gap 8 2 - 15 mmol/L [facility] BUN 13 6 - 25 mg/dL [facility] Creatinine 0.74(L) 0.80 - 1.30 mg/dL [facility] Glucose 95 70 - 199 mg/dL [facility] Comment: Interpretive Data Fasting glucose >/= [...] 2022. Calcium 8.3(L) 8.5 - 10.3 mg/dL [facility] Bilirubin, total 0.3 0.1 - 1.2 mg/dL [facility] Protein, pl 5.8(L) 6.5 - 8.5 g/dL [facility] Albumin 2.6(L) 3.5 - 5.0 g/dL [facility] Alk phos 71 40 - 130 Units/L [facility] ALT 14 7 - 55 Units/L [facility] AST 21 10 - 50 Units/L [facility] Blood 03/27/2025 8:40 PM CDT 03/27/2025 9:25 PM CDT Joslyn Davidson MD LAB BLOOD ORDERABLES Razia l Result Performing Organization Address City/[facility]/ZIP Co de Phone Number [facility] [place] [address] * POCT glucose (03/27/2025 8:31 PM CDT) Glucose, POC 104 70 - 199 mg/dL Blood 03/27/2025 8:31 PM CDT 03/27/2025 8:31 PM CDT Anival Leonard MD LAB POCT ORDERABLES - DEV ICE Final Result [facility] [place] [address] * POCT glucose (03/27/2025 5:07 PM CDT) Glucose, POC 88 70 - 199 mg/dL Blood 03/27/2025 5:07 PM CDT 03/27/2025 5:07 PM CDT Anival Leonard MD LAB POCT ORDERABLES - DEV ICE Final Result [facility] [place] [address] * POCT glucose (03/27/2025 11:55 AM CDT) Pathologist [facility] Glucose, POC 110 70 - 199 mg/dL Blood 03/27/2025 11:5 5 AM CDT 03/27/2025 11:55 AM CDT Anival Leonard MD LAB POCT ORDERABLES - DEV ICE Final Result Performing Organization Address [facility] de Phone Number [facility] [place] [address] * (ABNORMAL) Differential, auto (03/27/2025 8:00 AM CDT) [facility] Neutrophil abs 7.01(H) 1.50 - 6.50 K/cumm Imm gran abs 0.37(H) 0.00 - 0.10 K/cumm [facility] Lymphocyte abs 1.34 0.80 - 3.30 K/cumm [facility] Monocyte abs 0.61 0.20 - 0.80 K/cumm [facility] Eosinophil abs 0.19 0.00 - 0.50 K/cumm [facility] Basophil abs 0.04 0.00 - 0.10 K/cumm [facility] Neutrophil pct 73.3 % [facility] Comment: Interpretive Data Percent cell count reference ranges are not reported, since discordance with absolute values may lead to misinterpretation of CBC data. Current Interpretive Data was last revised on 2018. Imm gran pct 3.9 % [facility] Comment: Interpretive Data Percent cell count reference ranges are not reported, since discordance with absolute values may lead to misinterpretation of CBC data. Current Interpretive Data was last revised on 2018. Lymphocyte pct 14.0 % [facility] Comment: Interpretive Data Percent cell count reference ranges are not reported, since discordance with absolute values may lead to misinterpretation of CBC data. Current Interpretive Data was last revised on 2018. Monocyte pct 6.4 % [facility] Comment: Interpretive Data Percent cell count reference ranges are not reported, since discordance with absolute values may lead to misinterpretation of CBC data. Current Interpretive Data was last revised on 2018. Eosinophil pct 2.0 % [facility] Comment: Interpretive Data Percent cell count reference ranges are not reported, since discordance with absolute values may lead to misinterpretation of CBC data. Current Interpretive Data was last revised on 2018. Basophil pct 0.4 % [facility] Comment: Interpretive Data Percent cell count reference ranges are not reported, since discordance with absolute values may lead to misinterpretation of CBC data. Current Interpretive Data was last revised on 2018. Blood 03/27/2025 8:00 AM CDT 03/27/2025 8:39 AM CDT Anival Leonard MD LAB BLOOD ORDERABLES Razia westfall Result [facility] One [facility] Department [place] [address] * (ABNORMAL) CBC with auto differential (03/27/2025 8:00 AM CDT) WBC 9.56 3.80 - 9.90 K/cumm Hgb 7.6(L) 13.0 - 17.5 g/dL [facility] Hct 23.5(L) 38.9 - 50.3 % [facility] Plt 243 150 - 400 K/cumm [facility] MPV 13.3(H) 9.1 - 12.3 fL [facility] RBC 2.56(L) 4.30 - 5.80 M/cumm [facility] MCV 91.8 81.3 - 96.4 fL [facility] MCH 29.7 27.1 - 33.3 pg [facility] MCHC 32.3 32.3 - 35.7 g/dL [facility] RDW CV 14.7 11.1 - 14.9 % [facility] RDW SD 46.6 35.7 - 48.1 fL [facility] NRBC abs 0.00 0.00 - 0.01 K/cumm [facility] Blood 03/27/2025 8:00 AM CDT 03/27/2025 8:39 AM CDT Anival Leonard MD LAB BLOOD ORDERABLES Razia l Result Performing Organization Address City/[facility] [facility]/ZIP Co de Phone Number [facility] [place] [address] * POCT glucose (03/27/2025 7:33 AM CDT) Glucose, POC 106 70 - 199 mg/dL Blood 03/27/2025 7:33 AM CDT 03/27/2025 7:33 AM CDT Anival Leonard MD LAB POCT ORDERABLES - DEV ICE Final Result Performing Organization Address [facility] Co de Phone Number [facility] [place] [address] * POCT glucose (03/27/2025 4:32 AM CDT) Glucose, POC 105 70 - 199 mg/dL Blood 03/27/2025 4:32 AM CDT 03/27/2025 4:32 AM CDT Anival Leonard MD LAB POCT ORDERABLES - DEV ICE Final Result Performing Organization Address City/[facility] Co de Phone Number [facility] [place] [address] * POCT glucose (03/27/2025 12:04 AM CDT) Glucose, POC 119 70 - 199 mg/dL Blood 03/27/2025 12:0 4 AM CDT 03/27/2025 12:04 AM CDT us Anival Leonard MD LAB POCT ORDERABLES - DEV ICE Final Result Performing Organization Address [facility] Co de Phone Number [facility] Department [place] [address] * eGFR (03/26/2025 8:31 PM CDT) eGFR >90 >=60 mL/min/1. 73 [...] ORDERABLES Razia l Result Performing Organization Address City/[facility]/ZIP Co de Phone Number [facility] Department [place] [address] * (ABNORMAL) Differential, auto (03/26/2025 8:31 PM CDT) Neutrophil abs 8.95(H) 1.50 - 6.50 K/cumm Imm gran abs 0.53(H) 0.00 - 0.10 K/cumm [facility] Lymphocyte abs 1.74 0.80 - 3.30 K/cumm [facility] Monocyte abs 0.79 0.20 - 0.80 K/cumm [facility] Eosinophil abs 0.24 0.00 - 0.50 K/cumm [facility] Basophil abs 0.07 0.00 - 0.10 K/cumm [facility] Neutrophil pct 72.7 % [facility] Comment: Interpretive Data Percent cell count reference ranges are not reported, since discordance with absolute values may lead to misinterpretation of CBC data. Current Interpretive Data was last revised on 2018. Imm gran pct 4.3 % [facility] Comment: Interpretive Data Percent cell count reference ranges are not reported, since discordance with absolute values may lead to misinterpretation of CBC data. Current Interpretive Data was last revised on 2018. Lymphocyte pct 14.1 % [facility] Comment: Interpretive Data Percent cell count reference ranges are not reported, since discordance with absolute values may lead to misinterpretation of CBC data. Current Interpretive Data was last revised on 2018. Monocyte pct 6.4 % [facility] Comment: Interpretive Data Percent cell count reference ranges are not reported, since discordance with absolute values may lead to misinterpretation of CBC data. Current Interpretive Data was last revised on 2018. Eosinophil pct 1.9 % [facility] Comment: Interpretive Data Percent cell count reference ranges are not reported, since discordance with absolute values may lead to misinterpretation of CBC data. Current Interpretive Data was last revised on 2018. Basophil pct 0.6 % [facility] Comment: Interpretive Data Percent cell count reference ranges are not reported, since discordance with absolute values may lead to misinterpretation of CBC data. Current Interpretive Data was last revised on 2018. Blood 03/26/2025 8:31 PM CDT 03/26/2025 10:07 PM CDT us Joslyn aDvidson MD LAB BLOOD ORDERABLES Razia westfall Result [facility] Department [place] [address] * (ABNORMAL) CBC with auto differential (03/26/2025 8:31 PM CDT) Pathologist [facility] WBC 12.32(H) 3.80 - 9.90 K/cumm Hgb 8.5(L) 13.0 - 17.5 g/dL [facility] Hct 26.1(L) 38.9 - 50.3 % [facility] Plt 286 150 - 400 K/cumm [facility] MPV 13.5(H) 9.1 - 12.3 fL [facility] RBC 2.84(L) 4.30 - 5.80 M/cumm [facility] MCV 91.9 81.3 - 96.4 fL [facility] MCH 29.9 27.1 - 33.3 pg [facility] MCHC 32.6 32.3 - 35.7 g/dL [facility] RDW CV 14.6 11.1 - 14.9 % [facility] RDW SD 45.4 35.7 - 48.1 fL [facility] NRBC abs 0.00 0.00 - 0.01 K/cumm [facility] Blood 03/26/2025 8:31 PM CDT 03/26/2025 10:07 PM CDT Joslyn Davidson MD LAB BLOOD ORDERABLES Razia l Result Performing Organization Address City/[facility]/ZIP Co de Phone Number [facility] Department [place] [address] * Phosphorus (03/26/2025 8:31 PM CDT) Pathologist [facility] Phosphorus, pl 2.5 2.3 - 4.5 mg/dL Blood 03/26/2025 8:31 PM CDT 03/26/2025 10:08 PM CDT Joslyn Davidson MD LAB BLOOD ORDERABLES Razia l Result [facility] Department [place] [address] * (ABNORMAL) Comprehensive metabolic panel (03/26/2025 8:31 PM CDT) Sodium 140 135 - 145 mmol/L Potassium, pl 3.4 3.3 - 4.9 mmol/L [facility] Chloride 108 97 - 110 mmol/L [facility] CO2 24 22 - 32 mmol/L [facility] Anion gap 8 2 - 15 mmol/L [facility] BUN 14 6 - 25 mg/dL [facility] Creatinine 0.72(L) 0.80 - 1.30 mg/dL [facility] Glucose 96 70 - 199 mg/dL [facility] Comment: Interpretive Data Fasting glucose >/= [...] 2022. Calcium 8.3(L) 8.5 - 10.3 mg/dL [facility] Bilirubin, total 0.5 0.1 - 1.2 mg/dL [facility] Protein, pl 6.1(L) 6.5 - 8.5 g/dL [facility] Albumin 2.9(L) 3.5 - 5.0 g/dL [facility] Alk phos 76 40 - 130 Units/L [facility] ALT 9 7 - 55 Units/L [facility] AST 21 10 - 50 Units/L [facility] Blood 03/26/2025 8:31 PM CDT 03/26/2025 10:08 PM CDT Joslyn Davidson MD LAB BLOOD ORDERABLES Razia l [place] [address] * POCT glucose (03/26/2025 8:22 PM CDT) Glucose, POC 102 70 - 199 mg/dL Blood 03/26/2025 8:22 PM CDT 03/26/2025 8:22 PM CDT Anival Leonard MD LAB POCT ORDERABLES - DEV ICE Final Result Performing Organization Address City/[facility]/[place] [address] * POCT glucose (03/26/2025 4:43 PM CDT) Glucose, POC 115 70 - 199 mg/dL Blood 03/26/2025 4:43 PM CDT 03/26/2025 4:43 PM CDT us Anival Leonard MD LAB POCT ORDERABLES - DEV ICE Final Result Performing Organization Address City/[facility]/[place] [address] * POCT glucose (03/26/2025 2:45 PM CDT) Glucose, POC 120 70 - 199 mg/dL Blood 03/26/2025 2:45 PM CDT 03/26/2025 2:45 PM CDT Anival Leonard MD LAB POCT ORDERABLES - DEV ICE Final Result Performing Organization Address City/[facility]/[place] [address] * [place] Modified Barium Swallow W Video [...] IMG FLUOROSCOPY PROCEDURE S Final Result * ALUMINUM SIDING MECHANIC Evaluate and Treat (VFSS) (03/26/2025 1:00 PM CDT) Narrative Kiki Birmingham SLP - 03/26/2025 1:00 PM CDT Kiki Birmingham [...] regular diet General Information John Arita 03/26/25 ALUMINUM SIDING MECHANIC Received On: 03/26/25 General Observations: Pt alert [...] treatment goals and details, if indicated. Plan ALUMINUM SIDING MECHANIC Frequency of Services during current admission: 1-2x/wk ALUMINUM SIDING MECHANIC Recommendation (Add'l Services): Other (do not anticipate ALUMINUM SIDING MECHANIC swallow needs at discharge) Next Visit Plan: treatment/therapy Additional Referrals: none Discharge Summary Statement If this is the last swallow therapy visit, this serves as the discharge summary. Joslyn Davidson MD ALUMINUM SIDING MECHANIC ORDERABLES Final Res ult * (ABNORMAL) Differential, auto (03/26/2025 8:59 AM CDT) Neutrophil abs 8.28(H) 1.50 - 6.50 K/cumm Imm gran abs 0.31(H) 0.00 - 0.10 K/cumm [facility] Lymphocyte abs 1.22 0.80 - 3.30 K/cumm [facility] Monocyte abs 0.59 0.20 - 0.80 K/cumm [facility] Eosinophil abs 0.18 0.00 - 0.50 K/cumm [facility] Basophil abs 0.04 0.00 - 0.10 K/cumm [facility] Neutrophil pct 77.9 % [facility] Comment: Interpretive Data Percent cell count reference ranges are not reported, since discordance with absolute values may lead to misinterpretation of CBC data. Current Interpretive Data was last revised on 2018. Imm gran pct 2.9 % [facility] Comment: Interpretive Data Percent cell count reference ranges are not reported, since discordance with absolute values may lead to misinterpretation of CBC data. Current Interpretive Data was last revised on 2018. Lymphocyte pct 11.5 % [facility] Comment: Interpretive Data Percent cell count reference ranges are not reported, since discordance with absolute values may lead to misinterpretation of CBC data. Current Interpretive Data was last revised on 2018. Monocyte pct 5.6 % [facility] Comment: Interpretive Data Percent cell count reference ranges are not reported, since discordance with absolute values may lead to misinterpretation of CBC data. Current Interpretive Data was last revised on 2018. Eosinophil pct 1.7 % [facility] Comment: Interpretive Data Percent cell count reference ranges are not reported, since discordance with absolute values may lead to misinterpretation of CBC data. Current Interpretive Data was last revised on 2018. Basophil pct 0.4 % [facility] Comment: Interpretive Data Percent cell count reference ranges are not reported, since discordance with absolute values may lead to misinterpretation of CBC data. Current Interpretive Data was last revised on 2018. Blood 03/26/2025 8:59 AM CDT 03/26/2025 10:16 AM CDT us Joslyn Davidson MD LAB BLOOD ORDERABLES Razia westfall Result [facility] Department [place] [address] * (ABNORMAL) CBC with auto differential (03/26/2025 8:59 AM CDT) WBC 10.62(H) 3.80 - 9.90 K/cumm Hgb 8.1(L) 13.0 - 17.5 g/dL [facility] Hct 25.4(L) 38.9 - 50.3 % [facility] Plt 249 150 - 400 K/cumm [facility] MPV 13.3(H) 9.1 - 12.3 fL [facility] RBC 2.79(L) 4.30 - 5.80 M/cumm [facility] MCV 91.0 81.3 - 96.4 fL [facility] MCH 29.0 27.1 - 33.3 pg [facility] MCHC 31.9(L) 32.3 - 35.7 g/dL [facility] RDW CV 14.3 11.1 - 14.9 % [facility] RDW SD 45.2 35.7 - 48.1 fL [facility] NRBC abs 0.00 0.00 - 0.01 K/cumm [facility] Blood 03/26/2025 8:59 AM CDT 03/26/2025 10:16 AM CDT us Joslyn Davidson MD LAB BLOOD ORDERABLES Razia l Result [facility] [place] [address] * POCT glucose (03/26/2025 7:55 AM CDT) Glucose, POC 124 70 - 199 mg/dL Blood 03/26/2025 7:55 AM CDT 03/26/2025 7:55 AM CDT us Anival Leonard MD LAB POCT ORDERABLES - DEV ICE Final Result [facility] [place] [address] * POCT glucose (03/26/2025 3:49 AM CDT) [facility] Glucose, POC 109 70 - 199 mg/dL Blood 03/26/2025 3:49 AM CDT 03/26/2025 3:49 AM CDT us Anival Leonard MD LAB POCT ORDERABLES - DEV ICE Final Result Performing Organization Address [facility]/ZIP Co de Phone Number [facility] Department [place] [address] * eGFR (03/26/2025 3:00 AM CDT) [facility] eGFR >90 >=60 mL/min/1. 73 m2 Comment: [...] ORDERABLES Razia l Result Performing Organization Address City/[facility]/ZIP Co de Phone Number [facility] Department [place] [address] * (ABNORMAL) Differential, auto (03/26/2025 3:00 AM CDT) [facility] Neutrophil abs 8.45(H) 1.50 - 6.50 K/cumm Imm gran abs 0.46(H) 0.00 - 0.10 K/cumm [facility] Lymphocyte abs 1.57 0.80 - 3.30 K/cumm [facility] Monocyte abs 0.60 0.20 - 0.80 K/cumm [facility] Eosinophil abs 0.24 0.00 - 0.50 K/cumm [facility] Basophil abs 0.05 0.00 - 0.10 K/cumm [facility] Neutrophil pct 74.4 % [facility] Comment: Interpretive Data Percent cell count reference ranges are not reported, since discordance with absolute values may lead to misinterpretation of CBC data. Current Interpretive Data was last revised on 2018. Imm gran pct 4.0 % [facility] Comment: Interpretive Data Percent cell count reference ranges are not reported, since discordance with absolute values may lead to misinterpretation of CBC data. Current Interpretive Data was last revised on 2018. Lymphocyte pct 13.8 % [facility] Comment: Interpretive Data Percent cell count reference ranges are not reported, since discordance with absolute values may lead to misinterpretation of CBC data. Current Interpretive Data was last revised on 2018. Monocyte pct 5.3 % [facility] Comment: Interpretive Data Percent cell count reference ranges are not reported, since discordance with absolute values may lead to misinterpretation of CBC data. Current Interpretive Data was last revised on 2018. Eosinophil pct 2.1 % [facility] Comment: Interpretive Data Percent cell count reference ranges are not reported, since discordance with absolute values may lead to misinterpretation of CBC data. Current Interpretive Data was last revised on 2018. Basophil pct 0.4 % [facility] Comment: Interpretive Data Percent cell count reference ranges are not reported, since discordance with absolute values may lead to misinterpretation of CBC data. Current Interpretive Data was last revised on 2018. Blood 03/26/2025 3:00 AM CDT 03/26/2025 3:24 AM CDT Joslyn Davidson MD LAB BLOOD ORDERABLES Razia l Result Performing Organization Address [facility] Co de Phone Number [facility] [place] [address] * (ABNORMAL) CBC with auto differential (03/26/2025 3:00 AM CDT) Pathologist [facility] WBC 11.37(H) 3.80 - 9.90 K/cumm Hgb 8.8(L) 13.0 - 17.5 g/dL [facility] Hct 27.1(L) 38.9 - 50.3 % [facility] Plt 269 150 - 400 K/cumm [facility] MPV 13.3(H) 9.1 - 12.3 fL [facility] RBC 2.95(L) 4.30 - 5.80 M/cumm [facility] MCV 91.9 81.3 - 96.4 fL [facility] MCH 29.8 27.1 - 33.3 pg [facility] MCHC 32.5 32.3 - 35.7 g/dL [facility] RDW CV 14.3 11.1 - 14.9 % [facility] RDW SD 46.0 35.7 - 48.1 fL [facility] NRBC abs 0.00 0.00 - 0.01 K/cumm [facility] Blood 03/26/2025 3:00 AM CDT 03/26/2025 3:24 AM CDT Joslyn Davidson MD LAB BLOOD ORDERABLES Razia l Result Performing Organization Address [facility]/State/ZIP Co de Phone Number [facility] [place] [address] * (ABNORMAL) Basic metabolic panel (03/26/2025 3:00 AM CDT) Pathologist [facility] Sodium 146(H) 135 - 145 mmol/L Potassium, pl 3.6 3.3 - 4.9 mmol/L [facility] Chloride 114(H) 97 - 110 mmol/L [facility] CO2 24 22 - 32 mmol/L [facility] Anion gap 8 2 - 15 mmol/L [facility] BUN 16 6 - 25 mg/dL [facility] Creatinine 0.74(L) 0.80 - 1.30 mg/dL [facility] Glucose 100 70 - 199 mg/dL [facility] Comment: Interpretive Data Fasting glucose >/= [...] 2022. Calcium 8.4(L) 8.5 - 10.3 mg/dL [facility] Blood 03/26/2025 3:00 AM CDT 03/26/2025 3:25 AM CDT us Joslyn Davidson MD LAB BLOOD ORDERABLES Razia l Result [facility] [place] [address] * POCT glucose (03/25/2025 11:18 PM CDT) Glucose, POC 111 70 - 199 mg/dL Blood 03/25/2025 11:1 8 PM CDT 03/25/2025 11:18 PM CDT us Anival Leonard MD LAB POCT ORDERABLES - DEV ICE Final Result [facility] [place] [address] * POCT glucose (03/25/2025 8:08 PM CDT) Glucose, POC 110 70 - 199 mg/dL Blood 03/25/2025 8:08 PM CDT 03/25/2025 8:08 PM CDT Anival Leonard MD LAB POCT ORDERABLES - DEV ICE Final Result Performing Organization Address [facility] de Phone Number [facility] [place] [address] * POCT glucose (03/25/2025 4:56 PM CDT) Glucose, POC 105 70 - 199 mg/dL Blood 03/25/2025 4:56 PM CDT 03/25/2025 4:56 PM CDT Anival Leonard MD LAB POCT ORDERABLES - DEV ICE Final Result Performing Organization Address [facility] de Phone Number [facility] [place] [address] * POCT glucose (03/25/2025 12:59 PM CDT) Glucose, POC 96 70 - 199 mg/dL Blood 03/25/2025 12:5 9 PM CDT 03/25/2025 12:59 PM CDT Anival Leonard MD LAB POCT ORDERABLES - DEV ICE Final Result Performing Organization Address [facility] [place] [address] * [place] AN ELECTIVE ENDOTRACHEAL AIRWAY, [place] AN PROCEDURE PLACEHOLDER (03/25/2025 10:30 AM CDT) Narrative Sergio Karimi CRNA - 03/25/2025 10:30 AM CDT Sergio Karimi CRNA 03/25/2025 10:31 AM Airway Patient location: OR Urgency: elective Date/time: 03/25/2025 10:24 AM Indications for airway management: anesthesia Difficult airway: no Staff: Supervising provider: Keagan Tripp MD Placed by: TIPPLE GREASER: Sergio Karimi CRNA Emergent airway documentation: Risks [...] Male Attending MD: Odalis Zheng M.D. Room: [facility] ENDOSCOPY Note Status: Finalized Procedure: Upper GI endoscopy Indications: Melena Referring MD: Anival Leonard M.D. Providers: Odalis Zheng M.D., Brodie Zelaya M.D. Comorbidities Hx of iPD, hx of bipolar disorder (previously on [place], Esketamine, stopped 18 years ago) who presented [...] blood loss: none. Procedure: Pre-Anesthesia Assessment: - [place] Protocol: - Pre-procedure Verification: Prior to theprocedure, [...] passed under direct vision. The GIF [id number] endoscope was introduced through the mouth, and [...] abs 1.52 0.80 - 3.30 K/cumm [facility] Monocyte abs 0.68 0.20 - 0.80 K/cumm [facility] Eosinophil abs 0.20 0.00 - 0.50 K/cumm [facility] Basophil abs 0.05 0.00 - 0.10 K/cumm [facility] Neutrophil pct 79.4 % [facility] Comment: Interpretive Data Percent cell count reference ranges are not reported, since discordance with absolute values may lead to misinterpretation of CBC data. Current Interpretive Data was last revised on 2018. Imm gran pct 2.2 % [facility] Comment: Interpretive Data Percent cell count reference ranges are not reported, since discordance with absolute values may lead to misinterpretation of CBC data. Current Interpretive Data was last revised on 2018. Lymphocyte pct 11.4 % [facility] Comment: Interpretive Data Percent cell count reference ranges are not reported, since discordance with absolute values may lead to misinterpretation of CBC data. Current Interpretive Data was last revised on 2018. Monocyte pct 5.1 % [facility] Comment: Interpretive Data Percent cell count reference ranges are not reported, since discordance with absolute values may lead to misinterpretation of CBC data. Current Interpretive Data was last revised on 2018. Eosinophil pct 1.5 % [facility] Comment: Interpretive Data Percent cell count reference ranges are not reported, since discordance with absolute values may lead to misinterpretation of CBC data. Current Interpretive Data was last revised on 2018. Basophil pct 0.4 % [facility] Comment: Interpretive Data Percent cell count reference ranges are not reported, since discordance with absolute values may lead to misinterpretation of CBC data. Current Interpretive Data was last revised on 2018. Blood 03/25/2025 8:30 AM CDT 03/25/2025 10:38 AM CDT us Joslyn Davidson MD LAB BLOOD ORDERABLES Razia westfall Result [facility] [place] [address] * (ABNORMAL) CBC with auto differential (03/25/2025 8:30 AM CDT) WBC 13.39(H) 3.80 - 9.90 K/cumm Hgb 7.8(L) 13.0 - 17.5 g/dL [facility] Hct 24.0(L) 38.9 - 50.3 % [facility] Plt 214 150 - 400 K/cumm [facility] MPV 14.3(H) 9.1 - 12.3 fL [facility] RBC 2.61(L) 4.30 - 5.80 M/cumm [facility] MCV 92.0 81.3 - 96.4 fL [facility] MCH 29.9 27.1 - 33.3 pg [facility] MCHC 32.5 32.3 - 35.7 g/dL [facility] RDW CV 14.5 11.1 - 14.9 % [facility] RDW SD 46.9 35.7 - 48.1 fL [facility] NRBC abs 0.02(H) 0.00 - 0.01 K/cumm [facility] Blood 03/25/2025 8:30 AM CDT 03/25/2025 10:38 AM CDT Joslyn Davidson MD LAB BLOOD ORDERABLES Razia l Result Performing Organization Address [facility] Co de Phone Number [facility] [place] [address] * H. pylori antigen, stool Stool (03/25/2025 8:30 AM CDT) H. pylori Ag, stool Negative Negative Comment: Interpretative Data Testing performed at the [facility]biology Laboratory using the [employer] HpSA lateral flow immunoassay that detects Helicobacter [...] L ORDERABLES Final Result Performing Organization Address [facility] de Phone Number [facility] [place] [address] * POCT glucose (03/25/2025 7:44 AM CDT) Glucose, POC 106 70 - 199 mg/dL Blood 03/25/2025 7:44 AM CDT 03/25/2025 7:44 AM CDT Anival Leonard MD LAB POCT ORDERABLES - DEV ICE Final Result Performing Organization Address [facility] Co de Phone Number [facility] [place] [address] * (ABNORMAL) CBC without differential (03/25/2025 3:35 AM CDT) WBC 12.96(H) 3.80 - 9.90 K/cumm Hgb 7.9(L) 13.0 - 17.5 g/dL [facility] Hct 24.1(L) 38.9 - 50.3 % [facility] Plt 183 150 - 400 K/cumm [facility] MPV 13.7(H) 9.1 - 12.3 fL [facility] RBC 2.64(L) 4.30 - 5.80 M/cumm [facility] MCV 91.3 81.3 - 96.4 fL [facility] MCH 29.9 27.1 - 33.3 pg [facility] MCHC 32.8 32.3 - 35.7 g/dL [facility] RDW CV 14.4 11.1 - 14.9 % [facility] RDW SD 46.5 35.7 - 48.1 fL [facility] NRBC abs 0.00 0.00 - 0.01 K/cumm [facility] Blood 03/25/2025 3:35 AM CDT 03/25/2025 4:26 AM CDT Narrative [facility] - 03/25/2025 4:36 AM CDT 1 hour after transfusion of red blood cells is complete us Joslyn Davidson MD LAB BLOOD ORDERABLES Razia l Result [facility] Department [place] [address] * POCT glucose (03/25/2025 3:26 AM CDT) Glucose, POC 97 70 - 199 mg/dL Blood 03/25/2025 3:26 AM CDT 03/25/2025 3:26 AM CDT us Anival Leonard MD LAB POCT ORDERABLES - DEV ICE Final Result [facility] Department [place] [address] * Transfuse RBC (03/25/2025 1:49 AM CDT) Blood Joslyn Davidson MD BLOOD TRANSFUSION ORDERAB LES Final Result Performing Organization Address [facility] Co de Phone Number [facility] Department [place] [address] * POCT glucose (03/24/2025 11:35 PM CDT) Glucose, POC 98 70 - 199 mg/dL Blood 03/24/2025 11:3 5 PM CDT 03/24/2025 11:35 PM CDT Anival Leonard MD LAB POCT ORDERABLES - DEV ICE Final Result Performing Organization Address [facility] Co de Phone Number [facility] Department [place] [address] * Prepare RBC: 1 Units (03/24/2025 9:09 PM CDT) Product code [id number] Unit Number [id number] [facility] Product Blood Type APOS [facility] Dispense Status PRESUMED TRANSFUSED [facility] Blood 03/24/2025 9:09 PM CDT 03/24/2025 9:09 PM CDT Narrative [facility] - 03/25/2025 4:01 PM CDT Are special requirements needed? (All products are leukoreduced and CMV- safe)- >No Date required:-[id number] LRRBC # of Kos[place]-7-Eiruj Reasons:-Hgb <7 g/dL} Joslyn Davidson MD BLOOD BANK PRODUCT ORDERA BLES Final Result Performing Organization Address [facility] Co de Phone Number [facility] [place] [address] * eGFR (03/24/2025 8:26 PM CDT) Pathologist [facility] eGFR >90 >=60 mL/min/1. 73 m2 [...] 8:26 PM CDT 03/24/2025 8:53 PM CDT us Joslyn Davidson MD LAB BLOOD ORDERABLES Razia westfall Result [facility] One [facility] Department [place] [address] * (ABNORMAL) Differential, auto (03/24/2025 8:26 PM CDT) Pathologist [facility] Neutrophil abs 11.57(H) 1.50 - 6.50 K/cumm Imm gran abs 0.51(H) 0.00 - 0.10 K/cumm [facility] Lymphocyte abs 2.48 0.80 - 3.30 K/cumm [facility] Monocyte abs 0.89(H) 0.20 - 0.80 K/cumm [facility] Eosinophil abs 0.28 0.00 - 0.50 K/cumm [facility] Basophil abs 0.04 0.00 - 0.10 K/cumm [facility] Neutrophil pct 73.4 % [facility] Comment: Interpretive Data Percent cell count reference ranges are not reported, since discordance with absolute values may lead to misinterpretation of CBC data. Current Interpretive Data was last revised on 2018. Imm gran pct 3.2 % [facility] Comment: Interpretive Data Percent cell count reference ranges are not reported, since discordance with absolute values may lead to misinterpretation of CBC data. Current Interpretive Data was last revised on 2018. Lymphocyte pct 15.7 % [facility] Comment: Interpretive Data Percent cell count reference ranges are not reported, since discordance with absolute values may lead to misinterpretation of CBC data. Current Interpretive Data was last revised on 2018. Monocyte pct 5.6 % [facility] Comment: Interpretive Data Percent cell count reference ranges are not reported, since discordance with absolute values may lead to misinterpretation of CBC data. Current Interpretive Data was last revised on 2018. Eosinophil pct 1.8 % [facility] Comment: Interpretive Data Percent cell count reference ranges are not reported, since discordance with absolute values may lead to misinterpretation of CBC data. Current Interpretive Data was last revised on 2018. Basophil pct 0.3 % [facility] Comment: Interpretive Data Percent cell count reference ranges are not reported, since discordance with absolute values may lead to misinterpretation of CBC data. Current Interpretive Data was last revised on 2018. Blood 03/24/2025 8:26 PM CDT 03/24/2025 8:52 PM CDT us Joslyn Davidson MD LAB BLOOD ORDERABLES Razia l Result [facility] Department [place] [address] * (ABNORMAL) Iron profile w/ IBC (03/24/2025 8:26 PM CDT) Iron 54 50 - 150 mcg/dL TIBC 169(L) 250 - 400 mcg/dL [facility] Transferrin saturation 32 20 - 50 % [facility] Blood 03/24/2025 8:26 PM CDT 03/24/2025 8:53 PM CDT Joslyn Davidson MD LAB BLOOD ORDERABLES Razia l Result Performing Organization Address [facility] Co de Phone Number [facility] [place] [address] * (ABNORMAL) CBC with auto differential (03/24/2025 8:26 PM CDT) Pathologist [facility] WBC 15.77(H) 3.80 - 9.90 K/cumm Hgb 6.7(L) 13.0 - 17.5 g/dL [facility] Hct 21.1(L) 38.9 - 50.3 % [facility] Plt 223 150 - 400 K/cumm [facility] MPV 13.9(H) 9.1 - 12.3 fL [facility] RBC 2.29(L) 4.30 - 5.80 M/cumm [facility] MCV 92.1 81.3 - 96.4 fL [facility] MCH 29.3 27.1 - 33.3 pg [facility] MCHC 31.8(L) 32.3 - 35.7 g/dL [facility] RDW CV 14.2 11.1 - 14.9 % [facility] RDW SD 46.1 35.7 - 48.1 fL [facility] NRBC abs 0.02(H) 0.00 - 0.01 K/cumm [facility] Blood 03/24/2025 8:26 PM CDT 03/24/2025 8:52 PM CDT Joslyn Davidson MD LAB BLOOD ORDERABLES Razia l Result Performing Organization Address City/[facility]/ZIP Co de Phone Number [facility] [place] [address] * Phosphorus (03/24/2025 8:26 PM CDT) [facility] Phosphorus, pl 2.9 2.3 - 4.5 mg/dL Blood 03/24/2025 8:26 PM CDT 03/24/2025 8:53 PM CDT Joslyn Davidson MD LAB BLOOD ORDERABLES Razia l Result [facility] [place] [address] * Folate (03/24/2025 8:26 PM CDT) [facility] Folic acid 13.6 >=5.0 ng/mL Blood 03/24/2025 8:26 PM CDT 03/24/2025 8:53 PM CDT Joslyn Davidson MD LAB BLOOD ORDERABLES Razia l Result Performing Organization Address City/[facility]/ZIP Co de Phone Number [facility] [place] [address] * Vitamin B12 (03/24/2025 8:26 PM CDT) [facility] Vitamin B12 743 230 - 1,250 pg/mL Blood 03/24/2025 8:26 PM CDT 03/24/2025 8:53 PM CDT Joslyn Davidson MD LAB BLOOD ORDERABLES Razia l Result [facility] [place], [place] [id number] * (ABNORMAL) Comprehensive metabolic panel (03/24/2025 8:26 PM CDT) [facility] Sodium 141 135 - 145 mmol/L Potassium, pl 4.1 3.3 - 4.9 mmol/L [facility] Chloride 110 97 - 110 mmol/L [facility] CO2 24 22 - 32 mmol/L [facility] Anion gap 7 2 - 15 mmol/L [facility] BUN 26(H) 6 - 25 mg/dL [facility] Creatinine 0.72(L) 0.80 - 1.30 mg/dL [facility] Glucose 94 70 - 199 mg/dL [facility] Comment: Interpretive Data Fasting glucose >/= [...] 2022. Calcium 8.2(L) 8.5 - 10.3 mg/dL [facility] Bilirubin, total 0.3 0.1 - 1.2 mg/dL [facility] Protein, pl 5.8(L) 6.5 - 8.5 g/dL [facility] Albumin 2.5(L) 3.5 - 5.0 g/dL [facility] Alk phos 68 40 - 130 Units/L [facility] ALT 6(L) 7 - 55 Units/L [facility] AST 16 10 - 50 Units/L [facility] Blood 03/24/2025 8:26 PM CDT 03/24/2025 8:53 PM CDT us Joslyn Davidson MD LAB BLOOD ORDERABLES Razia l Result [facility] Department of Laboratories [place], [place] [id number] * POCT glucose (03/24/2025 8:16 PM CDT) [facility] Glucose, POC 104 70 - 199 mg/dL Blood 03/24/2025 8:16 PM CDT 03/24/2025 8:16 PM CDT Anival Leonard MD LAB POCT ORDERABLES - DEV ICE Final Result Performing Organization Address [facility] [place] [address] * POCT glucose (03/24/2025 3:57 PM CDT) Glucose, POC 114 70 - 199 mg/dL Blood 03/24/2025 3:57 PM CDT 03/24/2025 3:57 PM CDT Anival Leonard MD LAB POCT ORDERABLES - DEV ICE Final Result Performing Organization Address [facility] [place] [address] * (ABNORMAL) POCT glucose (03/24/2025 11:53 AM CDT) Glucose, POC 201(H) 70 - 199 mg/dL Blood 03/24/2025 11:5 3 AM CDT 03/24/2025 11:53 AM CDT Anival Leonard MD LAB POCT ORDERABLES - DEV ICE Final Result Performing Organization Address [facility] [place] [address] * XR Abdomen Ap 1 Vw (03/24/2025 [...] MD LAB BLOOD ORDERABLES Razia l Result [facility] Department [place] [address] * (ABNORMAL) Protime-INR (03/24/2025 10:33 AM CDT) PT 13.6(H) 9.7 - 13.0 sec INR 1.25(H) 0.90 - 1.20 [facility] Comment: Interpretive data Oral anticoagulant therapeutic ranges: Venous thromboembolism prophylaxis or treatment: 2.0-3.0 CARDIOLOGY Standard range: 2.0-3.0 High-intensity range: 2.5-3.5 Refer to indication-specific guidelines for appropriate target ranges for prosthetic heart valve replacement. Current interpretive data was last revised on 2019. Blood 03/24/2025 10:3 3 AM CDT 03/24/2025 11:23 AM CDT Joslyn Davidson MD LAB BLOOD ORDERABLES Razia l Result Performing Organization Address [facility] [place] [address] * Type and screen (03/24/2025 9:31 AM CDT) Pathologist [facility] Jackie, indirect Negative ABO Rh A Positive [facility] Blood 03/24/2025 9:31 AM CDT 03/24/2025 9:49 AM CDT Narrative [facility] - 03/24/2025 11:04 AM CDT Has the patient had Daratumumab or Isatuximab in the past 6 months?->Unknown Joslyn Davidson MD LAB BLOOD BANK TEST ORDER DEJAN Final Result Performing Organization Address [facility] de Phone Number [facility] [place] [address] * (ABNORMAL) Differential, auto (03/24/2025 9:16 AM CDT) Pathologist [facility] Neutrophil abs 14.06(H) 1.50 - 6.50 K/cumm Imm gran abs 0.63(H) 0.00 - 0.10 K/cumm [facility] Lymphocyte abs 1.85 0.80 - 3.30 K/cumm [facility] Monocyte abs 0.85(H) 0.20 - 0.80 K/cumm [facility] Eosinophil abs 0.18 0.00 - 0.50 K/cumm [facility] Basophil abs 0.06 0.00 - 0.10 K/cumm [facility] Neutrophil pct 79.8 % [facility] Comment: Interpretive Data Percent cell count reference ranges are not reported, since discordance with absolute values may lead to misinterpretation of CBC data. Current Interpretive Data was last revised on 2018. Imm gran pct 3.6 % [facility] Comment: Interpretive Data Percent cell count reference ranges are not reported, since discordance with absolute values may lead to misinterpretation of CBC data. Current Interpretive Data was last revised on 2018. Lymphocyte pct 10.5 % [facility] Comment: Interpretive Data Percent cell count reference ranges are not reported, since discordance with absolute values may lead to misinterpretation of CBC data. Current Interpretive Data was last revised on 2018. Monocyte pct 4.8 % [facility] Comment: Interpretive Data Percent cell count reference ranges are not reported, since discordance with absolute values may lead to misinterpretation of CBC data. Current Interpretive Data was last revised on 2018. Eosinophil pct 1.0 % [facility] Comment: Interpretive Data Percent cell count reference ranges are not reported, since discordance with absolute values may lead to misinterpretation of CBC data. Current Interpretive Data was last revised on 2018. Basophil pct 0.3 % [facility] Comment: Interpretive Data Percent cell count reference ranges are not reported, since discordance with absolute values may lead to misinterpretation of CBC data. Current Interpretive Data was last revised on 2018. Blood 03/24/2025 9:16 AM CDT 03/24/2025 9:48 AM CDT us Joslyn Davidson MD LAB BLOOD ORDERABLES Razia westfall Result [facility] One [facility] Department [place] [address] * (ABNORMAL) CBC with auto differential (03/24/2025 9:16 AM CDT) WBC 17.63(H) 3.80 - 9.90 K/cumm Hgb 7.1(L) 13.0 - 17.5 g/dL [facility] Hct 22.5(L) 38.9 - 50.3 % [facility] Plt 262 150 - 400 K/cumm [facility] MPV 13.4(H) 9.1 - 12.3 fL [facility] RBC 2.45(L) 4.30 - 5.80 M/cumm [facility] MCV 91.8 81.3 - 96.4 fL [facility] MCH 29.0 27.1 - 33.3 pg [facility] MCHC 31.6(L) 32.3 - 35.7 g/dL [facility] RDW CV 14.1 11.1 - 14.9 % [facility] RDW SD 45.7 35.7 - 48.1 fL [facility] NRBC abs 0.03(H) 0.00 - 0.01 K/cumm [facility] Blood 03/24/2025 9:16 AM CDT 03/24/2025 9:48 AM CDT Joslyn Davidson MD LAB BLOOD ORDERABLES Razia l Result Performing Organization Address [facility] de Phone Number [facility] Department [place] [address] * Lipase (03/24/2025 9:16 AM CDT) Lipase 47 10 - 99 Units/L Blood 03/24/2025 9:16 AM CDT 03/24/2025 9:48 AM CDT Joslyn Davidson MD LAB BLOOD ORDERABLES Razia l Result Performing Organization Address [facility] Co de Phone Number [facility] [place] [address] * POCT glucose (03/24/2025 8:05 AM CDT) Glucose, POC 146 70 - 199 mg/dL Blood 03/24/2025 8:05 AM CDT 03/24/2025 8:05 AM CDT Anival Leonard MD LAB POCT ORDERABLES - DEV ICE Final Result Performing Organization Address City/[facility] Co de Phone Number [facility] [place] [address] * POCT glucose (03/24/2025 4:12 AM CDT) Glucose, POC 164 70 - 199 mg/dL Blood 03/24/2025 4:12 AM CDT 03/24/2025 4:12 AM CDT Anival Leonard MD LAB POCT ORDERABLES - DEV ICE Final Result Performing Organization Address [facility] [place] [address] * POCT glucose (03/24/2025 12:20 AM CDT) Glucose, POC 160 70 - 199 mg/dL Blood 03/24/2025 12:2 0 AM CDT 03/24/2025 12:20 AM CDT Anival Leonard MD LAB POCT ORDERABLES - DEV ICE Final Result Performing Organization Address [facility] [place] [address] * Vancomycin level trough Draw trough 30 minutes prior to 4th dose. (03/23/2025 10:44 PM CDT) Vancomycin trough 15.2 10.0 - 20.0 mcg/mL Blood 03/23/2025 10:4 4 PM CDT 03/23/2025 11:35 PM CDT Narrative [facility] - 03/24/2025 12:04 AM CDT Draw trough 30 minutes prior to 4th dose. Joslyn Davidson MD LAB BLOOD ORDERABLES Razia l Result Performing Organization Address [facility] Co de Phone Number [facility] [place] [address] * CT Chest Abdomen Pelvis W Contrast [...] MD LAB BLOOD ORDERABLES Razia westfall Result [facility] Department [place] [address] * (ABNORMAL) Differential, auto (03/23/2025 8:55 PM CDT) Pathologist [facility] Neutrophil abs 16.63(H) 1.50 - 6.50 K/cumm Imm gran abs 0.67(H) 0.00 - 0.10 K/cumm [facility] Lymphocyte abs 2.13 0.80 - 3.30 K/cumm [facility] Monocyte abs 1.03(H) 0.20 - 0.80 K/cumm [facility] Eosinophil abs 0.11 0.00 - 0.50 K/cumm [facility] Basophil abs 0.05 0.00 - 0.10 K/cumm [facility] Neutrophil pct 80.8 % [facility] Comment: Interpretive Data Percent cell count reference ranges are not reported, since discordance with absolute values may lead to misinterpretation of CBC data. Current Interpretive Data was last revised on 2018. Imm gran pct 3.2 % [facility] Comment: Interpretive Data Percent cell count reference ranges are not reported, since discordance with absolute values may lead to misinterpretation of CBC data. Current Interpretive Data was last revised on 2018. Lymphocyte pct 10.3 % [facility] Comment: Interpretive Data Percent cell count reference ranges are not reported, since discordance with absolute values may lead to misinterpretation of CBC data. Current Interpretive Data was last revised on 2018. Monocyte pct 5.0 % [facility] Comment: Interpretive Data Percent cell count reference ranges are not reported, since discordance with absolute values may lead to misinterpretation of CBC data. Current Interpretive Data was last revised on 2018. Eosinophil pct 0.5 % [facility] Comment: Interpretive Data Percent cell count reference ranges are not reported, since discordance with absolute values may lead to misinterpretation of CBC data. Current Interpretive Data was last revised on 2018. Basophil pct 0.2 % [facility] Comment: Interpretive Data Percent cell count reference ranges are not reported, since discordance with absolute values may lead to misinterpretation of CBC data. Current Interpretive Data was last revised on 2018. Blood 03/23/2025 8:55 PM CDT 03/23/2025 9:37 PM CDT us Joslyn Davidson MD LAB BLOOD ORDERABLES Razia westfall Result [facility] Department [place] [address] * (ABNORMAL) CBC with auto differential (03/23/2025 8:55 PM CDT) WBC 20.62(H) 3.80 - 9.90 K/cumm Hgb 7.4(L) 13.0 - 17.5 g/dL [facility] Hct 23.4(L) 38.9 - 50.3 % [facility] Plt 230 150 - 400 K/cumm [facility] MPV 14.1(H) 9.1 - 12.3 fL [facility] RBC 2.55(L) 4.30 - 5.80 M/cumm [facility] MCV 91.8 81.3 - 96.4 fL [facility] MCH 29.0 27.1 - 33.3 pg [facility] MCHC 31.6(L) 32.3 - 35.7 g/dL [facility] RDW CV 14.1 11.1 - 14.9 % [facility] RDW SD 46.3 35.7 - 48.1 fL [facility] NRBC abs 0.00 0.00 - 0.01 K/cumm [facility] Blood 03/23/2025 8:55 PM CDT 03/23/2025 9:37 PM CDT Joslyn Davidson MD LAB BLOOD ORDERABLES Razia l Result [facility] [place] [address] * Phosphorus (03/23/2025 8:55 PM CDT) [facility] Phosphorus, pl 3.0 2.3 - 4.5 mg/dL Blood 03/23/2025 8:55 PM CDT 03/23/2025 9:32 PM CDT Joslyn Davidson MD LAB BLOOD ORDERABLES Razia l Result Performing Organization Address City/[facility]/ZIP Co de Phone Number [facility] [place] [address] * (ABNORMAL) Comprehensive metabolic panel (03/23/2025 8:55 PM CDT) [facility] Sodium 144 135 - 145 mmol/L Potassium, pl 4.2 3.3 - 4.9 mmol/L [facility] Chloride 111(H) 97 - 110 mmol/L [facility] CO2 24 22 - 32 mmol/L [facility] Anion gap 9 2 - 15 mmol/L [facility] BUN 43(H) 6 - 25 mg/dL [facility] Creatinine 0.60(L) 0.80 - 1.30 mg/dL [facility] Glucose 121 70 - 199 mg/dL [facility] Comment: Interpretive Data Fasting glucose >/= [...] 2022. Calcium 7.9(L) 8.5 - 10.3 mg/dL [facility] Bilirubin, total 0.2 0.1 - 1.2 mg/dL [facility] Protein, pl 5.7(L) 6.5 - 8.5 g/dL [facility] Albumin 2.6(L) 3.5 - 5.0 g/dL [facility] Alk phos 85 40 - 130 Units/L [facility] ALT 21 7 - 55 Units/L [facility] AST 17 10 - 50 Units/L [facility] Blood 03/23/2025 8:55 PM CDT 03/23/2025 9:32 PM CDT us Joslyn Davidson MD LAB BLOOD ORDERABLES Razia l Result Performing Organization Address City/[facility]/ZIP Co de Phone Number [facility] Department [place] [address] * POCT glucose (03/23/2025 8:16 PM CDT) [facility] Signature Glucose, POC 140 70 - 199 mg/dL Blood 03/23/2025 8:16 PM CDT 03/23/2025 8:16 PM CDT us Anival Leonard MD LAB POCT ORDERABLES - DEV ICE Final Result Performing Organization Address City/[facility]/ZIP Co de Phone Number [facility] Department [place] [address] * POCT glucose (03/23/2025 3:58 PM CDT) Glucose, POC 160 70 - 199 mg/dL Blood 03/23/2025 3:58 PM CDT 03/23/2025 3:58 PM CDT Anival Leonard MD LAB POCT ORDERABLES - DEV ICE Final Result [facility] [place] [address] * (ABNORMAL) Aerobic culture and gram stain [...] therapy. Please contact the microbiology laboratory at [phone] if identification or susceptibility testing is clinically indicated. Plus growth of clinically insignificant bacterial cristino. (.) [facility] Organism PLUS GROWTH OF CLINICALLY INSIGNIFICANT CRISTINO. [facility] Organism YEAST [facility] Sputum (Sputum) 03/23/2025 1 :23 PM CDT 03/23/2025 3:20 PM CDT Narrative [facility] - 03/25/2025 10:58 AM CDT Testing performed by [facility] Microbiology Laboratory ([phone]) Specimens submitted from normally sterile body sites [...] GENERA L ORDERABLES Final Result [facility] [place] [address] * POCT glucose (03/23/2025 12:01 PM CDT) Glucose, POC 139 70 - 199 mg/dL Blood 03/23/2025 12:0 1 PM CDT 03/23/2025 12:01 PM CDT Anival Leonard MD LAB POCT ORDERABLES - DEV ICE Final Result Performing Organization Address City/[facility] [facility] [place] [address] * POCT glucose (03/23/2025 8:01 AM CDT) Glucose, POC 141 70 - 199 mg/dL Blood 03/23/2025 8:01 AM CDT 03/23/2025 8:01 AM CDT Anival Leonard MD LAB POCT ORDERABLES - DEV ICE Final Result Performing Organization Address [facility] [place] [address] * XR Abdomen Ap 1 Vw (03/23/2025 [...] desired. Electronically signed by: Dago Duarte M.D. us Joslyn Davidson MD IMG XR PROCEDURES Final R esult * POCT glucose (03/23/2025 3:55 AM CDT) Glucose, POC 157 70 - 199 mg/dL Blood 03/23/2025 3:55 AM CDT 03/23/2025 3:55 AM CDT us Anival Leonard MD LAB POCT ORDERABLES - DEV ICE Final Result Performing Organization Address City/[facility] Co de Phone Number [facility] [place] [address] * POCT glucose (03/22/2025 11:41 PM CDT) [facility] Signature Glucose, POC 183 70 - 199 mg/dL Blood 03/22/2025 11:4 1 PM CDT 03/22/2025 11:41 PM CDT Anival Leonard MD LAB POCT ORDERABLES - DEV ICE Final Result Performing Organization Address City/[facility] Co de Phone Number [facility] [place] [address] * eGFR (03/22/2025 9:01 PM CDT) [facility] eGFR >90 >=60 mL/min/1. 73 m2 Comment: [...] MD LAB BLOOD ORDERABLES Razia l Result [facility] One [facility] Department [place] [address] * (ABNORMAL) Differential, auto (03/22/2025 9:01 PM CDT) Neutrophil abs 13.29(H) 1.50 - 6.50 K/cumm Imm gran abs 0.58(H) 0.00 - 0.10 K/cumm [facility] Lymphocyte abs 1.70 0.80 - 3.30 K/cumm [facility] Monocyte abs 0.88(H) 0.20 - 0.80 K/cumm [facility] Eosinophil abs 0.15 0.00 - 0.50 K/cumm [facility] Basophil abs 0.06 0.00 - 0.10 K/cumm [facility] Neutrophil pct 79.7 % [facility] Comment: Interpretive Data Percent cell count reference ranges are not reported, since discordance with absolute values may lead to misinterpretation of CBC data. Current Interpretive Data was last revised on 2018. Imm gran pct 3.5 % [facility] Comment: Interpretive Data Percent cell count reference ranges are not reported, since discordance with absolute values may lead to misinterpretation of CBC data. Current Interpretive Data was last revised on 2018. Lymphocyte pct 10.2 % [facility] Comment: Interpretive Data Percent cell count reference ranges are not reported, since discordance with absolute values may lead to misinterpretation of CBC data. Current Interpretive Data was last revised on 2018. Monocyte pct 5.3 % [facility] Comment: Interpretive Data Percent cell count reference ranges are not reported, since discordance with absolute values may lead to misinterpretation of CBC data. Current Interpretive Data was last revised on 2018. Eosinophil pct 0.9 % [facility] Comment: Interpretive Data Percent cell count reference ranges are not reported, since discordance with absolute values may lead to misinterpretation of CBC data. Current Interpretive Data was last revised on 2018. Basophil pct 0.4 % [facility] Comment: Interpretive Data Percent cell count reference ranges are not reported, since discordance with absolute values may lead to misinterpretation of CBC data. Current Interpretive Data was last revised on 2018. Blood 03/22/2025 9:01 PM CDT 03/22/2025 9:53 PM CDT us Joslyn Davidson MD LAB BLOOD ORDERABLES Razia l Result [facility] One [facility] Department [place] [address] * (ABNORMAL) CBC with auto differential (03/22/2025 9:01 PM CDT) WBC 16.66(H) 3.80 - 9.90 K/cumm Hgb 9.2(L) 13.0 - 17.5 g/dL [facility] Hct 28.5(L) 38.9 - 50.3 % [facility] Plt 300 150 - 400 K/cumm [facility] MPV 13.4(H) 9.1 - 12.3 fL [facility] RBC 3.15(L) 4.30 - 5.80 M/cumm [facility] MCV 90.5 81.3 - 96.4 fL [facility] MCH 29.2 27.1 - 33.3 pg [facility] MCHC 32.3 32.3 - 35.7 g/dL [facility] RDW CV 14.0 11.1 - 14.9 % [facility] RDW SD 45.2 35.7 - 48.1 fL [facility] NRBC abs 0.00 0.00 - 0.01 K/cumm [facility] Blood 03/22/2025 9:01 PM CDT 03/22/2025 9:53 PM CDT Joslyn Davidson MD LAB BLOOD ORDERABLES Razia l Result Performing Organization Address [facility] de Phone Number [facility] Department [place] [address] * Phosphorus (03/22/2025 9:01 PM CDT) [facility] Phosphorus, pl 2.8 2.3 - 4.5 mg/dL Blood 03/22/2025 9:01 PM CDT 03/22/2025 9:53 PM CDT Joslyn Davidson MD LAB BLOOD ORDERABLES Razia l Result Performing Organization Address [facility] Co de Phone Number [facility] Department [place] [address] * (ABNORMAL) Comprehensive metabolic panel (03/22/2025 9:01 PM CDT) [facility] Sodium 142 135 - 145 mmol/L Potassium, pl 4.1 3.3 - 4.9 mmol/L [facility] Chloride 111(H) 97 - 110 mmol/L [facility] CO2 25 22 - 32 mmol/L [facility] Anion gap 6 2 - 15 mmol/L [facility] BUN 34(H) 6 - 25 mg/dL [facility] Creatinine 0.71(L) 0.80 - 1.30 mg/dL [facility] Glucose 129 70 - 199 mg/dL [facility] Comment: Interpretive Data Fasting glucose >/= [...] 2022. Calcium 7.7(L) 8.5 - 10.3 mg/dL [facility] Bilirubin, total 0.3 0.1 - 1.2 mg/dL [facility] Protein, pl 5.8(L) 6.5 - 8.5 g/dL [facility] Albumin 2.2(L) 3.5 - 5.0 g/dL [facility] Alk phos 92 40 - 130 Units/L [facility] ALT 23 7 - 55 Units/L [facility] AST 17 10 - 50 Units/L [facility] Blood 03/22/2025 9:01 PM CDT 03/22/2025 9:53 PM CDT us Joslyn Davidson MD LAB BLOOD ORDERABLES Razia l Result [facility] One [facility] Department [place] [address] * POCT glucose (03/22/2025 7:29 PM CDT) [facility] Glucose, POC 130 70 - 199 mg/dL Blood 03/22/2025 7:29 PM CDT 03/22/2025 7:29 PM CDT us Anival Leonard MD LAB POCT ORDERABLES - DEV ICE Final Result [facility] One [facility] Department [place] [address] * Respiratory pathogen panel Nasopharyngeal (03/22/2025 5:30 PM CDT) Pathologist [facility] Influenza A RNA Not Detected Not Detected Influenza B RNA Not Detected Not Detected [facility] RSV RNA Not Detected Not Detected [facility] COVID-19 RNA Not Detected Not Detected [facility] Coronavirus 229E RNA Not Detected Not Detected [facility] Coronavirus HKU1 RNA Not Detected Not Detected [facility] Coronavirus NL63 RNA Not Detected Not Detected [facility] Coronavirus OC43 RNA Not Detected Not Detected [facility] Adenovirus DNA Not Detected Not Detected [facility] Metapneumovirus RNA Not Detected Not Detected [facility] Rhinovirus/Enterov irus RNA Not Detected Not Detected [facility] Parainfluenza 1 RNA Not Detected Not Detected [facility] Parainfluenza 2 RNA Not Detected Not Detected [facility] Parainfluenza 3 RNA Not Detected Not Detected [facility] Parainfluenza 4 RNA Not Detected Not Detected [facility] B. pertussis DNA Not Detected Not Detected [facility] B. parapertussis DNA Not Detected Not Detected [facility] C. pneumoniae DNA Not Detected Not Detected [facility] M. pneumoniae DNA Not Detected Not Detected [facility] Nasopharyngeal 03/22/2025 5: 30 PM CDT 03/22/2025 6:34 PM CDT Narrative [facility] - 03/22/2025 7:45 PM CDT Is the Patient experiencing symptoms consistent with COVID?->Yes Surveillance testing for transplant patient?->No Interpretive Data The [employer] FilmArray Respiratory Panel (RP2.1) assay is a [...] assay has FDA clearance for testing of AIR VALVE REPAIRER swabs. The performance of additional specimen types has been assessed by the performing laboratory. The performance characteristics of this assay have been determined by [facility] Molecular Infectious Disease Laboratory. Current interpretive data was last revised on 22. Joslyn Davidson MD LAB MICROBIOLOGY - GENERA L ORDERABLES Final Result [facility] Department [place] [address] * POCT glucose (03/22/2025 4:22 PM CDT) [facility] Signature Glucose, POC 122 70 - 199 mg/dL Blood 03/22/2025 4:22 PM CDT 03/22/2025 4:22 PM CDT Anival Leonard MD LAB POCT ORDERABLES - DEV ICE Final Result [facility] [place] [address] * POCT glucose (03/22/2025 12:17 PM CDT) Glucose, POC 135 70 - 199 mg/dL Blood 03/22/2025 12:1 7 PM CDT 03/22/2025 12:17 PM CDT Anival Leonard MD LAB POCT ORDERABLES - DEV ICE Final Result Performing Organization Address [facility] Co de Phone Number [facility] [place] [address] * Blood culture Blood (03/22/2025 9:53 AM CDT) Report Final Report: No growth Blood 03/22/2025 9:53 AM CDT 03/22/2025 10:22 AM CDT Narrative [facility] - 03/26/2025 12:01 PM CDT Collection->Peripheral 1. [...] performance characteristics have been verified by the [facility] Microbiology Laboratory. For questions about this culture, contact the Microbiology Laboratory at [phone]. Interpretive data was last revised on 24. Joslyn Davidson MD LAB MICROBIOLOGY - GENERA L ORDERABLES Final Result Performing Organization Address City/State/[facility] Co de Phone Number [facility]O PORTILL[facility] One [facility] Department [place] [address] * Blood culture Blood (03/22/2025 9:53 AM [...] performance characteristics have been verified by the [facility] Microbiology Laboratory. For questions about this culture, contact the Microbiology Laboratory at [phone]. Interpretive data was last revised on 24. Joslyn Davidson MD LAB MICROBIOLOGY - GENERA L ORDERABLES Final Result Performing Organization Address [facility]/ZIP Co de Phone Number [facility] [place] [address] * POCT glucose (03/22/2025 7:36 AM CDT) Glucose, POC 137 70 - 199 mg/dL Blood 03/22/2025 7:36 AM CDT 03/22/2025 7:36 AM CDT us Anival Leonard MD LAB POCT ORDERABLES - DEV ICE Final Result Performing Organization Address [facility] Co de Phone Number [facility] [place] [address] * POCT glucose (03/22/2025 4:28 AM CDT) Glucose, POC 134 70 - 199 mg/dL Blood 03/22/2025 4:28 AM CDT 03/22/2025 4:28 AM CDT us Anival Leonard MD LAB POCT ORDERABLES - DEV ICE Final Result Performing Organization Address City/[facility] Co de Phone Number [facility] [place] [address] * POCT glucose (03/21/2025 11:25 PM CDT) Glucose, POC 119 70 - 199 mg/dL Blood 03/21/2025 11:2 5 PM CDT 03/21/2025 11:25 PM CDT us Anival Leonard MD LAB POCT ORDERABLES - DEV ICE Final Result Performing Organization Address City/[facility]/ZIP Co de Phone Number [facility] [place] [address] * eGFR (03/21/2025 9:44 PM CDT) [facility] eGFR >90 >=60 mL/min/1. 73 m2 Comment: [...] MD LAB BLOOD ORDERABLES Razia westfall Result [facility] One [facility] Department [place] [address] * (ABNORMAL) Differential, auto (03/21/2025 9:44 PM CDT) [facility] Neutrophil abs 8.08(H) 1.50 - 6.50 K/cumm Imm gran abs 0.62(H) 0.00 - 0.10 K/cumm [facility] Lymphocyte abs 1.82 0.80 - 3.30 K/cumm [facility] Monocyte abs 0.64 0.20 - 0.80 K/cumm [facility] Eosinophil abs 0.20 0.00 - 0.50 K/cumm [facility] Basophil abs 0.05 0.00 - 0.10 K/cumm [facility] Neutrophil pct 70.8 % [facility] Comment: Interpretive Data Percent cell count reference ranges are not reported, since discordance with absolute values may lead to misinterpretation of CBC data. Current Interpretive Data was last revised on 2018. Imm gran pct 5.4 % [facility] Comment: Interpretive Data Percent cell count reference ranges are not reported, since discordance with absolute values may lead to misinterpretation of CBC data. Current Interpretive Data was last revised on 2018. Lymphocyte pct 16.0 % [facility] Comment: Interpretive Data Percent cell count reference ranges are not reported, since discordance with absolute values may lead to misinterpretation of CBC data. Current Interpretive Data was last revised on 2018. Monocyte pct 5.6 % [facility] Comment: Interpretive Data Percent cell count reference ranges are not reported, since discordance with absolute values may lead to misinterpretation of CBC data. Current Interpretive Data was last revised on 2018. Eosinophil pct 1.8 % [facility] Comment: Interpretive Data Percent cell count reference ranges are not reported, since discordance with absolute values may lead to misinterpretation of CBC data. Current Interpretive Data was last revised on 2018. Basophil pct 0.4 % [facility] Comment: Interpretive Data Percent cell count reference ranges are not reported, since discordance with absolute values may lead to misinterpretation of CBC data. Current Interpretive Data was last revised on 2018. Blood 03/21/2025 9:44 PM CDT 03/21/2025 10:46 PM CDT Joslyn Davidson MD LAB BLOOD ORDERABLES Razia westfall Result [facility] One [facility] Department [place] [address] * (ABNORMAL) CBC with auto differential (03/21/2025 9:44 PM CDT) WBC 11.41(H) 3.80 - 9.90 K/cumm Hgb 10.4(L) 13.0 - 17.5 g/dL [facility] Hct 31.9(L) 38.9 - 50.3 % [facility] Plt 268 150 - 400 K/cumm [facility] MPV 13.5(H) 9.1 - 12.3 fL [facility] RBC 3.55(L) 4.30 - 5.80 M/cumm [facility] MCV 89.9 81.3 - 96.4 fL [facility] MCH 29.3 27.1 - 33.3 pg [facility] MCHC 32.6 32.3 - 35.7 g/dL [facility] RDW CV 14.0 11.1 - 14.9 % [facility] RDW SD 45.8 35.7 - 48.1 fL [facility] NRBC abs 0.00 0.00 - 0.01 K/cumm [facility] Blood 03/21/2025 9:44 PM CDT 03/21/2025 10:46 PM CDT Joslyn Davidson MD LAB BLOOD ORDERABLES Razia l Result Performing Organization Address City/[facility]/ZIP Co de Phone Number [facility] Department [place] [address] * Phosphorus (03/21/2025 9:44 PM CDT) [facility] Phosphorus, pl 3.2 2.3 - 4.5 mg/dL Blood 03/21/2025 9:44 PM CDT 03/21/2025 10:45 PM CDT Joslyn Davidson MD LAB BLOOD ORDERABLES Razia l Result [facility] Department [place] [address] * (ABNORMAL) Comprehensive metabolic panel (03/21/2025 9:44 PM CDT) [facility] Sodium 143 135 - 145 mmol/L Potassium, pl 4.1 3.3 - 4.9 mmol/L [facility] Chloride 111(H) 97 - 110 mmol/L [facility] CO2 25 22 - 32 mmol/L [facility] Anion gap 7 2 - 15 mmol/L [facility] BUN 29(H) 6 - 25 mg/dL [facility] Creatinine 0.82 0.80 - 1.30 mg/dL [facility] Glucose 123 70 - 199 mg/dL [facility] Comment: Interpretive Data Fasting glucose >/= [...] 2022. Calcium 8.3(L) 8.5 - 10.3 mg/dL [facility] Bilirubin, total 0.3 0.1 - 1.2 mg/dL [facility] Protein, pl 6.4(L) 6.5 - 8.5 g/dL [facility] Albumin 2.8(L) 3.5 - 5.0 g/dL [facility] Alk phos 108 40 - 130 Units/L [facility] ALT 29 7 - 55 Units/L [facility] AST 28 10 - 50 Units/L [facility] Blood 03/21/2025 9:4 4 PM CDT 03/21/2025 10:45 PM CDT us Joslyn Davidson MD LAB BLOOD ORDERABLES Razia l Result [facility] One [facility] Department [place] [address] * POCT glucose (03/21/2025 8:23 PM CDT) [facility] Signature Glucose, POC 118 70 - 199 mg/dL Blood 03/21/2025 8:23 PM CDT 03/21/2025 8:23 PM CDT Anival Leonard MD LAB POCT ORDERABLES - DEV ICE Final Result Performing Organization Address City/[facility] Co de Phone Number [facility] [place] [address] * C. difficile testing Stool (03/21/2025 7:49 PM CDT) [facility] Result Negative Negative Toxin Result Negative Negative [facility] C. diff result Negative, free toxin Negative, free toxin [facility] C. diff interp Negative for toxigenic Clostridioides (Clostridium) difficile. Analysis was performed using a glutamate dehydrogenase antigen detection assay combined with a C. difficile toxin detection assay. [facility] Stool 03/21/2025 7:49 PM CDT 03/21/2025 9:12 PM CDT Joslyn Davidson MD LAB MICROBIOLOGY - GENERA L ORDERABLES Final Result Performing Organization Address [facility] Co de Phone Number [facility] [place] [address] * Infection Prevention VRE Culture Stool (03/21/2025 7:47 PM CDT) Report Final Report: Negative Stool 03/21/2025 7:47 PM CDT 03/21/2025 10:03 PM CDT Narrative [facility] - 03/24/2025 6:20 AM CDT Surveillance culture for Infection Prevention purposes only; results indicate colonization, not infection requiring treatment. Testing performed by [facility] Microbiology Laboratory ([phone]). Anival Leonard MD LAB MICROBIOLOGY - GENERA L ORDERABLES Final Result Performing Organization Address [facility] Co de Phone Number [facility] [place] [address] * XR Chest 1 View (03/21/2025 5:10 [...] * POCT glucose (03/21/2025 4:03 PM CDT) Glucose, POC 114 70 - 199 mg/dL Blood 03/21/2025 4:03 PM CDT 03/21/2025 4:03 PM CDT Anival Leonard MD LAB POCT ORDERABLES - DEV ICE Final Result Performing Organization Address [facility]/ZIP Co de Phone Number [facility] [place] [address] * (ABNORMAL) Urinalysis reflex to microscopic and culture Urine, clean voided (03/21/2025 2:06 PM CDT) Color, ur Straw Yellow Clarity, ur Clear Clear [facility] Specific gravity, ur 1.022 1.003 - 1.030 [facility] pH, urine 7.0 [facility] Comment: Interpretive Data U rine pH is affected by diet, medications, systemic acid-base disturbances, and renal tubular function. pH may affect urinary stone formation. For example, urine pH below 6.0 may help reduce the tendency for calcium phosphate stones and pH greater than 6.0 may reduce the tendency for uric acid stone formation. Source: [facility] Current Interpretive Data was last revised on 2017 Protein, ur ql Trace Negative [facility] Glucose, ur ql Negative Negative [facility] Ketones, ur Negative Negative [facility] Bilirubin, ur Negative Negative [facility] Blood, ur 1+(A) Negative [facility] Urobilinogen, ur <2.0 <2.0 mg/dL [facility] Nitrite, ur Negative Negative [facility] Leukocyte esterase, ur 1+(A) Negative [facility] UA reflex comment Reflex to microscopic UA will be performed. [facility] Urine, clean voided 03/21/2025 2:06 PM CDT 03/21/2025 2:22 PM CDT Joslyn Davidson MD LAB MICROBIOLOGY - GENERA L ORDERABLES Final Result Performing Organization Address City/[facility]/ZIP Co de Phone Number [facility] [place] [address] * (ABNORMAL) Urinalysis, microscopic only (03/21/2025 2:06 PM CDT) WBC, ur 6-10(A) 0 - 5 /HPF RBC, ur 11-20(A) 0 - 2 /HPF [facility] Epithelial cells, squamous, ur 1-5 0 - 5 /HPF [facility] Bacteria, ur Trace(A) [facility] Mucous, ur Present(A) [facility] Culture Reflex Comment Reflex conditions for urine culture (WBC >10) not met. [facility] Urine, clean voided 03/21/2025 2:06 PM CDT 03/21/2025 2:22 PM CDT Joslyn Davidson MD LAB URINE ORDERABLES Razia westfall Result [facility] One [facility] [place] [address] * ALUMINUM SIDING MECHANIC Evaluate and Treat (FEES) (03/21/2025 12:30 PM CDT) Narrative [facility] - 03/21/2025 12:30 PM CDT Jason Beck SLP 03/21/2025 1:03 PM Speech-Language Pathology: Flexible Endoscopic Evaluation of Swallowing (FEES) HPI/PMH 69 yo male with a history [...] to admission General Information John Arita 03/21/25 ALUMINUM SIDING MECHANIC Received On: 03/21/25 General Observations: Pt awake [...] Anatomy and Physiology Consistencies Administered: Thin liquids, [place] thick liquids, Purees Thin Liquids: Laryngeal Penetration: Present Aspiration Present: Yes Amount: Moderate Successful Modifications : Cough Unsuccessful Modifications: Cough Penetration Aspiration Scale-Thin: 8-Material enters the airway, passes below the vocal folds and no effort is made to eject Marion Scale-Vallecular Residue-Thin Liquids: None Elyse Scale-Pyriform Sinus Residue-Thin Liquids: Trace [place] Thickened Liquids: Laryngeal Penetration: Present Aspiration Present: Yes Successful Modifications: Cough Unsuccessful Modifications: Cough Penetration Aspiration Scale-[place]: 8-Material enters the airway, passes below the vocal folds and no effort is made to eject Marion Scale-Vallecular Residue-[place] Thickened Liquids: None Elyse Scale-Pyriform Sinus Residue-[place] Thickened Liquids: Trace Purees: Laryngeal Penetration: Present Aspiration Present: Yes Amount: Moderate Successful Modifications: Cough Unsuccessful Modifications: Cough Penetration Aspiration Scale-Puree: 8-Material enters the airway, passes below the vocal folds and no effort is made to eject Marion Scale-Vallecular Residue-[place]: None Marion Scale-Pyriform Sinus Residue-[place]ure[place]: Mild Dysphagia Outcome and Severity Scale: Dysphagia Outcomes and Severity Scale: 1 Severe dysphagia Levels 1 & 2 on the JAYCOB indicate need for nonoral nutrition. Treatment Treatment was not provided this date. Please reference care plan for treatment goals and details, if indicated. Plan [employer] Frequency of Services during current admission: 2-4x/wk [employer] Recommendation (Add'l Services): Snf Facility Next Visit Plan:treatment/therapy Additional Referrals: n/a Discharge Summary Statement If this is the last swallow therapy visit, this serves as the discharge summary. us Joslyn Davidson MD AL[employer]CH[employer] ORDERABLES Final Res ult Performing Organization Address City/[facility] Co de Phone Number [place] * POCT glucose (03/21/2025 12:06 PM CDT) Glucose, POC 110 70 - 199 mg/dL Blood 03/21/2025 12:0 6 PM CDT 03/21/2025 12:06 PM CDT us Anival Leonard MD LAB POCT ORDERABLES - DEV ICE Final Result [facility] Department [place] [address] * POCT glucose (03/21/2025 7:36 AM CDT) Glucose, POC 133 70 - 199 mg/dL Blood 03/21/2025 7:36 AM CDT 03/21/2025 7:36 AM CDT Anival Leonard MD LAB POCT ORDERABLES - DEV ICE Final Result Performing Organization Address [facility] Co de Phone Number [facility] [place] [address] * POCT glucose (03/21/2025 3:53 AM CDT) Glucose, POC 106 70 - 199 mg/dL Blood 03/21/2025 3:53 AM CDT 03/21/2025 3:53 AM CDT Anival Leonard MD LAB POCT ORDERABLES - DEV ICE Final Result Performing Organization Address [facility] de Phone Number [facility] [place] [address] * POCT glucose (03/21/2025 12:06 AM CDT) Glucose, POC 116 70 - 199 mg/dL Blood 03/21/2025 12:0 6 AM CDT 03/21/2025 12:06 AM CDT Anival Leonard MD LAB POCT ORDERABLES - DEV ICE Final Result Performing Organization Address City/[facility] de Phone Number [facility] [place] [address] * eGFR (03/20/2025 9:21 PM CDT) eGFR [...] MD LAB BLOOD ORDERABLES Razia westfall Result [facility] Department [place] [address] * (ABNORMAL) Differential, auto (03/20/2025 9:21 PM CDT) Neutrophil abs 5.34 1.50 - 6.50 K/cumm Imm gran abs 0.60(H) 0.00 - 0.10 K/cumm [facility] Lymphocyte abs 1.23 0.80 - 3.30 K/cumm [facility] Monocyte abs 0.50 0.20 - 0.80 K/cumm [facility] Eosinophil abs 0.20 0.00 - 0.50 K/cumm [facility] Basophil abs 0.02 0.00 - 0.10 K/cumm [facility] Neutrophil pct 67.7 % [facility] Comment: Interpretive Data Percent cell count reference ranges are not reported, since discordance with absolute values may lead to misinterpretation of CBC data. Current Interpretive Data was last revised on 2018. Imm gran pct 7.6 % [facility] Comment: Interpretive Data Percent cell count reference ranges are not reported, since discordance with absolute values may lead to misinterpretation of CBC data. Current Interpretive Data was last revised on 2018. Lymphocyte pct 15.6 % [facility] Comment: Interpretive Data Percent cell count reference ranges are not reported, since discordance with absolute values may lead to misinterpretation of CBC data. Current Interpretive Data was last revised on 2018. Monocyte pct 6.3 % [facility] Comment: Interpretive Data Percent cell count reference ranges are not reported, since discordance with absolute values may lead to misinterpretation of CBC data. Current Interpretive Data was last revised on 2018. Eosinophil pct 2.5 % [facility] Comment: Interpretive Data Percent cell count reference ranges are not reported, since discordance with absolute values may lead to misinterpretation of CBC data. Current Interpretive Data was last revised on 2018. Basophil pct 0.3 % [facility] Comment: Interpretive Data Percent cell count reference ranges are not reported, since discordance with absolute values may lead to misinterpretation of CBC data. Current Interpretive Data was last revised on 2018. Blood 03/20/2025 9:21 PM CDT 03/20/2025 9:54 PM CDT Joslyn Davidson MD LAB BLOOD ORDERABLES Razia westfall Result [facility] Department [place] [address] * (ABNORMAL) CBC with auto differential (03/20/2025 9:21 PM CDT) WBC 7.89 3.80 - 9.90 K/cumm Hgb 10.1(L) 13.0 - 17.5 g/dL [facility] Hct 31.1(L) 38.9 - 50.3 % [facility] Plt 229 150 - 400 K/cumm [facility] MPV 13.6(H) 9.1 - 12.3 fL [facility] RBC 3.47(L) 4.30 - 5.80 M/cumm [facility] MCV 89.6 81.3 - 96.4 fL [facility] MCH 29.1 27.1 - 33.3 pg [facility] MCHC 32.5 32.3 - 35.7 g/dL [facility] RDW CV 14.1 11.1 - 14.9 % [facility] RDW SD 45.3 35.7 - 48.1 fL [facility] NRBC abs 0.00 0.00 - 0.01 K/cumm [facility] Blood 03/20/2025 9:21 PM CDT 03/20/2025 9:54 PM CDT Joslyn Davidson MD LAB BLOOD ORDERABLES Razia l Result Performing Organization Address City/[facility]/ZIP Co de Phone Number [facility] Department [place] [address] * Hepatitis panel, acute Blood (03/20/2025 9:21 PM CDT) Pathologist [facility] Hep A IgM Nonreactive Nonreactive Hep B core IgM Nonreactive Nonreactive [facility] Hep C Ab Nonreactive Nonreactive [facility] Comment:Antibodies to HCV no t detected. Does NOT exclude the possibility of recent exposure to HCV. Current interpretive data was last revised on 22 HepBsAg Nonreactive Nonreactive [facility] Blood 03/20/2025 9:21 PM CDT 03/20/2025 9:54 PM CDT Joslyn Davidson MD LAB MICROBIOLOGY - GENERA L ORDERABLES Final Result [facility] Department [place] [address] * Phosphorus (03/20/2025 9:21 PM CDT) Pathologist [facility] Phosphorus, pl 3.6 2.3 - 4.5 mg/dL Blood 03/20/2025 9:21 PM CDT 03/20/2025 9:54 PM CDT Joslyn Davidson MD LAB BLOOD ORDERABLES Razia westfall Result [facility] Department [place] [address] * (ABNORMAL) Comprehensive metabolic panel (03/20/2025 9:21 PM CDT) Sodium 148(H) 135 - 145 mmol/L Potassium, pl 4.4 3.3 - 4.9 mmol/L [facility] Chloride 114(H) 97 - 110 mmol/L [facility] CO2 26 22 - 32 mmol/L [facility] Anion gap 8 2 - 15 mmol/L [facility] BUN 33(H) 6 - 25 mg/dL [facility] Creatinine 0.76(L) 0.80 - 1.30 mg/dL [facility] Glucose 119 70 - 199 mg/dL [facility] Comment: Interpretive Data Fasting glucose >/= [...] 2022. Calcium 8.4(L) 8.5 - 10.3 mg/dL [facility] Bilirubin, total 0.3 0.1 - 1.2 mg/dL [facility] Protein, pl 6.3(L) 6.5 - 8.5 g/dL [facility] Albumin 2.6(L) 3.5 - 5.0 g/dL [facility] Alk phos 122 40 - 130 Units/L [facility] ALT 41 7 - 55 Units/L [facility] AST 31 10 - 50 Units/L [facility] Blood 03/20/2025 9:21 PM CDT 03/20/2025 9:54 PM CDT Joslyn Davidson MD LAB BLOOD ORDERABLES Razia l Result Performing Organization Address City/[facility] Co de Phone Number [facility] [place] [address] * POCT glucose (03/20/2025 8:10 PM CDT) Glucose, POC 113 70 - 199 mg/dL Blood 03/20/2025 8:10 PM CDT 03/20/2025 8:10 PM CDT Anival Leonard MD LAB POCT ORDERABLES - DEV ICE Final Result Performing Organization Address [facility] Co de Phone Number [facility] [place] [address] * POCT glucose (03/20/2025 4:03 PM CDT) Glucose, POC 122 70 - 199 mg/dL Blood 03/20/2025 4:03 PM CDT 03/20/2025 4:03 PM CDT Anival Leonard MD LAB POCT ORDERABLES - DEV ICE Final Result Performing Organization Address [facility] Co de Phone Number [facility] [place] [address] * POCT glucose (03/20/2025 11:05 AM CDT) Glucose, POC 166 70 - 199 mg/dL Blood 03/20/2025 11:0 5 AM CDT 03/20/2025 11:05 AM CDT Joslyn Davidson MD LAB POCT ORDERABLES - DEV ICE Final Result Performing Organization Address [facility] Co de Phone Number [facility] Department [place] [address] * POCT glucose (03/20/2025 7:16 AM CDT) Glucose, POC 127 70 - 199 mg/dL Blood 03/20/2025 7:16 AM CDT 03/20/2025 7:16 AM CDT Joslyn Davidson MD LAB POCT ORDERABLES - DEV ICE Final Result Performing Organization Address City/[facility] [place] [address] * eGFR (03/20/2025 4:31 AM CDT) [facility] eGFR >90 >=60 mL/min/1. 73 m2 Comment: [...] MD LAB BLOOD ORDERABLES F inal Result [facility] Department [place] [address] * (ABNORMAL) Differential, auto (03/20/2025 4:31 AM CDT) Neutrophil abs 6.89(H) 1.50 - 6.50 K/cumm Imm gran abs 0.81(H) 0.00 - 0.10 K/cumm [facility] Lymphocyte abs 1.31 0.80 - 3.30 K/cumm [facility] Monocyte abs 0.59 0.20 - 0.80 K/cumm [facility] Eosinophil abs 0.24 0.00 - 0.50 K/cumm [facility] Basophil abs 0.04 0.00 - 0.10 K/cumm [facility] Neutrophil pct 69.7 % [facility] Comment: Interpretive Data Percent cell count reference ranges are not reported, since discordance with absolute values may lead to misinterpretation of CBC data. Current Interpretive Data was last revised on 2018. Imm gran pct 8.2 % [facility] Comment: Interpretive Data Percent cell count reference ranges are not reported, since discordance with absolute values may lead to misinterpretation of CBC data. Current Interpretive Data was last revised on 2018. Lymphocyte pct 13.3 % [facility] Comment: Interpretive Data Percent cell count reference ranges are not reported, since discordance with absolute values may lead to misinterpretation of CBC data. Current Interpretive Data was last revised on 2018. Monocyte pct 6.0 % [facility] Comment: Interpretive Data Percent cell count reference ranges are not reported, since discordance with absolute values may lead to misinterpretation of CBC data. Current Interpretive Data was last revised on 2018. Eosinophil pct 2.4 % [facility] Comment: Interpretive Data Percent cell count reference ranges are not reported, since discordance with absolute values may lead to misinterpretation of CBC data. Current Interpretive Data was last revised on 2018. Basophil pct 0.4 % [facility] Comment: Interpretive Data Percent cell count reference ranges are not reported, since discordance with absolute values may lead to misinterpretation of CBC data. Current Interpretive Data was last revised on 2018. Blood 03/20/2025 4:31 AM CDT 03/20/2025 4:58 AM CDT Dago Hsu MD LAB BLOOD ORDERABLES F inal Result Performing Organization Address [facility] Co de Phone Number [facility] Department [place] [address] * (ABNORMAL) CBC with auto differential (03/20/2025 4:31 AM CDT) WBC 9.88 3.80 - 9.90 K/cumm Hgb 10.4(L) 13.0 - 17.5 g/dL [facility] Hct 31.5(L) 38.9 - 50.3 % [facility] Plt 212 150 - 400 K/cumm [facility] MPV 13.2(H) 9.1 - 12.3 fL [facility] RBC 3.54(L) 4.30 - 5.80 M/cumm [facility] MCV 89.0 81.3 - 96.4 fL [facility] MCH 29.4 27.1 - 33.3 pg [facility] MCHC 33.0 32.3 - 35.7 g/dL [facility] RDW CV 14.0 11.1 - 14.9 % [facility] RDW SD 45.1 35.7 - 48.1 fL [facility] NRBC abs 0.00 0.00 - 0.01 K/cumm [facility] Blood 03/20/2025 4:31 AM CDT 03/20/2025 4:58 AM CDT Dago Hsu MD LAB BLOOD ORDERABLES F inal Result Performing Organization Address City/[facility]/ZIP Co de Phone Number [facility] Department [place] [address] * Phosphorus (03/20/2025 4:31 AM CDT) Phosphorus, pl 3.5 2.3 - 4.5 mg/dL Blood 03/20/2025 4:31 AM CDT 03/20/2025 4:58 AM CDT Joslyn Davidson MD LAB BLOOD ORDERABLES Razia westfall Result [facility] Department [place] [address] * (ABNORMAL) Comprehensive metabolic panel (03/20/2025 4:31 AM CDT) Pathologist [facility] Sodium 148(H) 135 - 145 mmol/L Potassium, pl 4.5 3.3 - 4.9 mmol/L [facility] Chloride 112(H) 97 - 110 mmol/L [facility] CO2 26 22 - 32 mmol/L [facility] Anion gap 10 2 - 15 mmol/L [facility] BUN 32(H) 6 - 25 mg/dL [facility] Creatinine 0.81 0.80 - 1.30 mg/dL [facility] Glucose 126 70 - 199 mg/dL [facility] Comment: Interpretive Data Fasting glucose >/= [...] 2022. Calcium 8.9 8.5 - 10.3 mg/dL [facility] Bilirubin, total 0.3 0.1 - 1.2 mg/dL [facility] Protein, pl 6.4(L) 6.5 - 8.5 g/dL [facility] Albumin 2.7(L) 3.5 - 5.0 g/dL [facility] Alk phos 132(H) 40 - 130 Units/L [facility] ALT 101(H) 7 - 55 Units/L [facility] AST 44 10 - 50 Units/L [facility] Blood 03/20/2025 4:31 AM CDT 03/20/2025 4:58 AM CDT Dago Hsu MD LAB BLOOD ORDERABLES F inal Result Performing Organization Address [facility] de Phone Number [facility] [place] [address] * POCT glucose (03/20/2025 4:06 AM CDT) Glucose, POC 138 70 - 199 mg/dL Blood 03/20/2025 4:06 AM CDT 03/20/2025 4:06 AM CDT Joslyn Davidson MD LAB POCT ORDERABLES - DEV ICE Final Result Performing Organization Address [facility] de Phone Number [facility] [place] [address] * POCT glucose (03/19/2025 11:54 PM CDT) Glucose, POC 106 70 - 199 mg/dL Blood 03/19/2025 11:5 4 PM CDT 03/19/2025 11:54 PM CDT Joslyn Davidson MD LAB POCT ORDERABLES - DEV ICE Final Result Performing Organization Address [facility] de Phone Number [facility] [place] [address] * POCT glucose (03/19/2025 7:45 PM CDT) Glucose, POC 121 70 - 199 mg/dL Blood 03/19/2025 7:45 PM CDT 03/19/2025 7:45 PM CDT us Joslyn Davidson MD LAB POCT ORDERABLES - DEV ICE Final Result Performing Organization Address [facility] [place] [address] * POCT glucose (03/19/2025 3:41 PM CDT) Glucose, POC 160 70 - 199 mg/dL Blood 03/19/2025 3:41 PM CDT 03/19/2025 3:41 PM CDT us Joslyn Davidson MD LAB POCT ORDERABLES - DEV ICE Final Result Performing Organization Address [facility] [place] [address] * POCT glucose (03/19/2025 11:35 AM CDT) Glucose, POC 135 70 - 199 mg/dL Blood 03/19/2025 11:3 5 AM CDT 03/19/2025 11:35 AM CDT us Joslyn Davidson MD LAB POCT ORDERABLES - DEV ICE Final Result Performing Organization Address [facility] [place] [address] * XR Chest 1 View (03/19/2025 9:56 [...] esult * Phosphorus (03/19/2025 8:39 AM CDT) Phosphorus, pl 2.9 2.3 - 4.5 mg/dL Blood 03/19/2025 8:39 AM CDT 03/19/2025 10:22 AM CDT Verona Suarez MD LAB BLOOD ORDERABLES Fin al Result [facility] Department [place] [address] * POCT glucose (03/19/2025 8:25 AM CDT) Glucose, POC 135 70 - 199 mg/dL Blood 03/19/2025 8:25 AM CDT 03/19/2025 8:25 AM CDT Joslyn Davidsno MD LAB POCT ORDERABLES - DEV ICE Final Result Performing Organization Address City/State/[facility] Co de Phone Number [facility] Department [place] [address] * POCT glucose (03/19/2025 7:34 AM CDT) Glucose, POC 153 70 - 199 mg/dL Blood 03/19/2025 7:34 AM CDT 03/19/2025 7:34 AM CDT Joslyn Davidson MD LAB POCT ORDERABLES - DEV ICE Final Result Performing Organization Address City/[facility] de Phone Number [facility] Department [place] [address] * eGFR (03/19/2025 4:27 AM CDT) eGFR [...] MD LAB BLOOD ORDERABLES F inal Result [facility] [place] [address] * (ABNORMAL) Differential, auto (03/19/2025 4:27 AM CDT) Neutrophil abs 8.10(H) 1.50 - 6.50 K/cumm Imm gran abs 0.36(H) 0.00 - 0.10 K/cumm [facility] Lymphocyte abs 0.96 0.80 - 3.30 K/cumm [facility] Monocyte abs 0.67 0.20 - 0.80 K/cumm [facility] Eosinophil abs 0.12 0.00 - 0.50 K/cumm [facility] Basophil abs 0.02 0.00 - 0.10 K/cumm [facility] Neutrophil pct 79.2 % [facility] Comment: Interpretive Data Percent cell count reference ranges are not reported, since discordance with absolute values may lead to misinterpretation of CBC data. Current Interpretive Data was last revised on 2018. Imm gran pct 3.5 % [facility] Comment: Interpretive Data Percent cell count reference ranges are not reported, since discordance with absolute values may lead to misinterpretation of CBC data. Current Interpretive Data was last revised on 2018. Lymphocyte pct 9.4 % [facility] Comment: Interpretive Data Percent cell count reference ranges are not reported, since discordance with absolute values may lead to misinterpretation of CBC data. Current Interpretive Data was last revised on 2018. Monocyte pct 6.5 % [facility] Comment: Interpretive Data Percent cell count reference ranges are not reported, since discordance with absolute values may lead to misinterpretation of CBC data. Current Interpretive Data was last revised on 2018. Eosinophil pct 1.2 % [facility] Comment: Interpretive Data Percent cell count reference ranges are not reported, since discordance with absolute values may lead to misinterpretation of CBC data. Current Interpretive Data was last revised on 2018. Basophil pct 0.2 % [facility] Comment: Interpretive Data Percent cell count reference ranges are not reported, since discordance with absolute values may lead to misinterpretation of CBC data. Current Interpretive Data was last revised on 2018. Blood 03/19/2025 4:27 AM CDT 03/19/2025 4:46 AM CDT us Dago Hsu MD LAB BLOOD ORDERABLES F inal Result Performing Organization Address [facility]/ZIP Co de Phone Number [facility] Department [place] [address] * (ABNORMAL) CBC with auto differential (03/19/2025 4:27 AM CDT) WBC 10.23(H) 3.80 - 9.90 K/cumm Hgb 9.9(L) 13.0 - 17.5 g/dL [facility] Hct 30.2(L) 38.9 - 50.3 % [facility] Plt 168 150 - 400 K/cumm [facility] MPV 13.4(H) 9.1 - 12.3 fL [facility] RBC 3.44(L) 4.30 - 5.80 M/cumm [facility] MCV 87.8 81.3 - 96.4 fL [facility] MCH 28.8 27.1 - 33.3 pg [facility] MCHC 32.8 32.3 - 35.7 g/dL [facility] RDW CV 13.6 11.1 - 14.9 % [facility] RDW SD 43.8 35.7 - 48.1 fL [facility] NRBC abs 0.00 0.00 - 0.01 K/cumm [facility] Blood 03/19/2025 4:27 AM CDT 03/19/2025 4:46 AM CDT Dago Hsu MD LAB BLOOD ORDERABLES F inal Result [facility] Department [place] [address] * (ABNORMAL) Triglycerides (03/19/2025 4:27 AM CDT) [...] ORDERABLES Fin al Result Performing Organization Address City/[facility]/ZIP Co de Phone Number [facility] Department [place] [address] * Magnesium (03/19/2025 4:27 AM CDT) Magnesium 2.0 1.4 - 2.5 mg/dL Blood 03/19/2025 4:27 AM CDT 03/19/2025 4:46 AM CDT us Dago Hsu MD LAB BLOOD ORDERABLES F inal Result Performing Organization Address City/[facility] Co de Phone Number [facility] Department [place] [address] * (ABNORMAL) Comprehensive metabolic panel (03/19/2025 4:27 AM CDT) Sodium 144 135 - 145 mmol/L Potassium, pl 3.6 3.3 - 4.9 mmol/L [facility] Chloride 111(H) 97 - 110 mmol/L [facility] CO2 26 22 - 32 mmol/L [facility] Anion gap 7 2 - 15 mmol/L [facility] BUN 29(H) 6 - 25 mg/dL [facility] Creatinine 0.73(L) 0.80 - 1.30 mg/dL [facility] Glucose 141 70 - 199 mg/dL [facility] Comment: Interpretive Data Fasting glucose >/= [...] 2022. Calcium 9.0 8.5 - 10.3 mg/dL [facility] Bilirubin, total 0.3 0.1 - 1.2 mg/dL [facility] Protein, pl 5.9(L) 6.5 - 8.5 g/dL [facility] Albumin 2.5(L) 3.5 - 5.0 g/dL [facility] Alk phos 116 40 - 130 Units/L [facility] ALT 55 7 - 55 Units/L [facility] Comment:Reviewed AST 41 10 - 50 Units/L [facility] Blood 03/19/2025 4:27 AM CDT 03/19/2025 4:46 AM CDT us Dago Hsu MD LAB BLOOD ORDERABLES F inal Result [facility] Department [place] [address] * POCT glucose (03/19/2025 3:42 AM CDT) Glucose, POC 138 70 - 199 mg/dL Blood 03/19/2025 3:42 AM CDT 03/19/2025 3:42 AM CDT Joslyn Davidson MD LAB POCT ORDERABLES - DEV ICE Final Result Performing Organization Address [facility] Co de Phone Number [facility] [place] [address] * POCT glucose (03/19/2025 12:06 AM CDT) Glucose, POC 134 70 - 199 mg/dL Blood 03/19/2025 12:0 6 AM CDT 03/19/2025 12:06 AM CDT Joslyn Davidson MD LAB POCT ORDERABLES - DEV ICE Final Result Performing Organization Address [facility] Co de Phone Number [facility] [place] [address] * Phosphorus (03/18/2025 8:51 PM CDT) [facility] Phosphorus, pl 3.2 2.3 - 4.5 mg/dL Blood 03/18/2025 8:51 PM CDT 03/18/2025 9:14 PM CDT Verona Suarez MD LAB BLOOD ORDERABLES Fin al Result Performing Organization Address City/[facility] Co de Phone Number [facility] [place] [address] * POCT glucose (03/18/2025 7:50 PM CDT) Glucose, POC 125 70 - 199 mg/dL Blood 03/18/2025 7:50 PM CDT 03/18/2025 7:50 PM CDT Joslyn Davidson MD LAB POCT ORDERABLES - DEV ICE Final Result Performing Organization Address City/[facility] Co de Phone Number [facility] Department [place] [address] * Infection Prevention Emili auris PCR, surveillance Axilla/Groin (03/18/2025 4:25 PM CDT) Pathologist [facility] Emili auris DNA Not Detected Not Detected [facility] Comment: Interpretive Data Testing performed by [facility] Molecular Infectious Disease Laboratory using the Ileana cheyenne 6800 Emili auris assay. This assay detects DNA from Emili auris using Real-Time PCR. This assay is laboratory developed and is not cleared by the [facility] Food and Drug Administration. The performance characteristics have been verified by the [facility] Molecular Infectious Disease Laboratory. Axilla/Groin 03/18/2025 4:25 PM CDT 03/18/2025 4:39 PM CDT Min Peguero MD LAB MICROBIOLOGY - GENERAL ORDER DEJAN Final Result Performing Organization Address [facility] Co de Phone Number [facility] Department [place] [address] [facility] * POCT glucose (03/18/2025 4:02 PM CDT) Pathologist [facility] Glucose, POC 130 70 - 199 mg/dL Blood 03/18/2025 4:02 PM CDT 03/18/2025 4:02 PM CDT Joslyn Davidson MD LAB POCT ORDERABLES - DEV ICE Final Result Performing Organization Address [facility] Co de Phone Number [facility] [place] [address] * FL Long GI Tube Placement (03/18/2025 [...] it. Electronically signed by: Blaine Yeung M.D. [facility] 03/18/2025 3:19 PM CDT EXAMINATION: NASOENTERIC FEEDING TUBE PLACEMENT HISTORY: Need for postpyloric enteral feeds TECHNIQUE: The right nostril was anesthetized with viscous lidocaine and an 8 Romanian nasoenteric feeding tube was advanced under fluoroscopic [...] anesthetized with viscous lidocaine and an 8 Romanian nasoenteric feeding tube was advanced under fluoroscopic [...] DEV ICE Final Result Performing Organization Address [facility] de Phone Number [facility] [place] [address] * POCT glucose (03/18/2025 7:39 AM CDT) Glucose, POC 125 70 - 199 mg/dL Blood 03/18/2025 7:39 AM CDT 03/18/2025 7:39 AM CDT Joslyn Davidson MD LAB POCT ORDERABLES - DEV ICE Final Result Performing Organization Address [facility] Phone Number [facility] [place] [address] * XR Abdomen Ap 1 Vw (03/18/2025 [...] in place with tip terminating off the [id number] below the diaphragm. Slight interval worsening of [...] in place with tip terminating off the [id number] below the diaphragm. Slight interval worsening of [...] * POCT glucose (03/18/2025 4:11 AM CDT) Glucose, POC 138 70 - 199 mg/dL Blood 03/18/2025 4:11 AM CDT 03/18/2025 4:11 AM CDT us Joslyn Davidson MD LAB POCT ORDERABLES - DEV ICE Final Result [facility] Department of Laboratories [place], [place] [id number] * eGFR (03/18/2025 12:37 AM CDT) eGFR >90 >=60 mL/min/1. 73 [...] MD LAB BLOOD ORDERABLES F inal Result [facility] Department [place] [address] * (ABNORMAL) Differential, auto (03/18/2025 12:37 AM CDT) Pathologist [facility] Neutrophil abs 9.74(H) 1.50 - 6.50 K/cumm Imm gran abs 0.05 0.00 - 0.10 K/cumm [facility] Lymphocyte abs 0.63(L) 0.80 - 3.30 K/cumm [facility] Monocyte abs 0.29 0.20 - 0.80 K/cumm [facility] Eosinophil abs 0.02 0.00 - 0.50 K/cumm [facility] Basophil abs 0.01 0.00 - 0.10 K/cumm [facility] Neutrophil pct 90.6 % [facility] Comment: Interpretive Data Percent cell count reference ranges are not reported, since discordance with absolute values may lead to misinterpretation of CBC data. Current Interpretive Data was last revised on 2018. Imm gran pct 0.5 % [facility] Comment: Interpretive Data Percent cell count reference ranges are not reported, since discordance with absolute values may lead to misinterpretation of CBC data. Current Interpretive Data was last revised on 2018. Lymphocyte pct 5.9 % [facility] Comment: Interpretive Data Percent cell count reference ranges are not reported, since discordance with absolute values may lead to misinterpretation of CBC data. Current Interpretive Data was last revised on 2018. Monocyte pct 2.7 % [facility] Comment: Interpretive Data Percent cell count reference ranges are not reported, since discordance with absolute values may lead to misinterpretation of CBC data. Current Interpretive Data was last revised on 2018. Eosinophil pct 0.2 % [facility] Comment: Interpretive Data Percent cell count reference ranges are not reported, since discordance with absolute values may lead to misinterpretation of CBC data. Current Interpretive Data was last revised on 2018. Basophil pct 0.1 % [facility] Comment: Interpretive Data Percent cell count reference ranges are not reported, since discordance with absolute values may lead to misinterpretation of CBC data. Current Interpretive Data was last revised on 2018. Blood 03/18/2025 12:3 7 AM CDT 03/18/2025 1:06 AM CDT us Dago Hsu MD LAB BLOOD ORDERABLES F inal Result [facility] Department [place] [address] * (ABNORMAL) CBC with auto differential (03/18/2025 12:37 AM CDT) WBC 10.74(H) 3.80 - 9.90 K/cumm Hgb 10.3(L) 13.0 - 17.5 g/dL [facility] Hct 30.4(L) 38.9 - 50.3 % [facility] Plt 147(L) 150 - 400 K/cumm [facility] MPV 13.6(H) 9.1 - 12.3 fL [facility] RBC 3.51(L) 4.30 - 5.80 M/cumm [facility] MCV 86.6 81.3 - 96.4 fL [facility] MCH 29.3 27.1 - 33.3 pg [facility] MCHC 33.9 32.3 - 35.7 g/dL [facility] RDW CV 13.6 11.1 - 14.9 % [facility] RDW SD 42.7 35.7 - 48.1 fL [facility] NRBC abs 0.00 0.00 - 0.01 K/cumm [facility] Blood 03/18/2025 12:3 7 AM CDT 03/18/2025 1:06 AM CDT Dago Hsu MD LAB BLOOD ORDERABLES F inal Result Performing Organization Address [facility] Co de Phone Number [facility] Department [place] [address] * Phosphorus (03/18/2025 12:37 AM CDT) Phosphorus, pl 2.6 2.3 - 4.5 mg/dL Blood 03/18/2025 12:3 7 AM CDT 03/18/2025 1:06 AM CDT Dago Hsu MD LAB BLOOD ORDERABLES F inal Result Performing Organization Address City/[facility] Co de Phone Number [facility] Department [place] [address] * Magnesium (03/18/2025 12:37 AM CDT) Magnesium 2.4 1.4 - 2.5 mg/dL Blood 03/18/2025 12:3 7 AM CDT 03/18/2025 1:06 AM CDT Dago Hsu MD LAB BLOOD ORDERABLES F inal Result Performing Organization Address City/[facility] Co de Phone Number [facility] Department [place] [address] * (ABNORMAL) Comprehensive metabolic panel (03/18/2025 12:37 AM CDT) Sodium 146(H) 135 - 145 mmol/L Potassium, pl 3.6 3.3 - 4.9 mmol/L [facility] Chloride 111(H) 97 - 110 mmol/L [facility] CO2 26 22 - 32 mmol/L [facility] Anion gap 9 2 - 15 mmol/L [facility] BUN 34(H) 6 - 25 mg/dL [facility] Creatinine 0.80 0.80 - 1.30 mg/dL [facility] Glucose 134 70 - 199 mg/dL [facility] Comment: Interpretive Data Fasting glucose >/= [...] 2022. Calcium 8.8 8.5 - 10.3 mg/dL [facility] Bilirubin, total 0.4 0.1 - 1.2 mg/dL [facility] Protein, pl 6.0(L) 6.5 - 8.5 g/dL [facility] Albumin 2.7(L) 3.5 - 5.0 g/dL [facility] Alk phos 88 40 - 130 Units/L [facility] ALT 13 7 - 55 Units/L [facility] AST 30 10 - 50 Units/L [facility] Blood 03/18/2025 12:3 7 AM CDT 03/18/2025 1:06 AM CDT us Dago Hsu MD LAB BLOOD ORDERABLES F inal Result [facility] [place] [address] * POCT glucose (03/17/2025 11:26 PM CDT) Glucose, POC 128 70 - 199 mg/dL Blood 03/17/2025 11:2 6 PM CDT 03/17/2025 11:26 PM CDT Dago Hsu MD LAB POCT ORDERABLES - DEVICE Final Result Performing Organization Address City/[facility] [place] [address] * POCT glucose (03/17/2025 8:59 PM CDT) Glucose, POC 139 70 - 199 mg/dL Blood 03/17/2025 8:59 PM CDT 03/17/2025 8:59 PM CDT Dago Hsu MD LAB POCT ORDERABLES - DEVICE Final Result Performing Organization Address City/[facility]/ZIP Co de Phone Number [facility] [place] [place] [address] * POCT glucose (03/17/2025 4:01 PM CDT) Glucose, POC 147 70 - 199 mg/dL Blood 03/17/2025 4:01 PM CDT 03/17/2025 4:01 PM CDT Dago Hsu MD LAB POCT ORDERABLES - DEVICE Final Result Performing Organization Address City/[facility]/[place] [address] * POCT glucose (03/17/2025 11:46 AM CDT) Glucose, POC 152 70 - 199 mg/dL Blood 03/17/2025 11:4 6 AM CDT 03/17/2025 11:46 AM CDT us Dago Hsu MD LAB POCT ORDERABLES - DEVICE Final Result Performing Organization Address [facility] Co de Phone Number [facility] [place] [address] * POCT glucose (03/17/2025 7:37 AM CDT) Glucose, POC 162 70 - 199 mg/dL Blood 03/17/2025 7:37 AM CDT 03/17/2025 7:37 AM CDT Dago Hsu MD LAB POCT ORDERABLES - DEVICE Final Result Performing Organization Address [facility] Phone Number [facility] [place] [address] * eGFR (03/17/2025 5:35 AM CDT) eGFR [...] MD LAB BLOOD ORDERABLES F inal Result [facility] Department [place] [address] * (ABNORMAL) Differential, auto (03/17/2025 5:35 AM CDT) Neutrophil abs 10.77(H) 1.50 - 6.50 K/cumm Imm gran abs 0.07 0.00 - 0.10 K/cumm [facility] Lymphocyte abs 0.51(L) 0.80 - 3.30 K/cumm [facility] Monocyte abs 0.24 0.20 - 0.80 K/cumm [facility] Eosinophil abs 0.01 0.00 - 0.50 K/cumm [facility] Basophil abs 0.01 0.00 - 0.10 K/cumm [facility] Neutrophil pct 92.7 % [facility] Comment: Interpretive Data Percent cell count reference ranges are not reported, since discordance with absolute values may lead to misinterpretation of CBC data. Current Interpretive Data was last revised on 2018. Imm gran pct 0.6 % [facility] Comment: Interpretive Data Percent cell count reference ranges are not reported, since discordance with absolute values may lead to misinterpretation of CBC data. Current Interpretive Data was last revised on 2018. Lymphocyte pct 4.4 % [facility] Comment: Interpretive Data Percent cell count reference ranges are not reported, since discordance with absolute values may lead to misinterpretation of CBC data. Current Interpretive Data was last revised on 2018. Monocyte pct 2.1 % [facility] Comment: Interpretive Data Percent cell count reference ranges are not reported, since discordance with absolute values may lead to misinterpretation of CBC data. Current Interpretive Data was last revised on 2018. Eosinophil pct 0.1 % [facility] Comment: Interpretive Data Percent cell count reference ranges are not reported, since discordance with absolute values may lead to misinterpretation of CBC data. Current Interpretive Data was last revised on 2018. Basophil pct 0.1 % [facility] Comment: Interpretive Data Percent cell count reference ranges are not reported, since discordance with absolute values may lead to misinterpretation of CBC data. Current Interpretive Data was last revised on 2018. Blood 03/17/2025 5:35 AM CDT 03/17/2025 6:06 AM CDT Dago Hsu MD LAB BLOOD ORDERABLES F inal Result Performing Organization Address [facility] Co de Phone Number [facility] Department [place] [address] * (ABNORMAL) CBC with auto differential (03/17/2025 5:35 AM CDT) WBC 11.61(H) 3.80 - 9.90 K/cumm Hgb 10.3(L) 13.0 - 17.5 g/dL [facility] Hct 29.7(L) 38.9 - 50.3 % [facility] Plt 148(L) 150 - 400 K/cumm [facility] MPV 14.3(H) 9.1 - 12.3 fL [facility] RBC 3.46(L) 4.30 - 5.80 M/cumm [facility] MCV 85.8 81.3 - 96.4 fL [facility] MCH 29.8 27.1 - 33.3 pg [facility] MCHC 34.7 32.3 - 35.7 g/dL [facility] RDW CV 13.4 11.1 - 14.9 % [facility] RDW SD 41.7 35.7 - 48.1 fL [facility] NRBC abs 0.00 0.00 - 0.01 K/cumm [facility] Blood 03/17/2025 5:35 AM CDT 03/17/2025 6:06 AM CDT Dago Hsu MD LAB BLOOD ORDERABLES F inal Result Performing Organization Address City/[facility]/ZIP Co de Phone Number [facility] [place] [address] * (ABNORMAL) Phosphorus (03/17/2025 5:35 AM CDT) Pathologist [facility] Phosphorus, pl 1.6(L) 2.3 - 4.5 mg/dL Blood 03/17/2025 5:35 AM CDT 03/17/2025 6:06 AM CDT Dago Hsu MD LAB BLOOD ORDERABLES F inal Result Performing Organization Address [facility] de Phone Number [facility] [place] [address] * (ABNORMAL) Magnesium (03/17/2025 5:35 AM CDT) [facility] Magnesium 2.7(H) 1.4 - 2.5 mg/dL Blood 03/17/2025 5:35 AM CDT 03/17/2025 6:06 AM CDT Dago Hsu MD LAB BLOOD ORDERABLES F inal Result Performing Organization Address [facility] de Phone Number [facility] [place] [address] * (ABNORMAL) Blood gas, arterial (03/17/2025 5:35 AM CDT) Pathologist [facility] pH, Art 7.50(H) 7.35 - 7.45 PCO2, Arterial 27(L) 35 - 45 mmHg [facility] PO2, Arterial 151(H) 83 - 108 mmHg [facility] HCO3 Art (Calculated) 22 20 - 30 mmol/L [facility] BE, art -1 mmol/L [facility] Comment: Interpretive Data No Reference Range Established Current Interpretive Data was last revised on 2017 O2 Sat Art (Measured) 99(H) 90 - 95 % [facility] Blood 03/17/2025 5:35 AM CDT 03/17/2025 6:01 AM CDT us Dago Hsu MD LAB BLOOD ORDERABLES F inal Result [facility] Department [place] [address] * (ABNORMAL) Comprehensive metabolic panel (03/17/2025 5:35 AM CDT) Sodium 140 135 - 145 mmol/L Potassium, pl 3.7 3.3 - 4.9 mmol/L [facility] Chloride 109 97 - 110 mmol/L [facility] CO2 23 22 - 32 mmol/L [facility] Anion gap 8 2 - 15 mmol/L [facility] BUN 40(H) 6 - 25 mg/dL [facility] Creatinine 1.17 0.80 - 1.30 mg/dL [facility] Glucose 174 70 - 199 mg/dL [facility] Comment: Interpretive Data Fasting glucose >/= [...] 2022. Calcium 8.7 8.5 - 10.3 mg/dL [facility] Bilirubin, total 0.3 0.1 - 1.2 mg/dL [facility] Protein, pl 5.8(L) 6.5 - 8.5 g/dL [facility] Albumin 2.5(L) 3.5 - 5.0 g/dL [facility] Alk phos 73 40 - 130 Units/L [facility] ALT 9 7 - 55 Units/L [facility] AST 13 10 - 50 Units/L [facility] Blood 03/17/2025 5:35 AM CDT 03/17/2025 6:06 AM CDT us Dago Hsu MD LAB BLOOD ORDERABLES F inal Result [facility] Department [place] [address] * XR Chest 1 View (03/17/2025 4:41 [...] Comment:Glu2: RN/ Notified Glucose comment 1 Glu2: RN/MD Notified [facility] Blood 03/17/2025 3:17 AM CDT 03/17/2025 3:17 AM CDT Dago Hsu MD LAB POCT ORDERABLES - DEVICE Final Result Performing Organization Address City/[facility] Co de Phone Number [facility] [place] [address] * POCT glucose (03/16/2025 11:16 PM CDT) Glucose, POC 187 70 - 199 mg/dL Comment:Glu2: RN/ Notified Glucose comment 1 Glu2: RN/ Notified [facility] Blood 03/16/2025 11:1 6 PM CDT 03/16/2025 11:16 PM CDT Dago Hsu MD LAB POCT ORDERABLES - DEVICE Final Result Performing Organization Address [facility] Co de Phone Number [facility] [place] [address] * POCT glucose (03/16/2025 7:24 PM CDT) Glucose, POC 182 70 - 199 mg/dL Comment:Glu2: RN/ Notified Glucose comment 1 Glu2: RN/MD Notified [facility] Blood 03/16/2025 7:24 PM CDT 03/16/2025 7:24 PM CDT Dago Hsu MD LAB POCT ORDERABLES - DEVICE Final Result Performing Organization Address [facility] Co de Phone Number [facility] [place] [address] * XR Abdomen Ap 1 Vw (03/16/2025 [...] * POCT glucose (03/16/2025 3:49 PM CDT) Glucose, POC 162 70 - 199 mg/dL Blood 03/16/2025 3:49 PM CDT 03/16/2025 3:49 PM CDT Dago Hsu MD LAB POCT ORDERABLES - DEVICE Final Result Performing Organization Address City/[facility] Co de Phone Number [facility] [place] [address] * POCT glucose (03/16/2025 11:33 AM CDT) Glucose, POC 196 70 - 199 mg/dL Blood 03/16/2025 11:3 3 AM CDT 03/16/2025 11:33 AM CDT Dago Hsu MD LAB POCT ORDERABLES - DEVICE Final Result Performing Organization Address [facility] Phone Number [facility] [place] [address] * XR Abdomen Ap 1 Vw (03/16/2025 [...] * (ABNORMAL) Lactate (03/16/2025 7:57 AM CDT) Pathologist [facility] Lactate 2.1(H) 0.7 - 2.0 mmol/L Blood 03/16/2025 7:57 AM CDT 03/16/2025 8:14 AM CDT Dago Hsu MD LAB BLOOD ORDERABLES F inal Result Performing Organization Address [facility] de Phone Number [facility] [place] [address] * (ABNORMAL) Blood gas, arterial (03/16/2025 7:57 AM CDT) Pathologist [facility] pH, Art 7.48(H) 7.35 - 7.45 PCO2, Arterial 28(L) 35 - 45 mmHg [facility] PO2, Arterial 148(H) 83 - 108 mmHg [facility] HCO3 Art (Calculated) 21 20 - 30 mmol/L [facility] BE, art -2 mmol/L [facility] Comment: Interpretive Data No Reference Range Established Current Interpretive Data was last revised on 2017 O2 Sat Art (Measured) 100(H) 90 - 95 % [facility] Blood 03/16/2025 7:57 AM CDT 03/16/2025 8:08 AM CDT Dago Hsu MD LAB BLOOD ORDERABLES F inal Result Performing Organization Address [facility] Co de Phone Number [facility] [place] [address] * (ABNORMAL) POCT glucose (03/16/2025 7:50 AM CDT) Glucose, POC 220(H) 70 - 199 mg/dL Blood 03/16/2025 7:50 AM CDT 03/16/2025 7:50 AM CDT Dago Hsu MD LAB POCT ORDERABLES - DEVICE Final Result Performing Organization Address City/[facility] Co de Phone Number [facility] Department [place] [address] * (ABNORMAL) Lactate (03/16/2025 5:14 AM CDT) Pathologist [facility] Lactate 2.1(H) 0.7 - 2.0 mmol/L Blood 03/16/2025 5:14 AM CDT 03/16/2025 5:31 AM CDT Dago Hsu MD LAB BLOOD ORDERABLES F inal Result Performing Organization Address City/[facility] Co de Phone Number [facility] Department [place] [address] * (ABNORMAL) eGFR (03/16/2025 5:14 AM CDT) eGFR 40(L) >=60 mL/min/1. 73 m2 Comment: [...] MD LAB BLOOD ORDERABLES F inal Result [facility] [place] [address] * (ABNORMAL) Differential, auto (03/16/2025 5:14 AM CDT) Neutrophil abs 10.79(H) 1.50 - 6.50 K/cumm Imm gran abs 0.11(H) 0.00 - 0.10 K/cumm [facility] Lymphocyte abs 0.56(L) 0.80 - 3.30 K/cumm [facility] Monocyte abs 0.25 0.20 - 0.80 K/cumm [facility] [facility] Eosinophil abs 0.00 0.00 - 0.50 K/cumm [facility] Basophil abs 0.01 0.00 - 0.10 K/cumm [facility] Neutrophil pct 92.1 % [facility] Comment: Interpretive Data Percent cell count reference ranges are not reported, since discordance with absolute values may lead to misinterpretation of CBC data. Current Interpretive Data was last revised on 2018. Imm gran pct 0.9 % [facility] Comment: Interpretive Data Percent cell count reference ranges are not reported, since discordance with absolute values may lead to misinterpretation of CBC data. Current Interpretive Data was last revised on 2018. Lymphocyte pct 4.8 % [facility] Comment: Interpretive Data Percent cell count reference ranges are not reported, since discordance with absolute values may lead to misinterpretation of CBC data. Current Interpretive Data was last revised on 2018. Monocyte pct 2.1 % [facility] Comment: Interpretive Data Percent cell count reference ranges are not reported, since discordance with absolute values may lead to misinterpretation of CBC data. Current Interpretive Data was last revised on 2018. Eosinophil pct 0.0 % [facility] Comment: Interpretive Data Percent cell count reference ranges are not reported, since discordance with absolute values may lead to misinterpretation of CBC data. Current Interpretive Data was last revised on 2018. Basophil pct 0.1 % [facility] Comment: Interpretive Data Percent cell count reference ranges are not reported, since discordance with absolute values may lead to misinterpretation of CBC data. Current Interpretive Data was last revised on 2018. Blood 03/16/2025 5:14 AM CDT 03/16/2025 5:31 AM CDT us Dago Hsu MD LAB BLOOD ORDERABLES F inal Result [facility] Department [place] [address] * (ABNORMAL) CBC with auto differential (03/16/2025 5:14 AM CDT) WBC 11.72(H) 3.80 - 9.90 K/cumm Hgb 11.4(L) 13.0 - 17.5 g/dL [facility] Hct 33.1(L) 38.9 - 50.3 % [facility] Plt 153 150 - 400 K/cumm [facility] MPV 13.6(H) 9.1 - 12.3 fL [facility] RBC 3.92(L) 4.30 - 5.80 M/cumm [facility] MCV 84.4 81.3 - 96.4 fL [facility] MCH 29.1 27.1 - 33.3 pg [facility] MCHC 34.4 32.3 - 35.7 g/dL [facility] RDW CV 13.3 11.1 - 14.9 % [facility] RDW SD 41.5 35.7 - 48.1 fL [facility] NRBC abs 0.00 0.00 - 0.01 K/cumm [facility] Blood 03/16/2025 5:14 AM CDT 03/16/2025 5:31 AM CDT us Dago Hsu MD LAB BLOOD ORDERABLES F inal Result Performing Organization Address City/[facility] de [facility] [place] [address] * (ABNORMAL) Triglycerides (03/16/2025 5:14 AM CDT) [...] ORDERABLES Fin al Result Performing Organization Address City/[facility] Co de Phone Number [facility] Department [place] [address] * Phosphorus (03/16/2025 5:14 AM CDT) Phosphorus, pl 3.2 2.3 - 4.5 mg/dL Blood 03/16/2025 5:14 AM CDT 03/16/2025 5:31 AM CDT us Daog Hsu MD LAB BLOOD ORDERABLES F inal Result Performing Organization Address City/[facility] Co de Phone Number [facility] Department [place] [address] * (ABNORMAL) Magnesium (03/16/2025 5:14 AM CDT) Pathologist [facility] Magnesium 2.6(H) 1.4 - 2.5 mg/dL Blood 03/16/2025 5:14 AM CDT 03/16/2025 5:31 AM CDT Dago Hsu MD LAB BLOOD ORDERABLES F inal Result Performing Organization Address [facility] de Phone Number [facility] Department [place] [address] * (ABNORMAL) Comprehensive metabolic panel (03/16/2025 5:14 AM CDT) Pathologist [facility] Sodium 136 135 - 145 mmol/L Potassium, pl 3.2(L) 3.3 - 4.9 mmol/L [facility] Chloride 102 97 - 110 mmol/L [facility] CO2 22 22 - 32 mmol/L [facility] Anion gap 12 2 - 15 mmol/L [facility] BUN 47(H) 6 - 25 mg/dL [facility] Creatinine 1.80(H) 0.80 - 1.30 mg/dL [facility] Glucose 212(H) 70 - 199 mg/dL [facility] Comment: Interpretive Data Fasting glucose >/= [...] 2022. Calcium 8.7 8.5 - 10.3 mg/dL [facility] Bilirubin, total 0.3 0.1 - 1.2 mg/dL [facility] Protein, pl 5.6(L) 6.5 - 8.5 g/dL [facility] Albumin 2.6(L) 3.5 - 5.0 g/dL [facility] Alk phos 57 40 - 130 Units/L [facility] ALT 14 7 - 55 Units/L [facility] AST 19 10 - 50 Units/L [facility] Blood 03/16/2025 5:14 AM CDT 03/16/2025 5:31 AM CDT us Dago Hsu MD LAB BLOOD ORDERABLES F inal Result [facility] Department [place] [address] * XR Chest 1 View (03/16/2025 4:39 AM CDT) Anatomical Region Laterality Modality Body, Chest N/A Computed Radiogr aphy 03/16/2025 6:56 AM CDT Impressions 03/16/2025 6:57 AM CDT Comparison made with radiograph dated 03/15/2025. Endotracheal tube terminates in distal thoracic trachea. Gastric tube courses below the diaphragm. [place] turning device is noted. Cardiac contours are [...] trachea. Gastric tube courses below the diaphragm. [place] turning device is noted. Cardiac contours are [...] * POCT glucose (03/16/2025 3:29 AM CDT) Pathologist [facility] Glucose, POC 196 70 - 199 mg/dL Blood 03/16/2025 3:29 AM CDT 03/16/2025 3:29 AM CDT Dago Hsu MD LAB POCT ORDERABLES - DEVICE Final Result Performing Organization Address [facility]/ZIP Co de Phone Number [facility] [place] [address] * (ABNORMAL) Lactate (03/16/2025 12:30 AM CDT) [facility] Lactate 2.2(H) 0.7 - 2.0 mmol/L Blood 03/16/2025 12:3 0 AM CDT 03/16/2025 12:59 AM CDT Dago Hsu MD LAB BLOOD ORDERABLES F inal Result Performing Organization Address City/[facility] Co de Phone Number [facility] Department [place] [address] * (ABNORMAL) Blood gas, arterial (03/16/2025 12:30 AM CDT) pH, Art 7.47(H) 7.35 - 7.45 PCO2, Arterial 27(L) 35 - 45 mmHg [facility] PO2, Arterial 140(H) 83 - 108 mmHg [facility] HCO3 Art (Calculated) 20 20 - 30 mmol/L [facility] BE, art -3 mmol/L [facility] Comment: Interpretive Data No Reference Range Established Current Interpretive Data was last revised on 2017 O2 Sat Art (Measured) 99(H) 90 - 95 % [facility] Blood 03/16/2025 12:3 0 AM CDT 03/16/2025 12:41 AM CDT Dago Hsu MD LAB BLOOD ORDERABLES F inal Result Performing Organization Address City/[facility] Co de Phone Number [facility] [place] [address] * POCT glucose (03/15/2025 11:56 PM CDT) Glucose, POC 128 70 - 199 mg/dL Blood 03/15/2025 11:5 6 PM CDT 03/15/2025 11:56 PM CDT Dago Hsu MD LAB POCT ORDERABLES - DEVICE Final Result Performing Organization Address [facility] Co de Phone Number [facility] [place] [address] * (ABNORMAL) Lactate (03/15/2025 8:52 PM CDT) Lactate 2.6(H) 0.7 - 2.0 mmol/L Blood 03/15/2025 8:52 PM CDT 03/15/2025 9:48 PM CDT Dago Hsu MD LAB BLOOD ORDERABLES F inal Result Performing Organization Address City/[facility] Co de Phone Number [facility] [place] [address] * POCT glucose (03/15/2025 7:36 PM CDT) Glucose, POC 127 70 - 199 mg/dL Blood 03/15/2025 7:36 PM CDT 03/15/2025 7:36 PM CDT Dago Hsu MD LAB POCT ORDERABLES - DEVICE Final Result Performing Organization Address City/[facility]/ZIP Co de Phone Number [facility] Department [place] [address] * Infection Prevention Emili auris PCR, surveillance Axilla/Groin (03/15/2025 4:52 PM CDT) [facility] Emili auris DNA Not Detected Not Detected [facility] Comment: Interpretive Data Testing performed by [facility] Infectious Disease [facility] using the [employer] Emili auris assay. This assay detects DNA from Emili auris using Real-Time PCR. This assay is laboratory developed and is not cleared by the [place] Food and Drug Administration. The performance characteristics have been verified by the [facility]. Axilla/Groin 03/15/2025 4:52 PM CDT 03/15/2025 5:05 PM CDT Narrative [facility] - 03/16/2025 2:18 AM CDT Order placed by [facility] due to ring surveillance. us Instant Order Generic Provider LAB MICROBIOLOGY - GENERAL ORDERABLES Final Result Performing Organization Address City/[facility] Co de Phone Number [facility] Department [place] [address] [facility] * (ABNORMAL) Lactate (03/15/2025 4:07 PM CDT) Pathologist [facility] Lactate 3.2(H) 0.7 - 2.0 mmol/L Blood 03/15/2025 4:07 PM CDT 03/15/2025 4:13 PM CDT Dago Hsu MD LAB BLOOD ORDERABLES F inal Result Performing Organization Address [facility] Co de Phone Number [facility] [place] [address] * (ABNORMAL) Blood gas, arterial (03/15/2025 4:07 PM CDT) [facility] pH, Art 7.42 7.35 - 7.45 PCO2, Arterial 28(L) 35 - 45 mmHg [facility] PO2, Arterial 158(H) 83 - 108 mmHg [facility] HCO3 Art (Calculated) 19(L) 20 - 30 mmol/L [facility] BE, art -5 mmol/L [facility] Comment: Interpretive Data No Reference Range Established Current Interpretive Data was last revised on 2017 O2 Sat Art (Measured) 99(H) 90 - 95 % [facility] Blood 03/15/2025 4:07 PM CDT 03/15/2025 4:13 PM CDT Dago Hsu MD LAB BLOOD ORDERABLES F inal Result Performing Organization Address [facility] Co de Phone Number [facility] [place] [address] * POCT glucose (03/15/2025 3:50 PM CDT) [facility] Glucose, POC 155 70 - 199 mg/dL Blood 03/15/2025 3:50 PM CDT 03/15/2025 3:50 PM CDT Dago Hsu MD LAB POCT ORDERABLES - DEVICE Final Result Performing Organization Address [facility] Co de Phone Number [facility] [place] [address] * (ABNORMAL) Troponin I high-sensitivity 6-hour (03/15/2025 2:03 PM CDT) Trop I hs 75(H) <=35 ng/L Comment: Interpretive Data For further hscTnI resources including the diagnostic algorithm and an aid in interpretation, copy and paste this link: [email or web address] [email or web address] Data [email or web address].[email or web address]/show/hsTrop-1 Current Interpretive Data last revised 2020. Trop I hs pct delta -57(C) % [facility] Comment:Previous critical va lue noted within 48 hours ago. Trop I hs interp Significa nt(C) [facility] Comment:Previous critical va lue noted within 48 hours ago. Blood 03/15/2025 2:03 PM CDT 03/15/2025 2:30 PM CDT Dago Hsu MD LAB BLOOD ORDERABLES F inal Result Performing Organization Address [facility] de Phone Number [facility] Department [place] [address] * (ABNORMAL) Troponin I high-sensitivity 4-hour (03/15/2025 12:01 PM CDT) Pathologist [facility] Trop I hs 91(H) <=35 ng/L Comment: Interpretive Data For further hscTnI resources including the diagnostic algorithm and an aid in interpretation, copy and paste this link: https://[email or web address] [employer] Data [email or web address].[email or web address]/show/hsTrop-1 Current Interpretive Data last revised 2020. Trop I hs pct delta -47(C) % [facility] Comment:Previous critical va lue noted within 48 hours ago. Trop I hs interp Significa nt(C) [facility] Blood 03/15/2025 12:0 1 PM CDT 03/15/2025 12:29 PM CDT Dago Hsu MD LAB BLOOD ORDERABLES F inal Result Performing Organization Address [facility] Co de Phone Number [facility] Department [place] [address] * (ABNORMAL) Lactate (03/15/2025 12:01 PM CDT) [facility] Lactate 3.2(H) 0.7 - 2.0 mmol/L Blood 03/15/2025 12:0 1 PM CDT 03/15/2025 12:29 PM CDT Dago Hsu MD LAB BLOOD ORDERABLES F inal Result Performing Organization Address [facility] de Phone Number [facility] Department [place] [address] * POCT glucose (03/15/2025 11:33 AM CDT) [facility] Glucose, POC 189 70 - 199 mg/dL Blood 03/15/2025 11:3 3 AM CDT 03/15/2025 11:33 AM CDT Dago Hsu MD LAB POCT ORDERABLES - DEVICE Final Result Performing Organization Address [facility] de Phone Number [facility] Department [place] [address] * (ABNORMAL) Troponin I high-sensitivity 2-hour (03/15/2025 10:05 AM CDT) [facility] Trop I hs 114(H) <=35 ng/L Comment: Interpretive Data For further [facility] resources including the diagnostic algorithm and an aid in interpretation, copy and paste this link: https://bjhlab.testcatalog.org/show/hsTrop-1 Current Interpretive Data last revised 2020. Trop I hs pct delta -34(C) % [facility] Trop I hs interp Significa nt(C) [facility] Blood 03/15/2025 10:0 5 AM CDT 03/15/2025 10:38 AM CDT Dago Hsu MD LAB BLOOD ORDERABLES F inal Result Performing Organization Address [facility]/ZIP Co de Phone Number [facility] [place] [address] * Critical result callback Cardio chemistry (03/15/2025 10:05 AM CDT) Date Notified [id number] Time Notified [id number] [facility] Test name Trop I hs [facility] Called/Read Back Norma PADRON [facility] Credentials RN [facility] Called By SB [facility] Blood 03/15/2025 10:0 5 AM CDT 03/15/2025 10:38 AM CDT Dago Hsu MD LAB BLOOD ORDERABLES F inal Result Performing Organization Address [facility] [place] [address] * (ABNORMAL) Troponin I high-sensitivity series (baseline, 2hr, 4hr, 6hr) (03/15/2025 8:01 AM CDT) Trop I hs 173(H) <=35 ng/L Comment: Interpretive Data For further hscTnI resources including the diagnostic algorithm and an aid in interpretation, copy and paste this link: https://bjhlab.testcatalog.org/show/hsTrop-1 Current Interpretive Data last revised 2020. Blood 03/15/2025 8:01 AM CDT 03/15/2025 8:10 AM CDT us Dago Hsu MD LAB BLOOD ORDERABLES F inal Result Performing Organization Address [facility] [place] [address] * (ABNORMAL) Lactate (03/15/2025 8:01 AM CDT) Lactate 3.9(H) 0.7 - 2.0 mmol/L Blood 03/15/2025 8:01 AM CDT 03/15/2025 8:10 AM CDT Dago Hsu MD LAB BLOOD ORDERABLES F inal Result Performing Organization Address [facility] Co de Phone Number [facility] [place] [address] * Urea nitrogen, urine, random (03/15/2025 8:01 AM CDT) Urea nitrogen, ur 455 mg/dL Comment: Interpretive Data No reference range established. Current interpretive data was last revised 2019. Urine 03/15/2025 8:01 AM CDT 03/15/2025 8:10 AM CDT Dago Hsu MD LAB URINE ORDERABLES F inal Result Performing Organization Address [facility] de Phone Number [facility] [place] [address] * Sodium, urine, random (03/15/2025 8:01 AM CDT) Sodium, ur <20 mmol/L Comment: Interpretive Data No reference range established. Current interpretive data was last revised 2019. Urine 03/15/2025 8:01 AM CDT 03/15/2025 8:10 AM CDT Dago Hsu MD LAB URINE ORDERABLES F inal Result Performing Organization Address [facility] Co de Phone Number [facility] [place] [address] * Creatinine, urine, random (03/15/2025 8:01 AM CDT) Creatinine Ur 66.3 mg/dL Comment: Interpretive Data No reference range established. Current interpretive data was last revised 2019. Urine 03/15/2025 8:01 AM CDT 03/15/2025 8:10 AM CDT Dago Hsu MD LAB URINE ORDERABLES F inal Result Performing Organization Address [facility] Co de Phone Number [facility] [place] [address] * (ABNORMAL) Blood gas, arterial (03/15/2025 8:01 AM CDT) pH, Art 7.37 7.35 - 7.45 PCO2, Arterial 29(L) 35 - 45 mmHg [facility] PO2, Arterial 162(H) 83 - 108 mmHg [facility] HCO3 Art (Calculated) 17(L) 20 - 30 mmol/L [facility] BE, art -7 mmol/L [facility] Comment: Interpretive Data No Reference Range Established Current Interpretive Data was last revised on 2017 O2 Sat Art (Measured) 99(H) 90 - 95 % [facility] Blood 03/15/2025 8:01 AM CDT 03/15/2025 8:08 AM CDT Dago Hsu MD LAB BLOOD ORDERABLES F inal Result Performing Organization Address [facility] de Phone Number [facility] [place] [address] * POCT glucose (03/15/2025 7:41 AM CDT) Glucose, POC 175 70 - 199 mg/dL Blood 03/15/2025 7:41 AM CDT 03/15/2025 7:41 AM CDT Dago Hsu MD LAB POCT ORDERABLES - DEVICE Final Result Performing Organization Address [facility] Co de Phone Number [facility] [place] [address] * (ABNORMAL) POCT glucose (03/15/2025 5:39 AM CDT) Glucose, POC 205(H) 70 - 199 mg/dL Blood 03/15/2025 5:39 AM CDT 03/15/2025 5:39 AM CDT Dago Hsu MD LAB POCT ORDERABLES - DEVICE Final Result Performing Organization Address City/[facility] Co de Phone Number [facility] Department [place] [address] * (ABNORMAL) Lactate (03/15/2025 5:30 AM CDT) Pathologist [facility] Lactate 3.7(H) 0.7 - 2.0 mmol/L Blood 03/15/2025 5:30 AM CDT 03/15/2025 5:51 AM CDT Dago Hsu MD LAB BLOOD ORDERABLES F inal Result Performing Organization Address [facility] Co de Phone Number [facility] Department [place] [address] * (ABNORMAL) eGFR (03/15/2025 5:30 AM CDT) eGFR 30(L) >=60 mL/min/1. 73 m2 Comment: [...] MD LAB BLOOD ORDERABLES F inal Result [facility] Department [place] [address] * (ABNORMAL) Differential, auto (03/15/2025 5:30 AM CDT) Neutrophil abs 18.78(H) 1.50 - 6.50 K/cumm Imm gran abs 0.30(H) 0.00 - 0.10 K/cumm [facility] Lymphocyte abs 0.78(L) 0.80 - 3.30 K/cumm [facility] Monocyte abs 0.67 0.20 - 0.80 K/cumm [facility] Eosinophil abs 0.20 0.00 - 0.50 K/cumm [facility] Basophil abs 0.10 0.00 - 0.10 K/cumm [facility] Neutrophil pct 90.2 % [facility] Comment: Interpretive Data Percent cell count reference ranges are not reported, since discordance with absolute values may lead to misinterpretation of CBC data. Current Interpretive Data was last revised on 2018. Imm gran pct 1.4 % [facility] Comment: Interpretive Data Percent cell count reference ranges are not reported, since discordance with absolute values may lead to misinterpretation of CBC data. Current Interpretive Data was last revised on 2018. Lymphocyte pct 3.7 % [facility] Comment: Interpretive Data Percent cell count reference ranges are not reported, since discordance with absolute values may lead to misinterpretation of CBC data. Current Interpretive Data was last revised on 2018. Monocyte pct 3.2 % [facility] Comment: Interpretive Data Percent cell count reference ranges are not reported, since discordance with absolute values may lead to misinterpretation of CBC data. Current Interpretive Data was last revised on 2018. Eosinophil pct 1.0 % [facility] Comment: Interpretive Data Percent cell count reference ranges are not reported, since discordance with absolute values may lead to misinterpretation of CBC data. Current Interpretive Data was last revised on 2018. Basophil pct 0.5 % [facility] Comment: Interpretive Data Percent cell count reference ranges are not reported, since discordance with absolute values may lead to misinterpretation of CBC data. Current Interpretive Data was last revised on 2018. Blood 03/15/2025 5:30 AM CDT 03/15/2025 5:51 AM CDT us Dago Hsu MD LAB BLOOD ORDERABLES F inal Result [facility] Department [place] [address] * (ABNORMAL) CBC with auto differential (03/15/2025 5:30 AM CDT) WBC 20.83(H) 3.80 - 9.90 K/cumm Hgb 13.8 13.0 - 17.5 g/dL [facility] Comment:CALLED KOFI PFEIFFER RN Consistent with historical value. This result has been called to KOFI ECHEVERRIA RN by [id number] on 03/15/2025 06:07:13. Hct 40.9 38.9 - 50.3 % [facility] Plt 217 150 - 400 K/cumm [facility] MPV 13.9(H) 9.1 - 12.3 fL [facility] RBC 4.74 4.30 - 5.80 M/cumm [facility] MCV 86.3 81.3 - 96.4 fL [facility] MCH 29.1 27.1 - 33.3 pg [facility] MCHC 33.7 32.3 - 35.7 g/dL [facility] RDW CV 13.2 11.1 - 14.9 % [facility] RDW SD 41.3 35.7 - 48.1 fL [facility] NRBC abs 0.00 0.00 - 0.01 K/cumm [facility] [facility] Morphologic Screen Results confirmed by manual morphology review. [facility] Blood 03/15/2025 5:30 AM CDT 03/15/2025 5:51 AM CDT Dago Hsu MD LAB BLOOD ORDERABLES F inal Result Performing Organization Address City/[facility] Co de Phone Number [facility] [place] [address] * (ABNORMAL) Phosphorus (03/15/2025 5:30 AM CDT) Phosphorus, pl 4.7(H) 2.3 - 4.5 mg/dL Blood 03/15/2025 5:30 AM CDT 03/15/2025 5:52 AM CDT Dago Hsu MD LAB BLOOD ORDERABLES F inal Result Performing Organization Address [facility] de Phone Number [facility] [place] [address] * Magnesium (03/15/2025 5:30 AM CDT) Magnesium 2.2 1.4 - 2.5 mg/dL Blood 03/15/2025 5:30 AM CDT 03/15/2025 5:52 AM CDT Dago Hsu MD LAB BLOOD ORDERABLES F inal Result Performing Organization Address City/[facility] Co de Phone Number [facility] [place] [address] * Creatine kinase (CK), total (03/15/2025 5:30 AM CDT) CK 69 40 - 300 Units/L Blood 03/15/2025 5:30 AM CDT 03/15/2025 5:52 AM CDT us Dago Hsu MD LAB BLOOD ORDERABLES F inal Result [facility] One [facility] Department [place] [address] * (ABNORMAL) Comprehensive metabolic panel (03/15/2025 5:30 AM CDT) Sodium 135 135 - 145 mmol/L Potassium, pl 5.1(H) 3.3 - 4.9 mmol/L [facility] Chloride 100 97 - 110 mmol/L [facility] CO2 19(L) 22 - 32 mmol/L [facility] Anion gap 16(H) 2 - 15 mmol/L [facility] BUN 51(H) 6 - 25 mg/dL [facility] Creatinine 2.32(H) 0.80 - 1.30 mg/dL [facility] Comment:Reviewed Glucose 222(H) 70 - 199 mg/dL [facility] Comment: Interpretive Data Fasting glucose >/= [...] 2022. Calcium 8.4(L) 8.5 - 10.3 mg/dL [facility] Bilirubin, total 0.9 0.1 - 1.2 mg/dL [facility] Protein, pl 5.9(L) 6.5 - 8.5 g/dL [facility] Albumin 2.9(L) 3.5 - 5.0 g/dL [facility] Alk phos 56 40 - 130 Units/L [facility] ALT 20 7 - 55 Units/L [facility] AST 37 10 - 50 Units/L [facility] Blood 03/15/2025 5:30 AM CDT 03/15/2025 5:52 AM CDT us Dago Hsu MD LAB BLOOD ORDERABLES F inal Result [facility] One [facility] Department [place] [address] * XR Chest 1 View (03/15/2025 4:24 [...] (ABNORMAL) Lactate (03/15/2025 1:58 AM CDT) Pathologist [facility] Lactate 3.8(H) 0.7 - 2.0 mmol/L Blood 03/15/2025 1:58 AM CDT 03/15/2025 2:14 AM CDT Dago Hsu MD LAB BLOOD ORDERABLES F inal Result [facility] One [facility] Department [place] [address] * (ABNORMAL) Blood gas, arterial (03/15/2025 1:58 AM CDT) Pathologist [facility] pH, Art 7.32(L) 7.35 - 7.45 PCO2, Arterial 34(L) 35 - 45 mmHg [facility] PO2, Arterial 230(H) 83 - 108 mmHg [facility] HCO3 Art (Calculated) 18(L) 20 - 30 mmol/L [facility] BE, art -8 mmol/L [facility] Comment: Interpretive Data No Reference Range Established Current Interpretive Data was last revised on 2017 O2 Sat Art (Measured) 100(H) 90 - 95 % [facility] Blood 03/15/2025 1:58 AM CDT 03/15/2025 2:09 AM CDT Dago Hsu MD LAB BLOOD ORDERABLES F inal Result [facility] One [facility] Department [place] [address] * XR Chest 1 View (03/15/2025 1:36 [...] ORDERABLES F inal Result Performing Organization Address City/[facility]/ZIP Co de Phone Number [facility] [place] [address] * (ABNORMAL) POCT glucose (03/14/2025 9:15 PM CDT) Pathologist [facility] Glucose, POC 255(H) 70 - 199 mg/dL Blood 03/14/2025 9:15 PM CDT 03/14/2025 9:15 PM CDT Dago Hsu MD LAB POCT ORDERABLES - DEVICE Final Result [facility] Department [place] [address] * (ABNORMAL) Lactate (03/14/2025 9:10 PM CDT) Lactate 3.7(H) 0.7 - 2.0 mmol/L Blood 03/14/2025 9:10 PM CDT 03/14/2025 9:39 PM CDT us Dago Hsu MD LAB BLOOD ORDERABLES F inal Result [facility] Department [place] [address] * (ABNORMAL) Urinalysis reflex to microscopic and culture Urine (03/14/2025 9:10 PM CDT) Color, ur Yellow Yellow Clarity, ur Cloudy(A) Clear [facility] Specific gravity, ur >1.042(H) 1.003 - 1.030 [facility] pH, urine 6.0 [facility] Comment: Interpretive Data U rine pH is affected by diet, medications, systemic acid-base disturbances, and renal tubular function. pH may affect urinary stone formation. For example, urine pH below 6.0 may help reduce the tendency for calcium phosphate stones and pH greater than 6.0 may reduce the tendency for uric acid stone formation. Source: [facility] Current Interpretive Data was last revised on 2017 Protein, ur ql 1+(A) Negative [facility] Glucose, ur ql Trace(A) Negative [facility] Ketones, ur Negative Negative [facility] Bilirubin, ur Negative Negative [facility] Blood, ur 1+(A) Negative [facility] Urobilinogen, ur <2.0 <2.0 mg/dL [facility] Nitrite, ur Negative Negative [facility] Leukocyte esterase, ur Negative Negative [facility] UA reflex comment Reflex to microscopic UA will be performed. [facility] Urine 03/14/2025 9:10 PM CDT 03/14/2025 10:01 PM CDT us David Brooks MD LAB MICROBIOLOGY - GENERAL ORDERABLES Final Result Performing Organization Address City/[facility]/ZIP Co de Phone Number [facility] Department [place] [address] * (ABNORMAL) Urinalysis, microscopic only (03/14/2025 9:10 PM CDT) WBC, ur 0-5 0 - 5 /HPF RBC, ur 3-5(A) 0 - 2 /HPF [facility] Epithelial cells, squamous, ur 1-5 0 - 5 /HPF [facility] Bacteria, ur 3+(A) [facility] Yeast, ur 4+(A) [facility] Culture Reflex Comment Reflex conditions for urine culture (WBC >10) not met. [facility] Urine 03/14/2025 9:10 PM CDT 03/14/2025 10:01 PM CDT us David Brooks MD LAB URINE ORDERABLES Final Result [facility] One [facility] Department [place] [address] * XR Abdomen Ap 1 Vw (03/14/2025 [...] IMG XR PROCEDURES Razia l Result * [place] ARTL CATHJ/CANNULJ MNTR/TRANSFUSION SPX PRQ (03/14/2025 4:29 PM CDT) Narrative Dago Hsu MD - 03/14/2025 4:29 PM CDT Dago Hsu MD 03/14/2025 4:34 PM Arterial Line Insertion Date/Time: 03/14/2025 4:29 PM Performed by: Rashi Ragland MD Authorized by: Rashi Ragland MD [place] Protocol: RN Notified of Procedure: yes Informed consent: Risks, benefits, alternatives discussed and patient/construction representative/guardian agrees and accepts Patient's stated name/ [...] (ABNORMAL) POCT glucose (03/14/2025 4:02 PM CDT) Glucose, POC 202(H) 70 - 199 mg/dL Blood 03/14/2025 4:02 PM CDT 03/14/2025 4:02 PM CDT Dago Hsu MD LAB POCT ORDERABLES - DEVICE Final Result Performing Organization Address [facility] Co de Phone Number [facility] Department [place] [address] * (ABNORMAL) Blood gas, arterial (03/14/2025 3:02 PM CDT) pH, Art 7.23(L) 7.35 - 7.45 PCO2, Arterial 50(H) 35 - 45 mmHg [facility] PO2, Arterial 189(H) 83 - 108 mmHg [facility] HCO3 Art (Calculated) 21 20 - 30 mmol/L [facility] BE, art -8 mmol/L [facility] Comment: Interpretive Data No Reference Range Established Current Interpretive Data was last revised on 2017 O2 Sat Art (Measured) 99(H) 90 - 95 % [facility] Blood 03/14/2025 3:02 PM CDT 03/14/2025 3:19 PM CDT Dago Hsu MD LAB BLOOD ORDERABLES F inal Result Performing Organization Address [facility] de Phone Number [facility] Department [place] [address] * (ABNORMAL) POC Blood Gas and Chemistries, Arterial - (03/14/2025 2:59 PM CDT) pH, Art POC 7.24(L) 7.35 - 7.45 pCO2, Art POC 47(H) 35 - 45 mmHg [facility] pO2, Art POC 146(H) 83 - 108 mmHg [facility] Na, POC 131(L) 135 - 145 mmol/L [facility] K POC 4.1 3.3 - 4.9 mmol/L [facility] Comment: Interpretive Data Not all point of care methods assess for hemolysis. Confirm with instrument and retest K+ if not consistent with clinical signs and symptoms. Current Interpretive Data was last revised on 2024. Cl, POC 101 97 - 110 mmol/L [facility] Ionized Ca, POC 4.83 4.50 - 5.10 mg/dL [facility] Glucose, POC 227(H) 70 - 199 mg/dL [facility] Lactate POC 3.6(H) 0.7 - 2.0 mmol/L [facility] SO2 (raman) arterial 100(H) 90 - 95 % [facility] Base excess, POC -7.4 mmol/L [facility] HCO3, Art POC 20 20 - 30 mmol/L [facility] Hct, POC 44.0 41.4 - 51.6 % [facility] Total Hb, POC 14.6 13.8 - 17.2 g/dL [facility] Blood 03/14/2025 2:59 PM CDT 03/14/2025 2:59 PM CDT us Dago Hsu MD LAB POCT ORDERABLES - DEVICE Final Result [facility] One [facility] Department [place] [address] * CT Chest Abdomen Pelvis W Contrast [...] transition point in the left mid abdomen (2224). Decompressed loops of bowel in the left [...] tube terminates below the left hemidiaphragmatic the [id number]. There are persistent patchy multifocal airspace opacities [...] tube terminates below the left hemidiaphragmatic the [id number]. There are persistent patchy multifocal airspace opacities [...] AM CDT Narrative 03/14/2025 1:09 PM CDT [facility] [place] [address] Transthoracic Echocardiographic Report Patient Name: JOHN ARITA W : 1955 (69y 3m) Gender: M Study Date: 03/14/2025 11:38:11 AM Ht(Inch): 66 Wt(Lb): 162.92 BSA: 1.86 Xray Tech: Hunter Lim RD [facility] Location: [id number] Order Provider: DAGO HSU Heart Rate: 122 [...] Procedure Note Brodie Suárez MD - 03/14/2025 [facility] [place] [address] Transthoracic Echocardiographic Report Patient Name: JOHN ARITA W : 1955 (69y 3m) Gender: M Study Date: 03/14/2025 11:38:11 AM Ht(Inch): 66 Wt(Lb): 162.92 BSA: 1.86 Xray Tech: Hunter Lim [facility] Location: [id number] Order Provider:DAGO HSU Heart Rate: 122 BMI: [...] Art POC 66(H) 35 - 45 mmHg [facility] pO2, Art POC 135(H) 83 - 108 [facility] Na, POC 132(L) 135 - 145 mmol/L [facility] K POC 4.5 3.3 - 4.9 mmol/L [facility] Comment: Interpretive Data Not all point of care methods assess for hemolysis. Confirm with instrument and retest K+ if not consistent with clinical signs and symptoms. Current Interpretive Data was last revised on 2024. Cl, POC 100 97 - 110 mmol/L [facility] Ionized Ca, POC 4.94 4.50 - 5.10 mg/dL [facility] Glucose, POC 190 70 - 199 mg/dL [facility] Lactate POC 4.6(C) 0.7 - 2.0 mmol/L [facility] SO2 (raman) arterial 100(H) 90 - 95 % [facility] Base excess, POC -7.4 mmol/L [facility] HCO3, Art POC 23 20 - 30 mmol/L [facility] Hct, POC 49.0 41.4 - 51.6 % [facility] Total Hb, POC 16.3 13.8 - 17.2 g/dL [facility] Blood 03/14/2025 12:2 0 PM CDT 03/14/2025 12:20 PM CDT Dago Hsu MD LAB POCT ORDERABLES - DEVICE Final Result Performing Organization Address [facility] Co de Phone Number [facility] [place] [address] * POCT glucose (03/14/2025 11:51 AM CDT) [facility] Glucose, POC 183 70 - 199 mg/dL Blood 03/14/2025 11:5 1 AM CDT 03/14/2025 11:51 AM CDT Dago Hsu MD LAB POCT ORDERABLES - DEVICE Final Result Performing Organization Address [facility] de Phone Number [facility] [place] [address] * [place] INSJ NON-TUNNELED CENTRAL VENOUS CATH AGE 5 YR/> (03/14/2025 10:15 AM CDT) Narrative Dago Hsu MD - 03/14/2025 10:15 AM CDT Dago Hsu MD 03/14/2025 4:34 PM Central Line Insertion Date/Time: 03/14/2025 10:15 AM Performed by: Tiago Polanco MD Authorized by: Tiago Polanco MD [place] Protocol: RN Notified of Procedure: yes Informed consent: Patient/construction representative/guardian agrees and accepts Patient's stated name/ [...] and matched to patient identification: n/a Responsible constitution party for transporting specimen(s) to lab determined: n/a Tiago Polanco MD IN CLINIC/BEDSIDE ORDERABLES Final Result * Critical Result Callback Chemistry (03/14/2025 9:48 AM CDT) Date Notified [id number] Time Notified 1004 [facility] TestName pH Adrian, pCO2 [facility] Called/Read Back Mandy BOOKER Credentials RITA BOOKER Called By [facility] Blood 03/14/2025 9:48 AM CDT 03/14/2025 9:55 AM CDT Dago Hsu MD LAB BLOOD ORDERABLES F inal Result [facility] One [facility] Department of Laboratories [place], [place] [id number] * (ABNORMAL) Blood gas, venous (03/14/2025 9:48 AM CDT) pH, Venous 7.08(C) 7.32 - 7.43 PCO2, Venous 84(C) 40 - 50 mmHg [facility] PO2, Venous 53 mmHg [facility] Comment: Interpretive Data No Reference Range Established Current Interpretive Data was last revised on 2018. HCO3 Venous, Calculated 26 20 - 30 mmol/L [facility] BE, venous -10 mmol/L [facility] Comment: Interpretive Data No Reference Range Established Current Interpretive Data was last revised on 2018. Blood 03/14/2025 9:48 AM CDT 03/14/2025 9:55 AM CDT us Dago Hsu MD LAB BLOOD ORDERABLES F inal Result [facility] One [facility] Department [place] [address] * INTUBATION (03/14/2025 9:34 AM CDT) Narrative Gorge Deleon MD - 03/14/2025 9:34 AM CDT Gorge Deleon MD 03/14/2025 6:01 PM Intubation Date/Time: 03/14/2025 9:34 AM Performed by: Jovanny Galeana DO Authorized by: Jovanny Galeana DO [place] Protocol: RN Notified of Procedure: yes Informed [...] and matched to patient identification: n/a Responsible constitution party for transporting specimen(s) to lab determined: n/a [...] POCT ORDERABLES - DEVICE Final Result [facility] One [facility] Department [place] [address] * XR Abdomen Ap 1 Vw (03/14/2025 [...] it. Electronically signed by: Gregg Perez M.D. Dago Hsu MD IMG XR PROCEDURES Razia l Result * ECG 12 lead (03/14/2025 8:41 AM CDT) Ventricular Rate EKG/Min 121 BPM [facility] Atrial Rate 121 BPM [facility] [place]-Interval (MSEC) 136 ms [facility] QRS-Interval (MSEC) 76 ms [facility] QT-Interval (MSEC) 302 ms [facility] QTc 428 ms [facility] P [place] 55 degrees [facility] R [place] -2 degrees [facility] T [place] 72 degrees [facility] Diagnosis Sinus tachycardia Right atrial enlargement Nonspecific ST and T wave abnormality Abnormal ECG When compared with ECG of 14-MAR-2025 06:48, (unconfirmed) No significant change was found Confirmed by MIKE JAFFE M.D ([id number]) on 03/14/2025 1:51:45 PM [facility] 03/14/2025 8:41 AM CDT 03/14/2025 1:51 PM CDT us David Brooks MD ECG ORDERABLES Final Resul t [facility] * Pneumonia PCR Tracheal aspirate (03/14/2025 8:37 AM CDT) C. pneumoniae DNA Not Detected Not Detected Legionella pneumophila DNA Not Detected Not Detected [facility] M. pneumoniae DNA Not Detected Not Detected [facility] Adenovirus DNA Not Detected Not Detected [facility] Coronavirus (229E, OC43, HKU1, NL63) RNA Not Detected Not Detected [facility] Metapneumovirus RNA Not Detected Not Detected [facility] Rhinovirus/Enterov irus RNA Not Detected Not Detected [facility] Influenza A RNA Not Detected Not Detected [facility] Influenza B RNA Not Detected Not Detected [facility] Parainfluenza virus (1-4) RNA Not Detected Not Detected [facility] RSV RNA Not Detected Not Detected [facility] Tracheal aspirate 03/14/2025 8:37 AM CDT 03/14/2025 7:20 PM CDT Narrative [facility] - 03/14/2025 8:48 PM CDT The [employer] [...] rule out infection/co-infection with other organisms. The [employer] Pneumonia Panel is FDA cleared for lower respiratory tract specimens. The performance characteristics of this assay have been determined by [facility]. Current interpretive data was last revised on 2024. us Dago Hsu MD LAB MICROBIOLOGY - GEN ERAL ORDERABLES Final Result [facility] One [facility] Department [place] [address] * (ABNORMAL) Pneumonia PCR with aerobic culture and Gram stain Tracheal aspirate (03/14/2025 8:37 AM CDT) Direct Specimen Exam Molecular Analysis: 10^4 copies/mL Klebsiella pneumoniae group Correlation of molecular analysis with final culture results is recommended. Direct Specimen Exam Stain: Few polymorphonuclear leukocytes seen. No squamous epithelial cells seen. Moderate mixed bacterial cristino seen on Gram stain. [facility] Report Final Report: Greater than or equal to 100,000 colonies/ml of Yeast Emili pneumonia is very rare and requires a histopathological diagnosis. The recovery of these organisms in routine culture, in most cases, only represents overgrowth of the organism secondary to antimicrobial therapy. Please contact the microbiology laboratory at [phone] if identification or susceptibility testing is clinically indicated. Plus growth of clinically insignificant bacterial cristino. (.) [facility] Organism YEAST [facility] Organism PLUS GROWTH OF CLINICALLY INSIGNIFICANT CRISTINO. [facility] Tracheal aspirate 03/14/2025 8:37 AM CDT 03/14/2025 6:03 PM CDT Narrative [facility] - 03/17/2025 1:22 PM CDT When rapid molecular testing results are reported, testing completed using the [employer] Pneumonia Panel. This molecular assay detects: [...] performance characteristics have been confirmed by the [facility]. The performance of the [employer] Pneumonia Panel has not been established for monitoring treatment of infection and bacterial nucleic acids may persist independent of organism viability. Dago Hsu MD LAB MICROBIOLOGY - GEN ERAL ORDERABLES Final Result Performing Organization Address City/[facility]/ZIP Co de Phone Number [facility] Department [place] [address] * (ABNORMAL) Lactate (03/14/2025 8:37 AM CDT) [facility] Lactate 5.2(C) 0.7 - 2.0 mmol/L Blood 03/14/2025 8:37 AM CDT 03/14/2025 10:04 AM CDT Dago Hsu MD LAB BLOOD ORDERABLES F inal Result Performing Organization Address [facility] Co de Phone Number [facility] Department [place] [address] * Check Sample (03/14/2025 8:37 AM CDT) Pathologist [facility] ABO Rh A Positive [facility] OTHER 03/14/2025 8:37 AM CDT 03/14/2025 10:04 AM CDT Dago Hsu MD LAB BLOOD ORDERABLES F inal Result Performing Organization Address [facility] [place] [address] [facility] * Critical Result Callback Chemistry (03/14/2025 8:37 AM CDT) Date Notified 20250314 Time Notified 1034 [facility] TestName Kathrine BOOKER Called/Read Back Mandy PADRON [facility] Credentials RN [facility] Called By cliff BOOKER Blood 03/14/2025 8:37 AM CDT 03/14/2025 10:04 AM CDT Dago Hsu MD LAB BLOOD ORDERABLES F inal Result Performing Organization Address [facility] [place] [address] * Volatiles screen, serum (03/14/2025 8:37 AM CDT) Methanol None Detected None Detected Ethanol, sr None Detected None Detected [facility] Isopropanol Screen, Serum None Detected None Detected [facility] Acetone Screen, Serum None Detected None Detected [facility] Comment: Interpretive Data This test was developed using an analyte specific reagent. Its performance characteristics were determined by the [facility] in a manner consistent with CLIA requirements. This test has not been cleared or approved by the U.S. Food and Drug Administration. Current interpretive data was last revised on 2013. Blood 03/14/2025 8:37 AM CDT 03/14/2025 9:55 AM CDT Dago Hsu MD LAB BLOOD ORDERABLES F inal Result Performing Organization Address City/[facility]/ZIP Co de Phone Number [facility] [place] [address] * Beta-hydroxybutyrate (03/14/2025 8:37 AM CDT) [facility] Beta-Hydroxybut yrate 0.3 0.0 - 0.5 mmol/L Blood 03/14/2025 8:37 AM CDT 03/14/2025 9:55 AM CDT Dago Hsu MD LAB BLOOD ORDERABLES F inal Result Performing Organization Address [facility] Co de Phone Number [facility] [place] [address] * (ABNORMAL) CBC without differential (03/14/2025 8:37 AM CDT) [facility] WBC 8.62 3.80 - 9.90 K/cumm Hgb 18.9(H) 13.0 - 17.5 g/dL [facility] Hct 56.9(H) 38.9 - 50.3 % [facility] Plt 206 150 - 400 K/cumm [facility] MPV Not Measured 9.1 - 12.3 fL [facility] RBC 6.37(H) 4.30 - 5.80 M/cumm [facility] MCV 89.3 81.3 - 96.4 fL [facility] MCH 29.7 27.1 - 33.3 pg [facility] MCHC 33.2 32.3 - 35.7 g/dL [facility] RDW CV 13.3 11.1 - 14.9 % [facility] RDW SD 42.6 35.7 - 48.1 fL [facility] NRBC abs 0.00 0.00 - 0.01 K/cumm [facility] Blood 03/14/2025 8:37 AM CDT 03/14/2025 10:04 AM CDT us David Brooks MD LAB BLOOD ORDERABLES Final Result Performing Organization Address [facility] [place] [address] * Osmolality, blood (03/14/2025 8:37 AM CDT) [facility] Osmo 290 275 - 300 mOsm/kg Blood 03/14/2025 8:37 AM CDT 03/14/2025 10:04 AM CDT Dago Hsu MD LAB BLOOD ORDERABLES F inal Result Performing Organization Address [facility] [place] [address] * (ABNORMAL) Hemoglobin A1c (03/14/2025 8:37 AM CDT) [facility] Hgb A1C 6.0(H) 4.0 - 5.6 % Estimated Average Glucose 126 mg/dL [facility] Comment: The ADA recommends reporting an [...] ORDERABLES F inal Result Performing Organization Address [facility] [place] [address] * XR Chest 1 View (03/14/2025 7:00 [...] AM CDT) Ventricular Rate EKG/Min 118 BPM [facility] Atrial Rate 118 BPM [facility] WY-Interval (MSEC) 142 ms [facility] QRS-Interval (MSEC) 86 ms [facility] QT-Interval (MSEC) 326 ms [facility] QTc 456 ms [facility] P [place] 42 degrees [facility] R [place] -9 degrees [facility] T [place] 91 degrees [facility] Diagnosis Sinus tachycardia ST & T wave abnormality, consider lateral ischemia Abnormal ECG When compared with ECG of 14-MAR-2025 04:47, (unconfirmed) No significant change was found Confirmed by MIKE JAFFE M.D ([id number]) on 03/14/2025 1:51:39 PM [facility] 03/14/2025 6:48 AM CDT 03/14/2025 1:51 PM CDT us David Brooks MD ECG ORDERABLES Final Resul t Performing Organization Address City/[facility] Co de Phone Number [facility] * Troponin I high-sensitivity (03/14/2025 5:30 AM CDT) Trop I hs 18 <=35 ng/L Comment: Interpretive Data For further hscTnI resources including the diagnostic algorithm and an aid in interpretation, copy and paste this link: https://bjhlab.testcatalog.org/show/[email or web address] Current Interpretive Data last revised 2020. Blood 03/14/2025 5:30 AM CDT 03/14/2025 5:53 AM CDT us David Brooks MD LAB BLOOD ORDERABLES Final Result [facility] Department [place] [address] * Blood culture Blood (03/14/2025 5:30 AM CDT) Report Final Report: No growth Blood 03/14/2025 5:30 AM CDT 03/14/2025 6:34 AM CDT Narrative [facility] - 03/18/2025 7:00 AM CDT From a [...] performance characteristics have been verified by the [facility] Microbiology Laboratory. For questions about this culture, contact the Microbiology Laboratory at [phone]. Interpretive data was last revised on 24. us David Brooks MD LAB MICROBIOLOGY - GENERAL ORDERABLES Final Result [facility] Department [place] [address] * Blood culture Blood Right (03/14/2025 5:30 AM CDT) Report Final Report: No growth Blood (Right) 03/14/2025 5:3 0 AM CDT 03/14/2025 7:29 AM CDT Guillermina [facility] - 03/18/2025 12:00 PM CDT Collection->Peripheral 1. [...] performance characteristics have been verified by the [facility] Microbiology Laboratory. For questions about this culture, contact the Microbiology Laboratory at [phone]. Interpretive data was last revised on 24. David Brooks MD LAB MICROBIOLOGY - GENERAL ORDERABLES Final Result Performing Organization Address City/[facility]/ZIP Co de Phone Number [facility] [place] [address] * Type and screen (03/14/2025 5:30 AM CDT) Jackie, indirect Negative ABO Rh A Positive [facility] Blood 03/14/2025 5:30 AM CDT 03/14/2025 6:26 AM CDT Narrative [facility] - 03/14/2025 7:19 AM CDT Has the patient had Daratumumab or Isatuximab in the past 6 months?->Unknown David Brooks MD LAB BLOOD BANK TEST ORDERAB LES Final Result [facility] [place] [address] * Infection Prevention MRSA Only (Staphylococcus aureus) Culture Nasal (03/14/2025 5:30 AM CDT) Report Final Report: Negative Nasal 03/14/2025 5:30 AM CDT 03/14/2025 6:34 AM CDT Narrative [facility] - 03/15/2025 7:15 AM CDT Testing performed by [facility] Microbiology Laboratory ([phone]). David Brooks MD LAB MICROBIOLOGY - GENERAL ORDERABLES Final Result Performing Organization Address [facility] de Phone Number [facility] [place] [address] * Phosphorus (03/14/2025 5:30 AM CDT) Pathologist [facility] Phosphorus, pl 3.3 2.3 - 4.5 mg/dL Blood 03/14/2025 5:30 AM CDT 03/14/2025 5:53 AM CDT David Brooks MD LAB BLOOD ORDERABLES Final Result Performing Organization Address [facility] de Phone Number [facility] Department [place] [address] * Magnesium (03/14/2025 5:30 AM CDT) [facility] Magnesium 2.0 1.4 - 2.5 mg/dL Blood 03/14/2025 5:30 AM CDT 03/14/2025 5:53 AM CDT David Brooks MD LAB BLOOD ORDERABLES Final Result Performing Organization Address [facility] de Phone Number [facility] [place] [address] * (ABNORMAL) Blood gas, venous (03/14/2025 5:30 AM CDT) Pathologist [facility] pH, Venous 7.46(H) 7.32 - 7.43 PCO2, Venous 31(L) 40 - 50 mmHg [facility] PO2, Venous 48 mmHg [facility] Comment: Interpretive Data No Reference Range Established Current Interpretive Data was last revised on 2018. HCO3 Venous, Calculated 22 20 - 30 mmol/L [facility] BE, venous 0 mmol/L [facility] Comment: Interpretive Data No Reference Range Established Current Interpretive Data was last revised on 2018. Blood 03/14/2025 5:30 AM CDT 03/14/2025 5:51 AM CDT David Brooks MD LAB BLOOD ORDERABLES Final Result [facility] Department [place] [address] * XR Abdomen Ap 1 Vw (03/14/2025 [...] it. Electronically signed by: Charles Franco M.D. David Brooks MD IMG XR PROCEDURES Final Res ult * ECG 12 lead (03/14/2025 4:47 AM CDT) Ventricular Rate EKG/Min 126 BPM [facility] Atrial Rate 126 BPM [facility] WY-Interval (MSEC) 138 ms [facility] QRS-Interval (MSEC) 82 ms [facility] QT-Interval (MSEC) 312 ms [facility] QTc 451 ms [facility] P [place] 45 degrees [facility] R [place] -17 degrees [facility] T [place] 83 degrees [facility] Diagnosis Sinus tachycardia Possible Left atrial enlargement ST & T wave abnormality, consider lateral ischemia Abnormal ECG When compared with ECG of 14-MAR-2025 04:14, (unconfirmed) No significant change was found Confirmed by MIKE JAFFE M.D ([id number]) on 03/14/2025 1:51:29 PM [facility] 03/14/2025 4:47 AM CDT 03/14/2025 1:51 PM CDT us David Brooks MD ECG ORDERABLES Final Resul t [facility] * XR Chest 1 View (03/14/2025 [...] AM CDT) Ventricular Rate EKG/Min 124 BPM [facility] Atrial Rate 124 BPM [facility] WY-Interval (MSEC) 144 ms [facility] QRS-Interval (MSEC) 78 ms [facility] QT-Interval (MSEC) 316 ms [facility] QTc 453 ms [facility] P [place] 31 degrees [facility] R [place] -15 degrees [facility] T [place] 134 degrees [facility] Diagnosis Sinus tachycardia ST & T wave abnormality, consider lateral ischemia Abnormal ECG No previous ECGs available Confirmed by Raghavendra PETERS, Renae ([id number]) on 03/14/2025 12:44:02 PM [facility] 03/14/2025 4:14 AM CDT 03/14/2025 12:44 PM CDT us Dago Hsu MD ECG ORDERABLES Final Result [facility] * (ABNORMAL) Arterial Blood gas w/Lactate POCT (03/14/2025 4:07 AM CDT) Lactate POC i-STAT 1.6 0.7 - 2.0 mmol/L pH POC 7.44 7.35 - 7.45 [facility] pCO2, Art POC 32(L) 35 - 45 mmHg [facility] PO2 POC 65(L) 80 - 105 mmHg [facility] CO2, total POC 22 20 - 30 mmol/L [facility] HCO3, POC 21 21 - 30 mmol/L [facility] BE POC -3(L) -2 - 3 mmol/L [facility] O2 sat POC 93(L) 95 - 98 % [facility] Blood 03/14/2025 4:07 AM CDT 03/14/2025 4:07 AM CDT David Brooks MD LAB BLOOD ORDERABLES Final Result [facility] Department [place] [address] * eGFR (03/14/2025 4:03 AM CDT) Pathologist [facility] eGFR 80 >=60 mL/min/1. 73 m2 Comment: [...] Brooks MD LAB BLOOD ORDERABLES Final Result [facility] Department [place] [address] * (ABNORMAL) Basic metabolic panel (03/14/2025 4:03 AM CDT) Pathologist [facility] Sodium 137 135 - 145 mmol/L Potassium, pl 4.0 3.3 - 4.9 mmol/L [facility] Chloride 96(L) 97 - 110 mmol/L [facility] CO2 21(L) 22 - 32 mmol/L [facility] Anion gap 20(H) 2 - 15 mmol/L [facility] BUN 29(H) 6 - 25 mg/dL [facility] Creatinine 1.02 0.80 - 1.30 mg/dL [facility] Glucose 264(H) 70 - 199 mg/dL [facility] Comment: Interpretive Data Fasting glucose >/= [...] 2022. Calcium 10.1 8.5 - 10.3 mg/dL [facility] Blood 03/14/2025 4:03 AM CDT 03/14/2025 4:54 AM CDT us David Brooks MD LAB BLOOD ORDERABLES Final Result [facility] [place] [address] * Phosphorus (03/10/2025 8:45 PM CDT) Phosphorus, pl 2.9 2.3 - 4.5 mg/dL Blood 03/10/2025 8:45 PM CDT 03/10/2025 9:13 PM CDT Chauncey Suárez MD PhD LAB BLOOD ORDERABLES Final Result [facility] [place] [address] * eGFR (03/09/2025 10:08 PM CDT) [facility] eGFR >90 >=60 mL/min/1. 73 m2 Comment: [...] PhD LAB BLOOD ORDERABLES Final Result [facility] Department [place] [address] * Differential, auto (03/09/2025 10:08 PM CDT) Neutrophil abs 5.68 1.50 - 6.50 K/cumm Imm gran abs 0.05 0.00 - 0.10 K/cumm [facility] Lymphocyte abs 1.30 0.80 - 3.30 K/cumm [facility] Monocyte abs 0.61 0.20 - 0.80 K/cumm [facility] Eosinophil abs 0.13 0.00 - 0.50 K/cumm [facility] Basophil abs 0.03 0.00 - 0.10 K/cumm [facility] Neutrophil pct 72.8 % [facility] Comment: Interpretive Data Percent cell count reference ranges are not reported, since discordance with absolute values may lead to misinterpretation of CBC data. Current Interpretive Data was last revised on 2018. Imm gran pct 0.6 % [facility] Comment: Interpretive Data Percent cell count reference ranges are not reported, since discordance with absolute values may lead to misinterpretation of CBC data. Current Interpretive Data was last revised on 2018. Lymphocyte pct 16.7 % [facility] Comment: Interpretive Data Percent cell count reference ranges are not reported, since discordance with absolute values may lead to misinterpretation of CBC data. Current Interpretive Data was last revised on 2018. Monocyte pct 7.8 % [facility] Comment: Interpretive Data Percent cell count reference ranges are not reported, since discordance with absolute values may lead to misinterpretation of CBC data. Current Interpretive Data was last revised on 2018. Eosinophil pct 1.7 % [facility] Comment: Interpretive Data Percent cell count reference ranges are not reported, since discordance with absolute values may lead to misinterpretation of CBC data. Current Interpretive Data was last revised on 2018. Basophil pct 0.4 % [facility] Comment: Interpretive Data Percent cell count reference ranges are not reported, since discordance with absolute values may lead to misinterpretation of CBC data. Current Interpretive Data was last revised on 2018. Blood 03/09/2025 10:0 8 PM CDT 03/09/2025 10:56 PM CDT us Mark Almanza MD PhD LAB BLOOD JORDIN ORANTES Final Result Performing Organization Address [facility] Co de Phone Number [facility] Department [place] [address] * (ABNORMAL) CBC with auto differential (03/09/2025 10:08 PM CDT) Pathologist [facility] WBC 7.80 3.80 - 9.90 K/cumm Hgb 13.3 13.0 - 17.5 g/dL [facility] Hct 39.5 38.9 - 50.3 % [facility] Plt 175 150 - 400 K/cumm [facility] MPV 13.8(H) 9.1 - 12.3 fL [facility] RBC 4.55 4.30 - 5.80 M/cumm [facility] MCV 86.8 81.3 - 96.4 fL [facility] MCH 29.2 27.1 - 33.3 pg [facility] MCHC 33.7 32.3 - 35.7 g/dL [facility] RDW CV 12.7 11.1 - 14.9 % [facility] RDW SD 40.5 35.7 - 48.1 fL [facility] NRBC abs 0.00 0.00 - 0.01 K/cumm [facility] Blood 03/09/2025 10:0 8 PM CDT 03/09/2025 10:56 PM CDT us Mark Almanza MD PhD LAB BLOOD JORDIN ORANTES Final Result [facility] Department [place] [address] * Phosphorus (03/09/2025 10:08 PM CDT) Pathologist [facility] Phosphorus, pl 3.0 2.3 - 4.5 mg/dL Blood 03/09/2025 10:0 8 PM CDT 03/09/2025 10:56 PM CDT Chauncey Suárez MD PhD LAB BLOOD ORDERABLES Final Result [facility] Department [place] [address] * (ABNORMAL) Basic metabolic panel (03/09/2025 10:08 PM CDT) [facility] Sodium 139 135 - 145 mmol/L Potassium, pl 4.1 3.3 - 4.9 mmol/L [facility] Chloride 101 97 - 110 mmol/L [facility] CO2 26 22 - 32 mmol/L [facility] Anion gap 12 2 - 15 mmol/L [facility] BUN 15 6 - 25 mg/dL [facility] Creatinine 0.78(L) 0.80 - 1.30 mg/dL [facility] Glucose 101 70 - 199 mg/dL [facility] Comment: Interpretive Data Fasting glucose >/= [...] 2022. Calcium 9.1 8.5 - 10.3 mg/dL [facility] Blood 03/09/2025 10:0 8 PM CDT 03/09/2025 10:56 PM CDT Chauncey Suárez MD PhD LAB BLOOD ORDERABLES Final Result Performing Organization Address [facility]/ZIP Co de Phone Number [facility] Department [place] [address] * eGFR (03/08/2025 10:27 PM CDT) [facility] eGFR >90 >=60 mL/min/1. 73 m2 Comment: [...] MD PhD LAB BLOOD ORDERABLES Final Result [facility] Department [place] [address] * Differential, auto (03/08/2025 10:27 PM CDT) [facility] Neutrophil abs 4.49 1.50 - 6.50 K/cumm Imm gran abs 0.04 0.00 - 0.10 K/cumm [facility] Lymphocyte abs 1.12 0.80 - 3.30 K/cumm [facility] Monocyte abs 0.63 0.20 - 0.80 K/cumm [facility] Eosinophil abs 0.14 0.00 - 0.50 K/cumm [facility] Basophil abs 0.02 0.00 - 0.10 K/cumm [facility] Neutrophil pct 69.7 % [facility] Comment: Interpretive Data Percent cell count reference ranges are not reported, since discordance with absolute values may lead to misinterpretation of CBC data. Current Interpretive Data was last revised on 2018. Imm gran pct 0.6 % [facility] Comment: Interpretive Data Percent cell count reference ranges are not reported, since discordance with absolute values may lead to misinterpretation of CBC data. Current Interpretive Data was last revised on 2018. Lymphocyte pct 17.4 % [facility] Comment: Interpretive Data Percent cell count reference ranges are not reported, since discordance with absolute values may lead to misinterpretation of CBC data. Current Interpretive Data was last revised on 2018. Monocyte pct 9.8 % [facility] Comment: Interpretive Data Percent cell count reference ranges are not reported, since discordance with absolute values may lead to misinterpretation of CBC data. Current Interpretive Data was last revised on 2018. Eosinophil pct 2.2 % [facility] Comment: Interpretive Data Percent cell count reference ranges are not reported, since discordance with absolute values may lead to misinterpretation of CBC data. Current Interpretive Data was last revised on 2018. Basophil pct 0.3 % [facility] Comment: Interpretive Data Percent cell count reference ranges are not reported, since discordance with absolute values may lead to misinterpretation of CBC data. Current Interpretive Data was last revised on 2018. Blood 03/08/2025 10:2 7 PM CDT 03/08/2025 11:35 PM CDT Mark Almanza MD PhD LAB BLOOD JORDIN ORANTES Final Result [facility] Department [place] [address] * (ABNORMAL) CBC with auto differential (03/08/2025 10:27 PM CDT) WBC 6.44 3.80 - 9.90 K/cumm Hgb 13.2 13.0 - 17.5 g/dL [facility] Hct 38.9 38.9 - 50.3 % [facility] Plt 143(L) 150 - 400 K/cumm [facility] MPV 13.9(H) 9.1 - 12.3 fL [facility] RBC 4.51 4.30 - 5.80 M/cumm [facility] MCV 86.3 81.3 - 96.4 fL [facility] MCH 29.3 27.1 - 33.3 pg [facility] MCHC 33.9 32.3 - 35.7 g/dL [facility] RDW CV 12.5 11.1 - 14.9 % [facility] RDW SD 39.3 35.7 - 48.1 fL [facility] NRBC abs 0.00 0.00 - 0.01 K/cumm [facility] Blood 03/08/2025 10:2 7 PM CDT 03/08/2025 11:35 PM CDT us Mark Almanza MD PhD LAB BLOOD JORDIN GELLERAUNDREA Final Result Performing Organization Address City/[facility]/ZIP Co de Phone Number [facility] Department [place] [address] * Phosphorus (03/08/2025 10:27 PM CDT) [facility] Phosphorus, pl 2.4 2.3 - 4.5 mg/dL Blood 03/08/2025 10:2 7 PM CDT 03/08/2025 11:35 PM CDT us Chauncey Suárez MD PhD LAB BLOOD ORDERABLES Final Result [facility] Department [place] [address] * (ABNORMAL) Basic metabolic panel (03/08/2025 10:27 PM CDT) Pathologist [facility] Sodium 136 135 - 145 mmol/L Potassium, pl 4.3 3.3 - 4.9 mmol/L [facility] Comment:Hemolyzed; Potassium value may be falsely elevated by as much as 0.6-1.0 mmol/L. Suggest redraw and reanalysis. Chloride 101 97 - 110 mmol/L [facility] CO2 27 22 - 32 mmol/L [facility] Anion gap 8 2 - 15 mmol/L [facility] BUN 21 6 - 25 mg/dL [facility] Creatinine 0.72(L) 0.80 - 1.30 mg/dL [facility] Glucose 151 70 - 199 mg/dL [facility] Comment: Interpretive Data Fasting glucose >/= [...] 2022. Calcium 8.7 8.5 - 10.3 mg/dL [facility] Blood 03/08/2025 10:2 7 PM CDT 03/08/2025 11:35 PM CDT us Chauncey Suárez MD PhD LAB BLOOD ORDERABLES Final Result [facility] Department [place] [address] * eGFR (03/07/2025 9:01 PM CDT) eGFR [...] MD PhD LAB BLOOD ORDERABLES Final Result [facility] Department [place] [address] * (ABNORMAL) Differential, auto (03/07/2025 9:01 PM CDT) Neutrophil abs 3.08 1.50 - 6.50 K/cumm Imm gran abs 0.02 0.00 - 0.10 K/cumm [facility] Lymphocyte abs 0.79(L) 0.80 - 3.30 K/cumm [facility] Monocyte abs 0.52 0.20 - 0.80 K/cumm [facility] Eosinophil abs 0.05 0.00 - 0.50 K/cumm [facility] Basophil abs 0.02 0.00 - 0.10 K/cumm [facility] Neutrophil pct 68.9 % [facility] Comment: Interpretive Data Percent cell count reference ranges are not reported, since discordance with absolute values may lead to misinterpretation of CBC data. Current Interpretive Data was last revised on 2018. Imm gran pct 0.4 % [facility] Comment: Interpretive Data Percent cell count reference ranges are not reported, since discordance with absolute values may lead to misinterpretation of CBC data. Current Interpretive Data was last revised on 2018. Lymphocyte pct 17.6 % [facility] Comment: Interpretive Data Percent cell count reference ranges are not reported, since discordance with absolute values may lead to misinterpretation of CBC data. Current Interpretive Data was last revised on 2018. Monocyte pct 11.6 % [facility] Comment: Interpretive Data Percent cell count reference ranges are not reported, since discordance with absolute values may lead to misinterpretation of CBC data. Current Interpretive Data was last revised on 2018. Eosinophil pct 1.1 % [facility] Comment: Interpretive Data Percent cell count reference ranges are not reported, since discordance with absolute values may lead to misinterpretation of CBC data. Current Interpretive Data was last revised on 2018. Basophil pct 0.4 % [facility] Comment: Interpretive Data Percent cell count reference ranges are not reported, since discordance with absolute values may lead to misinterpretation of CBC data. Current Interpretive Data was last revised on 2018. Blood 03/07/2025 9:01 PM CDT 03/07/2025 10:08 PM CDT us Mark Almanza MD PhD LAB BLOOD JORDIN ORANTES Final Result [facility] Department [place] [address] * (ABNORMAL) CBC with auto differential (03/07/2025 9:01 PM CDT) WBC 4.48 3.80 - 9.90 K/cumm Hgb 13.4 13.0 - 17.5 g/dL [facility] Hct 40.4 38.9 - 50.3 % [facility] Plt 142(L) 150 - 400 K/cumm [facility] MPV 13.3(H) 9.1 - 12.3 fL [facility] RBC 4.63 4.30 - 5.80 M/cumm [facility] MCV 87.3 81.3 - 96.4 fL [facility] MCH 28.9 27.1 - 33.3 pg [facility] MCHC 33.2 32.3 - 35.7 g/dL [facility] RDW CV 12.7 11.1 - 14.9 % [facility] RDW SD 40.5 35.7 - 48.1 fL [facility] NRBC abs 0.00 0.00 - 0.01 K/cumm [facility] Blood 03/07/2025 9:01 PM CDT 03/07/2025 10:08 PM CDT us Mark Almanza MD PhD LAB BLOOD ORDE RABAUNDREA Final Result Performing Organization Address City/[facility]/ZIP Co de Phone Number [facility] Department [place] [address] * Phosphorus (03/07/2025 9:01 PM CDT) [facility] Phosphorus, pl 2.6 2.3 - 4.5 mg/dL Blood 03/07/2025 9:01 PM CDT 03/07/2025 10:06 PM CDT Chauncey Suárez MD PhD LAB BLOOD ORDERABLES Final Result Performing Organization Address City/[facility]/ZIP Co de Phone Number [facility] Department [place] [address] * (ABNORMAL) Basic metabolic panel (03/07/2025 9:01 PM CDT) [facility] Sodium 138 135 - 145 mmol/L Potassium, pl 3.8 3.3 - 4.9 mmol/L [facility] Chloride 105 97 - 110 mmol/L [facility] CO2 27 22 - 32 mmol/L [facility] Anion gap 6 2 - 15 mmol/L [facility] BUN 19 6 - 25 mg/dL [facility] Creatinine 0.67(L) 0.80 - 1.30 mg/dL [facility] Glucose 105 70 - 199 mg/dL [facility] Comment: Interpretive Data Fasting glucose >/= [...] 2022. Calcium 9.1 8.5 - 10.3 mg/dL [facility] Blood 03/07/2025 9:01 PM CDT 03/07/2025 10:06 PM CDT Chauncey Suárez MD PhD LAB BLOOD ORDERABLES Final Result [facility] [place] [address] * eGFR (03/06/2025 10:12 PM CDT) eGFR [...] PhD LAB BLOOD ORDERABLES Final Result [facility] [place] [address] * (ABNORMAL) Differential, auto (03/06/2025 10:12 PM CDT) Neutrophil abs 5.62 1.50 - 6.50 K/cumm Imm gran abs 0.03 0.00 - 0.10 K/cumm [facility] Lymphocyte abs 0.30(L) 0.80 - 3.30 K/cumm [facility] Monocyte abs 0.38 0.20 - 0.80 K/cumm [facility] Eosinophil abs 0.01 0.00 - 0.50 K/cumm [facility] Basophil abs 0.02 0.00 - 0.10 K/cumm [facility] Neutrophil pct 88.3 % [facility] Comment: Interpretive Data Percent cell count reference ranges are not reported, since discordance with absolute values may lead to misinterpretation of CBC data. Current Interpretive Data was last revised on 2018. Imm gran pct 0.5 % [facility] Comment: Interpretive Data Percent cell count reference ranges are not reported, since discordance with absolute values may lead to misinterpretation of CBC data. Current Interpretive Data was last revised on 2018. Lymphocyte pct 4.7 % [facility] Comment: Interpretive Data Percent cell count reference ranges are not reported, since discordance with absolute values may lead to misinterpretation of CBC data. Current Interpretive Data was last revised on 2018. Monocyte pct 6.0 % [facility] Comment: Interpretive Data Percent cell count reference ranges are not reported, since discordance with absolute values may lead to misinterpretation of CBC data. Current Interpretive Data was last revised on 2018. Eosinophil pct 0.2 % [facility] Comment: Interpretive Data Percent cell count reference ranges are not reported, since discordance with absolute values may lead to misinterpretation of CBC data. Current Interpretive Data was last revised on 2018. Basophil pct 0.3 % [facility] Comment: Interpretive Data Percent cell count reference ranges are not reported, since discordance with absolute values may lead to misinterpretation of CBC data. Current Interpretive Data was last revised on 2018. Blood 03/06/2025 10:1 2 PM CDT 03/06/2025 10:36 PM CDT us Mark Almanza MD PhD LAB BLOOD JORDIN ORANTES Final Result Performing Organization Address City/[facility]/ZIP Co de Phone Number [facility] Department [place] [address] * (ABNORMAL) CBC with auto differential (03/06/2025 10:12 PM CDT) Pathologist [facility] WBC 6.36 3.80 - 9.90 K/cumm Hgb 14.0 13.0 - 17.5 g/dL [facility] Hct 42.2 38.9 - 50.3 % [facility] Plt 126(L) 150 - 400 K/cumm [facility] MPV 13.4(H) 9.1 - 12.3 fL [facility] RBC 4.76 4.30 - 5.80 M/cumm [facility] MCV 88.7 81.3 - 96.4 fL [facility] MCH 29.4 27.1 - 33.3 pg [facility] MCHC 33.2 32.3 - 35.7 g/dL [facility] RDW CV 12.6 11.1 - 14.9 % [facility] RDW SD 40.6 35.7 - 48.1 fL [facility] NRBC abs 0.00 0.00 - 0.01 K/cumm [facility] Blood 03/06/2025 10:1 2 PM CDT 03/06/2025 10:36 PM CDT us Mark Almanza MD PhD LAB BLOOD JORDIN ORANTES Final Result [facility] Department [place] [address] * Phosphorus (03/06/2025 10:12 PM CDT) Pathologist [facility] Phosphorus, pl 2.9 2.3 - 4.5 mg/dL Blood 03/06/2025 10:1 2 PM CDT 03/06/2025 10:37 PM CDT Chauncey Suárez MD PhD LAB BLOOD ORDERABLES Final Result [facility] Department [place] [address] * (ABNORMAL) Basic metabolic panel (03/06/2025 10:12 PM CDT) [facility] Sodium 139 135 - 145 mmol/L Potassium, pl 4.2 3.3 - 4.9 mmol/L [facility] Chloride 104 97 - 110 mmol/L [facility] CO2 25 22 - 32 mmol/L [facility] Anion gap 10 2 - 15 mmol/L [facility] BUN 21 6 - 25 mg/dL [facility] Creatinine 0.79(L) 0.80 - 1.30 mg/dL [facility] Glucose 123 70 - 199 mg/dL [facility] Comment: Interpretive Data Fasting glucose >/= [...] 2022. Calcium 8.9 8.5 - 10.3 mg/dL [facility] Blood 03/06/2025 10:1 2 PM CDT 03/06/2025 10:37 PM CDT Chauncey Suárez MD PhD LAB BLOOD ORDERABLES Final Result Performing Organization Address [facility]/ZIP Co de Phone Number [facility] Department [place] [address] * Continuous Video EEG (03/06/2025 1:45 PM CDT) Anatomical Region Laterality Modality EEG Narrative 03/08/2025 4:37 PM CDT Video-EEG Report Patient Name: John Arita [facility] Record Number (MRN): [id number] [facility]: [id number] Date of (): 1955 Ordering Provider: Dr. [...] digital EEG were recorded continuously with a Anexon EEG acquisition system. This was a 32 [...] his/her intent. Signing Attending: Joshua Sage MD Mark Almanza MD PhD NEUROLOGY [facility] ROLANDA Final Result * eGFR (03/05/2025 9:12 PM [...] Inclusion of Race in Diagnosing Kidney Disease, DOMINIQUEN 2020). The CKD-EPI equation should not be used for patients with unstable renal function and has not been validated in children and those over 70. Current interpretive data was last reviewed 2021. Blood 03/05/2025 9:12 PM CDT 03/05/2025 9:49 PM CDT Chauncey Suárez MD PhD LAB BLOOD ORDERABLES Final Result [facility] Department [place] [address] * Differential, auto (03/05/2025 9:12 PM CDT) Neutrophil abs 6.45 1.50 - 6.50 K/cumm Imm gran abs 0.04 0.00 - 0.10 K/cumm [facility] Lymphocyte abs 1.53 0.80 - 3.30 K/cumm [facility] Monocyte abs 0.47 0.20 - 0.80 K/cumm [facility] Eosinophil abs 0.17 0.00 - 0.50 K/cumm [facility] Basophil abs 0.02 0.00 - 0.10 K/cumm [facility] Neutrophil pct 74.3 % [facility] Comment: Interpretive Data Percent cell count reference ranges are not reported, since discordance with absolute values may lead to misinterpretation of CBC data. Current Interpretive Data was last revised on 2018. Imm gran pct 0.5 % [facility] Comment: Interpretive Data Percent cell count reference ranges are not reported, since discordance with absolute values may lead to misinterpretation of CBC data. Current Interpretive Data was last revised on 2018. Lymphocyte pct 17.6 % [facility] Comment: Interpretive Data Percent cell count reference ranges are not reported, since discordance with absolute values may lead to misinterpretation of CBC data. Current Interpretive Data was last revised on 2018. Monocyte pct 5.4 % [facility] Comment: Interpretive Data Percent cell count reference ranges are not reported, since discordance with absolute values may lead to misinterpretation of CBC data. Current Interpretive Data was last revised on 2018. Eosinophil pct 2.0 % [facility] Comment: Interpretive Data Percent cell count reference ranges are not reported, since discordance with absolute values may lead to misinterpretation of CBC data. Current Interpretive Data was last revised on 2018. Basophil pct 0.2 % [facility] Comment: Interpretive Data Percent cell count reference ranges are not reported, since discordance with absolute values may lead to misinterpretation of CBC data. Current Interpretive Data was last revised on 2018. Blood 03/05/2025 9:12 PM CDT 03/05/2025 9:48 PM CDT us Mark Almanza MD PhD LAB BLOOD ORDMichael ORANTES Final Result [facility] Department [place] [address] * (ABNORMAL) CBC with auto differential (03/05/2025 9:12 PM CDT) WBC 8.68 3.80 - 9.90 K/cumm Hgb 15.3 13.0 - 17.5 g/dL [facility] Hct 45.6 38.9 - 50.3 % [facility] Plt 186 150 - 400 K/cumm [facility] MPV 13.8(H) 9.1 - 12.3 fL [facility] RBC 5.25 4.30 - 5.80 M/cumm [facility] MCV 86.9 81.3 - 96.4 fL [facility] MCH 29.1 27.1 - 33.3 pg [facility] MCHC 33.6 32.3 - 35.7 g/dL [facility] RDW CV 12.4 11.1 - 14.9 % [facility] RDW SD 39.6 35.7 - 48.1 fL [facility] NRBC abs 0.00 0.00 - 0.01 K/cumm [facility] Blood 03/05/2025 9:12 PM CDT 03/05/2025 9:48 PM CDT us Mark Almanza MD PhD LAB BLOOD ORDE RABLES Final Result Performing Organization Address City/[facility] Co de Phone Number [facility] Department [place] [address] * Phosphorus (03/05/2025 9:12 PM CDT) Pathologist [facility] Phosphorus, pl 3.3 2.3 - 4.5 mg/dL Blood 03/05/2025 9:12 PM CDT 03/05/2025 9:49 PM CDT us Chauncey Suárez MD PhD LAB BLOOD ORDERABLES Final Result Performing Organization Address [facility] Co de Phone Number [facility] Department [place] [address] * Magnesium (03/05/2025 9:12 PM CDT) [facility] Magnesium 2.2 1.4 - 2.5 mg/dL Blood 03/05/2025 9:12 PM CDT 03/05/2025 9:49 PM CDT us Chauncey Suárez MD PhD LAB BLOOD ORDERABLES Final Result Performing Organization Address [facility] Co de Phone Number [facility] [place] [address] * Basic metabolic panel (03/05/2025 9:12 PM CDT) Pathologist [facility] Sodium 144 135 - 145 mmol/L Potassium, pl 4.2 3.3 - 4.9 mmol/L [facility] Chloride 103 97 - 110 mmol/L [facility] CO2 28 22 - 32 mmol/L [facility] Anion gap 13 2 - 15 mmol/L [facility] BUN 20 6 - 25 mg/dL [facility] Creatinine 0.80 0.80 - 1.30 mg/dL [facility] Glucose 110 70 - 199 mg/dL [facility] Comment: Interpretive Data Fasting glucose >/= [...] 2022. Calcium 9.8 8.5 - 10.3 mg/dL [facility] Blood 03/05/2025 9:12 PM CDT 03/05/2025 9:49 PM CDT us Chauncey Suárez MD PhD LAB BLOOD ORDERABLES Final Result [facility] Department [place] [address] * MRI Brain W WO Contrast (03/05/2025 [...] PhD LAB BLOOD ORDERABLES Final Result [facility] Department [place] [address] * Differential, auto (03/04/2025 9:24 PM CDT) Neutrophil abs 5.76 1.50 - 6.50 K/cumm Imm gran abs 0.03 0.00 - 0.10 K/cumm [facility] Lymphocyte abs 1.49 0.80 - 3.30 K/cumm [facility] Monocyte abs 0.59 0.20 - 0.80 K/cumm [facility] Eosinophil abs 0.16 0.00 - 0.50 K/cumm [facility] Basophil abs 0.03 0.00 - 0.10 K/cumm [facility] Neutrophil pct 71.4 % [facility] Comment: Interpretive Data Percent cell count reference ranges are not reported, since discordance with absolute values may lead to misinterpretation of CBC data. Current Interpretive Data was last revised on 2018. Imm gran pct 0.4 % [facility] Comment: Interpretive Data Percent cell count reference ranges are not reported, since discordance with absolute values may lead to misinterpretation of CBC data. Current Interpretive Data was last revised on 2018. Lymphocyte pct 18.5 % [facility] Comment: Interpretive Data Percent cell count reference ranges are not reported, since discordance with absolute values may lead to misinterpretation of CBC data. Current Interpretive Data was last revised on 2018. Monocyte pct 7.3 % [facility] Comment: Interpretive Data Percent cell count reference ranges are not reported, since discordance with absolute values may lead to misinterpretation of CBC data. Current Interpretive Data was last revised on 2018. Eosinophil pct 2.0 % [facility] Comment: Interpretive Data Percent cell count reference ranges are not reported, since discordance with absolute values may lead to misinterpretation of CBC data. Current Interpretive Data was last revised on 2018. Basophil pct 0.4 % [facility] Comment: Interpretive Data Percent cell count reference ranges are not reported, since discordance with absolute values may lead to misinterpretation of CBC data. Current Interpretive Data was last revised on 2018. Blood 03/04/2025 9:24 PM CDT 03/04/2025 9:50 PM CDT us Mark Seevaram Varadhachary MD PhD LAB BLOOD JORDIN ORANTES Final Result [facility] [place] [address] * (ABNORMAL) CBC with auto differential (03/04/2025 9:24 PM CDT) Pathologist [facility] WBC 8.06 3.80 - 9.90 K/cumm Hgb 14.2 13.0 - 17.5 g/dL [facility] Hct 41.9 38.9 - 50.3 % [facility] Plt 177 150 - 400 K/cumm [facility] MPV 13.1(H) 9.1 - 12.3 fL [facility] RBC 4.74 4.30 - 5.80 M/cumm [facility] MCV 88.4 81.3 - 96.4 fL [facility] MCH 30.0 27.1 - 33.3 pg [facility] MCHC 33.9 32.3 - 35.7 g/dL [facility] RDW CV 12.6 11.1 - 14.9 % [facility] RDW SD 40.5 35.7 - 48.1 fL [facility] NRBC abs 0.00 0.00 - 0.01 K/cumm [facility] Blood 03/04/2025 9:24 PM CDT 03/04/2025 9:50 PM CDT Mark Almanza MD PhD LAB BLOOD ORDMichael ORANTES Final Result [facility] Department [place] [address] * Phosphorus (03/04/2025 9:24 PM CDT) Pathologist [facility] Phosphorus, pl 3.0 2.3 - 4.5 mg/dL Blood 03/04/2025 9:24 PM CDT 03/04/2025 9:50 PM CDT Chauncey Suárez MD PhD LAB BLOOD ORDERABLES Final Result [facility] [place] [address] * Magnesium (03/04/2025 9:24 PM CDT) [facility] Magnesium 2.2 1.4 - 2.5 mg/dL Blood 03/04/2025 9:24 PM CDT 03/04/2025 9:50 PM CDT Chauncey Suárez MD PhD LAB BLOOD ORDERABLES Final Result Performing Organization Address City/[facility] Co de Phone Number [facility] Department [place] [address] * Basic metabolic panel (03/04/2025 9:24 PM CDT) [facility] Sodium 142 135 - 145 mmol/L Potassium, pl 4.1 3.3 - 4.9 mmol/L [facility] Chloride 106 97 - 110 mmol/L [facility] CO2 27 22 - 32 mmol/L [facility] Anion gap 9 2 - 15 mmol/L [facility] BUN 25 6 - 25 mg/dL [facility] Creatinine 0.85 0.80 - 1.30 mg/dL [facility] Glucose 164 70 - 199 mg/dL [facility] Comment: Interpretive Data Fasting glucose >/= [...] 2022. Calcium 9.7 8.5 - 10.3 mg/dL [facility] Blood 03/04/2025 9:24 PM CDT 03/04/2025 9:50 PM CDT Chauncey Suárez MD PhD LAB BLOOD ORDERABLES Final Result Performing Organization Address City/[facility] Co de Phone Number [facility] [place] [address] * eGFR (03/03/2025 9:06 PM CDT) eGFR >90 >=60 mL/min/1. 73 [...] BLOOD ORDERABLES Final Result Performing Organization Address City/[facility]/ZIP Co de Phone Number [facility] Department [place] [address] * Differential, auto (03/03/2025 9:06 PM CDT) Neutrophil abs 6.18 1.50 - 6.50 K/cumm Imm gran abs 0.03 0.00 - 0.10 K/cumm [facility] Lymphocyte abs 1.54 0.80 - 3.30 K/cumm [facility] Monocyte abs 0.67 0.20 - 0.80 K/cumm [facility] Eosinophil abs 0.13 0.00 - 0.50 K/cumm [facility] Basophil abs 0.04 0.00 - 0.10 K/cumm [facility] Neutrophil pct 72.0 % [facility] Comment: Interpretive Data Percent cell count reference ranges are not reported, since discordance with absolute values may lead to misinterpretation of CBC data. Current Interpretive Data was last revised on 2018. Imm gran pct 0.3 % [facility] Comment: Interpretive Data Percent cell count reference ranges are not reported, since discordance with absolute values may lead to misinterpretation of CBC data. Current Interpretive Data was last revised on 2018. Lymphocyte pct 17.9 % [facility] Comment: Interpretive Data Percent cell count reference ranges are not reported, since discordance with absolute values may lead to misinterpretation of CBC data. Current Interpretive Data was last revised on 2018. Monocyte pct 7.8 % [facility] Comment: Interpretive Data Percent cell count reference ranges are not reported, since discordance with absolute values may lead to misinterpretation of CBC data. Current Interpretive Data was last revised on 2018. Eosinophil pct 1.5 % [facility] Comment: Interpretive Data Percent cell count reference ranges are not reported, since discordance with absolute values may lead to misinterpretation of CBC data. Current Interpretive Data was last revised on 2018. Basophil pct 0.5 % [facility] Comment: Interpretive Data Percent cell count reference ranges are not reported, since discordance with absolute values may lead to misinterpretation of CBC data. Current Interpretive Data was last revised on 2018. Blood 03/03/2025 9:06 PM CDT 03/03/2025 9:35 PM CDT us Mark Almanza MD PhD LAB BLOOD JORDIN ORANTES Final Result [facility] Department [place] [address] * (ABNORMAL) CBC with auto differential (03/03/2025 9:06 PM CDT) [facility] WBC 8.59 3.80 - 9.90 K/cumm Hgb 14.0 13.0 - 17.5 g/dL [facility] Hct 41.8 38.9 - 50.3 % [facility] Plt 187 150 - 400 K/cumm [facility] MPV 13.1(H) 9.1 - 12.3 fL [facility] RBC 4.71 4.30 - 5.80 M/cumm [facility] MCV 88.7 81.3 - 96.4 fL [facility] MCH 29.7 27.1 - 33.3 pg [facility] MCHC 33.5 32.3 - 35.7 g/dL [facility] RDW CV 12.7 11.1 - 14.9 % [facility] RDW SD 41.2 35.7 - 48.1 fL [facility] NRBC abs 0.00 0.00 - 0.01 K/cumm [facility] Blood 03/03/2025 9:06 PM CDT 03/03/2025 9:35 PM CDT us Mark Almanza MD PhD LAB BLOOD ORDMichael ORANTES Final Result Performing Organization Address City/[facility]/ZIP Co de Phone Number [facility] [place] [address] * Phosphorus (03/03/2025 9:06 PM CDT) [facility] Phosphorus, pl 2.6 2.3 - 4.5 mg/dL Blood 03/03/2025 9:06 PM CDT 03/03/2025 9:35 PM CDT us Chauncey Suárez MD PhD LAB BLOOD ORDERABLES Final Result [facility] [place] [address] * Magnesium (03/03/2025 9:06 PM CDT) Pathologist [facility] Magnesium 2.1 1.4 - 2.5 mg/dL Blood 03/03/2025 9:06 PM CDT 03/03/2025 9:35 PM CDT Chauncey Suárez MD PhD LAB BLOOD ORDERABLES Final Result [facility] Department [place] [address] * (ABNORMAL) Basic metabolic panel (03/03/2025 9:06 PM CDT) Pathologist [facility] Sodium 140 135 - 145 mmol/L Potassium, pl 4.3 3.3 - 4.9 mmol/L [facility] Comment:Hemolyzed; Potassium value may be falsely elevated by as much as 0.3-0.5 mmol/L. Suggest redraw and reanalysis. Chloride 105 97 - 110 mmol/L [facility] CO2 27 22 - 32 mmol/L [facility] Anion gap 8 2 - 15 mmol/L [facility] BUN 26(H) 6 - 25 mg/dL [facility] Creatinine 0.80 0.80 - 1.30 mg/dL [facility] Glucose 136 70 - 199 mg/dL [facility] Comment: Interpretive Data Fasting glucose >/= [...] 2022. Calcium 9.5 8.5 - 10.3 mg/dL [facility] Blood 03/03/2025 9:06 PM CDT 03/03/2025 9:35 PM CDT us Chauncey Suárez MD PhD LAB BLOOD ORDERABLES Final Result [facility] [place] [address] * Creatine kinase (CK), total (03/03/2025 12:20 PM CDT) CK 65 40 - 300 Units/L Blood 03/03/2025 12:2 0 PM CDT 03/03/2025 12:44 PM CDT us Mark Almanza MD PhD LAB BLOOD ORDE RABLES Final Result Performing Organization Address City/[facility] Co de Phone Number [facility] Department [place] [address] * eGFR (03/02/2025 9:04 PM CDT) eGFR [...] BLOOD ORDERABLES Final Result Performing Organization Address City/[facility] Co de Phone Number [facility] [place] [address] * (ABNORMAL) Phosphorus (03/02/2025 9:04 PM CDT) [facility] Phosphorus, pl 2.2(L) 2.3 - 4.5 mg/dL Blood 03/02/2025 9:04 PM CDT 03/02/2025 9:55 PM CDT us Chauncey Suárez MD PhD LAB BLOOD ORDERABLES Final Result Performing Organization Address [facility] Co de Phone Number [facility] [place] [address] * Magnesium (03/02/2025 9:04 PM CDT) [facility] Magnesium 2.1 1.4 - 2.5 mg/dL Blood 03/02/2025 9:04 PM CDT 03/02/2025 9:55 PM CDT us Chauncey Suárez MD PhD LAB BLOOD ORDERABLES Final Result Performing Organization Address [facility] [place] [place] [address] * Basic metabolic panel (03/02/2025 9:04 PM CDT) [facility] Sodium 140 135 - 145 mmol/L Potassium, pl 3.8 3.3 - 4.9 mmol/L [facility] Chloride 106 97 - 110 mmol/L [facility] CO2 27 22 - 32 mmol/L [facility] Anion gap 7 2 - 15 mmol/L [facility] BUN 24 6 - 25 mg/dL [facility] Creatinine 0.82 0.80 - 1.30 mg/dL [facility] Glucose 132 70 - 199 mg/dL [facility] Comment: Interpretive Data Fasting glucose >/= [...] 2022. Calcium 9.3 8.5 - 10.3 mg/dL [facility] Blood 03/02/2025 9:04 PM CDT 03/02/2025 9:55 PM CDT us Chauncey Suárez MD PhD LAB BLOOD ORDERABLES Final Result [facility] Department [place] [address] * EEG (03/02/2025 10:10 AM CDT) Anatomical Region Laterality Modality EEG Narrative 03/02/2025 1:07 PM CDT Routine EEG Report Patient Name: John Arita [facility] Record Number (MRN): [id number] [facility] Record: [id number] Date of (): 1955 EEG Date: 03/02/2025 Ordering Provider: Chris Holbrook MD CC: Kamran Rowland Start Time: 03/02/2025 9:32:40 AM End Time: 03/02/2025 9:55:28 AM Introduction: Mr. Arita is a 69 y.o. male with a history of iPD (CD IR 25/100 1/2 tab TID), hx of Bipolar (prior on [place], Esketamine, stopped 18 years ago) who presents from clinic 03/01 with AVH, decreased PO intake, AMS. EEG was performed to evaluate for seizures. This is a 32 channel EEG recording acquired on a Anexon EEG-1200 acquisition system. Scalp electrodes were placed [...] Brian Villarreal MD, PHD Jessee Cagle MD IM CT PROCEDURES Final Result * ECG 12-LEAD (03/01/2025 7:06 PM CDT) Narrative [facility] - 03/01/2025 7:06 PM CDT Daisy Lee [...] in the ED Daisy Lee MD 03/01/25 1908 Jessee Cagle MD ECG ORDERABLES Final Result [facility] * (ABNORMAL) Urinalysis reflex to microscopic and culture Urine (03/01/2025 6:57 PM CDT) Color, ur Yellow Yellow Clarity, ur Clear Clear [facility] Specific gravity, ur 1.033(H) 1.003 - 1.030 [facility] pH, urine 6.0 [facility] Comment: Interpretive Data U rine pH is affected by diet, medications, systemic acid-base disturbances, and renal tubular function. pH may affect urinary stone formation. For example, urine pH below 6.0 may help reduce the tendency for calcium phosphate stones and pH greater than 6.0 may reduce the tendency for uric acid stone formation. Source: [employer] Current Interpretive Data was last revised on 2017 Protein, ur ql 1+(A) Negative [facility] Glucose, ur ql Negative Negative [facility] Ketones, ur 3+(A) Negative [facility] Bilirubin, ur Negative Negative [facility] Blood, ur Trace(A) Negative [facility] Urobilinogen, ur <2.0 <2.0 mg/dL [facility] Nitrite, ur Negative Negative [facility] Leukocyte esterase, ur Negative Negative [facility] UA reflex comment Reflex to microscopic UA will be performed. [facility] Urine 03/01/2025 6:57 PM CDT 03/01/2025 7:01 PM CDT us Jessee Cagle MD LAB MICROBIOLOGY - GENERAL ORD ERABLES Final Result [facility] Department [place] [address] * (ABNORMAL) Drugs of Abuse Screen, Urine without Confirmation (03/01/2025 6:57 PM CDT) Pathologist [facility] Amphetamine, ur Not Detected CutOff 500ng/mL Comment: Interpretive Data - Amphetamines: Samples containing greater than 500 ng/mL d-methamphetamine or other cross-reacting amphetamine compounds are reported as positive. Amphetamine immunoassays are subject to significant false positive rates due to cross-reactivity of non-amphetamine drugs. Confirmatory testing required for definitive results. Current Interpretive Data was last reviewed 2023. Barbiturates, ur Not Detected CutOff 200ng/mL [facility] Comment: Interpretive Data - Barbiturates: Samples containing greater than 200 ng/mL secobarbital or other cross-reacting barbiturate compounds are reported as positive. False positive and false negative results are possible. Confirmatory testing required for definitive results. Current Interpretive Data was last reviewed 2023. Benzodiazepines, ur Screen Positive, presumptive (A) CutOff 100ng/mL [facility] Comment: Interpretive Data - Benzodiazepines: Samples containing greater than 100 ng/mL nordiazepam or other cross-reacting compounds are reported as positive. False positive and false negative results are possible. Confirmatory testing required for definitive results. Current Interpretive Data was last reviewed 2023. Cannabinoids, ur Not Detected CutOff 50 ng/mL [facility] Comment: Interpretive Data - Cannabinoids: Samples containing greater than 50 ng/mL delta-9 THC -COOH or other cross- reacting compounds are reported as positive. False positive and false negative results are possible. Confirmatory testing required for definitive results. Current Interpretive Data was last reviewed 2023. Cocaine, ur Not Detected CutOff 150ng/mL [facility] Comment: Interpretive Data - Cocaine: Samples containing greater than 150 ng/mL benzoylecgonine or other cross- reacting compounds are reported as positive. False positive and false negative results are possible. Confirmatory testing required for definitive results. Current Interpretive Data was last reviewed 2023. Fentanyl, Ur Not Detected CutOff 5 ng/mL [facility] Comment: Interpretive Data - Fentanyl: Samples containing greater than 5 ng/mL norfentanyl, fentanyl, or other cross-reacting fentanyl compounds are reported as positive. False positive and false negative results are possible. Confirmatory testing required for definitive results. Current Interpretive Data was last reviewed 2024. Methadone, ur Not Detected CutOff 300ng/mL [facility] Comment: Interpretive Data - Methadone: Samples containing greater than 300 ng/mL d,l-methadone or other cross-reacting compounds are reported as positive. False positive and false negative results are possible. Confirmatory testing required for definitive results. Current Interpretive Data was last reviewed 2023. Opiates, ur Not Detected CutOff 300ng/mL [facility] Comment: Interpretive Data - Opiates: Samples containing greater than 300 ng/mL morphine or other cross-reacting compounds are reported as positive. False positive and false negative results are possible. Confirmatory testing required for definitive results. Current Interpretive Data was last reviewed 2023. Oxycodone, ur Not Detected CutOff 100ng/mL [facility] Comment: Interpretive Data - Oxycodone: Samples containing greater than 100 ng/mL oxycodone or other cross-reacting compounds are reported as positive. False positive and false negative results are possible. Confirmatory testing required for definitive results. Current Interpretive Data was last reviewed 2023. Phencyclidine, ur Not Detected CutOff 25 ng/mL [facility] Comment: Interpretive Data - Phencyclidine: Samples containing greater than 25 ng/mL phencyclidine or other cross-reacting compounds are reported as positive. False positive and false negative results are possible. Confirmatory testing required for definitive results. Current Interpretive Data was last reviewed 2023. Urine Creatinine 187 mg/dL [facility] Comment: Interpretive Data Urine Creatinine: < 10 mg/dL is extremely dilute = or > 10 but < 20 mg/dL is dilute = or > 20 mg/dL is normal Current Interpretive Data was last revised on 2018. Urine 03/01/2025 6:57 PM CDT 03/01/2025 7:02 PM CDT Narrative [facility] - 03/01/2025 7:38 PM CDT Drug of Abuse screening is performed by immunoassay for medical purposes only. This is not to be used for Pain Management purposes. Jessee Cagle MD LAB URINE ORDERABLES Final Res ult Performing Organization Address [facility] Co de Phone Number [facility] [place] [address] * (ABNORMAL) Urinalysis, microscopic only (03/01/2025 6:57 PM CDT) WBC, ur 0-5 0 - 5 /HPF RBC, ur 0-2 0 - 2 /HPF [facility] Mucous, ur Present(A) [facility] Hyaline casts, ur 21-50(A) 0 - 10 /LPF [facility] Culture Reflex Comment Reflex conditions for urine culture (WBC >10) not met. [facility] Urine 03/01/2025 6:57 PM CDT 03/01/2025 7:01 PM CDT Jessee Cagle MD LAB URINE ORDERABLES Final Res ult Performing Organization Address [facility] Co de Phone Number [facility] [place] [address] * Troponin I high-sensitivity (03/01/2025 5:58 PM CDT) Trop I hs 7 <=35 ng/L Comment: Interpretive Data For further [facility] resources including the diagnostic algorithm and an aid in interpretation, copy and paste this link: https://bjhlab.testcatalog.org/show/[email or web address] Current Interpretive Data last revised 2020. Blood 03/01/2025 5:58 PM CDT 03/01/2025 6:18 PM CDT Jessee Cagle MD LAB BLOOD ORDERABLES Final Res ult Performing Organization Address [facility] Co de Phone Number [facility] [place] [address] * eGFR (03/01/2025 5:58 PM CDT) eGFR [...] ORDERABLES Final Res ult Performing Organization Address [facility]/ZIP Co de Phone Number [facility] [place] [address] * (ABNORMAL) Differential, auto (03/01/2025 5:58 PM CDT) Neutrophil abs 9.83(H) 1.50 - 6.50 K/cumm Imm gran abs 0.05 0.00 - 0.10 K/cumm [facility] Lymphocyte abs 0.97 0.80 - 3.30 K/cumm [facility] Monocyte abs 0.62 0.20 - 0.80 K/cumm [facility] Eosinophil abs 0.03 0.00 - 0.50 K/cumm [facility] Basophil abs 0.02 0.00 - 0.10 K/cumm [facility] Neutrophil pct 85.3 % [facility] Comment: Interpretive Data Percent cell count reference ranges are not reported, since discordance with absolute values may lead to misinterpretation of CBC data. Current Interpretive Data was last revised on 2018. Imm gran pct 0.4 % [facility] Comment: Interpretive Data Percent cell count reference ranges are not reported, since discordance with absolute values may lead to misinterpretation of CBC data. Current Interpretive Data was last revised on 2018. Lymphocyte pct 8.4 % [facility] Comment: Interpretive Data Percent cell count reference ranges are not reported, since discordance with absolute values may lead to misinterpretation of CBC data. Current Interpretive Data was last revised on 2018. Monocyte pct 5.4 % [facility] Comment: Interpretive Data Percent cell count reference ranges are not reported, since discordance with absolute values may lead to misinterpretation of CBC data. Current Interpretive Data was last revised on 2018. Eosinophil pct 0.3 % [facility] Comment: Interpretive Data Percent cell count reference ranges are not reported, since discordance with absolute values may lead to misinterpretation of CBC data. Current Interpretive Data was last revised on 2018. Basophil pct 0.2 % [facility] Comment: Interpretive Data Percent cell count reference ranges are not reported, since discordance with absolute values may lead to misinterpretation of CBC data. Current Interpretive Data was last revised on 2018. Blood 03/01/2025 5:58 PM CDT 03/01/2025 6:18 PM CDT Jessee Cagle MD LAB BLOOD ORDERABLES Final Res ult Performing Organization Address [facility]/ZIP Co de Phone Number [facility] [place] [address] * (ABNORMAL) CBC with auto differential (03/01/2025 5:58 PM CDT) [facility] WBC 11.52(H) 3.80 - 9.90 K/cumm Hgb 15.4 13.0 - 17.5 g/dL [facility] Hct 45.6 38.9 - 50.3 % [facility] Plt 223 150 - 400 K/cumm [facility] MPV 13.8(H) 9.1 - 12.3 fL [facility] RBC 5.18 4.30 - 5.80 M/cumm [facility] MCV 88.0 81.3 - 96.4 fL [facility] MCH 29.7 27.1 - 33.3 pg [facility] MCHC 33.8 32.3 - 35.7 g/dL [facility] RDW CV 12.9 11.1 - 14.9 % [facility] RDW SD 41.4 35.7 - 48.1 fL [facility] NRBC abs 0.00 0.00 - 0.01 K/cumm [facility] Blood 03/01/2025 5:58 PM CDT 03/01/2025 6:18 PM CDT Jessee Cagle MD LAB BLOOD ORDERABLES Final Res ult [facility] Department [place] [address] * (ABNORMAL) Comprehensive metabolic panel (03/01/2025 5:58 PM CDT) [facility] Sodium 141 135 - 145 mmol/L Potassium, pl 4.0 3.3 - 4.9 mmol/L [facility] Chloride 103 97 - 110 mmol/L [facility] CO2 18(L) 22 - 32 mmol/L [facility] Anion gap 20(H) 2 - 15 mmol/L [facility] BUN 28(H) 6 - 25 mg/dL [facility] Creatinine 1.02 0.80 - 1.30 mg/dL [facility] Glucose 107 70 - 199 mg/dL [facility] Comment: Interpretive Data Fasting glucose >/= [...] 2022. Calcium 9.7 8.5 - 10.3 mg/dL [facility] Bilirubin, total 0.7 0.1 - 1.2 mg/dL [facility] Protein, pl 7.5 6.5 - 8.5 g/dL [facility] Albumin 4.1 3.5 - 5.0 g/dL [facility] Alk phos 79 40 - 130 Units/L [facility] ALT 10 7 - 55 Units/L [facility] AST 25 10 - 50 Units/L [facility] Blood 03/01/2025 5:58 PM CDT 03/01/2025 6:18 PM CDT us Jessee Cagle MD LAB BLOOD ORDERABLES Final Res ult [facility] Department [place] [address] * Troponin I high-sensitivity 2-hour (02/17/2025 11:13 AM CDT) Trop I hs <4 <=35 ng/L Comment: Interpretive Data For further hscTnI resources including the diagnostic algorithm and an aid in interpretation, copy and paste this link: https://bjhlab.testcatalog.org/show/[email or web address] Current Interpretive Data last revised 2020. Trop I hs delta 0 ng/L [facility] Trop I hs interp Insignificant [facility] Blood 02/17/2025 11:1 3 AM CDT 02/17/2025 11:18 AM CDT Sue Buckley MD LAB BLOOD ORDERABLES Final Result [facility] Department [place] [address] * Drugs of Abuse Screen, Urine with Reflex Confirmation (02/17/2025 10:48 AM CDT) Pathologist [facility] Amphetamine, ur Not Detected CutOff 500ng/mL Comment: Interpretive Data - Amphetamines: Samples containing greater than 500 ng/mL d-methamphetamine or other cross-reacting amphetamine compounds are reported as positive. Amphetamine immunoassays are subject to significant false positive rates due to cross-reactivity of non-amphetamine drugs. Confirmatory testing required for definitive results. Current Interpretive Data was last reviewed 2023. Barbiturates, ur Not Detected CutOff 200ng/mL [facility] Comment: Interpretive Data - Barbiturates: Samples containing greater than 200 ng/mL secobarbital or other cross-reacting barbiturate compounds are reported as positive. False positive and false negative results are possible. Confirmatory testing required for definitive results. Current Interpretive Data was last reviewed 2023. Benzodiazepines, ur Not Detected CutOff 100ng/mL [facility] Comment: Interpretive Data - Benzodiazepines: Samples containing greater than 100 ng/mL nordiazepam or other cross-reacting compounds are reported as positive. False positive and false negative results are possible. Confirmatory testing required for definitive results. Current Interpretive Data was last reviewed 2023. Cannabinoids, ur Not Detected CutOff 50 ng/mL [facility] Comment: Interpretive Data - Cannabinoids: Samples containing greater than 50 ng/mL delta-9 THC -COOH or other cross- reacting compounds are reported as positive. False positive and false negative results are possible. Confirmatory testing required for definitive results. Current Interpretive Data was last reviewed 2023. Cocaine, ur Not Detected CutOff 150ng/mL [facility] Comment: Interpretive Data - Cocaine: Samples containing greater than 150 ng/mL benzoylecgonine or other cross- reacting compounds are reported as positive. False positive and false negative results are possible. Confirmatory testing required for definitive results. Current Interpretive Data was last reviewed 2023. Fentanyl, Ur Not Detected CutOff 5 ng/mL [facility] Comment: Interpretive Data - Fentanyl: Samples containing greater than 5 ng/mL norfentanyl, fentanyl, or other cross-reacting fentanyl compounds are reported as positive. False positive and false negative results are possible. Confirmatory testing required for definitive results. Current Interpretive Data was last reviewed 2024. Methadone, ur Not Detected CutOff 300ng/mL [facility] Comment: Interpretive Data - Methadone: Samples containing greater than 300 ng/mL d,l-methadone or other cross-reacting compounds are reported as positive. False positive and false negative results are possible. Confirmatory testing required for definitive results. Current Interpretive Data was last reviewed 2023. Opiates, ur Not Detected CutOff 300ng/mL [facility] Comment: Interpretive Data - Opiates: Samples containing greater than 300 ng/mL morphine or other cross-reacting compounds are reported as positive. False positive and false negative results are possible. Confirmatory testing required for definitive results. Current Interpretive Data was last reviewed 2023. Oxycodone, ur Not Detected CutOff 100ng/mL [facility] Comment: Interpretive Data - Oxycodone: Samples containing greater than 100 ng/mL oxycodone or other cross-reacting compounds are reported as positive. False positive and false negative results are possible. Confirmatory testing required for definitive results. Current Interpretive Data was last reviewed 2023. Phencyclidine, ur Not Detected CutOff 25 ng/mL [facility] Comment: Interpretive Data - Phencyclidine: Samples containing greater than 25 ng/mL phencyclidine or other cross-reacting compounds are reported as positive. False positive and false negative results are possible. Confirmatory testing required for definitive results. Current Interpretive Data was last reviewed 2023. Urine Creatinine 97 mg/dL [facility] Comment: Interpretive Data Urine Creatinine: < 10 mg/dL is extremely dilute = or > 10 but < 20 mg/dL is dilute = or > 20 mg/dL is normal Current Interpretive Data was last revised on 2018. Urine 02/17/2025 10:4 8 AM CDT 02/17/2025 10:57 AM CDT Narrative [facility] - 02/17/2025 12:05 PM CDT Drug of Abuse screening is performed by immunoassay for medical purposes only. This is not to be used for Pain Management purposes. If Detected, confirmation testing will be performed for Amphetamines, Cocaine, Fentanyl, Methadone, Opiates, Oxycodone or Phencyclidine. us Dora Alcaraz MD LAB URINE ORDERABLES Final Resu lt [facility] Department [place] [address] * Urinalysis reflex to microscopic and culture Urine (02/17/2025 10:48 AM CDT) Color, ur Straw Yellow Clarity, ur Clear Clear [facility] Specific gravity, ur 1.018 1.003 - 1.030 [facility] pH, urine 7.0 [facility] Comment: Interpretive Data U rine pH is affected by diet, medications, systemic acid-base disturbances, and renal tubular function. pH may affect urinary stone formation. For example, urine pH below 6.0 may help reduce the tendency for calcium phosphate stones and pH greater than 6.0 may reduce the tendency for uric acid stone formation. Source: [facility] Current Interpretive Data was last revised on 2017 Protein, ur ql Trace Negative [facility] Glucose, ur ql Negative Negative [facility] Ketones, ur Negative Negative [facility] Bilirubin, ur Negative Negative [facility] Blood, ur Negative Negative [facility] Urobilinogen, ur <2.0 <2.0 mg/dL [facility] Nitrite, ur Negative Negative [facility] Leukocyte esterase, ur Negative Negative [facility] UA reflex comment Reflex conditions for microscopic UA and culture not met. [facility] Urine 02/17/2025 10:4 8 AM CDT 02/17/2025 10:55 AM CDT Sue Buckley MD LAB MICROBIOLOGY - G ENERAL ORDERABLES Final Result Performing Organization Address City/[facility]/ZIP Co de Phone Number [facility] [place] [address] * HIV 1/2 Antibody plus p24 Antigen Blood (02/17/2025 9:39 AM CDT) [facility] HIV 1/2 ab + p24 ag Nonreactive [...] ENERAL ORDERABLES Final Result Performing Organization Address City/[facility] Co de Phone Number [facility] [address] * Respiratory pathogen panel Nasopharyngeal (02/17/2025 9:39 AM CDT) [facility] Influenza A RNA Not Detected Not Detected Influenza B RNA Not Detected Not Detected [facility] RSV RNA Not Detected Not Detected [facility] COVID-19 RNA Not Detected Not Detected [facility] Coronavirus 229E RNA Not Detected Not Detected [facility] Coronavirus HKU1 RNA Not Detected Not Detected [facility] Coronavirus NL63 RNA Not Detected Not Detected [facility] Coronavirus OC43 RNA Not Detected Not Detected [facility] Adenovirus DNA Not Detected Not Detected [facility] [facility] Metapneumovirus RNA Not Detected Not Detected [facility] Rhinovirus/Enterov irus RNA Not Detected Not Detected [facility] Parainfluenza 1 RNA Not Detected Not Detected [facility] Parainfluenza 2 RNA Not Detected Not Detected [facility] Parainfluenza 3 RNA Not Detected Not Detected [facility] Parainfluenza 4 RNA Not Detected Not Detected [facility] B. pertussis DNA Not Detected Not Detected [facility] B. parapertussis DNA Not Detected Not Detected [facility] C. pneumoniae DNA Not Detected Not Detected [facility] M. pneumoniae DNA Not Detected Not Detected [facility] Nasopharyngeal 02/17/2025 9: 39 AM CDT 02/17/2025 10:01 AM CDT Narrative [facility] - 02/17/2025 11:00 AM CDT Is the Patient experiencing symptoms consistent with COVID?->Unknown Surveillance testing for transplant patient?->No Interpretive Data The [employer] FilmArray Respiratory Panel (RP2.1) assay is a [...] assay has FDA clearance for testing of AIR VALVE REPAIRER swabs. The performance of additional specimen types has been assessed by the performing laboratory. The performance characteristics of this assay have been determined by [facility] Molecular Infectious Disease Laboratory. Current interpretive data was last revised on 22. Sue Buckley MD LAB MICROBIOLOGY - G ENERAL ORDERABLES Final Result Performing Organization Address City/[facility] Co de Phone Number [facility] [place] [address] * Methylmalonic acid, serum (02/17/2025 9:39 AM CDT) [facility] Signature MMA 0.10 <=0.40 nmol/mL [place] [facility] Comment: ADDITIONAL INFORMATION This test was developed and its performance characteristics determined by [facility] in a manner consistent with CLIA requirements. This test has not been cleared or approved by the U.S. Food and Drug Administration. Test Performed by: [facility] - [address] [address] [employer]: Harman Escobar Ph.D.; CLIA# [id number] Blood 02/17/2025 9:39 AM CDT 02/17/2025 4:41 PM CDT Sue Buckley MD LAB BLOOD ORDERABLES Final Result Performing Organization Address City/State/[facility] Co de Phone Number [facility] Department [place] [address] [place] [facility] * RPR Blood (02/17/2025 9:39 AM CDT) [facility] RPR Nonreactive Nonreactive Blood 02/17/2025 9:39 AM CDT 02/17/2025 9:54 AM CDT Sue Buckley MD LAB MICROBIOLOGY - G ENERAL ORDERABLES Final Result Performing Organization Address City/[facility] Co de Phone Number VITO [facility] Department [place] [address] * Vitamin B1 (02/17/2025 9:39 AM CDT) [facility] Thiamine (Vit B1) 125 70 - 180 nmol/L [facility] Lab Comment: ADDITIONAL INFORMATION This test was developed and its performance characteristics determined by [facility] in a manner consistent with CLIA requirements. This test has not been cleared or approved by the U.S. Food and Drug Administration. Test Performed by: [facility] [place] [address] [employer]: Harman Escobar Ph.D.; CLIA# [id number] Blood 02/17/2025 9:39 AM CDT 02/17/2025 10:24 AM CDT Sue Buckley MD LAB BLOOD ORDERABLES Final Result Performing Organization Address City/[facility] Co de Phone Number [facility] [place] [address] [facility] * Folate (02/17/2025 9:39 AM CDT) [facility] Folic acid See Comment >=5.0 ng/mL Comment: Credited; Hemolyzed Specimen Telephone report made to: Raissa ZHANG) on 02/17/2025 12:35:08 CDT by [facility] . Blood 02/17/2025 9:39 AM CDT 02/17/2025 9:54 AM CDT Sue Buckley MD LAB BLOOD ORDERABLES Final Result Performing Organization Address [facility] Co de Phone Number [facility] [place] [address] * Vitamin B12 (02/17/2025 9:39 AM CDT) Vitamin B12 425 230 - 1,250 pg/mL Blood 02/17/2025 9:39 AM CDT 02/17/2025 9:54 AM CDT us Sue Buckley MD LAB BLOOD ORDERABLES Final Result Performing Organization Address [facility] de Phone Number [facility] Department [place] [address] * Creatine kinase (CK), total (02/17/2025 9:39 AM CDT) CK 59 40 - 300 Units/L Blood 02/17/2025 9:39 AM CDT 02/17/2025 9:54 AM CDT us Dago Alvarado MD LAB BLOOD ORDERABLES Razia l Result Performing Organization Address [facility] [place] [place] [address] * XR Chest 1 View (02/17/2025 9:24 [...] ECG 12-LEAD (02/17/2025 9:22 AM CDT) Narrative [facility] - 02/17/2025 9:22 AM CDT Dora Alcaraz [...] Buckley MD ECG ORDERABLES Razia l Result Performing Organization Address City/State/[facility] Co de Phone Number [facility] * Troponin I high-sensitivity series (baseline, 2hr, 4hr, 6hr) (02/17/2025 9:12 AM CDT) Trop I hs <4 <=35 ng/L Comment: Interpretive Data For further hscTnI resources including the diagnostic algorithm and an aid in interpretation, copy and paste this link: https://bjhlab.testcatalog.org/show/[email or web address] Current Interpretive Data last revised 2020. Blood 02/17/2025 9:12 AM CDT 02/17/2025 9:20 AM CDT us Sue Buckley MD LAB BLOOD ORDERABLES Final Result Performing Organization Address City/[facility] Co de Phone Number [facility] Department [place] [address] * POCT glucose (02/17/2025 8:57 AM CDT) Glucose, POC 118 70 - 199 mg/dL Blood 02/17/2025 8:57 AM CDT 02/17/2025 8:57 AM CDT Dora Alcaraz MD LAB POCT ORDERABLES - DEVICE Fi nal Result Performing Organization Address City/[facility]/ZIP Co de Phone Number [facility] [place] [address] * eGFR (02/17/2025 8:54 AM CDT) eGFR >90 >=60 mL/min/1. 73 [...] BLOOD ORDERABLES Final Result Performing Organization Address City/[facility]/ZIP Co de Phone Number [facility] Department [place] [address] * Differential, auto (02/17/2025 8:54 AM CDT) Neutrophil abs 5.45 1.50 - 6.50 K/cumm Imm gran abs 0.04 0.00 - 0.10 K/cumm [facility] Lymphocyte abs 1.21 0.80 - 3.30 K/cumm [facility] Monocyte abs 0.39 0.20 - 0.80 K/cumm [facility] Eosinophil abs 0.08 0.00 - 0.50 K/cumm [facility] Basophil abs 0.03 0.00 - 0.10 K/cumm [facility] Neutrophil pct 75.7 % [facility] Comment: Interpretive Data Percent cell count reference ranges are not reported, since discordance with absolute values may lead to misinterpretation of CBC data. Current Interpretive Data was last revised on 2018. Imm gran pct 0.6 % [facility] Comment: Interpretive Data Percent cell count reference ranges are not reported, since discordance with absolute values may lead to misinterpretation of CBC data. Current Interpretive Data was last revised on 2018. Lymphocyte pct 16.8 % [facility] Comment: Interpretive Data Percent cell count reference ranges are not reported, since discordance with absolute values may lead to misinterpretation of CBC data. Current Interpretive Data was last revised on 2018. Monocyte pct 5.4 % [facility] Comment: Interpretive Data Percent cell count reference ranges are not reported, since discordance with absolute values may lead to misinterpretation of CBC data. Current Interpretive Data was last revised on 2018. Eosinophil pct 1.1 % [facility] Comment: Interpretive Data Percent cell count reference ranges are not reported, since discordance with absolute values may lead to misinterpretation of CBC data. Current Interpretive Data was last revised on 2018. Basophil pct 0.4 % [facility] Comment: Interpretive Data Percent cell count reference ranges are not reported, since discordance with absolute values may lead to misinterpretation of CBC data. Current Interpretive Data was last revised on 2018. Blood 02/17/2025 8:54 AM CDT 02/17/2025 9:00 AM CDT Sue Buckley MD LAB BLOOD ORDERABLES Final Result [facility] [place] [address] * Thyroid Function Rock (02/17/2025 8:54 AM CDT) [facility] TSH 3.10 0.30 - 4.20 mcIUnit/mL Blood 02/17/2025 8:54 AM CDT 02/17/2025 9:00 AM CDT Sue Buckley MD LAB BLOOD ORDERABLES Final Result Performing Organization Address City/[facility] Co de Phone Number [facility] [place] [address] * (ABNORMAL) CBC with auto differential (02/17/2025 8:54 AM CDT) [facility] WBC 7.20 3.80 - 9.90 K/cumm Hgb 16.3 13.0 - 17.5 g/dL [facility] Hct 47.8 38.9 - 50.3 % [facility] Plt 197 150 - 400 K/cumm [facility] MPV 12.4(H) 9.1 - 12.3 fL [facility] RBC 5.50 4.30 - 5.80 M/cumm [facility] MCV 86.9 81.3 - 96.4 fL [facility] MCH 29.6 27.1 - 33.3 pg [facility] MCHC 34.1 32.3 - 35.7 g/dL [facility] RDW CV 12.5 11.1 - 14.9 % [facility] RDW SD 39.8 35.7 - 48.1 fL [facility] NRBC abs 0.00 0.00 - 0.01 K/cumm [facility] Blood 02/17/2025 8:54 AM CDT 02/17/2025 9:00 AM CDT Sue Buckley MD LAB BLOOD ORDERABLES Final Result Performing Organization Address [facility] Co de Phone Number [facility] [place] [address] * Ethanol (02/17/2025 8:54 AM CDT) Pathologist [facility] Ethanol <10 <=10 mg/dL Comment: Interpretive Data Legal limit of intoxication > or = 80 mg/dL Levels > or = 400 mg/dL are potentially TOXIC. Current interpretive data was last revised on 2018. Blood 02/17/2025 8:54 AM CDT 02/17/2025 9:00 AM CDT Dora Alcaraz MD LAB BLOOD ORDERABLES Final Resu lt Performing Organization Address [facility] de Phone Number [facility] Department [place] [address] * Comprehensive metabolic panel (02/17/2025 8:54 AM CDT) Pathologist [facility] Sodium 140 135 - 145 mmol/L Potassium, pl 4.7 3.3 - 4.9 mmol/L [facility] Comment:Hemolyzed; Potassium value may be falsely elevated by as much as 0.3-0.5 mmol/L. Suggest redraw and reanalysis. Chloride 104 97 - 110 mmol/L [facility] CO2 25 22 - 32 mmol/L [facility] Anion gap 11 2 - 15 mmol/L [facility] BUN 15 6 - 25 mg/dL [facility] Creatinine 0.88 0.80 - 1.30 mg/dL [facility] Glucose 125 70 - 199 mg/dL [facility] Comment: Interpretive Data Fasting glucose >/= [...] pl 7.8 6.5 - 8.5 g/dL [facility] Albumin 4.4 3.5 - 5.0 g/dL [facility] Alk phos 75 40 - 130 Units/L [facility] ALT 12 7 - 55 Units/L [facility] AST 25 10 - 50 Units/L [facility] Comment:Hemolyzed; result ma y be falsely elevated Blood 02/17/2025 8:54 AM CDT 02/17/2025 9:00 AM CDT us Sue Buckley MD LAB BLOOD ORDERABLES Final Result Performing Organization Address [facility]/ZIP Co de Phone Number [facility] Department [place] [address] * Neuro CT Outside Reference (02/14/2025 8:18 AM CDT) Impressions [facility] - 02/14/2025 8:18 AM CDT These images are for Reference purposes only and have not been reviewed by [facility]. There will be no report generated by a [facility]iologist. Narrative [facility] - 02/14/2025 8:18 AM CDT EXAMINATION: Images For Reference Purposes Only us Zander Lugo MD PhD IMG CT PROCEDURES F inal Result [facility] from Last 3 Months Insurance [employer] Advance Directives For more information, please contact: [phone] * Full Code (Latest Code Status on File) Date Activated Date Inactivated Comments 03/02/2025 1:33 AM 03/29/2025 8:54 PM Care Teams Fishing Hand Relationship Specialty Start Date End Date Kamran Rowland MD [address] [address] PCP - General Family Medicine 05/25/18
== END ==
PROVIDERS: PCP Nurse Practitioner Family; Visit Provider Nurse Practitioner Family
DX: M17.11 Unilateral primary osteoarthritis, right knee (principal); M25.561 Pain in right knee
CPT/HCPCS: 73564